=== PATIENT | female | born 1965 | race Caucasian/White ===

== ENCOUNTER → 2017-07-08 16:02 | Outpatient (CLI) | payer OTHER, SELFPAY ==
[2017-07-08 15:02] VITALS: BP 138/80
[2017-07-08 15:38] VITALS: BMI 57.7
[2017-07-08 17:42] LABS: Anion Gap 9 (5-15); BUN 24 mg/dL (7-18); Calcium,Total 8.6 mg/dL (8.5-10.1); Chloride 100 mmol/L (98-107); EST Glomerular Filtration Rate 36 mL/min (>60); Est Glom Filt Rate - Afr Amer 44 mL/min (>60); Glucose 358 mg/dL (70-110); Potassium 3.9 mmol/L (3.5-5.1); Sodium Level 135 mmol/L (136-145)
[2017-07-08 18:02] LABS: BNP,B-Type NATRIURETIC PEPTIDE 82.1 pg/mL (0-100)
== END ==
PROVIDERS: Family Provider Nurse Practitioner; PCP Nurse Practitioner; Visit Provider Internal Medicine Cardiovascular Disease
DX: I50.9 Heart failure, unspecified (principal)
CPT/HCPCS: 36415; 80048; 83880

== ENCOUNTER → 2017-07-22 09:54 | Outpatient (CLI) | payer OTHER, SELFPAY ==
[2017-07-08 15:02] VITALS: BP 138/80
[2017-07-08 15:38] VITALS: BMI 57.7
--- NOTE | 2017-07-22 09:55 | ECHOCS_ITS ---
Version 2 Reason For Study: dyspnea/SOB Procedure This was a 2D Doppler, Color Flow transthoracic echocardiogram. The study was technically difficult. Due to body habitus. Contrast injection was performed. Exam performed in department. Left Ventricle Normal LV size. The estimated ejection fraction is 55 %. No evidence for diastolic dysfunction. No regional wall motion abnormalities noted. Right Ventricle Normal RV size. Normal systolic function. Atria The left atrium is mildly enlarged. Normal right atrium. Mitral Valve Normal mitral valve. Tricuspid Valve Normal tricuspid valve. Mild tricuspid valve insufficiency. Pulmonary artery systolic pressure is 24 mmHg. Aortic Valve The aortic valve is not well visualized. Pulmonic Valve The pulmonic valve is not well visualized. Great Vessels Normal aortic root. The pulmonary artery is normal size. Normal inferior vena cava. Pericardium/Pleural No pericardial effusion. Medication 22 gauge I.V. with prn adaptor inserted into right arm. Diluted definity 1.5ml given slow IV push to enhance endocardial definition. MMode/2D Measurements & Calculations LVIDd: 5.9 cm IVSd: 1.4 cm Ao root diam: 2.9 cm LVIDs: 4.5 cm LVPWd: 1.2 cm LA dimension: 4.5 cm RVDd: 3.4 cm FS: 23.5 % LAV(MOD-bp): 80.0 ml LAV(MOD-bp) Indexed: 31.3 ml/m2 LA A4 area: 24.1 cm2 RA A4 area: 16.8 cm2 LAV(MOD-sp2): 77.9 ml LAV(MOD-sp4): 72.4 ml Doppler Measurements & Calculations MV E max yessi: 131.9 cm/sec Ao V2 max: 138.2 cm/sec LV V1 max: 103.5 cm/sec MV A max yessi: 39.3 cm/sec Ao max P.6 mmHg LV V1 max P.3 mmHg MV E/A: 3.4 PA V2 max: 118.3 cm/sec TR max yessi: 215.3 cm/sec TR max P.5 mmHg Interpretation Summary Normal LV size. The estimated ejection fraction is 55 %. No regional wall motion abnormalities noted. Mild tricuspid valve insufficiency. No evidence for diastolic dysfunction. Contrast injection was performed. Ordering Physician: Hema Faustin Referring Physician: Hema Faustin Performed By: Teena Betancur, RDCS, RVT
== END ==
PROVIDERS: Family Provider Nurse Practitioner; PCP Nurse Practitioner; Visit Provider Internal Medicine Cardiovascular Disease
DX: I50.9 Heart failure, unspecified (principal); R06.00 Dyspnea, unspecified; R06.02 Shortness of breath
CPT/HCPCS: 93306; Q9957; A4216; C8929

== ENCOUNTER → 2017-08-03 12:36 | Outpatient (CLI) | payer OTHER, SELFPAY ==
[2017-07-08 15:02] VITALS: BP 138/80
[2017-07-08 15:38] VITALS: BMI 57.7
--- NOTE | 2017-08-03 12:37 | STE_ITS ---
Reason For Study: DYSPNEA/SOB Stress Results Protocol: Dobutamine Protocol Maximum Predicted HR: 169 bpm Target HR: 144 bpm% Maximum Predicted HR: 81 % DurationHeart Rate Stage (mm:ss) (bpm) BPDose Comment BASELINE 100 166/9 5 0.1 ML DEFINITY STAGE 1 3:34 10 7 142/03774.000.1 ML STAGE 2 3:00 12 0 183/8320.00 STAGE 3 3:00 12 7 190/7330.000.25 MG ATROPINE STAGE 4 3:00 13 7 162/6740.000.25 MG ATROPINE/ 0.2 ML DEFINITY RECOVERY 106 149/7 5 0.3 ML DEFINITY Stress Duration: 12:34 mm:ss Maximum Stress HR: 137 bpm Baseline Echocardiogram Findings Stress Echo Wall motion Data Resting WMIntermediate WMStress WM Resting Wall Motion Wall Motion Stress Ejection Fraction 45 %. No regional wall motion Mid-anteroseptal : Hypokinetic. abnormalities noted. Ejection Fraction 65 %. Stress Results Drug infusion was stopped due to achievement of target heart rate. EKG Data Baseline ECG demonstrates normal sinus rhythm with a rate of 104 beats per minute. Normal intervals are noted. The resting blood pressure was 166/95. The patient was titrated from 10 mcg to a maximum of 40 mcg of dobutamine during the stress. The maximum heart rate attained was 139 beats per minute. This was 82% of maximum predicted heart rate. During dobutamine infusion, there were no ST or T wave changes noted to suggest ischemia. At peak infusion, upsloping ST changes only were noted, which did not meet the criteria for ischemia. The peak blood pressure was 192/96. Interpretation Summary Reduced resting LV systolic function estimated 45%. Nonstenotic valves. With stress, the LV size decreased and all segments augmented normally. The LVEF increased from 45% to 65%. Patient required atropine for augmentation of herat rate. Good BP response to dobutamine.Test terminated due to target heart rate attained. Negative for ischemia at 82% of MPHR and at 1 METS. Normal dobuatmine stress test Ordering Physician: Hema Faustin Referring Physician: Hema Faustin Performed By: Christina Palma MERY
== END ==
PROVIDERS: Family Provider Nurse Practitioner; PCP Nurse Practitioner; Visit Provider Internal Medicine Cardiovascular Disease
DX: R06.00 Dyspnea, unspecified (principal); R06.02 Shortness of breath
CPT/HCPCS: 93017; 93350; J7030; Q9957; A4216; C8928

== ENCOUNTER → 2018-02-16 14:15 | Outpatient (CLI) | payer OTHER, SELFPAY ==
[2018-02-16 15:01] LABS: Anion Gap 8 (5-15); BUN 25 mg/dL (7-18); Calcium,Total 8.9 mg/dL (8.5-10.1); Chloride 102 mmol/L (98-107); Creatinine, Serum 1.79 mg/dL (0.55-1.02); EST Glomerular Filtration Rate 32 mL/min (>60); Est Glom Filt Rate - Afr Amer 38 mL/min (>60); Glucose 164 mg/dL (74-106); Potassium 3.5 mmol/L (3.5-5.1); Sodium Level 139 mmol/L (136-145)
== END ==
PROVIDERS: Family Provider Nurse Practitioner; PCP Nurse Practitioner; Visit Provider Nurse Practitioner Family
DX: R06.00 Dyspnea, unspecified (principal); I50.9 Heart failure, unspecified
CPT/HCPCS: 36415; 80048

== ENCOUNTER → 2018-05-17 22:44 | Outpatient (CLI) | payer OTHER, SELFPAY ==
[2018-04-27 17:33] VITALS: BMI 60.5
[2018-05-17 22:59] LABS: Hematocrit 37.3 % (37-47); Hemoglobin 11.7 g/dl (12.0-15.0); Mean Corp Hgb Conc 31.4 g/gl (32-36); Mean Corpuscular Hgb 26.4 pg (27.0-32.0); Mean Corpuscular Volume 84.2 fL (81-99); Mean Platelet Vol. 10.3 fl (6.2-12.0); Platelet Count 276 K/mm3 (150-450); RBC Distribution Width CV 16.2 % (11.6-14.6); RBC Distribution Width SD 49.2 fl (35.1-43.9); Red Blood Count 4.43 M/mm3 (4.2-5.4); White Blood Count 8.7 K/mm3 (4.4-11.0)
[2018-05-17 23:15] LABS: ALB/GLOB Ratio 0.6 RATIO (0.9-2.4); AST(SGOT) 22 U/L (15-37); Alanine Aminotransfer ALT/SGPT 26 U/L (13-56); Alkaline Phosphatase 195 U/L (45-117); Anion Gap 7 (5-15); BUN 22 mg/dL (7-18); BUN/Creat Ratio 13.5 RATIO (10-20); Calcium,Total 8.4 mg/dL (8.5-10.1); Chloride 104 mmol/L (98-107); Cholesterol 184 mg/dL (200); Creatinine, Serum 1.63 mg/dL (0.55-1.02); EST Glomerular Filtration Rate 35 mL/min (>60); Est Glom Filt Rate - Afr Amer 43 mL/min (>60); Glucose 138 mg/dL (74-106); High Density Lipoprotein 30 mg/dL; Sodium Level 138 mmol/L (136-145); Thyroid Stim Hormone (TSH) 2.56 uIU/mL (0.358-3.74); Triglycerides 150 mg/dL; Very Low Density Lipoprotein 30 mg/dL (5-40)
[2018-05-17 23:38] LABS: Differential Indicated MANUAL DIFF; POSITIVE COUNT NO; POSITIVE DIFFERENTIAL NO; POSITIVE MORPHOLOGY YES
[2018-05-17 23:42] LABS: Basophil 2 % (0-1); Eosinophil 1 % (0-5); Lymphocyte 26 % (19-41); Monocyte 8 % (0-10); Neutrophil-Segmented 63 % (47-70); Total Cells Counted 100 (MANUAL DIFF)
[2018-05-17 23:49] LABS: Absolute Neutrophil Count 5.5 X10^3/uL (2.0-7.7)
[2018-05-17 23:50] LABS: Absolute Lymphocyte Count 2.27 X10^3/ul (0.83-4.51)
[2018-05-19 09:49] LABS: Pathologist Review Reviewed
--- OUTSIDE RECORDS SUMMARY | 2018-07-04 03:41 | XMS RPT_ITS ---
:1965 Author Organization [place] Support Name Relationship Address Phone [employer] Unavailable [address] + [place] [address] ARIK UGALDE Unavailable [address] + [place] [address] [employer] Unavailable [address] + [place] [address] ARIK UGALDE Unavailable [address] + [place] [address] [employer] Unavailable [address] + [place] [address] ARIK UGALDE Unavailable [address] + [place] [address] [employer] Unavailable [address] + [place] [address] ARIK UGALDE Unavailable [address] + [place] [address] [employer] Unavailable [address] + [place] [address] ARIK UGALDE Unavailable [address] + [place] [address] [employer] Unavailable [address] + [place] [address] ARIK UGALDE Unavailable [address] + [place] [address] [employer] Unavailable [address] + [place] [address] ARIK UGALDE Unavailable [address] + [place] [address] [employer] Unavailable [address] [facility] + [place] [address] ARIK UGALDE Unavailable [address] + [place] [address] [facility] [employer] Unavailable [address] [facility] + [place] [address] ARIK UGALDE Unavailable [address] + [place] [address] [facility] Un[facility] [address] + [place] [address] ARIK UGALDE Unavailable [address] + [place] [address] [employer] Unavailable [address] [facility] + [place] [address] ARIK UGALDE Unavailable [address] + [place] [address] [facility] | mentor | invest Unavailable [address] [facility] + [place] [address] ARIK UGALDE Unavailable [address] + [place] [address] Care Team Providers Name Role Phone Haywood, Nithya [employer]UEPRINT DUPLICATOR-C Attending Unavailable Haywood, Nithya BLUEPRINT DUPLICATOR-C Primary Care Unavailable Haywood, Nithya BLUEPRINT DUPLICATOR-C Referring Unavailable Ramin, Hema Attending Unavailable Ramin, Hema Referring Unavailable Haywood, Nithya BLUEPRINT DUPLICATOR-C Primary Care Unavailable Rogelio Arguelles Attending Unavailable Haywood, Nithya BLUEPRINT DUPLICATOR-C Referring Unavailable Ramin, [place] Attending Unavailable Haywood, Nithya BLUEPRINT DUPLICATOR-C Referring Unavailable Haywood, Nithya BLUEPRINT DUPLICATOR-C Primary Care Unavailable Ramin, [place] Attending Unavailable Haywood, Nithya BLUEPRINT DUPLICATOR-C Referring Unavailable Ramin, [place] Attending Unavailable Ramin, Hema Referring Unavailable Haywood, Nithya BLUEPRINT DUPLICATOR-C Primary Care Unavailable Rogelio Arguelles Attending Unavailable Rogelio Arguelles Referring Unavailable Haywood, Nithya BLUEPRINT DUPLICATOR-C Primary Care Unavailable Ramin, [place] Attending Unavailable Haywood, Nithya BLUEPRINT DUPLICATOR-C Referring Unavailable Haywood, Nithya BLUEPRINT DUPLICATOR-C Primary Care Unavailable Rogelio Arguelles Attending Unavailable Haywood, Nithya BLUEPRINT DUPLICATOR-C Referring Unavailable Haywood, Nithya BLUEPRINT DUPLICATOR-C Primary Care Unavailable Ramin, Hema Attending Unavailable Ramin, Hema Attending Unavailable Ramin, Hema Attending Unavailable Ramin, [place] Referring Unavailable Nithya Haywood BLUEPRINT DUPLICATOR-C Primary Care Unavailable PROBLEMS PROBLEMS DATE TYPE CONDITION / CODE ATTENDING STATUS SOURCE 05/18/2018 Unknown E03.9 - Haywood, Active [facility] Hypothyroidism, Nithya BLUEPRINT DUPLICATOR-C Community unspecified / Hospital E03.9(ICD-10) Repository 03/25/2018 Unknown I50.32 - Chronic Ramin, Hema Active [facility] diastolic Community (congestive) heart Hospital failure / Repository I50.32(ICD-10) 03/25/2018 Unknown I10 - Essential Ramin, Hema Active [facility] (primary) Community hypertension / Hospital I10(ICD-10) Repository 12/08/2017 Unknown I50.9 - Heart Ramin, Hema Active [facility] failure, Community unspecified / Hospital I50.9(ICD-10) Repository 12/02/2017 Unknown R06.00 - Dyspnea, Rogelio Arguelles Active [facility] unspecified / Community R06.00(ICD-10) Hospital Repository 12/02/2017 Unknown N18.9 - Chronic Rogelio Arguelles Active [facility] kidney disease, Community unspecified / Hospital N18.9(ICD-10) Repository PROCEDURES PROCEDURES No Procedure Records FoundRESULTS RESULTS COMPREHENSIVE METABOLIC Collected: 05/17/2018 Status: F Source: [facility] TYPE CODE TESTS RESULT OUT OF RANGE REFERENCE UNITS LAB L501.0100 74-106 mg/dL High GLU 138 Result Comment: Fasting Glucose result greater than or equal to 126 mg/dL suggests DIABETES MELLITUS per A.D.A. criteria. Please note revised GLUCOSE reference range effective 2017. LAB L501.1000 7-18 mg/dL High BUN 22 LAB L501.1100 0.55-1.02 mg/dL High CREAT,SERUM 1.63 Result Comment: The validity of the calculated GFR AND GFRAA in patients over 70 years has not been determined. Clinical correlation is essential. LAB L501.1110 >60 mL/min Low EST GFR 35 Result Comment: Non- GFR Calc LAB L501.1115 >60 mL/min Low EST GFR - AA 43 Result Comment: GFR Calc LAB L501.1300 10-20 RATIO Normal BUN/CRE 13.5 LAB L501.1500 6.4-8.2 g/dL T Normal PROT 8.0 LAB L501.1800 3.2-5.0 g/dL Low ALB 3.0 LAB L501.1950 2.2-4.2 g/dL High GLOB 5.0 LAB L501.2000 0.9-2.4 RATIO Low A/G 0.6 LAB L501.2200 8.5-10.1 mg/dL Low CA 8.4 LAB L501.4100 15-37 U/L Normal AST 22 LAB L501.4305 45-117 U/L High ALK P 195 LAB L501.4405 13-56 U/L Normal ALT 26 LAB L501.4600 0.20-1.00 mg/dL T Normal BILI 0.40 LAB L501.5300 136-145 mmol/L NA Normal 138 LAB L501.5600 3.5-5.1 mmol/L K Normal 4.0 LAB L501.5900 98-107 mmol/L CL Normal 104 LAB L501.6100 21.0-32.0 mmol/L Normal CO2 27.0 LAB L501.6200 5-15 Normal GAP 7 Performed By: #### L500.4050, L500.4100, L501.9520 #### [facility] [address] [place], [address] LIPID PROFILE Collected: 05/17/2018 Status: F Source: [facility] 6:30 PM [facility] REPOSITORY TYPE CODE TESTS RESULT OUT OF RANGE REFERENCE UNITS LAB L501.4900 200 mg/dL Normal CHOL 184 Result Comment: <200 mg/dL Desirable 200-240 mg/dL Borderline >240 mg/dL High Risk LAB L501.5000 mg/dL Normal TRIG 150 Result Comment: The drugs N-Acetylcysteine and Metamizole may falsely depress this assay. Serum Triglycerides Reference Interval Normal <150 mg/dL Borderline high 150 - 199 mg/dL High 200 - 499 mg/dL Very High > or = 500 mg/dL LAB L501.6400 mg/dL Low HDL 30 Result Comment: The drugs N-Acetylcysteine and Metamizole may falsely depress this assay. Reference Range HDL <40 mg/dL Low HDL Cholesterol HDL >or= 60 mg/dL High HDL Cholesterol LAB L501.6500 0-130 mg/dL Normal LDL 124 LAB L501.6600 5-40 mg/dL Normal VLDL 30 Performed By: #### L500.4050, L500.4100, L501.9520 #### [facility] [address] [place], [place], [address] THYROID STIM HORMONE Collected: 05/17/2018 Status: F Source: [facility] (TSH) 6:30 PM [facility] REPOSITORY TYPE CODE TESTS RESULT OUT OF RANGE REFERENCE UNITS LAB L501.9520 0.358-3.74 uIU/mL Normal TSH 2.56 Performed By: #### L500.4050, L500.4100, L501.9520 #### [facility] [address] [place], [address] CBC W/DIFF, AUTOMATED Collected: 05/17/2018 Status: C Source: [place] 6:30 PM [facility] REPOSITORY TYPE CODE TESTS RESULT OUT OF RANGE REFERENCE UNITS LAB L100.1000 4.4-11.0 K/mm3 Normal WBC 8.7 LAB L100.1200 4.2-5.4 M/mm3 Normal RBC 4.43 LAB L100.1300 12.0-15.0 g/dl Low HGB 11.7 LAB L100.1400 37-47 % Normal HCT 37.3 LAB L100.1500 81-99 fL Normal MCV 84.2 LAB L100.1600 27.0-32.0 pg Low MCH 26.4 LAB L100.1700 32-36 g/gl Low MCHC 31.4 LAB L100.1810 11.6-14.6 % High RDW CV 16.2 LAB L100.1820 35.1-43.9 fl High RDW SD 49.2 LAB L100.1900 150-450 K/mm3 Normal PLT 276 LAB L100.2000 6.2-12.0 fl Normal MPV 10.3 LAB L100.3100 MANUAL DIFF Normal CELLS COUNTED 100 LAB L100.3200 47-70 % 63 Normal SEGS LAB L100.3800 19-41 % 26 Normal LYMPH LAB L100.3900 0-10 % 8 Normal MONOCYTE LAB L100.4000 0-5 % 1 Normal EOS LAB L100.4100 0-1 % High 2 BASOPHIL LAB L100.2620 2.0-7.7 X10 3/uL Normal Absolute Neut 5.5 LAB L100.2720 0.83-4.51 X10 3/ul Normal Absolute Lymph 2.27 LAB L100.9900 Normal PATH REV Reviewed Result Comment: AMENDED REPORT 05/19/18 0949 PATH REV previously reported as: October casper Performed By: #### L100.0100 #### [facility] [address] [place], [address] OFFICE VISIT Observed: 04/28/2018 Status: F Source: [place] 1:26 PM [facility] REPOSITORY After Hours [facility] [address] [place] [address] OFFICE VISIT Date of Service: 04/27/18 MR#: [id number] Acct: [id number] Name: DAKOTAH UGALDE Rep #: [id number] : 1965 Provider: INDY Haywood Age/Sex: 52/F Location: [facility] Status: Signed Intake Vital Signs04/27/18 Height 5 ft 6 in 04/27/18 Weight: 375 lb 04/27/18 Body Mass Index (BMI) 60.5 Intake Visit Reasons: NOT BETTER SINCE LAST VISIT, RASH-ALLERGIC REACTIO Accompanied by: self Is patient in pain?: No Allergies levofloxacin Allergy (Severe, Verified 04/27/18 17:46) hives [employer]STANTS Adverse Reaction (Uncoded 07/08/17 15:00) Other Medications Insulin Aspart [Novolog Flexpen (BKC)] 26 units SC TIDCM 06/04/17 [History Confirmed 03/25/18] lactobacillus combination no.4 3 billion cell capsule 3,000 mmu cells PO QDAY 07/08/17 [History Confirmed 03/25/18] loratadine 10 mg tablet 10 mg PO QDAY 07/08/17 [History Confirmed 03/25/18] calcipotriene 0.005 %-betamethasone 0.064 % topical foam 1 applic TOPICAL QDAY 12/02/17 [History Confirmed 03/25/18] levothyroxine 100 mcg tablet 100 mcg PO QDAY 12/02/17 [History Confirmed 03/25/18] losartan 50 mg tablet 50 mg PO DAILY #90 tab 03/25/18 [Rx Confirmed 03/25/18] furosemide 40 mg tablet 40 mg PO DAILY tab 03/30/18 [History Confirmed 03/30/18] insulin detemir (U- 100) 100 unit/mL subcutaneous solution 75 unit SC QPM ml 03/30/18 [History Confirmed 03/30/18] venlafaxine ER 150 mg capsule,extended release 24 hr 150 mg PO DAILY #14 cap 03/30/18 [Rx Confirmed 03/30/18] venlafaxine ER 150 mg capsule,extended release 24 hr 150 mg PO DAILY #90 cap 03/30/18 [Rx Confirmed 03/30/18] albuterol sulfate 2.5 mg/3 mL (0.083 %) solution for nebulization 2.5 mg INHALATION Q4H PRN #75 ml 04/09/18 [Rx Confirmed 04/09/18] albuterol sulfate HFA 90 mcg/actuation aerosol inhaler 2 puff INHALATION Q4H PRN #8.5 g 04/15/18 [Rx Confirmed 04/15/18] levofloxacin 500 mg tablet 500 mg PO DAILY #10 tab 04/15/18 [Rx Confirmed 04/15/18] prednisone 20 mg tablet 20 mg PO BID #14 tab 04/15/18 [Rx Confirmed 04/15/18] cefuroxime axetil 500 mg tablet 500 mg PO Q12H 10 Days #20 tab 04/27/18 [Rx Confirmed 04/27/18] prednisone 10 mg tablet 20 mg PO DAILY 7 Days #14 tab 04/27/18 [Rx Confirmed 04/27/18] PFSH Medical History Morbid obesity (Chronic) Nicotine dependence (Chronic) Congestive heart failure (Chronic) Dyspnea (Acute) Ankle fracture (Acute) Hysteroscopy Uterus (Acute) Anxiety (Chronic) Obstructive sleep apnea (Chronic) Type 2 diabetes mellitus without complications (Chronic) Surgical History History of (Chronic) History of carpal tunnel surgery (Chronic) History of tonsillectomy (Chronic) History of total abdominal hysterectomy (Chronic) Hx of cholecystectomy (Chronic) left ankle surgery (Chronic) Family History Other Angina at rest Heart disease Hypertension Lung cancer Social History Smoking Status: Current every day smoker alcohol intake: current HPI HPI (General) HPI HPI: DAKOTAH UGALDE, is a 52 F who presents to the office today for still having issues withthe congestion ad terrible cough also broke out in the hives after finishing the antibiotics . ROS Const Constitutional: Positive for chills, fatigue and headache(s) ENT ENT: Positive for ear pain, dizziness/vertigo, nasal congestion, sinus pressure, post nasal drip and headache(s) Resp Respiratory: Positive for cough (yellow brownish ) Cough: Yes productive Cardio Cardiology: Positive for lightheadedness Gastro GI: Yes nausea/dyspepsia Neuro Neurology: Positive for headache(s) Endo Endo: Yes fatigue Exam Const Constitutional: Yes cooperative, Yes healthy appearing Orientation: Yes alert, awake and oriented x3 HENMT Head: Yes normocephalic Ear: Yes hearing grossly normal bilaterally Neck Neck: normal visual inspection Thyroid: thyroid normal Eyes General: Yes appearance normal, both eyes and all related structures Chest Chest palpation AND inspection: Yes normal inspection of the chest Resp Effort AND Inspection: Yes normal respiratory effort Auscultation: Yes clear to auscultation bilaterally Cardio Palpitation: Yes normal PMI Rate: Yes regular rate Rhythm: Yes regular rhythm GI Inspection: Yes normal to inspection Auscultation: Yes normal bowel sounds Musc Cervical Spine: Yes cervical ROM normal Thoracic/Lumbar Spine: Yes thoracic and lumbar spine normal to inspection Skin General: no rashes or lesions noted Lesions: Yes no lesions Extrem General: Yes normal to inspection Neuro General: Yes alert and oriented x3 Psych Appearance: Positive grossly normal Mood: Positive congruent mood Affect: Positive normal affect Assessment AND Plan Problems 1. Acute recurrent maxillary sinusitis J01.01 2. Adverse effect of 4-quinolone, initial encounter T37.8X5A Patient Instructions Take the new antibiotics till gone may take the zyrtec 10 mg orally 2 x a day for 5 days then once a day for the hives push the fluids Medications New: Coding Level of Care Code Off vis,est,level 3 Diagnoses Acute recurrent maxillary sinusitis J01.01 Chronicity: acute Recurrence: recurrent Adverse effect of 4-quinolone, initial encounter T37.8X5A Encounter type: initial encounter 04/28/18 [id number] <Electronically signed by Nithya MARQUEZ> Date Nithya MARQUEZ CC: OFFICE VISIT Observed: 04/16/2018 Status: F Source: [facility] 2:03 PM [facility] REPOSITORY After Hours [facility] [address] [place] [address] OFFICE VISIT Date of Service: 04/15/18 MR#: [id number] Acct: [id number] Name: DAKOTAH UGALDE Rep #: [id number] : 1965 Provider: INDY Haywood Age/Sex: 52/F Location: [facility] Status: Signed Intake Vital Signs04/15/18 Height 5 ft 6 in 04/15/18 Weight: 388 lb Intake Visit Reasons: NOT GETTING ANY BETTER Allergies DECONGESTANTS Adverse Reaction (Uncoded 07/08/17 15:00) Other Medications Insulin Aspart [Novolog Flexpen (BKC)] 26 units SC TIDCM 06/04/17 [History Confirmed 03/25/18] lactobacillus combination no.4 3 billion cell capsule 3,000 mmu cells PO QDAY 07/08/17 [History Confirmed 03/25/18] loratadine 10 mg tablet 10 mg PO QDAY 07/08/17 [History Confirmed 03/25/18] calcipotriene 0.005 %-betamethasone 0.064 % topical foam 1 applic TOPICAL QDAY 12/02/17 [History Confirmed 03/25/18] levothyroxine 100 mcg tablet 100 mcg PO QDAY 12/02/17 [History Confirmed 03/25/18] losartan 50 mg tablet 50 mg PO DAILY #90 tab 03/25/18 [Rx Confirmed 03/25/18] furosemide 40 mg tablet 40 mg PO DAILY tab 03/30/18 [History Confirmed 03/30/18] insulin detemir (U- 100) 100 unit/mL subcutaneous solution 75 unit SC QPM ml 03/30/18 [History Confirmed 03/30/18] venlafaxine ER 150 mg capsule,extended release 24 hr 150 mg PO DAILY #14 cap 03/30/18 [Rx Confirmed 03/30/18] venlafaxine ER 150 mg capsule,extended release 24 hr 150 mg PO DAILY #90 cap 03/30/18 [Rx Confirmed 03/30/18] albuterol sulfate 2.5 mg/3 mL (0.083 %) solution for nebulization 2.5 mg INHALATION Q4H PRN #75 ml 04/09/18 [Rx Confirmed 04/09/18] albuterol sulfate HFA 90 mcg/actuation aerosol inhaler 2 puff INHALATION Q4H PRN #8.5 g 04/15/18 [Rx Confirmed 04/15/18] levofloxacin 500 mg tablet 500 mg PO DAILY #10 tab 04/15/18 [Rx Confirmed 04/15/18] prednisone 20 mg tablet 20 mg PO BID #14 tab 04/15/18 [Rx Confirmed 04/15/18] PFSH Medical History Morbid obesity (Chronic) Nicotine dependence (Chronic) Congestive heart failure (Chronic) Dyspnea (Acute) Ankle fracture (Acute) Hysteroscopy Uterus (Acute) Anxiety (Chronic) Obstructive sleep apnea (Chronic) Type 2 diabetes mellitus without complications (Chronic) Surgical History History of (Chronic) History of carpal tunnel surgery (Chronic) History of tonsillectomy (Chronic) History of total abdominal hysterectomy (Chronic) Hx of cholecystectomy (Chronic) left ankle surgery (Chronic) Family History Other Angina at rest Heart disease Hypertension Lung cancer Social History Smoking Status: Current every day smoker alcohol intake: current HPI HPI (General) HPI HPI: DAKOTAH UGALDE, is a 52 F who presents to the office today for worsening symptoms .Was getting better on the antibiotics in the beginning still has 2 more days of it left .But started wheezing again and has been taking her nebulizer machine to work to take treatments ROS Const Constitutional: Positive for body ache, decreased energy, fatigue, fever(s) and anorexia ENT ENT: Positive for nasal congestion, post nasal drip, facial pain, sinus pressure, dental pain, hoarseness and sore throat Resp Respiratory: Positive for cough Cough: Yes productive (yellow) and stridor Cardio Cardiology: Positive for shortness of breath and dyspnea on exertion Endo Endo: Yes fatigue Exam Const Constitutional: Yes cooperative, Yes healthy appearing Orientation: Yes alert, awake and oriented x3 HENMT Head: Yes normocephalic Ear: Yes hearing grossly normal bilaterally Neck Neck: normal visual inspection Thyroid: thyroid normal Eyes General: Yes appearance normal, both eyes and all related structures Chest Chest palpation AND inspection: Yes normal inspection of the chest Resp Effort AND Inspection: Yes abnormal respiratory pattern, cough and stridor Auscultation: Yes wheezes (more on the R) and diminished lung sounds Cardio Palpitation: Yes normal PMI Rate: Yes regular rate Rhythm: Yes regular rhythm GI Inspection: Yes normal to inspection Auscultation: Yes normal bowel sounds Musc Cervical Spine: Yes cervical ROM normal Thoracic/Lumbar Spine: Yes thoracic and lumbar spine normal to inspection Skin General: no rashes or lesions noted Lesions: Yes no lesions Extrem General: Yes normal to inspection Neuro General: Yes alert and oriented x3 Psych Appearance: Positive grossly normal Mood: Positive congruent mood Affect: Positive normal affect Assessment AND Plan Problems 1. Laryngitis J04.0 2. Severe persistent asthmatic bronchitis without complication J45.50 Patient Instructions Us the symbicort 80 1 puff 2 x a day for till gone Take the new antibiotics till gone Continue using your nebulizer and rescue inhaler every 4 hrs as needed for SOB and cough at work follow up Sun if not improving with a chest x-ray Medications New: albuterol sulfate HFA 90 mcg/actuation (ProAi2 puffs Inhalation Q4H PRN 8.5 grams 8RF bro r HFA) nchospasm Refilled: Discontinued: Coding Level of Care Code Off vis,est,level 3 Diagnoses Laryngitis J04.0 Severe persistent asthmatic bronchitis without complication J45.50 Asthma complication type: uncomplicated Asthma persistence: persistent Asthma severity: severe 04/16/18 1403 <Electronically signed by Nithya MARQUEZ> Date Nithya MARQUEZ CC: OFFICE VISIT Observed: 04/09/2018 Status: F Source: [facility] 6:35 PM [facility] REPOSITORY After [facility] [address] [place] [address] OFFICE VISIT Date of Service: 04/09/18 MR#: [id number] Acct: [id number] Name: DAKOTAH UGALDE Rep #: [id number] : 1965 Provider: INDY Haywood Age/Sex: 52/F Location: [facility] Status: Signed Intake Vital Signs04/09/18 Height 5 ft 6 in 04/09/18 Weight: 388 lb Intake Visit Reasons: COLD, WHEEZING Allergies DECONGESTANTS Adverse Reaction (Uncoded 07/08/17 15:00) Other Medications Insulin Aspart [Novolog Flexpen (BKC)] 26 units SC TIDCM 06/04/17 [History Confirmed 03/25/18] lactobacillus combination no.4 3 billion cell capsule 3,000 mmu cells PO QDAY 07/08/17 [History Confirmed 03/25/18] loratadine 10 mg tablet 10 mg PO QDAY 07/08/17 [History Confirmed 03/25/18] calcipotriene 0.005 %-betamethasone 0.064 % topical foam 1 applic TOPICAL QDAY 12/02/17 [History Confirmed 03/25/18] levothyroxine 100 mcg tablet 100 mcg PO QDAY 12/02/17 [History Confirmed 03/25/18] losartan 50 mg tablet 50 mg PO DAILY #90 tab 03/25/18 [Rx Confirmed 03/25/18] furosemide 40 mg tablet 40 mg PO DAILY tab 03/30/18 [History Confirmed 03/30/18] insulin detemir (U- 100) 100 unit/mL subcutaneous solution 75 unit SC QPM ml 03/30/18 [History Confirmed 03/30/18] venlafaxine ER 150 mg capsule,extended release 24 hr 150 mg PO DAILY #14 cap 03/30/18 [Rx Confirmed 03/30/18] venlafaxine ER 150 mg capsule,extended release 24 hr 150 mg PO DAILY #90 cap 03/30/18 [Rx Confirmed 03/30/18] albuterol sulfate 2.5 mg/3 mL (0.083 %) solution for nebulization 2.5 mg INHALATION Q4H PRN #75 ml 04/09/18 [Rx Confirmed 04/09/18] clarithromycin 500 mg tablet 500 mg PO BID #20 tab 04/09/18 [Rx Confirmed 04/09/18] prednisone 20 mg tablet 20 mg PO BID #14 tab 04/09/18 [Rx Confirmed 04/09/18] PFSH Medical History Morbid obesity (Chronic) Nicotine dependence (Chronic) Congestive heart failure (Chronic) Dyspnea (Acute) Ankle fracture (Acute) Hysteroscopy Uterus (Acute) Anxiety (Chronic) Obstructive sleep apnea (Chronic) Type 2 diabetes mellitus without complications (Chronic) Surgical History History of (Chronic) History of carpal tunnel surgery (Chronic) History of tonsillectomy (Chronic) History of total abdominal hysterectomy (Chronic) Hx of cholecystectomy (Chronic) left ankle surgery (Chronic) Family History Other Angina at rest Heart disease Hypertension Lung cancer Social History Smoking Status: Current every day smoker alcohol intake: current HPI HPI (General) HPI HPI: DAKOTAH UGALDE, is a 52 F who presents to the office today for unablae to breath while walking. Started a little bit on Mon runny nose adn ST then on sneezing by Thu was all in her sinuses and no energy and severe pain .Blowing out yellow . The cough developed Thurs and unable to breath or very short of breath . Off since Thu . Exam Const Constitutional: Yes ill appearing, Yes acute distress, Yes cooperative Nutritional Appearance: Yes underweight and obese Orientation: Yes alert, awake and oriented x3 HENMT Head: Yes normocephalic Ear: Yes hearing grossly normal bilaterally TM-Right: normal TM-Left: normal Throat: Yes redness, Yes swollen Neck Neck: normal visual inspection Thyroid: thyroid normal Eyes General: Yes appearance normal, both eyes and all related structures Chest Chest palpation AND inspection: Yes normal inspection of the chest Resp Effort AND Inspection: Yes audible wheezes, cough and labored Auscultation: Yes wheezes (inspiratory and expiratory) Cardio Palpitation: Yes normal PMI Rate: Yes regular rate Rhythm: Yes regular rhythm GI Inspection: Yes normal to inspection Auscultation: Yes normal bowel sounds Musc Cervical Spine: Yes cervical ROM normal Thoracic/Lumbar Spine: Yes thoracic and lumbar spine normal to inspection Skin General: no rashes or lesions noted Lesions: Yes no lesions Extrem General: Yes normal to inspection Neuro General: Yes alert and oriented x3 Psych Appearance: Positive grossly normal Mood: Positive congruent mood Affect: Positive normal affect Assessment AND Plan Problems 1. Pharyngitis J02.9 2. Asthmatic bronchitis J45.909 Patient Instructions Take the antibiotics till gone with food or after eating push the fluids use the nebulizer as needed every 4 hrs for the wheezing and cough Try robitussin DM or Delsym or Mucinex Dm and loratadine 10 mg 2 x a day for 5 -7 days follow up as needed Medications New: Coding Level of Care Code Off vis,est,level 3 Diagnoses Pharyngitis J02.9 Asthmatic bronchitis J45.909 04/09/18 1835 <Electronically signed by Nithya MARQUEZ> Date Nithya MARQUEZ CC: OFFICE VISIT Observed: 03/31/2018 Status: F Source: [place] 2:38 PM [facility] REPOSITORY After Hours [facility] [address] [place] [address] OFFICE VISIT Date of Service: 03/30/18 MR#: [id number] Acct: [id number] Name: DAKOTAH UGALDE Rep #: [id number] : 1965 Provider: INDY Haywood Age/Sex: 52/F Location: [facility] Status: Signed Intake Vital Signs03/30/18 Height 5 ft 6 in 03/30/18 Weight: 388 lb Intake Visit Reasons: MED REFILLS Allergies DECONGESTANTS Adverse Reaction (Uncoded 07/08/17 15:00) Other Medications Insulin Aspart [Novolog Flexpen (BKC)] 26 units SC TIDCM 06/04/17 [History Confirmed 03/25/18] lactobacillus combination no.4 3 billion cell capsule 3,000 mmu cells PO QDAY 07/08/17 [History Confirmed 03/25/18] loratadine 10 mg tablet 10 mg PO QDAY 07/08/17 [History Confirmed 03/25/18] calcipotriene 0.005 %-betamethasone 0.064 % topical foam 1 applic TOPICAL QDAY 12/02/17 [History Confirmed 03/25/18] levothyroxine 100 mcg tablet 100 mcg PO QDAY 12/02/17 [History Confirmed 03/25/18] losartan 50 mg tablet 50 mg PO DAILY #90 tab 03/25/18 [Rx Confirmed 03/25/18] furosemide 40 mg tablet 40 mg PO DAILY tab 03/30/18 [History Confirmed 03/30/18] insulin detemir (U- 100) 100 unit/mL subcutaneous solution 75 unit SC QPM ml 03/30/18 [History Confirmed 03/30/18] venlafaxine ER 150 mg capsule,extended release 24 hr 150 mg PO DAILY #14 cap 03/30/18 [Rx Confirmed 03/30/18] venlafaxine ER 150 mg capsule,extended release 24 hr 150 mg PO DAILY #90 cap 03/30/18 [Rx Confirmed 03/30/18] PFSH Medical History Morbid obesity (Chronic) Nicotine dependence (Chronic) Congestive heart failure (Chronic) Dyspnea (Acute) Ankle fracture (Acute) Hysteroscopy Uterus (Acute) Anxiety (Chronic) Obstructive sleep apnea (Chronic) Type 2 diabetes mellitus without complications (Chronic) Surgical History History of (Chronic) History of carpal tunnel surgery (Chronic) History of tonsillectomy (Chronic) History of total abdominal hysterectomy (Chronic) Hx of cholecystectomy (Chronic) left ankle surgery (Chronic) Family History Other Angina at rest Heart disease Hypertension Lung cancer Social History Smoking Status: Current every day smoker alcohol intake: current HPI HPI (General) HPI HPI: DAKOTAH UGALDE, is a 52 F who presents to the office today for medication refill fir her effexor ROS Const Constitutional: No anorexia, body ache, chills, excessive sweating, fatigue, fever(s), frequent falls, headache(s), decreased energy, malaise, night sweats, snoring, weakness, weight change, sleep problems, abnormal sleep pattern, change in appetite or other ENT ENT: No headache(s), difficulty swallowing or neck pain Resp Respiratory: No snoring, cough, change in phlegm color, chest congestion, excessive phlegm production, hemoptysis, pain on inspiration, shortness of breath, pain with cough, stridor, wheezing or other Cardio Cardiology: No excessive sweating, chest pain at rest, chest pain with exertion, leg pain with exertion, shortness of breath, dyspnea on exertion, generalized swelling, irregular heart rhythm, lightheadedness, orthopnea, radiating jaw, neck or arm pain, fast heart rate, slow heart rate, palpitations or other Gastro GI: No other, No abdominal pain, No belching, No bloating, No change in bowel habits, No change in stool character, No coffee ground emesis, No constipation, No cramping, No diarrhea, No heartburn, No Difficulty Swallowing, No feeling full early, No excessive flatus, No incontinent of stools, No Vomiting blood/hematemesis, No Blood in stool, No loose stools, No Black,tarry stools, No nausea/dyspepsia, No pain with swallowing, No vomiting, No hemorrhoids, No rectal pain Genitourinary: No urinary frequency, difficulty urinating, burning urination, painful urination, urinary urgency or blood in urine Musc Musculoskeletal: No abnormal walking, joint pain, back pain, deformity, joint swelling, limited range of motion, loss of height, muscle cramps, muscle weakness, decreased muscle mass, body aches, neck pain, numbness, radiating pain into limb, stiffness, tingling or other Skin Skin: No acne, hair loss, change in hair, nail changes, boil, change in skin color, dry skin, redness, excessive hair growth, yellowing of the skin, lesions, itching, rash, skin pain, skin ulcer, sores, skin swelling, wounds or other Breast Breast: No other Neuro Neurology: No frequent falls, headache(s), weakness, abnormal walking, numbness or tingling Psych Psychiatric: No abnormal sleep pattern, No change in appetite, Positive for anxiety, Positive for depression Endo Endo: No excessive sweating, No fatigue Aller/Imm Allergy/Immunologic: No itchy eyes or wheezing Exam Const Constitutional: Yes cooperative, Yes healthy appearing Nutritional Appearance: Yes obese and overweight Orientation: Yes alert, awake and oriented x3 [facility] Head: Yes normocephalic Ear: Yes hearing grossly normal bilaterally Neck Neck: normal visual inspection Thyroid: thyroid normal Eyes General: Yes appearance normal, both eyes and all related structures Chest Chest palpation AND inspection: Yes normal inspection of the chest Resp Effort AND Inspection: No stridor Auscultation: Yes clear to auscultation bilaterally Cardio Palpitation: Yes normal PMI Rate: Yes regular rate Rhythm: Yes regular rhythm GI Inspection: Yes normal to inspection Auscultation: Yes normal bowel sounds Rectal Exam: No hemorrhoids Musc Cervical Spine: Yes cervical ROM normal Thoracic/Lumbar Spine: Yes thoracic and lumbar spine normal to inspection Skin General: no rashes or lesions noted Lesions: Yes no lesions Extrem General: Yes normal to inspection Neuro General: Yes alert and oriented x3 Motor: No weakness Psych Appearance: Positive grossly normal Mood: Positive congruent mood Affect: Positive normal affect Assessment AND Plan Problems 1. Major depressive disorder in full remission, unspecified whether recurrent F32.5 2. Morbid obesity E66.01 Patient Instructions Take the meds as prescirbed follow up in May for lab s Medications New: Refilled: Coding Level of Care Code Off vis,est,level 3 Diagnoses Major depressive disorder in full remission, unspecified whether recurrent F32.5 Depression Type: major depressive disorder Major depression recurrence: unspecified whether recurrent Active/Remission status: in full remission Morbid obesity E66.01 03/31/18 1438 <Electronically signed by Nithya MARQUEZ> Date Nithya MARQUEZ CC: CARDIOLOGY VISIT Observed: 03/25/2018 Status: F Source: [facility] REPORT 7:48 AM [facility] REPOSITORY [facility] [address] [place] [address] OFFICE VISIT Date of Service: 03/25/18 MR#: [id number] Acct: [id number] Name: DAKOTAH UGALDE Rep #: [id number] : 1965 Provider: Hema Faustin MD Age/Sex: 52/F Location: [facility] Status: Signed [facility] Chief Complaint: Evaluation of shortness of breath Details: DAKOTAH UGALDE, is a 52 F who presents to the office today for a cardiovascular outpatient follow-up. She has a history of chronic diastolic congestive heart failure, obesity, sleep apnea with CPAP therapy, and nicotine dependence. Patient contacted her our office stating increase in shortness of breath and lower extremity edema. Her Lasix was adjusted and symptoms did not improve. She presents today for further evaluation. Pt. denies chest, arm, jaw, or neck discomfort. Her exercise tolerance is stable. Pt. denies symptoms of palpitations, lightheadedness, dizziness, near syncope, or syncopal episodes. Pt. denies claudication issues. She denies any orthopnea or paroxysmal nocturnal dyspnea but her shortness of breath is worse with exertion. She did not tolerate the beta-kris and discontinue that. She has been taking the lower dose of the diuretic. Her physical exam demonstrates clear lung hatfield regular rate and rhythm and no pedal edema. Intake Vital Signs03/25/18 Height 5 ft 6 in 03/25/18 Weight: 383 lb 03/25/18 Body Mass Index (BMI) 61.8 03/25/18 Blood Pressure 148/92 H H 03/25/18 Blood Pressure Location Lt brachial Intake Visit Reasons: 3 M FU (pt missed -) [employer] Required: No Accompanied by: none Is patient in pain?: No Allergies DECONGESTANTS Adverse Reaction (Uncoded 07/08/17 15:00) Other Medications Insulin Aspart [Novolog Flexpen (BKC)] 26 units SC TIDCM 06/04/17 [History Confirmed 03/25/18] Venlafaxine XR [Effexor Xr] 150 mg PO DAILY 06/04/17 [History Confirmed 03/25/18] lactobacillus combination no.4 3 billion cell capsule 3,000 mmu cells PO QDAY 07/08/17 [History Confirmed 03/25/18] loratadine 10 mg tablet 10 mg PO QDAY 07/08/17 [History Confirmed 03/25/18] calcipotriene 0.005 %-betamethasone 0.064 % topical foam 1 applic TOPICAL QDAY 12/02/17 [History Confirmed 03/25/18] levothyroxine 100 mcg tablet 100 mcg PO QDAY 12/02/17 [History Confirmed 03/25/18] insulin detemir (U- 100) 100 unit/mL subcutaneous solution 80 unit SC QPM ml 02/02/18 [History Confirmed 03/25/18] furosemide 40 mg tablet 20 mg PO DAILY tab 03/25/18 [History] losartan 50 mg tablet 50 mg PO DAILY #90 tab 03/25/18 [Rx Confirmed 03/25/18] [facility] Medical History Morbid obesity (Chronic) Nicotine dependence (Chronic) Congestive heart failure (Chronic) Dyspnea (Acute) Ankle fracture (Acute) Hysteroscopy Uterus (Acute) Anxiety (Chronic) Obstructive sleep apnea (Chronic) Type 2 diabetes mellitus without complications (Chronic) Surgical History History of (Chronic) History of carpal tunnel surgery (Chronic) History of tonsillectomy (Chronic) History of total abdominal hysterectomy (Chronic) Hx of cholecystectomy (Chronic) left ankle surgery (Chronic) Family History Other Angina at rest Heart disease Hypertension Lung cancer Social History Smoking Status: Current every day smoker alcohol intake: current ROS Const Const: Negative for fatigue, weakness, night sweats, excessive sweating, frequent falls, headache(s) or daytime sleepiness Eyes Eyes: Negative for loss of peripheral vision, transient loss of vision, blind spots, double vision or blurry vision ENT ENT: Negative for headache(s), dizziness, balance problems, Nosebleed/epistaxis, tongue swelling or lip swelling Cardio Chest Pain: No Palpitations: No Edema: Bilateral Muscle aches with walking: None Resp Respiratory: Positive for SOB at rest and SOB with activity; negative for SOB orthopnea\\SOB lying down, Cough or paroxysmal nocturnal dyspnea GI GI: Negative nausea, vomiting, heartburn, black,tarry stools or bright, red blood in stools : Negative for hematuria Musc Musc: Negative for balance problems, muscle aches/ myalgia, muscle weakness or joint pain Skin Skin: Negative non-healing lesions, unusual bruising or rash Neuro Neuro: Negative for weakness, frequent falls, headache(s), double vision, dizziness, lightheadedness, orthostatic symptoms, blurry vision or lack of coordination Adonay Hematologic/Lymphatic: Negative for easy bruising or easy bleeding Endo Endo: Negative for fatigue, excessive sweating, cold intolerance, heat intolerance, increased thirst/drinking or hair loss Psych Psych: Negative for anxiety or depression Allergy Allergy/Immunology: Negative for throat swelling, Negative for tongue swelling, Negative for hives, Negative for rash, Negative for lip swelling Cardiology Exam Const Appearance: cooperative, healthy appearing, well developed, well groomed and no acute distress Nutritional Appearance: well nourished and average body habitus Orientation: alert, awake and oriented x3 Head Head: normal to inspection, normocephalic and atraumatic Ears: hearing grossly normal bilaterally and external ears normal Nose: external nose normal, nasal mucous membranes and turbinates normal, nares normal, septum normal, no nasal discharge Face and Sinus: face symmetric Mouth: oral mucosae normal, tongue normal, oropharynx normal and moist mucous membranes Teeth and gingiva: dentition normal Throat: posterior oropharynx normal, tonsils normal and uvula midline Eyes General: appearance normal, both eyes and all related structures Eyelids: eyelids normal Conjunctivae: conjunctivae normal Pupils: PERRL, normal by confrontation and accommodation normal EOM: EOM intact bilaterally Neck Neck: normal visual inspection, trachea midline and no JVD JVD: +5 Carotids: normal carotid upstroke and bounding pulses Chest Chest inspection: normal inspection of the chest, symmetric chest movement and normal respiratory effort Auscultation: Bilateral: Clear to Auscultation Cardio Palpation: normal PMI Rate: regular rate Rhythm: regular rhythm Heart sounds: S1 normal, S2 normal and normal, physiologic split S2; negative rub, gallop or murmur GI GI: normal to inspection, soft, no hepatosplenomegaly and bowel sounds present Neuro General: alert, awake, oriented x3, no focal sensory deficit, gait normal and moves all extremities Skin Skin: no rashes or lesions noted Extremities Pulses: Normal: Right Femoral Pulse, Left Femoral Pulse, Right Dorsalis Pedis Pulse, Left Dorsalis Pedis Pulse, Right Posterior Tibial Pulse, Left Posterior Tibial Pulse, Right Radial Pulse, Left Radial Pulse Lower Extremity Edema: None: Bilateral Musculoskel Musculoskeletal: No joint tenderness Psych Psychological: normal affect Assessment AND Plan 1. Chronic diastolic congestive heart failure I50.32 Plan Patient likely has diastolic heart failure with ejection fraction demonstrating EF of 55%. My recommendation is for her to continue Lasix 40 mg in a.m. I would also like us to add losartan 50 mg a day to her current regimen. Depending on her clinical findings further recommendations will be made. Her natruretic peptide was not very elevated. I am emphasizing diet, and carbohydrate limitation. 2. Hypertension I10 Plan She does have a history of hypertension. My recommendation will be to start the ARB to see whether this would improve some of her symptoms. Plan Detail Other Medications New: Follow Up 6 Months (jhr) Coding Level of Care Code Off vis,est,level 3 Diagnoses Chronic diastolic congestive heart failure I50.32 Congestive heart failure type: diastolic Congestive heart failure chronicity: chronic Hypertension I10 Coding Level of Care Code Off vis,est,level 3 Diagnoses Chronic diastolic congestive heart failure I50.32 Congestive heart failure type: diastolic Congestive heart failure chronicity: chronic Hypertension I10 03/25/18 0747 <Electronically signed by Hema Faustin MD> Date Hema Faustin MD Cosigner Signature: Date (if applicable) CC: INDY Haywood BASIC METABOLIC Collected: 02/16/2018 Status: F Source: [facility] PROFILE ([facility]) 2:19 PM [facility] REPOSITORY TYPE CODE TESTS RESULT OUT OF RANGE REFERENCE UNITS LAB L501.0100 74-106 mg/dL High GLU 164 Result Comment: Fasting Glucose result greater than or equal to 126 mg/dL suggests DIABETES MELLITUS per A.D.A. criteria. Please note revised GLUCOSE reference range effective 2017. LAB L501.1000 7-18 mg/dL High BUN 25 LAB L501.1100 0.55-1.02 mg/dL High CREAT,SERUM 1.79 Result Comment: The validity of the calculated GFR AND GFRAA in patients over 70 years has not been determined. Clinical correlation is essential. LAB L501.1110 >60 mL/min Low EST GFR 32 Result Comment: Non- GFR Calc LAB L501.1115 >60 mL/min Low EST GFR - AA 38 Result Comment: GFR Calc LAB L501.1300 10-20 RATIO Normal BUN/CRE 14.0 LAB L501.2200 8.5-10.1 mg/dL CA Normal 8.9 LAB L501.5300 136-145 mmol/L NA Normal 139 LAB L501.5600 3.5-5.1 mmol/L K Normal 3.5 LAB L501.5900 98-107 mmol/L CL Normal 102 LAB L501.6100 21.0-32.0 mmol/L Normal CO2 29.0 LAB L501.6200 5-15 Normal GAP 8 Performed By: #### L500.2500 #### [facility] [address] [place], [address] OFFICE VISIT Observed: 02/03/2018 Status: F Source: [facility] 12:52 PM [facility] REPOSITORY [facility] [address] [place] [address] OFFICE VISIT Date of Service: 02/02/18 MR#: [id number] Acct: [id number] Name: DAKOTAH UGALDE Rep #: [id number] : 1965 Provider: INDY Haywood Age/Sex: 52/F Location: [facility] Status: Signed Intake Vital Signs02/02/18 Height 5 ft 6.5 in 02/02/18 Weight: 368 lb Intake Visit Reasons: thumb pain Allergies DECONGESTANTS Adverse Reaction (Uncoded 07/08/17 15:00) Other Medications Insulin Aspart [Novolog Flexpen (BKC)] 26 units SC TIDCM 06/04/17 [History Confirmed 12/02/17] Venlafaxine XR [Effexor Xr] 150 mg PO DAILY 06/04/17 [History Confirmed 12/02/17] lactobacillus combination no.4 3 billion cell capsule 3,000 mmu cells PO QDAY 07/08/17 [History Confirmed 12/02/17] loratadine 10 mg tablet 10 mg PO QDAY 07/08/17 [History Confirmed 12/02/17] calcipotriene 0.005 %-betamethasone 0.064 % topical foam 1 applic TOPICAL QDAY 12/02/17 [History Confirmed 12/02/17] furosemide 20 mg tablet See Label Instructions PO .COMPLEX tab 12/02/17 [History] levothyroxine 100 mcg tablet 100 mcg PO QDAY 12/02/17 [History Confirmed 12/02/17] insulin detemir (U-100) 100 unit/mL subcutaneous solution 80 unit SC QPM ml 02/02/18 [History Confirmed 02/02/18] PFSH Medical History Morbid obesity (Chronic) Nicotine dependence (Chronic) Congestive heart failure (Chronic) Dyspnea (Acute) Ankle fracture (Acute) Hysteroscopy Uterus (Acute) Anxiety (Chronic) Obstructive sleep apnea (Chronic) Type 2 diabetes mellitus without complications (Chronic) Surgical History History of (Chronic) History of carpal tunnel surgery (Chronic) History of tonsillectomy (Chronic) History of total abdominal hysterectomy (Chronic) Hx of cholecystectomy (Chronic) left ankle surgery (Chronic) Family History Other Angina at rest Heart disease Hypertension Lung cancer Social History Smoking Status: Current every day smoker alcohol intake: current HPI HPI (General) HPI HPI: DAKOTAH UGALDE, is a 52 F who presents to the office today for L thumb clicking since December .Denies any trauma . She states now though starting to give her pain and sometimes has pains shooting up her L arm also . One day unable to move for a while a while then it clicked into place . ROS Const Constitutional: No anorexia, body ache, chills, excessive sweating, fatigue, fever(s), frequent falls, headache(s), decreased energy, malaise, night sweats, snoring, weakness, weight change, sleep problems, abnormal sleep pattern, change in appetite or other Eyes Eyes: No blurry vision, change in vision, double vision, discharge, dry eyes, bulging eyes, floaters, visual disturbances, eye pain, light sensitivity, spots in vision, tunnel vision or other ENT ENT: No headache(s), abnormal hearing, ear pain, ear discharge, ear pressure, hearing loss, tinnitus, dizziness/vertigo, balance problems, nosebleed/epistaxis, nasal congestion, nasal obstruction, nose pain, sinus pressure, sinus pain, nasal discharge, post nasal drip, facial pain, dental pain, dry mouth, difficulty swallowing, bad breath, hoarseness, lip swelling, mouth lesions, mouth pain, neck pain, sore throat, tongue swelling, throat swelling or other Resp Respiratory: No snoring, cough, change in phlegm color, chest congestion, excessive phlegm production, hemoptysis, pain on inspiration, shortness of breath, pain with cough, stridor, wheezing or other Cardio Cardiology: No excessive sweating, chest pain at rest, chest pain with exertion, leg pain with exertion, shortness of breath, dyspnea on exertion, generalized swelling, irregular heart rhythm, lightheadedness, orthopnea, radiating jaw, neck or arm pain, fast heart rate, slow heart rate, palpitations or other Gastro GI: No other, No Difficulty Swallowing, No abdominal pain, No belching, No bloating, No change in bowel habits, No change in stool character, No coffee ground emesis, No constipation, No cramping, No diarrhea, No heartburn, No feeling full early, No excessive flatus, No incontinent of stools, No Vomiting blood/hematemesis, No Blood in stool, No loose stools, No Black,tarry stools, No nausea/dyspepsia, No pain with swallowing, No vomiting, No hemorrhoids, No rectal pain Genitourinary: No urinary frequency, difficulty urinating, burning urination, painful urination, urinary urgency or blood in urine Musc Musculoskeletal: Positive for tingling, joint pain, joint swelling and radiating pain into limb; no neck pain, abnormal walking or numbness Skin Skin: No acne, hair loss, change in hair, nail changes, boil, change in skin color, dry skin, redness, excessive hair growth, yellowing of the skin, lesions, itching, rash, skin pain, skin ulcer, sores, skin swelling, wounds or other Breast Breast: No other Neuro Neurology: Positive for tingling; no frequent falls, headache(s), weakness, visual disturbances, abnormal hearing, abnormal walking, abnormal movements, abnormal speech, behavioral changes, confusion, unsteady gait/balance, dizziness, lack of coordination, loss of vision, memory loss, numbness, restless legs, fainting, tremor(s) or other Psych Psychiatric: No abnormal sleep pattern, No change in appetite, No behavioral changes, No confusion, No memory loss, No lack of enjoyment, No anxiety, No depression, No difficulty concentrating, No hopelessness, No irritability, No mood swings, No panic attacks, No paranoia, No Thoughts of harming yourself/Others, No hallucinations, No other Endo Endo: No excessive sweating, No fatigue, No other Aller/Imm Allergy/Immunologic: No lip swelling, tongue swelling, throat swelling, wheezing or itchy eyes Exam Const Constitutional: Yes cooperative, Yes healthy appearing Orientation: Yes alert, awake and oriented x3 HENMT Head: Yes normocephalic Ear: Yes hearing grossly normal bilaterally Neck Neck: normal visual inspection Thyroid: thyroid normal Eyes General: Yes appearance normal, both eyes and all related structures Chest Chest palpation AND inspection: Yes normal inspection of the chest Resp Effort AND Inspection: No stridor Auscultation: Yes clear to auscultation bilaterally Cardio Palpitation: Yes normal PMI Rate: Yes regular rate Rhythm: Yes regular rhythm GI Inspection: Yes normal to inspection Auscultation: Yes normal bowel sounds Rectal Exam: No hemorrhoids Musc Cervical Spine: Yes cervical ROM normal Thoracic/Lumbar Spine: Yes thoracic and lumbar spine normal to inspection Skin General: no rashes or lesions noted Lesions: Yes no lesions Extrem General: Yes normal to inspection, normal capillary refill and other (L thumb poor ROM and clicking catching ) Neuro General: Yes alert and oriented x3 Motor: No weakness Psych Appearance: Positive grossly normal Mood: Positive congruent mood Affect: Positive normal affect Assessment AND Plan Problems 1. Trigger finger of left thumb M65.312 2. Radiculopathy affecting upper extremity M54.10 02/03/18 1252 <Electronically signed by Nithya MARQUEZ> Date Nithya MARQUEZ CC: CARDIOLOGY VISIT Observed: 12/04/2017 Status: F Source: [facility] REPORT 4:13 PM [facility] REPOSITORY [facility] [address] [place] [address]. [address] [place] [address] OFFICE VISIT Date of Service: 12/02/17 MR#: [id number] Acct: [id number] Name: DAKOTAH UGALDE Rep #: [id number] : 1965 Provider: INDY Arguelles Age/Sex: 52/F Location: [facility] Status: Signed HPI HPI Details: DAKOTAH UGALDE, is a 52 F who presents to the office today for for a cardiovascular outpatient follow-up. She has a history of chronic diastolic congestive heart failure, obesity, sleep apnea with CPAP therapy, and nicotine dependence. Patient contacted her our office stating increase in shortness of breath and lower extremity edema. Her Lasix was adjusted and symptoms did not improve. She presents today for further evaluation. Pt. denies chest, arm, jaw, or neck discomfort. Her exercise tolerance is stable. Pt. denies symptoms of palpitations, lightheadedness, dizziness, near syncope, or syncopal episodes. Pt. denies claudication issues. Pt. denies orthopnea, PND, fever, chills, blood in urine, blood in stool, myalgia, or unexplainable fatigue. Patients states she noticed an gradual increase in SOB 5 days ago. This is associated with lower extremity bilateral edema and slight orthopnea. He states that her shortness of breath is well in the morning and tends to worsen during the evening. Intake Vital Signs12/02/17 Height 5 ft 6 in 12/02/17 Weight: 367 lb 12/02/17 Body Mass Index (BMI) 59.2 12/02/17 Blood Pressure 152/98 12/02/17 Blood Pressure Location Lt brachial Intake Visit Reasons: per LL, sob Television News Video Editor Required: No Accompanied by: none Is patient in pain?: No Allergies DECONGESTANTS Adverse Reaction (Uncoded 07/08/17 15:00) Other Medications Insulin Aspart [Novolog Flexpen (BKC)] 26 units SC TIDCM 06/04/17 [History Confirmed 12/02/17] Insulin Detemir [Levemir] 80 unit SQ QHS 06/04/17 [History Confirmed 12/02/17] Venlafaxine XR [Effexor Xr] 150 mg PO DAILY 06/04/17 [History Confirmed 12/02/17] lactobacillus combination no.4 3 billion cell capsule 3,000 mmu cells PO QDAY 07/08/17 [History Confirmed 12/02/17] loratadine 10 mg tablet 10 mg PO QDAY 07/08/17 [History Confirmed 12/02/17] calcipotriene 0.005 %-betamethasone 0.064 % topical foam 1 applic TOPICAL QDAY 12/02/17 [History Confirmed 12/02/17] furosemide 20 mg tablet See Label Instructions PO .COMPLEX tab 12/02/17 [History] levothyroxine 100 mcg tablet 100 mcg PO QDAY 12/02/17 [History Confirmed 12/02/17] Ejection fraction %: 55 to 59 PFSH Medical History Morbid obesity (Chronic) Nicotine dependence (Chronic) Congestive heart failure (Chronic) Dyspnea (Acute) Anxiety (Chronic) Obstructive sleep apnea (Chronic) Type 2 diabetes mellitus without complications (Chronic) Surgical History History of (Chronic) History of carpal tunnel surgery (Chronic) History of tonsillectomy (Chronic) History of total abdominal hysterectomy (Chronic) Hx of cholecystectomy (Chronic) left ankle surgery (Chronic) Social History Smoking Status: Current every day smoker alcohol intake: current ROS Const Const: Negative for fatigue, weakness, body ache, fever(s) or chills ENT ENT: Negative for dizziness Cardio Chest Pain: No Palpitations: No Edema: Bilateral Muscle aches with walking: None Resp Respiratory: Positive for SOB with activity; negative for SOB at rest, SOB orthopnea\\SOB lying down or paroxysmal nocturnal dyspnea GI GI: Negative nausea, black,tarry stools, bright, red blood in stools or vomiting blood/hematemesis : Negative for hematuria or frequent nighttime urination/ nocturia Musc Musc: Negative for muscle aches/ myalgia Skin Skin: Negative non-healing lesions or rash Neuro Neuro: Negative for weakness, dizziness, lightheadedness, near syncope, syncope or orthostatic symptoms Endo Endo: Negative for fatigue Allergy Allergy/Immunology: Negative for rash Cardiology Exam Const Appearance: cooperative, healthy appearing, comfortable and no acute distress Nutritional Appearance: obese Orientation: alert, awake and oriented x3 Head Head: normal to inspection Mouth: oral mucosae normal Neck Neck: no JVD and normal visual inspection Carotids: normal carotid upstroke Chest Chest inspection: normal inspection of the chest and normal respiratory effort Auscultation: Bilateral: Clear to Auscultation Cardio Rate: tachycardic Rhythm: regular rhythm Heart sounds: S1 normal and S2 normal; negative rub or gallop GI GI: normal to inspection and obese Neuro General: alert, awake, oriented x3 and CN's II-XI intact bilaterally Skin Skin: no rashes or lesions noted Extremities Pulses: Normal: Right Posterior Tibial Pulse, Left Posterior Tibial Pulse, Right Radial Pulse, Left Radial Pulse Lower Extremity Edema: +1: Bilateral Psych Psychological: normal affect Supplemental Info Echocardiogram from July 2017 showed an estimated ejection fraction 55%, no regional wall motion have not noted, mild tricuspid valve insufficiency, and no evidence of diastolic dysfunction. Stress echocardiogram from July 2017 was negative for stress-induced myocardial ischemia at 82% of maximum predicted heart rate. LV systolic function increased from 45-65%. Assessment AND Plan 1. Shortness of breath R06.02; R06.00; R06.01 Plan - ALMA De La Rosa Patient symptoms appear compatible with fluid volume overload. Her echocardiogram from July 2017 showed ejection fraction 55%. Her stress echocardiogram from July 2017 was negative for stress-induced myocardial ischemia. She does acknowledge improvement in symptoms since her diuretic was adjusted 3 days ago. She was advised to continue Lasix 40 mg in the morning and at 20 mg in late afternoon to help with evening episodes of shortness of breath. She was also reminded that when she returns to baseline to decrease her Lasix to 40 mg p.o. daily. Orders Orders: 2. Chronic diastolic congestive heart failure I50.32 Plan - ALMA De La Rosa Patient's echocardiogram from July 2017 showed an estimated ejection fraction of 55% and was noted to have no evidence of diastolic dysfunction. Patient's stress echocardiogram from July 2017 was negative for stress-induced myocardial ischemia and reported that LV function increased from 45% to 65%. Her diuretic is being adjusted as outlined above. 3. Morbid obesity E66.01 Ryan - ALMA De La Rosa She is reminded of the importance of weight loss and associated reduction of overall cardiovascular health and for shortness of breath. 4. Tachycardia R00.0 Plan - ALMA De La Rosa Patient's heart rate was elevated at 117 bpm. 12-lead EKG showed regular rhythm. There does not appear to be any evidence of bleeding or dehydration. Hopefully with fluid removal her heart rate improves. She will return to our office next weeks for further evaluation. It is possible that her heart rate is elevated due to cigarette intake prior to office visit. 5. Cigarette nicotine dependence without complication F17.210 Plan - ALMA De La Rosa Patient continues to smoke. She received extensive education regarding the health benefits of smoking cessation. We will continue to support and encourage smoking cessation. 6. Essential hypertension I10 Plan - ALMA De La Rosa Patient blood pressure slightly elevated today in office. Hopefully with diuretic adjustment this too will improve. We will reassess this next. Plan Detail Other Orders Orders: Additional Comments - ALMA De La Rosa Discussed the above patient with Dr. Faustin, he agrees with the plan of care. Thank you for allowing us to participate in the patients plan of care, if you have any questions please do not hesitate to call. This note was generated using a voice recognition system and there may be incorrect words, spelling or punctuation that were not noted when reviewing the office note prior to saving. Follow Up 1 Week (HR check) Coding Level of Care Code Off vis,est,level 3 Diagnoses Shortness of breath R06.02; R06.00; R06.01 Dyspnea type: shortness of breath Chronic diastolic congestive heart failure I50.32 Congestive heart failure type: diastolic Congestive heart failure chronicity: chronic Morbid obesity E66.01 Tachycardia R00.0 Cigarette nicotine dependence without complication F17.210 Nicotine product type: cigarettes Substance use status: uncomplicated Essential hypertension I10 Hypertension type: essential hypertension Coding Level of Care Code Off vis,est,level 3 Diagnoses Shortness of breath R06.02; R06.00; R06.01 Dyspnea type: shortness of breath Chronic diastolic congestive heart failure I50.32 Congestive heart failure type: diastolic Congestive heart failure chronicity: chronic Morbid obesity E66.01 Tachycardia R00.0 Cigarette nicotine dependence without complication F17.210 Nicotine product type: cigarettes Substance use status: uncomplicated Essential hypertension I10 Hypertension type: essential hypertension 12/02/17 1057 <Electronically signed by Rogelio MARQUEZ> Date Rogelio MARQUEZ 12/04/17 1613<Electronically signed by Hema Faustin MD> Cosigner Signature: Date (if applicable) Hema Faustin MD CC: INDY Haywood CARDIOLOGY VISIT Observed: 08/20/2017 Status: F Source: [facility] REPORT 10:53 AM [facility] REPOSITORY [facility] [address] [place] [address] OFFICE VISIT Date of Service: 08/19/17 MR#: [id number] Acct: [id number] Name: DAKOTAH UGALDE Rep #: [id number] : 1965 Provider: INDY Arguelles Age/Sex: 51/F Location: [facility] Status: Signed [facility] HPI Details: DAKOTAH UGALDE, is a 51 F who presents to the office today for a cardiovascular outpatient follow-up. Patient has a history of chronic diastolic congestive heart failure, obesity, and nicotine dependence. After last office visit she underwent laboratory work, stress echocardiogram, and echocardiogram. Pt. denies chest, arm, jaw, or neck discomfort. Her exercise tolerance is stable. Pt. denies symptoms of CHF, palpitations, lightheadedness, dizziness, near syncope, or syncopal episodes. Pt. denies edema or claudication issues. Pt. denies orthopnea, PND, fever, chills, blood in urine, blood in stool, myalgia, or unexplainable fatigue. Intake Vital Signs08/19/17 Body Mass Index (BMI) 57.7 08/19/17 Blood Pressure 138/80 08/19/17 Height 5 ft 6 in 08/19/17 Weight: 365 lb 08/19/17 Body Mass Index (BMI) 58.8 08/19/17 Blood Pressure 130/80 Intake Visit Reasons: 6 wk FU [employer] Video Editor Required: No Is patient in pain?: No Allergies DECONGESTANTS Adverse Reaction (Uncoded 07/08/17 15:00) Other Medications Insulin Aspart [Novolog Flexpen (BKC)] 26 units SC TIDCM 06/04/17 [History Confirmed 08/19/17] Insulin Detemir [Levemir] 80 unit SQ QHS 06/04/17 [History Confirmed 08/19/17] Venlafaxine XR [Effexor Xr] 150 mg PO DAILY 06/04/17 [History Confirmed 08/19/17] Furosemide [Lasix] 20 mg PO DAILY #30 tab 06/05/17 [Rx Confirmed 08/19/17] lactobacillus combination no.4 3 billion cell capsule 3,000 mmu cells PO QDAY 07/08/17 [History Confirmed 08/19/17] loratadine 10 mg tablet 10 mg PO QDAY 07/08/17 [History Confirmed 08/19/17] PFSH Medical History Morbid obesity (Chronic) Nicotine dependence (Chronic) Congestive heart failure (Chronic) Anxiety (Chronic) Obstructive sleep apnea (Chronic) Type 2 diabetes mellitus without complications (Chronic) Surgical History History of (Chronic) History of carpal tunnel surgery (Chronic) History of tonsillectomy (Chronic) History of total abdominal hysterectomy (Chronic) Hx of cholecystectomy (Chronic) left ankle surgery (Chronic) Social History Smoking Status: Current every day smoker alcohol intake: current ROS Const Const: Negative for fatigue, weakness, body ache, fever(s) or chills ENT ENT: Negative for dizziness Cardio Chest Pain: No Palpitations: No Edema: None Muscle aches with walking: None Resp Respiratory: Negative for SOB with activity, SOB at rest, SOB orthopnea\\SOB lying down or paroxysmal nocturnal dyspnea GI GI: Negative nausea, black,tarry stools, bright, red blood in stools or vomiting blood/hematemesis : Negative for hematuria or frequent nighttime urination/ nocturia Musc Musc: Negative for muscle aches/ myalgia Neuro Neuro: Negative for weakness, dizziness, lightheadedness, near syncope, syncope or orthostatic symptoms Endo Endo: Negative for fatigue Cardiology Exam Const Appearance: cooperative, healthy appearing, comfortable and no acute distress Orientation: alert, awake and oriented x3 Head Head: normal to inspection Mouth: oral mucosae normal Neck Neck: no JVD and normal visual inspection Carotids: normal carotid upstroke Chest Chest inspection: normal inspection of the chest and normal respiratory effort Auscultation: Bilateral: Clear to Auscultation Cardio Rate: regular rate Rhythm: regular rhythm Heart sounds: S1 normal and S2 normal; negative rub or gallop GI GI: normal to inspection Neuro General: alert, awake, oriented x3 and CN's II-XI intact bilaterally Skin Skin: no rashes or lesions noted Extremities Pulses: Normal: Right Posterior Tibial Pulse, Left Posterior Tibial Pulse, Right Radial Pulse, Left Radial Pulse Lower Extremity Edema: None: Bilateral Psych Psychological: normal affect Supplemental Info Echocardiogram from July 2017 showed an estimated ejection fraction 55%, no regional wall motion have not noted, mild tricuspid valve insufficiency, and no evidence of diastolic dysfunction. Stress echocardiogram from July 2017 was negative for stress-induced myocardial ischemia at 82% of maximum predicted heart rate. LV systolic function increased from 45-65%. Assessment AND Plan 1. Chronic diastolic congestive heart failure I50.32 Plan - ALMA De La Rosa Patient's echocardiogram from July 2017 showed an estimated ejection fraction of 55% and was noted to have no evidence of diastolic dysfunction. Patient's stress echocardiogram from July 2017 was negative for stress-induced myocardial ischemia and reported that LV function increased from 45% to 65%. Patient's BTNP after last office visit was negative. She denies any shortness of breath or worsening lower extremity pedal edema. She will continue with low-dose diuretic. We will continue to monitor this. She was instructed to contact our office if she notices any concerning symptoms. 2. Cigarette nicotine dependence without complication F17.210 Plan - ALMA De La Rosa Patient continues to smoke. She was reminded of the importance of smoking cessation in regards to cardiovascular and pulmonary health. We will continue to promote and support smoking cessation. 3. Morbid obesity E66.01 Plan - ALMA De La Rosa Patient was reminded the importance of healthy weight loss and healthy weight management. At the moment she does not engage in any physical activity routinely but is hoping to change this. We will continue to promote and support healthy weight loss. Plan Detail Additional Comments - ALMA De La Rosa Discussed the above patient with Dr. Faustin, he agrees with the plan of care. Thank you for allowing us to participate in the patients plan of care, if you have any questions please do not hesitate to call. This note was generated using a voice recognition system and there may be incorrect words, spelling or punctuation that were not noted when reviewing the office note prior to saving. Follow Up 6 Months (USER EXPERIENCE LEAD) Coding Level of Care Code Off vis,est,level 3 Diagnoses Chronic diastolic congestive heart failure I50.32 Congestive heart failure type: diastolic Congestive heart failure chronicity: chronic Cigarette nicotine dependence without complication F17.210 Nicotine product type: cigarettes Substance use status: uncomplicated Morbid obesity E66.01 Coding Level of Care Code Off vis,est,level 3 Diagnoses Chronic diastolic congestive heart failure I50.32 Congestive heart failure type: diastolic Congestive heart failure chronicity: chronic Cigarette nicotine dependence without complication F17.210 Nicotine product type: cigarettes Substance use status: uncomplicated Morbid obesity E66.01 08/19/17 1645 <Electronically signed by Rogelio VARMAC> Date Rogelio MARQUEZ 08/20/17 1053<Electronically signed by Hema Faustin MD> Cosigner Signature: Date (if applicable) Hema Faustin MD CC: INDY Haywood STRESS TEST ECHO W/O Observed: 08/03/2017 Status: F Source: [facility] CONTRAST 3:39 PM [facility] REPOSITORY [facility] Cardiovascular [place] [address] Stress Test Echo W/Contrast MR#: [id number] Acct: [id number] Name: DAKOTAH UGALDE Rep #: [id number] : 1965 51 From: Hema Faustin MD Primary Care: Nithya Haywood NP Status: REG CLI Ordering Dr: Hema Faustin MD Sex: F C Reason For Study: DYSPNEA/SOB Stress Results Protocol: Dobutamine Protocol Maximum Predicted HR: 169 bpm Target HR: 144 bpm% Maximum Predicted HR: 81 % DurationHeart Rate Stage (mm:ss) (bpm) BPDose Comment BASELINE 100 166/9 5 0.1 ML DEFINITY STAGE 1 3:34 10 7 142/08794.000.1 ML STAGE 2 3:00 12 0 183/8320.00 STAGE 3 3:00 12 7 190/7330.000.25 MG ATROPINE STAGE 4 3:00 13 7 162/6740.000.25 MG ATROPINE/ 0.2 ML DEFINITY RECOVERY 106 149/7 5 0.3 ML DEFINITY Stress Duration: 12:34 mm:ss Maximum Stress HR: 137 bpm Baseline Echocardiogram Findings Stress Echo Wall motion Data Resting WMIntermediate WMStress WM Resting Wall Motion Wall Motion Stress Ejection Fraction 45 %. No regional wall motion Mid-anteroseptal : Hypokinetic. abnormalities noted. Ejection Fraction 65 %. Stress Results Drug infusion was stopped due to achievement of target heart rate. EKG Data Baseline ECG demonstrates normal sinus rhythm with a rate of 104 beats per minute. Normal intervals are noted. The resting blood pressure was 166/95. The patient was titrated from 10 mcg to a maximum of 40 mcg of dobutamine during the stress. The maximum heart rate attained was 139 beats per minute. This was 82% of maximum predicted heart rate. During dobutamine infusion, there were no ST or T wave changes noted to suggest ischemia. At peak infusion, upsloping ST changes only were noted, which did not meet the criteria for ischemia. The peak blood pressure was 192/96. Interpretation Summary Reduced resting LV systolic function estimated 45%. Nonstenotic valves. With stress, the LV size decreased and all segments augmented normally. The LVEF increased from 45% to 65%. Patient required atropine for augmentation of herat rate. Good BP response to dobutamine.Test terminated due to target heart rate attained. Negative for ischemia at 82% of MPHR and at 1 METS. Normal dobuatmine stress test Ordering Physician: Hema Faustin Referring Physician: Hema Faustin Performed By: Christina Palma RDCS 08/03/17 1538 Date Hema Faustin MD CC: INDY Haywood; Hema Faustin MD Date Dictated: 08/03/17 1259 Date Transcribed: 08/03/171537 Four Slide Machine Setter: Signed ECHO, COMPLETE W/ Observed: 07/22/2017 Status: F Source: [facility] CONTRAST 4:08 PM [facility] REPOSITORY [facility] Cardiovascular Services [address] [place] [id number] Echo Complete W/ Contrast 07/22/17 0959 MR#: [id number] Acct: [id number] Name: DAKOTAH UGALDE Rep #: [id number] : 1965 51 From: Hema Faustin MD Attending Dr: Hema Faustin MD Status: REG CLI Ordering Dr: Hema Faustin MD Date: 07/22/17 Location: [facility] Sex: F C Admitted: Version 2 Reason For Study: dyspnea/SOB Procedure This was a 2D Doppler, Color Flow transthoracic echocardiogram. The study was technically difficult. Due to body habitus. Contrast injection was performed. Exam performed in department. Left Ventricle Normal LV size. The estimated ejection fraction is 55 %. No evidence for diastolic dysfunction. No regional wall motion abnormalities noted. Right Ventricle Normal RV size. Normal systolic function. Atria The left atrium is mildly enlarged. Normal right atrium. Mitral Valve Normal mitral valve. Tricuspid Valve Normal tricuspid valve. Mild tricuspid valve insufficiency. Pulmonary artery systolic pressure is 24 mmHg. Aortic Valve The aortic valve is not well visualized. Pulmonic Valve The pulmonic valve is not well visualized. Great Vessels Normal aortic root. The pulmonary artery is normal size. Normal inferior vena cava. Pericardium/Pleural No pericardial effusion. Medication 22 gauge I.V. with prn adaptor inserted into right arm. Diluted definity 1.5ml given slow IV push to enhance endocardial definition. MMode/2D Measurements AND Calculations LVIDd: 5.9 cm IVSd: 1.4 cm Ao root diam: 2.9 cm LVIDs: 4.5 cm LVPWd: 1.2 cm LA dimension: 4.5 cm RVDd: 3.4 cm FS: 23.5 % LAV(MOD-bp): 80.0 ml LAV(MOD-bp) Indexed: 31.3 ml/m2 LA A4 area: 24.1 cm2 RA A4 area: 16.8 cm2 LAV(MOD-sp2): 77.9 ml LAV(MOD-sp4): 72.4 ml Doppler Measurements AND Calculations MV E max yessi: 131.9 cm/sec Ao V2 max: 138.2 cm/sec LV V1 max: 103.5 cm/sec MV A max yessi: 39.3 cm/sec Ao max P.6 mmHg LV V1 max P.3 mmHg MV E/A: 3.4 PA V2 max: 118.3 cm/sec TR max yessi: 215.3 cm/sec TR max P.5 mmHg Interpretation Summary Normal LV size. The estimated ejection fraction is 55 %. No regional wall motion abnormalities noted. Mild tricuspid valve insufficiency. No evidence for diastolic dysfunction. Contrast injection was performed. Ordering Physician: Hema Faustin Referring Physician: Hema Faustin Performed By: Teena Betancur, DINA, RVT 07/22/17 1608 Date Hema Faustin MD CC: INDY Haywood; Hema Faustin MD Date Dictated: 07/22/17 0959 Date Transcribed: 07/22/17 1601 Four Slide Machine Setter: Signed CARDIOLOGY VISIT Observed: 07/10/2017 Status: F Source: [facility] REPORT 3:37 PM [facility] REPOSITORY [facility] [address] [place] [address] OFFICE VISIT Date of Service: 07/08/17 MR#: [id number] Acct: [id number] Name: DAKOTAH UGALDE Rep #: [id number] : 1965 Provider: Hema Faustin MD Age/Sex: 51/F Location: [facility] Status: Signed [facility] ER 06/04, ref'd by PCP: Chief Complaint: Evaluation of shortness of breath Details: DAKOTAH UGALDE, is a 51 F who presents to the office today for evaluation of shortness of breath. She says this has been going on for a few weeks she presented to the emergency room last week was evaluated with chest x-ray and a CT scan was told that she had congestive heart failure she was put on Lasix and subsequently discharged. Unfortunately, she did not have an natruretic peptide level performed. She had stopped smoking for a few days but unfortunately went back to smoking. Her electrocardiogram when she presented to the emergency room was noted to be in sinus tachycardia with a rate of approximately 114 bpm. Since then she says her shortness of breath has improved but she still has some baseline. She is on a minimal dose of Lasix. She denies any chest pain or paroxysmal nocturnal dyspnea or pedal edema. She has been compliant with her medications. She complains of working in a stressful environment. Intake Vital Signs07/08/17 Body Mass Index (BMI) 57.7 07/08/17 Height 5 ft 6 in Intake Visit Reasons: CHF, [facility] ER 06/04, ref'd by PCP Allergies DECONGESTANTS Adverse Reaction (Uncoded 07/08/17 15:00) Other Medications Insulin Aspart [Novolog Flexpen (BKC)] 26 units SC TIDCM 06/04/17 [History Confirmed 06/04/17] Insulin Detemir [Levemir] 80 unit SQ QHS 06/04/17 [History Confirmed 07/08/17] Venlafaxine XR [Effexor Xr] 150 mg PO DAILY 06/04/17 [History Confirmed 07/08/17] Furosemide [Lasix] 20 mg PO DAILY #30 tab 06/05/17 [Rx Confirmed 07/08/17] lactobacillus combination no.4 3 billion cell capsule 3,000 mmu cells PO QDAY 07/08/17 [History Confirmed 07/08/17] loratadine 10 mg tablet 10 mg PO QDAY 07/08/17 [History Confirmed 07/08/17] [facility] Medical History Morbid obesity (Chronic) Nicotine dependence (Chronic) Congestive heart failure (Acute) Anxiety (Chronic) Obstructive sleep apnea (Chronic) Type 2 diabetes mellitus without complications (Chronic) Surgical History History of (Chronic) History of carpal tunnel surgery (Chronic) History of tonsillectomy (Chronic) History of total abdominal hysterectomy (Chronic) Hx of cholecystectomy (Chronic) left ankle surgery (Chronic) Social History (Reviewed 07/08/17 @ 3:34 pm by Hema Faustin MD) Smoking Status: Current every day smoker alcohol intake: current ROS Const Const: Positive for fatigue; negative for headache(s) or excessive sweating Eyes Eyes: Negative for blind spots, loss of peripheral vision, transient loss of vision, blurry vision, change in vision, double vision, floaters, tunnel vision or other ENT ENT: Negative for headache(s), Negative for dizziness, Negative for hearing loss, Negative for tinnitus, Negative for Nosebleed/epistaxis, Negative for balance problems, Negative for post nasal drip, Negative for lip swelling, Negative for tongue swelling, Negative for bleeding gums, Negative for hoarseness, Negative for neck pain, Negative for dry mouth, Negative for other Cardio Chest Pain: No Palpitations: Positive for No Resp Respiratory: Positive for SOB with activity, SOB at rest and SOB orthopnea\\SOB lying down GI GI: Negative nausea, vomiting, heartburn, constipation, belching, bloating, cramping, vomiting blood/hematemesis, bright, red blood in stools, black,tarry stools, loose stools, Difficulty Swallowing or other Musc Musc: Negative for balance problems Neuro Neuro: Negative for blurry vision, Negative for double vision, Negative for headache(s), Negative for dizziness Endo Endo: Positive for fatigue; negative for cold intolerance, heat intolerance, excessive sweating, flushing, increased thirst/drinking, increased hunger, hair loss, hair growth or other Psych Psych: Negative for anxiety, depression, thoughts of harming anyone, thoughts of harming yourself, visual hallucinations, panic attacks or audible hallucinations Allergy Allergy/Immunology: Negative for lip swelling, Negative for tongue swelling Cardiology Exam Const Appearance: cooperative, healthy appearing, well developed, well groomed and no acute distress Nutritional Appearance: well nourished and average body habitus Orientation: alert, awake and oriented x3 Head Head: normal to inspection, normocephalic and atraumatic Ears: hearing grossly normal bilaterally and external ears normal Nose: external nose normal, nasal mucous membranes and turbinates normal, nares normal, septum normal, no nasal discharge Face and Sinus: face symmetric Mouth: oral mucosae normal, tongue normal, oropharynx normal and moist mucous membranes Teeth and gingiva: dentition normal Throat: posterior oropharynx normal, tonsils normal and uvula midline Eyes General: appearance normal, both eyes and all related structures Eyelids: eyelids normal Conjunctivae: conjunctivae normal Pupils: PERRL, normal by confrontation and accommodation normal EOM: EOM intact bilaterally Neck Neck: normal visual inspection, trachea midline and no JVD JVD: +5 Carotids: normal carotid upstroke and bounding pulses Chest Chest inspection: normal inspection of the chest, symmetric chest movement and normal respiratory effort Auscultation: Bilateral: Clear to Auscultation Cardio Palpation: normal PMI Rate: regular rate Rhythm: regular rhythm Heart sounds: S1 normal, S2 normal and normal, physiologic split S2; negative rub, gallop or murmur GI GI: normal to inspection, soft, no hepatosplenomegaly and bowel sounds present Neuro General: alert, awake, oriented x3, no focal sensory deficit, gait normal and moves all extremities Skin Skin: no rashes or lesions noted Extremities Pulses: Normal: Right Femoral Pulse, Left Femoral Pulse, Right Dorsalis Pedis Pulse, Left Dorsalis Pedis Pulse, Right Posterior Tibial Pulse, Left Posterior Tibial Pulse, Right Radial Pulse, Left Radial Pulse Lower Extremity Edema: None: Bilateral Musculoskel Musculoskeletal: No joint tenderness Psych Psychological: normal affect Assessment AND Plan 1. Chronic diastolic congestive heart failure I50.32 Plan She presented with shortness of breath. My recommendation will be to obtain an echocardiogram to characterize whether this is systolic or diastolic heart failure as well as a natruretic peptide level. She can continue on the low-dose Lasix at this particular time. Depending on the findings of the echocardiogram further recommendations will be made. I do not necessarily think that this is secondary to coronary ischemia but a pharmacologic myocardial perfusion stress test or dobutamine stress echo should also be performed and then further recommendations made. At this time I do not have indications that she is hypertensive but we will continue to monitor her blood pressures carefully. Thank you for allowing me to participate in the care of your patient. Please don't hesitate to call if any issues arise 2. Cigarette nicotine dependence without complication F17.210 Plan She unfortunately continues to use tobacco products and I have cautioned her about the possible dangers of the above regarding shortness of breath as well as cardiac or coronary events. Thank you for allowing me to participate in the care of your patient. Please don't hesitate to call if any issues arise Plan Detail Other Orders Orders: Follow Up 6 Weeks (jhr) Coding Level of Care Code Off vis,est,level 4 Diagnoses Chronic diastolic congestive heart failure I50.32 Congestive heart failure chronicity: chronic Congestive heart failure type: diastolic Cigarette nicotine dependence without complication F17.210 Nicotine product type: cigarettes Substance use status: uncomplicated Coding Level of Care Code Off vis,est,level 4 Diagnoses Chronic diastolic congestive heart failure I50.32 Congestive heart failure chronicity: chronic Congestive heart failure type: diastolic Cigarette nicotine dependence without complication F17.210 Nicotine product type: cigarettes Substance use status: uncomplicated 07/10/17 1537 <Electronically signed by Hema Faustin MD> Date Hema Faustin MD Cosigner Signature: Date (if applicable) CC: BASIC METABOLIC Collected: 07/08/2017 Status: F Source: DOMENIC PROFILE (BMP) 4:10 PM [facility] REPOSITORY TYPE CODE TESTS RESULT OUT OF RANGE REFERENCE UNITS LAB L501.0100 70-110 mg/dL High GLU 358 Result Comment: Glucose result greater than or equal to 200 mg/dL suggests DIABETES MELLITUS per A.D.A. criteria. LAB L501.1000 7-18 mg/dL High BUN 24 LAB L501.1100 0.55-1.02 mg/dL High CREAT,SERUM 1.60 Result Comment: The validity of the calculated GFR AND GFRAA in patients over 70 years has not been determined. Clinical correlation is essential. LAB L501.1110 >60 mL/min Low EST GFR 36 Result Comment: Non- GFR Calc LAB L501.1115 >60 mL/min Low EST GFR - AA 44 Result Comment: GFR Calc LAB L501.1300 10-20 RATIO Normal BUN/CRE 15.0 LAB L501.2200 8.5-10.1 mg/dL CA Normal 8.6 LAB L501.5300 136-145 mmol/L Low NA 135 LAB L501.5600 3.5-5.1 mmol/L K Normal 3.9 LAB L501.5900 98-107 mmol/L CL Normal 100 LAB L501.6100 21.0-32.0 mmol/L Normal CO2 26.0 LAB L501.6200 5-15 Normal GAP 9 Performed By: #### L500.2500, L503.6620 #### [facility] [address] [place], [address] BNP,B-TYPE NATRIURETIC Collected: 07/08/2017 Status: F Source: DOMENIC PEPTIDE 4:10 PM [facility] REPOSITORY TYPE CODE TESTS RESULT OUT OF RANGE REFERENCE UNITS LAB L503.6620 0-100 pg/mL Normal B-TYPE 82.1 HOLLY PEP Performed By: #### L500.2500, L503.6620 #### [facility] [address] [place], [address] ALLERGIES ALLERGIES DATE TYPE / CODE NAME / CODE REACTION SEVERITY SOURCE Drug levofloxacin/F0060 Hives [place] 8 Allergy/[id number]( 66251(RXNORM) [facility] Repository Miscellaneous DECONGESTANTS Other Unknown [place] 8 Allergy/[id number]( [facility] Repository ENCOUNTERS ENCOUNTERS ADMIT/DISCHARGE ACCOUNT ADMITTING ENCOUNTER LOCATION SOURCE NUMBER CLASS 05/17/2018 [id number] Ambulatory [place] 3 [facility] ing:[facility]SPEC Repository 03/25/2018/ [id number] Ambulatory BMSBuilding:B [place] 8 9 [facility] Repository 02/16/2018 [id number] Ambulatory [place] 1 [facility] ing:LAB Repository 12/08/2017/ [id number] Ambulatory BMSBuilding:B [place] 8 9 [facility] Repository 12/02/2017/ [id number] Ambulatory BMSBuilding:B [place] 8 5 [facility] Repository 08/19/2017/ [id number] Ambulatory BMSBuilding:B [place] 8 6 [facility] Repository 08/03/2017 [id number] Ambulatory BMSBuilding:W [place] 4 [facility] Repository 08/03/2017 [id number] Ambulatory [place] 6 [facility] ing:[facility] Repository 07/22/2017 [id number] Ambulatory [place] 4 [facility] ing:[facility] Repository 07/22/2017 [id number] Ambulatory BMSBuilding:W [place] 2 [facility] Repository 07/08/2017 [id number] Ambulatory [place] 9 [facility] ing:LAB Repository 07/08/2017/ [id number] Ambulatory BMSBuilding:B [place] 8 2 [facility] Repository PAYERS PAYERS ENCOUNTER GUARANTOR PAYER SUBSCRIBER SOURCE 05/17/2018 DAKOTAH Mendoza Primary ARIK [place] [id number] Insurance:MEDICAL SHIVERDECKERDOB: [facility] [place] Number: Repository [id number]: 330 [id number] [phone] () e Date:8857-96-99UC [place] [id number]: 05/17/2018 Secondary NOT GIVENUNK [place] Insurance:SELF PAY [facility] Number: Effective Repository Date:2018-05-17 03/25/2018 DAKOTAH Reji Primary ARIK [place] [id number] Insurance:MEDICAL SHIVERDECKERDOB: [facility] 2077[place] Number: Repository [address]Axy: 330 [id number] [phone] () e Date:4496-61-57XC[address] [address]MK: 03/25/2018 Secondary NOT GIVENUNK [place] Insurance:SELF PAY [facility] Number: Effective Repository Date:2018-03-25 02/16/2018 DAKOTAH A Primary ARIK [place] [id number] Insurance:MEDICAL SHIVERDECKERDOB: [facility] 3683[place] Number: Repository [address]Ipb: 330 [id number] [phone] () e Date:3728-87-82YY [address] [address]TL: 02/16/2018 Secondary NOT GIVENUNK [place] Insurance:SELF PAY [facility] Number: Effective Repository Date:2018-02-16 12/08/2017 DAKOTAH A Primary ARIK [place] [id number] Insurance:MEDICAL SHIVERDECKERDOB: [facility] 4674[place] Number: Repository [address]Xbp: 330 [id number] [phone] () e Date:3571-07-96AD [address] [address]FX: 12/08/2017 Secondary NOT GIVENUNK [place] Insurance:SELF PAY [facility] Number: Effective Repository Date:2017-12-08 12/02/2017 DAKOTAH A Primary ARIK [place] [id number] Insurance:MEDICAL SHIVERDECKERDOB: [facility] 4918-84-[place]XR[place] Number: Repository [address]Fiz: 330 [id number] [phone] () e Date:6568-35-88UA [address] [address]EM: 12/02/2017 Secondary NOT GIVENUNK [place] Insurance:SELF PAY [facility] Number: Effective Repository Date:2017-12-02 08/19/2017 DAKOTAH A Primary ARIK [place] [id number] Insurance:MEDICAL SHIVERDECKERDOB: [facility] 9904-[place] Number: Repository [address]Ymo: 330 [id number] [phone] () e Date:7368-72-64NX [address] [address]JQ: 08/19/2017 Secondary NOT GIVENUNK [place] Insurance:SELF PAY [facility] Number: Effective Repository Date:2017-07-08 08/03/2017 DAKOTAH A Primary ARIK [place] [id number] Insurance:MEDICAL SHIVERDECKERDOB: [facility] 7750-80-03[place] Number: Repository [id number]: 330 [id number] [phone] (HP) e Date:0036-24-62ET [address] [address]OK: 08/03/2017 Secondary NOT GIVENUNK [place] Insurance:SELF PAY [facility] Number: Effective Repository Date:2017-08-03 08/03/2017 DAKOTAH A Primary ARIK [place] [id number] Insurance:MEDICAL SHIVERDECKERDOB: [facility] 2048-64-10[place]JUR[place] Number: Repository [address]Vma: 330 [id number] [phone] () e Date:2968-04-47SW [address] [address]HP: 08/03/2017 Secondary NOT GIVENUNK [place] Insurance:SELF PAY [facility] Number: Effective Repository Date:2017-07-08 07/22/2017 DAKOTAH A Primary ARIK [place] [id number] Insurance:MEDICAL SHIVERDECKERDOB: [facility] 1269-59-16[place] Number: Repository [id number]: 330 [id number] [phone] (HP) e Date:8611-56-46YG [address] [address]UJ: 07/22/2017 Secondary NOT GIVENUNK [place] Insurance:SELF PAY [facility] Number: Effective Repository Date:2017-07-08 07/22/2017 DAKOTAH A Primary ARIK [place] [id number] Insurance:MEDICAL SHIVERDECKERDOB: [facility] 9633-05-42RSUR[place] Number: Repository [address]Hmg: 330 [id number] [phone] () e Date:4698-49-21YO[address] [address]DI: 07/22/2017 Secondary NOT GIVENUNK [place] Insurance:SELF PAY [facility] Number: Effective Repository Date:2017-07-22 07/08/2017 DAKOTAH Primary ARIK SHIVERDECKERUNK [place] [id number] Insurance:[place], [place] Number: Repository [id number]: 330 [id number] [phone] () e Date:9298-23-55HK [address] [address]VR: 07/08/2017 Secondary NOT GIVENUNK [place] Insurance:SELF PAY [facility] Number: Effective Repository Date:2017-07-08 07/08/2017 DAKOTAH A Primary ARIK [place] [id number] Insurance:MEDICAL SHIVERDECKERDOB: [facility] 4004-23-07MTDR[place] Number: Repository [id number]: 330 [id number] [phone] () e Date:8151-73-56OS [address] [address]CC: 07/08/2017 Secondary NOT GIVENUNK [place] Insurance:SELF PAY [facility] Number: Effective Repository Date:2017-06-15"
== END ==
PROVIDERS: Family Provider Nurse Practitioner; PCP Nurse Practitioner; Referring Provider Nurse Practitioner; Visit Provider Nurse Practitioner
DX: E03.9 Hypothyroidism, unspecified (principal)
CPT/HCPCS: 80053; 80061; 84443; 85025

== ENCOUNTER → 2019-03-25 22:42 | Outpatient (CLI) | payer OTHER, SELFPAY ==
[2019-03-25 19:35] VITALS: BMI 57.6
[2019-03-25 22:58] LABS: Absolute Lymphocyte Count 1.91 X10^3/uL (0.83-4.51); Absolute Neutrophil Count 7.2 X10^3/uL (2.0-7.7); Basophil# 0.05 X10^3/uL; Basophil% 0.5 % (0-1); Eosinophil# 0.18 X10^3/uL; Eosinophils% 1.8 % (0-5); Hematocrit 35.4 % (37-47); Hemoglobin 11.5 g/dL (12.0-15.0); Lymphocyte # 1.91 X10^3/ul (4.0); Lymphocyte % 19.4 % (19-41); Mean Corp Hgb Conc 32.5 g/dL (32-36); Mean Corpuscular Hgb 29.2 pg (27.0-32.0); Mean Corpuscular Volume 89.8 fL (81-99); Mean Platelet Vol. 10.1 fl (6.2-12.0); Monocyte# 0.51 X10^3/uL; Monocyte% 5.2 % (0-10); NRBC Flagged by Analyzer 0 % (0-5); Neutrophil # 7.19 X10^3/uL (2.7-7.7); Neutrophil % 72.8 % (47-70); Platelet Count 277 K/mm3 (150-450); RBC Distribution Width SD 42.7 fl (35.1-43.9); Red Blood Count 3.94 M/mm3 (4.2-5.4); White Blood Count 9.9 K/mm3 (4.4-11.0)
[2019-03-25 23:20] LABS: ALB/GLOB Ratio 0.6 RATIO (0.9-2.4); AST(SGOT) 15 U/L (15-37); Alanine Aminotransfer ALT/SGPT 21 U/L (13-56); Albumin, Serum 3.2 g/dL (3.2-5.0); Alkaline Phosphatase 189 U/L (45-117); Anion Gap 8 (5-15); BUN 37 mg/dL (7-18); BUN/Creat Ratio 15.9 RATIO (10-20); Calcium,Total 8.8 mg/dL (8.5-10.1); Chloride 107 mmol/L (98-107); Cholesterol 188 mg/dL (200); Creatinine, Serum 2.32 mg/dL (0.55-1.02); EST Glomerular Filtration Rate 23 mL/min (>60); Est Glom Filt Rate - Afr Amer 28 mL/min (>60); Globulin 5.2 g/dL (2.2-4.2); Glucose 182 mg/dL (74-106); High Density Lipoprotein 36 mg/dL; Potassium 3.5 mmol/L (3.5-5.1); Protein, Total 8.4 g/dL (6.4-8.2); Sodium Level 140 mmol/L (136-145); Thyroid Stim Hormone (TSH) 1.39 uIU/mL (0.358-3.74); Triglycerides 177 mg/dL; Very Low Density Lipoprotein 35 mg/dL (5-40)
== END ==
PROVIDERS: Family Provider Nurse Practitioner; PCP Nurse Practitioner; Referring Provider Nurse Practitioner; Visit Provider Nurse Practitioner
DX: I10 Essential (primary) hypertension (principal); E03.9 Hypothyroidism, unspecified
CPT/HCPCS: 80053; 80061; 84443; 85025

== ENCOUNTER → 2020-03-01 | Outpatient (CLI) | payer BC, SELFPAY ==
[2020-03-01 17:45] VITALS: BMI 59.7
[2020-03-01 21:05] LABS: Absolute Lymphocyte Count 1.82 X10^3/uL (0.83-4.51); Absolute Neutrophil Count 6.8 X10^3/uL (2.0-7.7); Basophil# 0.04 X10^3/uL; Basophil% 0.4 % (0-1); Eosinophil# 0.24 X10^3/uL; Eosinophils% 2.6 % (0-5); Hematocrit 34.5 % (37-47); Hemoglobin 10.8 g/dL (12.0-15.0); Lymphocyte # 1.82 X10^3/ul (4.0); Lymphocyte % 19.4 % (19-41); Mean Corp Hgb Conc 31.3 g/dL (32-36); Mean Corpuscular Hgb 27.6 pg (27.0-32.0); Mean Corpuscular Volume 88.2 fL (81-99); Mean Platelet Vol. 10.2 fl (6.2-12.0); Monocyte# 0.48 X10^3/uL; Monocyte% 5.1 % (0-10); NRBC Flagged by Analyzer 0 % (0-5); Neutrophil # 6.78 X10^3/uL (2.7-7.7); Neutrophil % 72.3 % (47-70); Platelet Count 271 K/mm3 (150-450); RBC Distribution Width CV 13.9 % (11.6-14.6); RBC Distribution Width SD 44.7 fl (35.1-43.9); Red Blood Count 3.91 M/mm3 (4.2-5.4); White Blood Count 9.4 K/mm3 (4.4-11.0)
[2020-03-01 21:21] LABS: ALB/GLOB Ratio 0.6 RATIO (0.9-2.4); AST(SGOT) 17 U/L (15-37); Alanine Aminotransfer ALT/SGPT 21 U/L (13-56); Albumin, Serum 3.3 g/dL (3.2-5.0); Alkaline Phosphatase 204 U/L (45-117); Anion Gap 9 (5-15); BUN 52 mg/dL (7-18); BUN/Creat Ratio 19.1 RATIO (10-20); Calcium,Total 8.6 mg/dL (8.5-10.1); Chloride 109 mmol/L (98-107); Cholesterol 206 mg/dL (200); Creatinine, Serum 2.72 mg/dL (0.55-1.02); EST Glomerular Filtration Rate 19 mL/min (>60); Est Glom Filt Rate - Afr Amer 23 mL/min (>60); Globulin 5.1 g/dL (2.2-4.2); Glucose 92 mg/dL (74-106); High Density Lipoprotein 36 mg/dL; Potassium 3.9 mmol/L (3.5-5.1); Protein, Total 8.4 g/dL (6.4-8.2); Sodium Level 141 mmol/L (136-145); Thyroid Stim Hormone (TSH) 2.49 uIU/mL (0.358-3.74); Triglycerides 134 mg/dL; Very Low Density Lipoprotein 27 mg/dL (5-40)
== END | disposition home or self-care (01) ==
LOC: OLS.AHF 20:52 → LABSPEC 03-02 07:23
PROVIDERS: Referring Provider Nurse Practitioner; Visit Provider Nurse Practitioner
DX: I10 Essential (primary) hypertension (principal); E03.9 Hypothyroidism, unspecified
CPT/HCPCS: 80053; 80061; 84443; 85025

== ENCOUNTER → 2020-04-13 | Outpatient (CLI) | payer BC, SELFPAY ==
[2020-04-13 22:15] LABS: ALB/GLOB Ratio 0.7 RATIO (0.9-2.4); AST(SGOT) 16 U/L (15-37); Alanine Aminotransfer ALT/SGPT 25 U/L (13-56); Albumin, Serum 3.4 g/dL (3.2-5.0); Alkaline Phosphatase 195 U/L (45-117); Anion Gap 9 (5-15); BUN 57 mg/dL (7-18); BUN/Creat Ratio 22.4 RATIO (10-20); Calcium,Total 8.7 mg/dL (8.5-10.1); Chloride 111 mmol/L (98-107); Creatinine, Serum 2.55 mg/dL (0.55-1.02); EST Glomerular Filtration Rate 21 mL/min (>60); Est Glom Filt Rate - Afr Amer 25 mL/min (>60); Globulin 5.2 g/dL (2.2-4.2); Glucose 60 mg/dL (74-106); Potassium 3.8 mmol/L (3.5-5.1); Protein, Total 8.6 g/dL (6.4-8.2); Sodium Level 141 mmol/L (136-145)
== END | disposition home or self-care (01) ==
PROVIDERS: Referring Provider Nurse Practitioner; Visit Provider Nurse Practitioner
DX: E11.22 Type 2 diabetes mellitus with diabetic chronic kidney disease (principal); N18.30 Chronic kidney disease, stage 3 unspecified; E11.65 Type 2 diabetes mellitus with hyperglycemia
CPT/HCPCS: 80053

== ENCOUNTER → 2020-07-09 | Outpatient (CLI) | payer BC, SELFPAY ==
[2020-07-09 18:20] VITALS: BMI 59.8
[2020-07-09 22:44] LABS: Absolute Lymphocyte Count 1.57 X10^3/uL (0.83-4.51); Absolute Neutrophil Count 6.4 X10^3/uL (2.0-7.7); Basophil# 0.03 X10^3/uL; Basophil% 0.3 % (0-1); Eosinophil# 0.19 X10^3/uL; Eosinophils% 2.2 % (0-5); Hematocrit 32.7 % (37-47); Hemoglobin 10.4 g/dL (12.0-15.0); Lymphocyte # 1.57 X10^3/ul (4.0); Lymphocyte % 18.2 % (19-41); Mean Corp Hgb Conc 31.8 g/dL (32-36); Mean Corpuscular Volume 88.1 fL (81-99); Mean Platelet Vol. 10.4 fl (6.2-12.0); Monocyte# 0.45 X10^3/uL; Monocyte% 5.2 % (0-10); NRBC Flagged by Analyzer 0 % (0-5); Neutrophil # 6.35 X10^3/uL (2.7-7.7); Neutrophil % 73.9 % (47-70); Platelet Count 229 K/mm3 (150-450); RBC Distribution Width CV 14.6 % (11.6-14.6); RBC Distribution Width SD 45.6 fl (35.1-43.9); Red Blood Count 3.71 M/mm3 (4.2-5.4); White Blood Count 8.6 K/mm3 (4.4-11.0)
[2020-07-09 23:02] LABS: ALB/GLOB Ratio 0.6 RATIO (0.9-2.4); AST(SGOT) 20 U/L (15-37); Alanine Aminotransfer ALT/SGPT 23 U/L (13-56); Albumin, Serum 3.2 g/dL (3.2-5.0); Alkaline Phosphatase 183 U/L (45-117); Anion Gap 9 (5-15); BUN 51 mg/dL (7-18); BUN/Creat Ratio 18.1 RATIO (10-20); Calcium,Total 8.5 mg/dL (8.5-10.1); Chloride 109 mmol/L (98-107); Cholesterol 192 mg/dL (200); Creatinine, Serum 2.81 mg/dL (0.55-1.02); EST Glomerular Filtration Rate 19 mL/min (>60); Est Glom Filt Rate - Afr Amer 23 mL/min (>60); Globulin 5.1 g/dL (2.2-4.2); Glucose 79 mg/dL (74-106); High Density Lipoprotein 39 mg/dL; Protein, Total 8.3 g/dL (6.4-8.2); Sodium Level 140 mmol/L (136-145); Thyroid Stim Hormone (TSH) 2.98 uIU/mL (0.358-3.74); Triglycerides 118 mg/dL; Very Low Density Lipoprotein 24 mg/dL (5-40)
[2020-07-09 23:19] LABS: Hemoglobin A1c 5.8 % (3.8-5.6)
[2020-07-09 23:36] LABS: BNP,B-Type NATRIURETIC PEPTIDE 128.9 pg/mL (0-100)
== END | disposition home or self-care (01) ==
PROVIDERS: Referring Provider Nurse Practitioner; Visit Provider Nurse Practitioner
DX: E11.22 Type 2 diabetes mellitus with diabetic chronic kidney disease (principal); N18.30 Chronic kidney disease, stage 3 unspecified; E11.65 Type 2 diabetes mellitus with hyperglycemia; I50.9 Heart failure, unspecified; E03.9 Hypothyroidism, unspecified; D64.9 Anemia, unspecified
CPT/HCPCS: 80053; 80061; 83036; 83880; 84443; 85025

== ENCOUNTER → 2020-07-13 13:14 | Outpatient (CLI) | payer BC, SELFPAY ==
[2020-07-11 08:34] VITALS: BMI 59.3
== END ==
PROVIDERS: PCP Nurse Practitioner; Referring Provider Physician Assistant Medical; Visit Provider Physician Assistant Medical
DX: I12.9 Hypertensive chronic kidney disease with stage 1 through stage 4 chronic kidney disease, or unspecified chronic kidney disease (principal); N18.30 Chronic kidney disease, stage 3 unspecified; R00.0 Tachycardia, unspecified
CPT/HCPCS: 93225; 93226

== ENCOUNTER → 2020-07-16 08:57 | Outpatient (CLI) | payer BC, SELFPAY ==
[2020-07-11 08:34] VITALS: BMI 59.3
--- NOTE | 2020-07-16 09:00 | ECHOCS_ITS ---
Reason For Study: AFIB/FLUTTER Procedure This was a 2D Doppler, Color Flow transthoracic echocardiogram. The study was technically difficult. Due to body habitus. Contrast injection was performed. Exam performed in department. Left Ventricle Normal LV size. The estimated ejection fraction is 40 %. Stage 3 diastolic dysfunction. Right Ventricle Normal RV size. Normal systolic function. Atria The left atrium is mildly enlarged. Normal right atrium. Mitral Valve There is moderate mitral annular calcification. Mild-Moderate (1-2+) eccentric mitral valve insufficiency. Tricuspid Valve Normal tricuspid valve. Aortic Valve Trisinus/trileaflet aortic valve. Pulmonic Valve The pulmonic valve is not well visualized. Great Vessels Normal aortic root. The pulmonary artery is normal size. Pericardium/Pleural No pericardial effusion. Medication Diluted definity 4.0ml given slow IV push to enhance endocardial definition. MMode/2D Measurements & Calculations LVIDd: 6.9 cm IVSd: 0.96 cm Ao root diam: 3.2 cm LVIDs: 5.4 cm LVPWd: 1.1 cm RVDd: 3.5 cm FS: 21.8 % LAV(MOD-bp): 80.4 ml LA A4 area: 23.7 cm2 LA dimension(2D): 4.9 cm LAV(MOD-bp) Indexed: 31.0 ml/m2 LAV(MOD-sp2): 79.2 ml LAV(MOD-sp4): 77.4 ml RA A4 area: 18.7 cm2 Time Measurements MV dec time: 0.19 sec Doppler Measurements & Calculations MV E max joshua: 150.9 cm/sec Lat Peak E' Joshua: 10.5 cm/sec Med Peak E' Joshua: 8.6 cm/sec MV A max joshua: 53.6 cm/sec E/E' lat: 14.4 E/E' med: 17.6 MV E/A: 2.8 Ao V2 max: 191.8 cm/sec LV V1 max: 97.9 cm/sec MR max joshua: 495.9 cm/sec Ao max P.7 mmHg LV V1 max P.8 mmHg MR max P.4 mmHg Ao V2 mean: 142.7 cm/sec Ao mean P.8 mmHg Ao V2 VTI: 36.8 cm PA V2 max: 138.9 cm/sec Interpretation Summary Normal LV size. The estimated ejection fraction is 40 %. Stage 3 diastolic dysfunction. Ordering Physician: Agatha Reese Referring Physician: Aurora Esquivel Performed By: Teena Betancur RDCS, RVT
== END ==
LOC: CVS 08:59
PROVIDERS: PCP Nurse Practitioner; Referring Provider Physician Assistant Medical; Visit Provider Physician Assistant Medical
DX: I48.91 Unspecified atrial fibrillation (principal); I48.92 Unspecified atrial flutter
CPT/HCPCS: 93306; Q9957; A4216; C8929

== ENCOUNTER → 2020-07-25 09:13 | Outpatient (CLI) | payer BC, SELFPAY ==
[2020-07-25 08:34] VITALS: BMI 60.5
[2020-07-25 10:43] LABS: Anion Gap 7 (5-15); BUN 49 mg/dL (7-18); BUN/Creat Ratio 18.3 RATIO (10-20); Calcium,Total 8.6 mg/dL (8.5-10.1); Chloride 114 mmol/L (98-107); Creatinine, Serum 2.68 mg/dL (0.55-1.02); EST Glomerular Filtration Rate 20 mL/min (>60); Est Glom Filt Rate - Afr Amer 24 mL/min (>60); Glucose 107 mg/dL (74-106); Potassium 4.2 mmol/L (3.5-5.1); Sodium Level 141 mmol/L (136-145)
[2020-07-25 10:44] LABS: BNP,B-Type NATRIURETIC PEPTIDE 148.8 pg/mL (0-100)
== END ==
PROVIDERS: PCP Nurse Practitioner; Referring Provider Physician Assistant Medical; Visit Provider Physician Assistant Medical
DX: I12.9 Hypertensive chronic kidney disease with stage 1 through stage 4 chronic kidney disease, or unspecified chronic kidney disease (principal); N18.30 Chronic kidney disease, stage 3 unspecified; R06.00 Dyspnea, unspecified
CPT/HCPCS: 36415; 80048; 83880

== ENCOUNTER → 2020-08-10 10:07 | Outpatient (CLI) | payer BC, SELFPAY ==
[2020-08-10 08:41] VITALS: BMI 58.6
[2020-08-10 11:56] LABS: Anion Gap 8 (5-15); BUN 53 mg/dL (7-18); BUN/Creat Ratio 18.5 RATIO (10-20); Calcium,Total 8.8 mg/dL (8.5-10.1); Chloride 109 mmol/L (98-107); Creatinine, Serum 2.86 mg/dL (0.55-1.02); EST Glomerular Filtration Rate 18 mL/min (>60); Est Glom Filt Rate - Afr Amer 22 mL/min (>60); Glucose 94 mg/dL (74-106); Potassium 4.2 mmol/L (3.5-5.1); Sodium Level 141 mmol/L (136-145)
== END ==
PROVIDERS: PCP Nurse Practitioner; Referring Provider Physician Assistant Medical; Visit Provider Physician Assistant Medical
DX: I42.9 Cardiomyopathy, unspecified (principal); I12.9 Hypertensive chronic kidney disease with stage 1 through stage 4 chronic kidney disease, or unspecified chronic kidney disease; N18.30 Chronic kidney disease, stage 3 unspecified; R00.0 Tachycardia, unspecified
CPT/HCPCS: 36415; 80048

== ENCOUNTER → 2020-08-29 | Outpatient (CLI) | payer BC, SELFPAY ==
[2020-08-10 08:41] VITALS: BMI 58.6
[2020-08-29 12:47] LABS: Protein, Urine (Random) 36.5 mg/dL (<11.9); Protein:Creat Ratio 880 mg/g CRE (0-200)
== END | disposition home or self-care (01) ==
LOC: POLAB3 11:19 → LABSPEC 11:20
PROVIDERS: PCP Nurse Practitioner; Visit Provider Internal Medicine Nephrology
DX: E11.3559 Type 2 diabetes mellitus with stable proliferative diabetic retinopathy, unspecified eye (principal)
CPT/HCPCS: 82570; 84156

== ENCOUNTER → 2020-09-17 08:17 | Outpatient (CLI) | payer BC, SELFPAY ==
[2020-08-10 08:41] VITALS: BMI 58.6
--- NOTE | 2020-09-17 08:44 | US_ITS ---
STUDY: RENAL ULTRASOUND - COMPLETE REASON FOR EXAM: Female, 54 years old. Elevated BUN/creatinine TECHNIQUE: Ultrasound evaluation of the kidneys was performed with real-time and static zuleta-scale imaging. COMPARISON: None. FINDINGS: RIGHT KIDNEY: Normal location of the right kidney, which is normal in size. The right kidney measures 12.1 x 5.5 x 5.8 cm. There is a normal cortex of the right kidney. The renal cortex measures 1.8 cm. There is no right renal mass or cyst. There are no right renal calculi. There is no right hydronephrosis. DISTAL RIGHT URETER: There is non-visualization of the distal right ureter. There is no demonstrated right ureterovesical junction calculus. There is a visualized right ureteral jet. LEFT KIDNEY: Normal location of the left kidney, which is normal in size. The left kidney measures 12.3 x 6.7 x 5.3 cm. There is a normal cortex of the left kidney. The renal cortex measures 1.7 cm. There is no left renal mass or cyst. There are no left renal calculi. There is no left hydronephrosis. DISTAL LEFT URETER: There is non-visualization of the distal left ureter. There is no demonstrated left ureterovesical junction calculus. There is a visualized left ureteral jet. AORTA: There is no elongation or tortuosity of the abdominal aorta. I.V.C.: The IVC is patent. BLADDER: The bladder is sonographically normal US/Kidney and Bladder IMPRESSION: No suspicious sonographic findings Electronically Signed: Marky Evangelista MD at 13:20 EDT , Service support ,
[2020-09-17 08:53] LABS: Hematocrit 30.2 % (37-47); Hemoglobin 9.4 g/dL (12.0-15.0); Mean Corp Hgb Conc 31.1 g/dL (32-36); Mean Corpuscular Hgb 26.7 pg (27.0-32.0); Mean Corpuscular Volume 85.8 fL (81-99); Mean Platelet Vol. 9.6 fl (6.2-12.0); Platelet Count 234 K/mm3 (150-450); RBC Distribution Width CV 14.9 % (11.6-14.6); RBC Distribution Width SD 47.4 fl (35.1-43.9); Red Blood Count 3.52 M/mm3 (4.2-5.4); White Blood Count 8.6 K/mm3 (4.4-11.0)
[2020-09-17 09:31] LABS: Albumin, Serum 3.2 g/dL (3.2-5.0); BUN 63 mg/dL (7-18); BUN/Creat Ratio 22.1 RATIO (10-20); Calcium,Total 8.5 mg/dL (8.5-10.1); Chloride 107 mmol/L (98-107); Creatinine, Serum 2.85 mg/dL (0.55-1.02); EST Glomerular Filtration Rate 18 mL/min (>60); Est Glom Filt Rate - Afr Amer 22 mL/min (>60); Ferritin 67 ng/mL (8-252); Glucose 71 mg/dL (74-106); Iron 36 ug/dL (50-170); Iron Binding Capacity,Total 331 ug/dL (250-450); PERCENT IRON SATURATION 10.9 % (15.0-55.0); Phosphorus 4.1 mg/dL (2.5-4.9); Potassium 3.4 mmol/L (3.5-5.1); Sodium Level 138 mmol/L (136-145)
[2020-09-17 09:34] LABS: PTHIN 689.5 pg/mL (18.4-80.1)
[2020-09-17 13:36] LABS: Creat.Clear Total Volume 2375 mL; Creatinine Serum Creat 2.9 mg/dL (0.6-1.0); EST Glomerular Filtration Rate 18 mL/min (>60); Est Glom Filt Rate - Afr Amer 18 mL/min (>60)
[2020-09-17 13:37] LABS: 24 Hour Urine Protein 793.3 mg/24HR (<150 MG/24HR); 24HR. UA Prot. Total Volume 2375 mL; Creatinine Clearance 43 ml/min (100-200); Creatinine Urine 76.9 mg/dL (NO RANGE EST.); Urine Protein (24 Hour) 33.4 mg/dL (<11.9)
== END ==
PROVIDERS: PCP Nurse Practitioner; Referring Provider Internal Medicine Nephrology; Visit Provider Internal Medicine Nephrology
DX: N18.4 Chronic kidney disease, stage 4 (severe) (principal); D63.8 Anemia in other chronic diseases classified elsewhere
CPT/HCPCS: 36415; 76770; 80069; 81050; 82306; 82575; 82728; 83540; 83550; 83970; 84156; 85027

== ENCOUNTER → 2020-11-30 07:19 | Outpatient (CLI) | payer BC, SELFPAY ==
[2020-08-10 08:41] VITALS: BMI 58.6
[2020-10-22 14:40] VITALS: BMI 56.9
[2020-11-30 08:09] LABS: Hematocrit 34.6 % (37-47); Hemoglobin 10.8 g/dL (12.0-15.0); Mean Corp Hgb Conc 31.2 g/dL (32-36); Mean Corpuscular Hgb 26.8 pg (27.0-32.0); Mean Corpuscular Volume 85.9 fL (81-99); Platelet Count 247 K/mm3 (150-450); RBC Distribution Width CV 15.4 % (11.6-14.6); RBC Distribution Width SD 48.1 fl (35.1-43.9); Red Blood Count 4.03 M/mm3 (4.2-5.4); White Blood Count 8.1 K/mm3 (4.4-11.0)
[2020-11-30 08:33] LABS: PTHIN 568.8 pg/mL (18.4-80.1)
[2020-11-30 08:40] LABS: Albumin, Serum 3.3 g/dL (3.2-5.0); BUN 49 mg/dL (7-18); BUN/Creat Ratio 18.3 RATIO (10-20); Calcium,Total 8.7 mg/dL (8.5-10.1); Chloride 108 mmol/L (98-107); Creatinine, Serum 2.68 mg/dL (0.55-1.02); EST Glomerular Filtration Rate 20 mL/min (>60); Est Glom Filt Rate - Afr Amer 24 mL/min (>60); Ferritin 64 ng/mL (8-252); Glucose 84 mg/dL (74-106); Iron 42 ug/dL (50-170); Iron Binding Capacity,Total 300 ug/dL (250-450); Phosphorus 4.1 mg/dL (2.5-4.9); Potassium 3.6 mmol/L (3.5-5.1); Sodium Level 139 mmol/L (136-145)
== END ==
PROVIDERS: PCP Nurse Practitioner; Referring Provider Internal Medicine Nephrology; Visit Provider Internal Medicine Nephrology
DX: N18.4 Chronic kidney disease, stage 4 (severe) (principal); N25.81 Secondary hyperparathyroidism of renal origin; D50.9 Iron deficiency anemia, unspecified
CPT/HCPCS: 36415; 80069; 82728; 83540; 83550; 83970; 85027

== ENCOUNTER → 2021-01-14 08:39 | Outpatient (CLI) | payer BC, SELFPAY ==
[2020-10-22 14:40] VITALS: BMI 56.9
--- NOTE | 2021-01-14 08:45 | VDUE_ITS ---
Reason For Study: CKD stage 4 Right Arm Left Arm Rt Brachial A: 0.43cm X 0.39cm, 90 cm/s Lt Brachial A: 0.41cm x 0.38cm, 95cm/s Rt Radial A: 0.27cm x 0.30cm, 59 cm/s. Lt Radial A: 0.24cm x 0.25cm, 74cm/s. Right Cephalic Vein at the wrist measures Left Cephalic Vein at the wrist measures 0.18cm x 0.19 cm. 0.22cm x 0.18 cm. Right Cephalic Vein in the forearm measures Left Cephalic Vein in the forearm measures 0.16cm x 0.15 cm. 0.19cm x 0.19 cm. Right Cephalic Vein below antecub measures Left Cephalic Vein below antecub measures 0.24cm x 0.23 cm. 0.16cm x 0.15 cm. Right Cephalic Vein above antecub measures Left Cephalic Vein above antecub measures 0.50cm x 0.62 cm. 0.44cm x 0.44 cm. Right Cephalic Vein mid bicep measures Left Cephalic Vein at mid bicep measures 0.35cm x 0.34 cm. 0.38cm x 0.34 cm. Right Cephalic Vein at the shoulder measures Left Cephalic Vein at the shoulder measures 0.44cm x 0.49 cm. 0.34cm x 0.31 cm. Right Basilic Vein at the origin measures Basilic vein at origin measures 0.28cm x 0.34cm x 0.33 cm. 0.29 cm. Right Basilic Vein mid bicep measures 0.22cm Basilic vein at bicep measures 0.27cm x 0.28 x 0.20 cm. cm. Right Basilic Vein above antecub measures Basilic vein above antecub measures 0.21cm x 0.24cm x 0.22 cm. 0.21 cm. VL/Saphenous Vein Mapping, Bilat Interpretation Summary Patent and compressible right cephalic and basilic veins although the cephalic vein of the forearm is small. Patent and compressible left cephalic and basilic veins again with relatively s mall left cephalic vein of the forearm. Bilateral radial and brachial arteries are patent with normal diameter and flow . Ordering Physician: Kanwal Gil Referring Physician: Nithya Haywood Performed By: Hawa Arguelles, DINA, RVT ?
== END ==
LOC: CVS 08:39
PROVIDERS: PCP Nurse Practitioner; Referring Provider Internal Medicine Nephrology; Visit Provider Internal Medicine Nephrology
DX: N18.4 Chronic kidney disease, stage 4 (severe) (principal)
CPT/HCPCS: 93970

== ENCOUNTER 2021-02-27 05:56 | Day surgery (SDC) | payer BC, SELFPAY ==
[2021-01-21 05:27] VITALS: BMI 57.2
--- NOTE | 2021-02-21 10:47 | EKG12_ITS ---
Test Reason : PRE OP Blood Pressure : / mmHG Vent. Rate : 078 BPM Atrial Rate : 078 BPM P-R Int : 218 ms QRS Dur : 096 ms QT Int : 394 ms P-R-T Axes : 032 -20 077 degrees QTc Int : 449 ms Sinus rhythm with 1st degree A-V block Septal infarct , age undetermined , cannot be excluded Abnormal ECG Confirmed by BRANDYN BELLE, TONY ([id number]), proposal editor GRETCHEN WINN ([id number]) on 02/22/2021 7:04:17 AM Referred By: Matthew Mckeon Confirmed By:TONY AHUMADA MD
[2021-02-21 12:38] LABS: Hematocrit 36.1 % (37-47); Hemoglobin 11.4 g/dL (12.0-15.0); Mean Corp Hgb Conc 31.6 g/dL (32-36); Mean Corpuscular Hgb 28.2 pg (27.0-32.0); Mean Corpuscular Volume 89.4 fL (81-99); Mean Platelet Vol. 9.7 fl (6.2-12.0); Platelet Count 239 K/mm3 (150-450); RBC Distribution Width SD 45.6 fl (35.1-43.9); Red Blood Count 4.04 M/mm3 (4.2-5.4); White Blood Count 8.4 K/mm3 (4.4-11.0)
[2021-02-21 13:07] LABS: Anion Gap 7 (5-15); BUN 51 mg/dL (7-18); BUN/Creat Ratio 17.6 RATIO (10-20); Calcium,Total 8.8 mg/dL (8.5-10.1); Chloride 111 mmol/L (98-107); EST Glomerular Filtration Rate 18 mL/min (>60); Est Glom Filt Rate - Afr Amer 22 mL/min (>60); Glucose 83 mg/dL (74-106); Potassium 3.8 mmol/L (3.5-5.1); Sodium Level 142 mmol/L (136-145)
[2021-02-27] VITALS (7 sets, daily range): BP systolic 110–136; BP diastolic 51–75; PULSE 70–86; RESP 16–18; TEMP 36.1–36.8; O2SAT 97–98; BMI 58.2
--- NOTE | 2021-02-27 06:33 | HP.PCM_ITS ---
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: No Is patient in pain?: No Allergies levofloxacin Allergy (Severe, Verified 02/21/21 09:04) hives DECONGESTANTS Adverse Reaction (Uncoded 02/20/21 08:23) Other Medications lactobacillus combination no.4 3 billion cell capsule 3,000 mmu cells PO QDAY 07/08/17 [History Confirmed 02/21/21] loratadine 10 mg tablet 10 mg PO QDAY 07/08/17 [History Confirmed 02/21/21] albuterol sulfate 2.5 mg INHALATION Q4H PRN #75 ml 03/25/19 [Rx Confirmed 02/21/21] albuterol sulfate 90 mcg/actuation aerosol inhaler 2 puff INHALATION Q4H PRN #8.5 g 03/01/20 [Rx Confirmed 02/21/21] venlafaxine 150 mg capsule,extended release 24 hr 150 mg PO DAILY #90 cap 03/01/20 [Rx Confirmed 02/21/21] levothyroxine 100 mcg tablet 100 mcg PO QDAY #90 tab 03/02/20 [Rx Confirmed 02/21/21] pen needle, diabetic 33 gauge x #360 ea 07/09/20 [Rx Confirmed 02/21/21] insulin detemir U-100 100 unit/mL (3 mL) subcutaneous pen 76 unit SC QHS ml 07/11/20 [History Confirmed 02/21/21] insulin aspart U-100 100 unit/mL (3 mL) subcutaneous pen 26 unit SC TID 90 Days #15 ml 07/13/20 [Rx Confirmed 02/21/21] amlodipine 5 mg tablet 5 mg PO DAILY #90 tab 10/22/20 [Rx Confirmed 02/21/21] carvedilol 6.25 mg tablet 6.25 mg PO BID #180 tab 10/22/20 [Rx Confirmed 02/21/21] furosemide 40 mg tablet 40 mg PO DAILY #90 tab 10/22/20 [Rx Confirmed 02/21/21] Is last menstrual period known: No Post menopausal: Yes Patient : No PFSH Medical History 4-quinolones adverse reaction Ankle fracture Anxiety Arthritis Asthmatic bronchitis Asthmatic bronchitis Cardiology follow-up encounter Cardiomyopathy Chronic renal insufficiency, stage III (moderate) Congestive heart failure CPAP (continuous positive airway pressure) dependence Depression Dietary restriction Essential (primary) hypertension History of echocardiogram History of edema History of pain when walking History of renal disease History of stress test Hx of psoriasis Hypothyroidism (acquired) Hysteroscopy Uterus Injury of head and neck Maxillary sinusitis Morbid obesity Nicotine dependence LUZ MARIA on CPAP Radiculopathy affecting upper extremity Shortness of breath on exertion Smoker Thyroid disease Trigger finger of thumb Type 2 diabetes mellitus without complications Varicosities of leg Wears glasses Surgical History History of History of carpal tunnel surgery History of tonsillectomy History of total abdominal hysterectomy Hx of cholecystectomy Hx of dilation and curettage Hx of laparoscopy left ankle surgery S/P trigger finger release (~07/2019) Family History Other Angina at rest Heart disease Hypertension Lung cancer Social History Smoking Status: Current every day smoker tobacco type: cigarettes alcohol intake: current alcohol intake frequency: holidays/special occasions only substance use type: does not use caffeine: No HPI HPI HPI: DAKOTAH UGALDE, is a 55 F who presents to the office today for an update history and physical. Patient denies recent hospitalizations or illnesses. She denies recent medications changes. She is not currently on dialysis. She notes a history of CHF. 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 She has a history of sleep apnea. She denies previous history of stroke, myocardial infarction, blood clots. She notes a history of nausea following general anesthesia which typically requires an overnight stay in the hospital. Patient's previous history per Dr. Mckeon: DAKOTAH UGALDE, is a 55 F who presents to the office today for surgical consultation regarding creation of arteriovenous hemodialysis fistula. As of November 30, 2020 BUN was 49 with a creatinine of 2.68 and an estimated GFR of 20 placing her in stage IV chronic renal insufficiency. She is referred by Dr. Kanwal Gil and a written copy my surgical consult and recommendations will return to her. The patient is right arm dominant. She denies any anticoagulation. Fortunately she has not had any recent hospitalizations. Body weight is 355 pounds with a BMI 57.2 January 14, 2021 Reason For Study: CKD stage 4 Right Arm Left Arm Rt Brachial A: 0.43cm X 0.39cm, 90 cm/s Lt Brachial A: 0.41cm x 0.38cm, 95cm/s Rt Radial A: 0.27cm x 0.30cm, 59 cm/s. Lt Radial A: 0.24cm x 0.25cm, 74cm/s. Right Cephalic Vein at the wrist measures Left Cephalic Vein at the wrist measures 0.18cm x 0.19 cm. 0.22cm x 0.18 cm. Right Cephalic Vein in the forearm measures Left Cephalic Vein in the forearm measures 0.16cm x 0.15 cm. 0.19cm x 0.19 cm. Right Cephalic Vein below antecub measures Left Cephalic Vein below antecub measures 0.24cm x 0.23 cm. 0.16cm x 0.15 cm. Right Cephalic Vein above antecub measures Left Cephalic Vein above antecub measures 0.50cm x 0.62 cm. 0.44cm x 0.44 cm. Right Cephalic Vein mid bicep measures Left Cephalic Vein at mid bicep measures 0.35cm x 0.34 cm. 0.38cm x 0.34 cm. Right Cephalic Vein at the shoulder measures Left Cephalic Vein at the shoulder measures 0.44cm x 0.49 cm. 0.34cm x 0.31 cm. Right Basilic Vein at the origin measures Basilic vein at origin measures 0.28cm x 0.34cm x 0.33 cm. 0.29 cm. Right Basilic Vein mid bicep measures 0.22cm Basilic vein at bicep measures 0.27cm x 0.28 x 0.20 cm. cm. Right Basilic Vein above antecub measures Basilic vein above antecub measures 0.21cm x 0.24cm x 0.22 cm. 0.21 cm. VL/Saphenous Vein Mapping, Bilat Interpretation Summary Patent and compressible right cephalic and basilic veins although the cephalic vein of the forearm is small. Patent and compressible left cephalic and basilic veins again with relatively small left cephalic vein of the forearm. Bilateral radial and brachial arteries are patent with normal diameter and flow. Ordering Physician: Kanwal Gil Referring Physician: Nithya Haywood Performed By: Hwaa Arguelles, DINA, RVT ? 01/14/21 1539Date Matthew DOAN General General: No weight change, appetite, fatigue, colon cancer, breast cancer or weakness HEENT HEENT: No difficulty swallowing, eye injury, eye surgery, swollen glands or hoarseness Endo Endocrine: Yes diabetes mellitus; No thyroid disease, thyroid cancer, Hair loss, heat intolerance or cold intolerance Skin Skin: Yes rash; No changing moles Breast Breast: No left breast lump, right breast lump, nipple discharge, breast pain, abnormal mammogram, abnormal US or breast enlargement Musc Musculoskeletal: No back problems, arthritis, rheumatoid arthritis, gout or joint pain Cardio Cardiovascular: Yes high blood pressure; No murmur, pacemaker, heart disease, atrial fibrillation, heart attack, heart stent, palpitations, shortness of breat with exertion or chest pain Psych Psychiatric: Yes anxiety; No depression or hearing voices Resp Respiratory: No shortness of breath, Yes sleep apnea, No cough, No COPD, No asthma, No emphysema and No wheezing Gastro Gastrointestinal: No abdominal pain, No nausea or vomiting, No diarrhea, No constipation, No blood in stool, No acid reflux, No hemorrhoids, No ulcers, No gallbladder problem and No black,tarry stools [place] Hematologic: No blood thinners, No blood disorders, No bleeding, No anemia and No blood clots Neuro Neurologic: No system reviewed and no additional complaints, except as documented, No as per HPI, No abnormal gait, No abnormal hearing, No abnormal movements, No abnormal speech, No behavioral changes, No burning sensations, No confusion, No convulsions, No disequilibrium, No dizziness, No localized weakness, No frequent falls, No headache(s), No lack of coordination, No loss of vision, No memory loss, No numbness, No other visual disturbances, No radicular pain, No restless legs, No sensory deficit, No syncope, No tingling, No tremor(s), No weakness and No other Exam Const General: cooperative, comfortable and no acute distress HENMT Head: normal to inspection Eyes General: appearance normal, both eyes and all related structures Neck Neck: normal visual inspection Neck mass: No Resp Effort & Inspection: normal respiratory effort Auscultation: clear to auscultation bilaterally Cardio Rate: regular rate Rhythm: regular rhythm GI Inspection: normal to inspection Auscultation: normal bowel sounds Skin General: no rashes or lesions noted Neuro General: no focal motor deficits and CN's II-XI intact bilaterally Extrem General: normal to inspection Psych Appearance: grossly normal Affect: normal affect Assessment and Plan Assessment and Plan (1) Chronic renal insufficiency, stage IV (severe): Status: Chronic Plan - SHANON LuoC: Dr. Mckeon will plan to perform a left forearm transposition cephalic vein to radial artery arteriovenous hemodialysis fistula. Procedure details, risks and benefits have been reviewed. Patient has had the opportunity to ask and have questions answered. Patient's procedure will be performed under MAC local. Patient is not currently on blood thinners. Post-op instructions have been reviewed with the patient. Coding Level of Care Code No Charge Diagnoses Chronic renal insufficiency, stage IV (severe) N18.4 Comment Update H&P 02/21/21 7964<Electronically signed by Emeli DE LA CRUZ PA-C> 55-year-old female with stage IV chronic renal insufficiency. She is right arm dominant. I propose for her a left forearm transposition cephalic vein to radial artery arteriovenous hemodialysis fistula creation. No guarantees of success have been offered. She would prefer this not being performed under general anesthesia states that she becomes very nauseated requiring multiple day hospital stay. I propose that we accomplish this under monitored anesthesia care with local anesthetic. She is aware of the technique, benefit, risk, alternatives. She has had an opportunity to ask and have questions answered. We will schedule and proceed at her discretion. I very much appreciate the kind opportunity of assisting with her surgical care. Copy: Dr. Kanwal Gil and Nithya Haywood, [employer] Matthew Mckeon M.D., F.A.C.S.
[2021-02-27 06:35] LABS: Bedside Glucose 139 mg/dL (70-110)
--- NOTE | 2021-02-27 06:41 | DCINST_ITS ---
Discharge Instructions Procedure Fistula Diet Discharge Diet: Renal Diet Activity Discharge Activity: May Not Drive (for 2-3 days or while taking narcotic pain medications.), May Shower and May Take a Tub Bath (in 5 days.) Lifting Restrictions: 5 pounds Keep extremity elevated above heart level: - (Keep arm elevated above the heart level for 3 days.) Dressing / Incision Call your doctor if your incision/area has: Continuous Slow Oozing, Sudden Increased Bleeding (apply pressure and call your doctor.), Increased Pain/ Swelling, Increased Redness and Foul Smelling Discharge Call your doctor if you observe: Fever of 101 or Higher Suture Line Care: Avoid Pulling/Pushing and Avoid Pinching/Bending Cleanse incision/area with: Keep Dressing Clean & Dry Additional Dressing/Incision Instructions:: Change or remove dressing in one day. May protect with a gauze bandaid. Follow Up Care Please Follow Up With: Matthew Mckeon MD When: Call [phone] to make an appointment for suture removal and follow up in 1 week. Test Results: Test results from this visit will be discussed in further detail at your follow-up appointment, if applicable. Discharge Plan Admission Attending Provider: Matthew Mckeon Primary Care Provider: Nithya Haywood NP Discharge Orders/Prescriptions Prescriptions: No Action loratadine 10 mg tablet 10 mg PO QDAY RF: 0 lactobacillus combination no.4 [Probiotic] 3 billion cell capsule 3,000 mmu cells PO QDAY RF: 0 insulin detemir U-100 100 unit/mL (3 mL) insulin pen 76 unit SC QHS RF: 0 furosemide [Lasix] 40 mg tablet 40 mg PO DAILY Qty: 90 RF: 3 carvedilol 6.25 mg tablet 6.25 mg PO BID Qty: 180 RF: 3 amlodipine [Norvasc] 5 mg tablet 5 mg PO DAILY Qty: 90 RF: 3 albuterol sulfate 2.5 mg /3 mL (0.083 %) solution for nebulization 2.5 mg INHALATION Q4H PRN (Reason: bronchospasm) Qty: 75 RF: 12 ProAir HFA 90 mcg/actuation HFA aerosol inhaler 2 puff INHALATION Q4H PRN (Reason: bronchospasm) Qty: 8.5 RF: 12 venlafaxine 150 mg capsule,extended release 24hr 150 mg PO DAILY Qty: 90 RF: 3 levothyroxine [Levoxyl] 100 mcg tablet 100 mcg PO QDAY Qty: 90 RF: 3 (DME) pen needle, diabetic [Comfort EZ Pen [place]] 33 gauge x 5/32 needle See Rx Instructions .ROUTE .MEDSUPPLY Qty: 360 RF: 3 insulin aspart U-100 [Novolog Flexpen U-100 Insulin] 100 unit/mL (3 mL) insulin pen 26 unit SC TID 90 Days Qty: 15 RF: 3
[2021-02-27] MEDS: Heparin Injection (Vial) 5,000 UNIT/ML VIAL 5000 UNIT (09:00)
[2021-02-27] MEDS: Bupivacaine Mpf 0.5% 30 ML VIAL (09:00)
[2021-02-27] MEDS: Lidocaine 1% (20 ml mdv) 20 ML Vial (09:00)
[2021-02-27] MEDS: Lidocaine 0.5% (50 ml) 50 ML Vial (09:00)
--- NOTE | 2021-02-27 09:08 | OP.PCM_ITS ---
Problems Associated Problem List Diagnoses (1) Chronic renal insufficiency, stage IV (severe): Report of Operation Date of Procedure: 02/27/21 Pre-Operative Diagnosis: Stage IV chronic renal insufficiency Post-Operative Diagnosis: Same Surgery/Procedure Performed:: Left forearm transposition cephalic vein to radial artery arteriovenous fistula creation Description of Surgical Findings:: Timeout informed consent was obtained. 55-year-old female was taken to the operating placed upon the table underwent monitored anesthesia care. Based upon body weight 3 g of Ancef were given int ravenously. Clean procedure. The left upper semisterilely prepped and draped. Throughout the procedure a total of 32 cc of 1% lidocaine mixed 50-50 with 0.5% Marcaine was utilized and 16 cc of 1/2% lidocaine. Ultrasound mapping of the course of the cephalic vein was performed local was instilled a longitudinal incision was created along the length of the cephalic vein of the forearm sharp and blunt dissection was used to release the vein. Side branches secured with hemoclips and were needed with 7-0 Prolene sutures. The vein was then harvested was irrigated was noted to be intact it had been ink marked. I then at the wrist level immediately extended the medial flap to identify the radial artery which was dissected free and mobilized. Then used a tunneler from the wrist to the proximal forearm. Rerouted the vein sure there was no kinks. The patient then received 10,000 and's of heparin. Peripheral vascular clamps were placed on the radial artery and 11 blade was used to make an arteriotomy which was extended with Harden scissors. The vein was spatulated to length and end-to-side anastomosis was created with running 7-0 Prolene. Prior to completion there was good antegrade retrograde flow. The artery was noted to be healthy. The anastomosis was completed immediately good flow was established. There was no evidence of any kinking. Doppler demonstrated excellent flow and there was a palpable thrill. The patient received 20 mg of protamine. Subcutaneous tissues approximated running subcutaneous 3-0 Vicryl. Skin edges proximal and running septic or 4 Monocryl. Steri-Strips Telfa soft roll and Archie wrap applied. Sponge and instrument and needle counts were reported to certainly be correct. Specimens none. Drains none. Blood loss 100 cc. She was taken to the recovery room in satisfactory addition without apparent complication. The hand was noted to be viable. Matthew Mckeon M.D., F.A.C.S. Surgeon: Matthew Mckeon
== END 2021-02-27 11:06 | disposition home or self-care (01) ==
LOC: SDC 05:57 → AC 05:57
PROVIDERS: PCP Nurse Practitioner; Referring Provider Surgery; Visit Provider Surgery
PROC: (CPT 36818; principal; 2021-02-27 07:15)
DX: I13.0 Hypertensive heart and chronic kidney disease with heart failure and stage 1 through stage 4 chronic kidney disease, or unspecified chronic kidney disease (principal); N18.4 Chronic kidney disease, stage 4 (severe); Z99.2 Dependence on renal dialysis; E11.22 Type 2 diabetes mellitus with diabetic chronic kidney disease; E11.65 Type 2 diabetes mellitus with hyperglycemia; I50.9 Heart failure, unspecified; I42.9 Cardiomyopathy, unspecified; E03.9 Hypothyroidism, unspecified; J45.909 Unspecified asthma, uncomplicated; G47.33 Obstructive sleep apnea (adult) (pediatric); F32.9 Major depressive disorder, single episode, unspecified; F17.210 Nicotine dependence, cigarettes, uncomplicated; Z79.4 Long term (current) use of insulin; Z79.890 Hormone replacement therapy; Z79.899 Other long term (current) drug therapy
CPT/HCPCS: 36818; 36415; 80048; 82962; 85027; 93005; J7030; J7120; J2405

== ENCOUNTER → 2021-03-07 21:44 | Outpatient (CLI) | payer BC, SELFPAY ==
[2021-03-07 22:14] LABS: Thyroid Stim Hormone (TSH) 1.74 uIU/mL (0.358-3.74)
[2021-03-07 22:15] LABS: Hemoglobin A1c 5.9 % (3.8-5.6)
== END ==
PROVIDERS: PCP Nurse Practitioner; Visit Provider Nurse Practitioner
DX: E11.22 Type 2 diabetes mellitus with diabetic chronic kidney disease (principal); N18.4 Chronic kidney disease, stage 4 (severe); E11.65 Type 2 diabetes mellitus with hyperglycemia; E03.9 Hypothyroidism, unspecified
CPT/HCPCS: 83036; 84443

== ENCOUNTER → 2021-03-13 10:42 | Outpatient (CLI) | payer BC, SELFPAY ==
[2020-10-22 14:40] VITALS: BMI 56.9
[2021-03-13 12:24] LABS: Hematocrit 35.4 % (37-47); Hemoglobin 11.2 g/dL (12.0-15.0); Mean Corp Hgb Conc 31.6 g/dL (32-36); Mean Corpuscular Hgb 28.3 pg (27.0-32.0); Mean Corpuscular Volume 89.4 fL (81-99); Mean Platelet Vol. 9.9 fl (6.2-12.0); Platelet Count 240 K/mm3 (150-450); RBC Distribution Width CV 13.7 % (11.6-14.6); RBC Distribution Width SD 44.8 fl (35.1-43.9); Red Blood Count 3.96 M/mm3 (4.2-5.4); White Blood Count 7.2 K/mm3 (4.4-11.0)
[2021-03-13 12:57] LABS: PTHIN 526.7 pg/mL (18.4-80.1)
[2021-03-13 13:05] LABS: Albumin, Serum 3.1 g/dL (3.2-5.0); BUN 49 mg/dL (7-18); BUN/Creat Ratio 16.6 RATIO (10-20); Calcium,Total 8.5 mg/dL (8.5-10.1); Chloride 107 mmol/L (98-107); Creatinine, Serum 2.96 mg/dL (0.55-1.02); EST Glomerular Filtration Rate 18 mL/min (>60); Est Glom Filt Rate - Afr Amer 21 mL/min (>60); Ferritin 77 ng/mL (8-252); Glucose 89 mg/dL (74-106); Iron 54 ug/dL (50-170); Iron Binding Capacity,Total 288 ug/dL (250-450); PERCENT IRON SATURATION 18.8 % (15.0-55.0); Phosphorus 4.3 mg/dL (2.5-4.9); Sodium Level 140 mmol/L (136-145)
== END ==
PROVIDERS: PCP Nurse Practitioner; Visit Provider Internal Medicine Nephrology
DX: N18.4 Chronic kidney disease, stage 4 (severe) (principal); D50.9 Iron deficiency anemia, unspecified; N25.81 Secondary hyperparathyroidism of renal origin
CPT/HCPCS: 36415; 80069; 82728; 83540; 83550; 83970; 85027

== ENCOUNTER 2021-07-10 17:15 | Outpatient (CLI) | payer BC, SELFPAY ==
[2021-07-10 17:36] LABS: Hematocrit 33.7 % (37-47); Hemoglobin 11.5 g/dL (12.0-15.0); Mean Corp Hgb Conc 34.1 g/dL (32-36); Mean Corpuscular Hgb 29.3 pg (27.0-32.0); Mean Corpuscular Volume 85.8 fL (81-99); Mean Platelet Vol. 9.7 fl (6.2-12.0); Platelet Count 256 K/mm3 (150-450); RBC Distribution Width CV 14.3 % (11.6-14.6); RBC Distribution Width SD 44.3 fl (35.1-43.9); Red Blood Count 3.93 M/mm3 (4.2-5.4); White Blood Count 10.8 K/mm3 (4.4-11.0)
[2021-07-10 18:08] LABS: Albumin, Serum 3.4 g/dL (3.2-5.0); BUN 62 mg/dL (7-18); BUN/Creat Ratio 17.9 RATIO (10-20); Chloride 105 mmol/L (98-107); Creatinine, Serum 3.47 mg/dL (0.55-1.02); EST Glomerular Filtration Rate 15 mL/min (>60); Est Glom Filt Rate - Afr Amer 18 mL/min (>60); Ferritin 106 ng/mL (8-252); Glucose 100 mg/dL (74-106); Iron 44 ug/dL (50-170); Iron Binding Capacity,Total 299 ug/dL (250-450); Phosphorus 5.4 mg/dL (2.5-4.9); Potassium 3.1 mmol/L (3.5-5.1); Sodium Level 137 mmol/L (136-145)
[2021-07-11 07:31] LABS: PTHIN 333.3 pg/mL (18.4-80.1)
== END 2021-07-10 23:59 | disposition short-term general hospital (02) ==
LOC: LAB.FUTURE 17:20 → LAB 17:22
PROVIDERS: PCP Nurse Practitioner; Visit Provider Internal Medicine Nephrology
DX: N18.4 Chronic kidney disease, stage 4 (severe) (principal); N25.81 Secondary hyperparathyroidism of renal origin; D50.9 Iron deficiency anemia, unspecified
CPT/HCPCS: 36415; 80069; 82306; 82728; 83540; 83550; 83970; 85027

== ENCOUNTER 2021-09-18 14:25 | Outpatient (CLI) | payer BC, SELFPAY ==
[2021-09-18 15:28] LABS: Hemoglobin 11.5 g/dL (12.0-15.0); Mean Corp Hgb Conc 32.9 g/dL (32-36); Mean Corpuscular Hgb 28.5 pg (27.0-32.0); Mean Corpuscular Volume 86.6 fL (81-99); Mean Platelet Vol. 10.3 fl (6.2-12.0); Platelet Count 237 K/mm3 (150-450); RBC Distribution Width CV 14.2 % (11.6-14.6); RBC Distribution Width SD 45.3 fl (35.1-43.9); Red Blood Count 4.04 M/mm3 (4.2-5.4); White Blood Count 12.1 K/mm3 (4.4-11.0)
[2021-09-18 16:00] LABS: Albumin, Serum 3.2 g/dL (3.2-5.0); BUN 83 mg/dL (7-18); Calcium,Total 10.6 mg/dL (8.5-10.1); Chloride 106 mmol/L (98-107); Creatinine, Serum 4.16 mg/dL (0.55-1.02); EST Glomerular Filtration Rate 12 mL/min (>60); Est Glom Filt Rate - Afr Amer 14 mL/min (>60); Glucose 140 mg/dL (74-106); Phosphorus 6.3 mg/dL (2.5-4.9); Potassium 3.2 mmol/L (3.5-5.1); Sodium Level 138 mmol/L (136-145)
[2021-09-19 08:02] LABS: PTHIN 36.1 pg/mL (18.4-80.1)
== END 2021-09-18 23:59 | disposition home or self-care (01) ==
LOC: LAB 14:26
PROVIDERS: PCP Nurse Practitioner; Visit Provider Internal Medicine Nephrology
DX: N18.4 Chronic kidney disease, stage 4 (severe) (principal); N25.81 Secondary hyperparathyroidism of renal origin; D50.9 Iron deficiency anemia, unspecified
CPT/HCPCS: 36415; 80069; 83970; 85027

== ENCOUNTER → 2021-10-22 | Outpatient (CLI) | payer BC, SELFPAY ==
[2021-10-22 16:26] LABS: Hematocrit 33.1 % (37-47); Hemoglobin 10.6 g/dL (12.0-15.0); Mean Corpuscular Hgb 28.1 pg (27.0-32.0); Mean Corpuscular Volume 87.8 fL (81-99); Platelet Count 278 K/mm3 (150-450); RBC Distribution Width CV 14.6 % (11.6-14.6); RBC Distribution Width SD 47.3 fl (35.1-43.9); Red Blood Count 3.77 M/mm3 (4.2-5.4); White Blood Count 9.2 K/mm3 (4.4-11.0)
[2021-10-22 16:52] LABS: Albumin, Serum 3.2 g/dL (3.2-5.0); BUN 56 mg/dL (7-18); BUN/Creat Ratio 16.6 RATIO (10-20); Calcium,Total 8.7 mg/dL (8.5-10.1); Chloride 108 mmol/L (98-107); Creatinine, Serum 3.37 mg/dL (0.55-1.02); EST Glomerular Filtration Rate 15 mL/min (>60); Est Glom Filt Rate - Afr Amer 18 mL/min (>60); Ferritin 81 ng/mL (8-252); Glucose 62 mg/dL (74-106); Iron 37 ug/dL (50-170); Iron Binding Capacity,Total 290 ug/dL (250-450); Phosphorus 4.7 mg/dL (2.5-4.9); Potassium 3.2 mmol/L (3.5-5.1); Sodium Level 139 mmol/L (136-145)
[2021-10-23 07:59] LABS: PTHIN 639.5 pg/mL (18.4-80.1)
== END | disposition home or self-care (01) ==
LOC: LAB 14:57
PROVIDERS: PCP Nurse Practitioner; Referring Provider Internal Medicine Nephrology; Visit Provider Internal Medicine Nephrology
DX: N18.4 Chronic kidney disease, stage 4 (severe) (principal); N25.81 Secondary hyperparathyroidism of renal origin; D50.9 Iron deficiency anemia, unspecified
CPT/HCPCS: 36415; 80069; 82728; 83540; 83550; 83970; 85027

== ENCOUNTER → 2021-11-14 | Outpatient (CLI) | payer BC, SELFPAY ==
[2021-11-14 17:31] LABS: Protein, Urine (Random) 64.1 mg/dL (<11.9); Protein:Creat Ratio 1635 mg/g CRE (0-200)
== END | disposition home or self-care (01) ==
LOC: LAB 16:06
PROVIDERS: PCP Nurse Practitioner; Visit Provider Internal Medicine Nephrology
DX: E11.3559 Type 2 diabetes mellitus with stable proliferative diabetic retinopathy, unspecified eye (principal)
CPT/HCPCS: 82570; 84156

== ENCOUNTER → 2021-12-30 | Outpatient (CLI) | payer BC, SELFPAY ==
[2021-12-30 14:52] LABS: Hematocrit 33.6 % (37-47); Hemoglobin 10.5 g/dL (12.0-15.0); Mean Corp Hgb Conc 31.3 g/dL (32-36); Mean Corpuscular Hgb 27.6 pg (27.0-32.0); Mean Corpuscular Volume 88.4 fL (81-99); Mean Platelet Vol. 9.4 fl (6.2-12.0); Platelet Count 236 K/mm3 (150-450); RBC Distribution Width CV 15.2 % (11.6-14.6); RBC Distribution Width SD 48.6 fl (35.1-43.9); White Blood Count 9.3 K/mm3 (4.4-11.0)
[2021-12-30 15:23] LABS: Albumin, Serum 3.5 g/dL (3.2-5.0); BUN 57 mg/dL (7-18); BUN/Creat Ratio 12.9 RATIO (10-20); Calcium,Total 9.2 mg/dL (8.5-10.1); Chloride 110 mmol/L (98-107); Creatinine, Serum 4.43 mg/dL (0.55-1.02); EST Glomerular Filtration Rate 11 mL/min (>60); Est Glom Filt Rate - Afr Amer 13 mL/min (>60); Glucose 99 mg/dL (74-106); Phosphorus 4.3 mg/dL (2.5-4.9); Potassium 3.4 mmol/L (3.5-5.1); Sodium Level 139 mmol/L (136-145)
[2021-12-30 15:32] LABS: PTHIN 243.2 pg/mL (18.4-80.1)
== END | disposition home or self-care (01) ==
LOC: LAB 14:31
PROVIDERS: PCP Nurse Practitioner; Visit Provider Internal Medicine Nephrology
DX: N18.4 Chronic kidney disease, stage 4 (severe) (principal); N25.81 Secondary hyperparathyroidism of renal origin; E87.6 Hypokalemia
CPT/HCPCS: 36415; 80069; 83970; 85027

== ENCOUNTER → 2022-02-11 | Outpatient (CLI) | payer BC, SELFPAY | END | disposition home or self-care (01) | LOC: LABSPEC 07:52 | PROVIDERS: PCP Nurse Practitioner; Referring Provider Internal Medicine Nephrology; Visit Provider Internal Medicine Nephrology | DX: E11.22 Type 2 diabetes mellitus with diabetic chronic kidney disease (principal); N18.5 Chronic kidney disease, stage 5; N25.81 Secondary hyperparathyroidism of renal origin; D50.9 Iron deficiency anemia, unspecified ==

== ENCOUNTER 2022-02-13 10:11 | Outpatient (CLI) | payer BC, SELFPAY ==
[2022-02-13 10:40] LABS: 24 Hour Urine Protein 1482.5 mg/24HR (<150 MG/24HR); 24HR. UA Prot. Total Volume 2475 mL; Urine Protein (24 Hour) 59.9 mg/dL (<11.9)
[2022-02-13 11:20] LABS: Hematocrit 34.7 % (37-47); Hemoglobin 11.1 g/dL (12.0-15.0); Mean Corpuscular Hgb 27.8 pg (27.0-32.0); Mean Platelet Vol. 9.7 fl (6.2-12.0); Platelet Count 229 K/mm3 (150-450); RBC Distribution Width CV 15.5 % (11.6-14.6); RBC Distribution Width SD 49.1 fl (35.1-43.9); Red Blood Count 3.99 M/mm3 (4.2-5.4); White Blood Count 8.3 K/mm3 (4.4-11.0)
[2022-02-13 11:48] LABS: PTHIN 29.7 pg/mL (18.4-80.1)
[2022-02-13 11:53] LABS: Albumin, Serum 3.3 g/dL (3.2-5.0); BUN 59 mg/dL (7-18); BUN/Creat Ratio 13.6 RATIO (10-20); Calcium,Total 11.1 mg/dL (8.5-10.1); Chloride 108 mmol/L (98-107); Creatinine, Serum 4.35 mg/dL (0.55-1.02); EST Glomerular Filtration Rate 11 mL/min (>60); Est Glom Filt Rate - Afr Amer 14 mL/min (>60); Ferritin 66 ng/mL (8-252); Glucose 101 mg/dL (74-106); Iron 36 ug/dL (50-170); Iron Binding Capacity,Total 297 ug/dL (250-450); Phosphorus 4.8 mg/dL (2.5-4.9); Potassium 3.5 mmol/L (3.5-5.1); Sodium Level 140 mmol/L (136-145)
[2022-02-13 12:41] LABS: Creat.Clear Total Volume 2475 mL; Creatinine Clearance 15 ml/min (100-200); Creatinine Serum Creat 4.4 mg/dL (0.6-1.0); Creatinine Urine 38.2 mg/dL (NO RANGE EST.); EST Glomerular Filtration Rate 11 mL/min (>60); Est Glom Filt Rate - Afr Amer 14 mL/min (>60)
== END 2022-02-13 23:59 | disposition home or self-care (01) ==
LOC: LAB 10:15
PROVIDERS: PCP Nurse Practitioner; Visit Provider Internal Medicine Nephrology
DX: E11.22 Type 2 diabetes mellitus with diabetic chronic kidney disease (principal); N18.5 Chronic kidney disease, stage 5; N25.81 Secondary hyperparathyroidism of renal origin; D50.9 Iron deficiency anemia, unspecified
CPT/HCPCS: 36415; 80069; 81050; 82575; 82728; 83540; 83550; 83970; 84156; 85027

== ENCOUNTER → 2022-02-18 | Outpatient (CLI) | payer BC, SELFPAY ==
[2022-02-18 12:30] LABS: Hepatitis B Surface Antigen Non-Reactive (Nonreactive)
== END | disposition home or self-care (01) ==
LOC: POLAB3 10:01
PROVIDERS: PCP Nurse Practitioner; Visit Provider Internal Medicine Nephrology
DX: N18.6 End stage renal disease (principal)
CPT/HCPCS: 36415; 87340

== ENCOUNTER → 2022-03-04 | Outpatient (CLI) | payer BC, SELFPAY ==
[2022-03-04 22:31] LABS: Absolute Lymphocyte Count 1.59 X10^3/uL (0.83-4.51); Absolute Neutrophil Count 7.4 X10^3/uL (2.0-7.7); Basophil# 0.05 X10^3/uL; Basophil% 0.5 % (0-1); Eosinophil# 0.35 X10^3/uL; Eosinophils% 3.5 % (0-5); Hemoglobin 10.7 g/dL (12.0-15.0); Lymphocyte # 1.59 X10^3/ul (0.83-4.51); Lymphocyte % 15.8 % (19-41); Mean Corp Hgb Conc 31.5 g/dL (32-36); Mean Corpuscular Volume 85.9 fL (81-99); Mean Platelet Vol. 9.6 fl (6.2-12.0); Monocyte# 0.62 X10^3/uL; Monocyte% 6.2 % (0-10); NRBC Flagged by Analyzer 0 % (0-5); Neutrophil # 7.41 X10^3/uL (2.7-7.7); Neutrophil % 73.6 % (47-70); Platelet Count 199 K/mm3 (150-450); RBC Distribution Width CV 15.3 % (11.6-14.6); RBC Distribution Width SD 47.7 fl (35.1-43.9); Red Blood Count 3.96 M/mm3 (4.2-5.4); White Blood Count 10.1 K/mm3 (4.4-11.0)
[2022-03-04 22:58] LABS: ALB/GLOB Ratio 0.6 RATIO (0.9-2.4); AST(SGOT) 26 U/L (15-37); Alanine Aminotransfer ALT/SGPT 29 U/L (13-56); Albumin, Serum 3.2 g/dL (3.2-5.0); Alkaline Phosphatase 129 U/L (45-117); Anion Gap 9 (5-15); BUN 32 mg/dL (7-18); BUN/Creat Ratio 10.7 RATIO (10-20); Calcium,Total 8.9 mg/dL (8.5-10.1); Chloride 103 mmol/L (98-107); Cholesterol 153 mg/dL (200); Creatinine, Serum 2.98 mg/dL (0.55-1.02); EST Glomerular Filtration Rate 17 mL/min (>60); Est Glom Filt Rate - Afr Amer 21 mL/min (>60); Globulin 5.1 g/dL (2.2-4.2); Glucose 56 mg/dL (74-106); High Density Lipoprotein 41 mg/dL; Potassium 3.2 mmol/L (3.5-5.1); Protein, Total 8.3 g/dL (6.4-8.2); Sodium Level 139 mmol/L (136-145); Thyroid Stim Hormone (TSH) 1.62 uIU/mL (0.358-3.74); Triglycerides 105 mg/dL; Very Low Density Lipoprotein 21 mg/dL (5-40)
[2022-03-04 23:21] LABS: Hemoglobin A1c 5.7 % (3.8-5.6)
== END | disposition home or self-care (01) ==
PROVIDERS: PCP Nurse Practitioner; Visit Provider Nurse Practitioner
DX: E11.22 Type 2 diabetes mellitus with diabetic chronic kidney disease (principal); N18.4 Chronic kidney disease, stage 4 (severe); I12.9 Hypertensive chronic kidney disease with stage 1 through stage 4 chronic kidney disease, or unspecified chronic kidney disease; E03.9 Hypothyroidism, unspecified
CPT/HCPCS: 80053; 80061; 83036; 84443; 85025

== ENCOUNTER → 2022-08-21 | Outpatient (CLI) | payer BC, SELFPAY | END | disposition home or self-care (01) | PROVIDERS: PCP Nurse Practitioner; Visit Provider Nurse Practitioner | DX: E03.9 Hypothyroidism, unspecified (principal) | CPT/HCPCS: 84443 ==

== ENCOUNTER → 2023-03-03 | Outpatient (CLI) | payer BC, SELFPAY ==
[2023-03-03 22:39] LABS: Absolute Lymphocyte Count 1.95 X10^3/uL (0.83-4.51); Absolute Neutrophil Count 5.6 X10^3/uL (2.0-7.7); Basophil# 0.04 X10^3/uL; Basophil% 0.5 % (0-1); Eosinophil# 0.21 X10^3/uL; Eosinophils% 2.6 % (0-5); Hematocrit 36.9 % (37-47); Hemoglobin 12.2 g/dL (12.0-15.0); Lymphocyte # 1.95 X10^3/ul (0.83-4.51); Lymphocyte % 23.8 % (19-41); Mean Corp Hgb Conc 33.1 g/dL (32-36); Mean Corpuscular Hgb 31.4 pg (27.0-32.0); Mean Corpuscular Volume 94.9 fL (81-99); Mean Platelet Vol. 10.1 fl (6.2-12.0); Monocyte% 4.9 % (0-10); NRBC Flagged by Analyzer 0 % (0-5); Neutrophil # 5.57 X10^3/uL (2.7-7.7); Platelet Count 199 K/mm3 (150-450); RBC Distribution Width CV 13.8 % (11.6-14.6); RBC Distribution Width SD 47.6 fl (35.1-43.9); Red Blood Count 3.89 M/mm3 (4.2-5.4); White Blood Count 8.2 K/mm3 (4.4-11.0)
[2023-03-03 23:01] LABS: Hemoglobin A1c 6.4 % (3.8-5.6)
[2023-03-03 23:05] LABS: ALB/GLOB Ratio 0.7 RATIO (0.9-2.4); AST(SGOT) 22 U/L (15-37); Alanine Aminotransfer ALT/SGPT 32 U/L (13-56); Albumin, Serum 3.4 g/dL (3.2-5.0); Alkaline Phosphatase 145 U/L (45-117); Anion Gap 8 (5-15); BUN 37 mg/dL (7-18); BUN/Creat Ratio 8.7 RATIO (10-20); Calcium,Total 9.3 mg/dL (8.5-10.1); Chloride 99 mmol/L (98-107); Cholesterol 218 mg/dL (200); Creatinine, Serum 4.23 mg/dL (0.55-1.02); EST Glomerular Filtration Rate 12 mL/min (>60); Est Glom Filt Rate - Afr Amer 14 mL/min (>60); Glucose 93 mg/dL (74-106); High Density Lipoprotein 58 mg/dL; Potassium 3.8 mmol/L (3.5-5.1); Protein, Total 8.4 g/dL (6.4-8.2); Sodium Level 136 mmol/L (136-145); Thyroid Stim Hormone (TSH) 1.09 uIU/mL (0.358-3.74); Triglycerides 145 mg/dL; Very Low Density Lipoprotein 29 mg/dL (5-40)
== END | disposition home or self-care (01) ==
PROVIDERS: PCP Nurse Practitioner; Visit Provider Nurse Practitioner
DX: E03.9 Hypothyroidism, unspecified (principal); I42.9 Cardiomyopathy, unspecified; E11.22 Type 2 diabetes mellitus with diabetic chronic kidney disease; N18.4 Chronic kidney disease, stage 4 (severe); I12.9 Hypertensive chronic kidney disease with stage 1 through stage 4 chronic kidney disease, or unspecified chronic kidney disease; G47.33 Obstructive sleep apnea (adult) (pediatric); Z99.89 Dependence on other enabling machines and devices
CPT/HCPCS: 80053; 80061; 83036; 84443; 85025

== ENCOUNTER → 2024-04-19 | Outpatient (CLI) | payer BC, SELFPAY | END | disposition home or self-care (01) | PROVIDERS: PCP Nurse Practitioner; Referring Provider Nurse Practitioner; Visit Provider Nurse Practitioner | DX: E03.9 Hypothyroidism, unspecified (principal) | CPT/HCPCS: 84443 ==

== ENCOUNTER 2024-05-04 08:24 | Day surgery (SDC) | payer BC, SELFPAY ==
[2024-05-04 06:49] VITALS: BMI 50.0
--- NOTE | 2024-05-04 12:38 | PCM.OPRPT ---
Operative Report (Standard) Operative Information Surgery/Procedure Performed: fistulagram, IVUS Surgeon: Gus York Date of Procedure: 05/04/24 Procedure Start Time: 12:00 Procedure Stop Time: 12:30 Pre-Operative Diagnosis: fistula malfunction Post-Operative Diagnosis: same, no stenosis Select all DRAINS/GRAFTS/IMPLANTS that apply: None Type of Anesthesia: Local and Sedation,Conscious Estimated Blood Loss: 3 Specimen collected: No Description of surgery: HPI: Patient is a 58-year-old female with end-stage renal disease currently on dialysis via left radiocephalic AV fistula. This was initially created approximately 3 years prior and she has had no issues until recently where she has had significant pain at the venous return access site that radiates towards her wrist. She has not had any difficulty with prolonged bleeding, poor flow volumes, high pressures in the circuit or any clot. She presents now for fistulogram with possible intervention. Description of procedure: Upon obtaining form consent and verification correct patient procedure site patient taken to the [facility] where she was positioned prepped and draped in usual sterile fashion. Timeouts performed conscious sedation administered Versed and fentanyl. Skin overlying the fistula was anesthetized with 1% lidocaine the vessel accessed with a micropuncture needle and wire under ultrasound guidance. This then exchanged for a 6 [place] fistula sheath through which digital traction angiogram was performed of the fistula as well as the venous outflow in its entirety to the superior vena cava and reflux imaging into the arterial system. Just cephalad to her venous puncture site there was an angulation and what appeared to be potentially a retained valve that from at least positioning seemed to be the possible source of her symptoms. An 014 wire was then advanced through the 6 [place] sheath and navigated into the brachial vein and an intravascular ultrasound probe advanced and recorded pullback performed of the brachial vein outflow and the venous outflow segment of the cephalic vein fistula. This revealed an area of size discrepancy without stenosis and a small outpouching on the segment toward the access site which was likely where her needle tip was positioned during her dialysis sessions in question. There was no valve, no stenosis and it was felt that no intervention was necessary. Wire and catheter were then withdrawn and a nylon pursestring suture placed at the skin after which the sheath was removed and manual pressure held for 5 minutes with satisfactory stasis. The patient was then taken recovery area with plan discharged to home. 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
== END 2024-05-04 13:38 | disposition home or self-care (01) ==
PROVIDERS: PCP Nurse Practitioner; Referring Provider Surgery Trauma Surgery; Visit Provider Surgery Trauma Surgery
DX: T82.590A Other mechanical complication of surgically created arteriovenous fistula, initial encounter (principal); I13.2 Hypertensive heart and chronic kidney disease with heart failure and with stage 5 chronic kidney disease, or end stage renal disease; N18.6 End stage renal disease; I50.42 Chronic combined systolic (congestive) and diastolic (congestive) heart failure; Z79.4 Long term (current) use of insulin; E11.22 Type 2 diabetes mellitus with diabetic chronic kidney disease; Z79.899 Other long term (current) drug therapy; Z79.890 Hormone replacement therapy; E03.9 Hypothyroidism, unspecified; F17.210 Nicotine dependence, cigarettes, uncomplicated; I77.0 Arteriovenous fistula, acquired; Y71.8 Miscellaneous cardiovascular devices associated with adverse incidents, not elsewhere classified
CPT/HCPCS: 36901; 37252; 37253; 76937; 99152; 99153; C1753; J7050; Q9967; C1769

== ENCOUNTER 2024-11-10 12:09 | Outpatient (CLI) | payer MEDICAID, SELFPAY ==
[2024-11-10 15:42] LABS: Absolute Lymphocyte Count 1.08 X10^3/uL (0.83-4.51); Absolute Neutrophil Count 4.7 X10^3/uL (2.0-7.7); Basophil# 0.03 X10^3/uL; Basophil% 0.5 % (0-1); Eosinophils% 1.6 % (0-5); Hematocrit 32.6 % (37-47); Hemoglobin 10.9 g/dL (12.0-15.0); Lymphocyte # 1.08 X10^3/ul (0.83-4.51); Lymphocyte % 17.2 % (19-41); Mean Corp Hgb Conc 33.4 g/dL (32-36); Mean Corpuscular Hgb 30.5 pg (27.0-32.0); Mean Corpuscular Volume 91.3 fL (81-99); Mean Platelet Vol. 10.4 fl (6.2-12.0); Monocyte# 0.35 X10^3/uL; Monocyte% 5.6 % (0-10); NRBC Flagged by Analyzer 0 % (0-5); Neutrophil % 74.8 % (47-70); Platelet Count 194 K/mm3 (150-450); RBC Distribution Width CV 13.6 % (11.6-14.6); RBC Distribution Width SD 45.8 fl (35.1-43.9); Red Blood Count 3.57 M/mm3 (4.2-5.4); White Blood Count 6.3 K/mm3 (4.4-11.0)
[2024-11-10 16:12] LABS: ALB/GLOB Ratio 1.6 RATIO (0.9-2.4); AST(SGOT) 19 U/L (<=31); Alanine Aminotransfer ALT/SGPT 15 U/L (<=34); Albumin, Serum 3.8 g/dL (3.5-5.0); Alkaline Phosphatase 113 U/L (35-104); Anion Gap 18 (5-15); BUN 35 mg/dL (4-19); BUN/Creat Ratio 7.3 RATIO (10-20); Carbon Dioxide 21.2 mmol/L (21.0-32.0); Chloride 95 mmol/L (98-108); Cholesterol 181 mg/dL (<=200); Creatinine, Serum 4.77 mg/dL (0.70-1.20); EST Glomerular Filtration Rate 10 (>60); Free T3 2.5 pg/mL (2.18-3.98); Globulin 2.4 g/dL (2.2-4.2); Glucose 143 mg/dL (70-99); High Density Lipoprotein 55 mg/dL; Low Density Lipoprotein Calc. 106 mg/dL; Potassium 4.1 mmol/L (3.3-5.1); Protein, Total 6.2 g/dL (5.9-8.4); Sodium Level 134 mmol/L (133-145); Total Bilirubin 0.38 mg/dL (0.00-1.30); Triglycerides 98 mg/dL; Very Low Density Lipoprotein 20 mg/dL (5-40); cholesterol:hdl ratio screen 3.29
== END 2024-11-10 23:59 | disposition home or self-care (01) ==
LOC: MFPLAB 12:10
PROVIDERS: PCP Family Medicine; Referring Provider Family Medicine; Visit Provider Family Medicine
DX: I12.9 Hypertensive chronic kidney disease with stage 1 through stage 4 chronic kidney disease, or unspecified chronic kidney disease (principal); N18.6 End stage renal disease; E03.9 Hypothyroidism, unspecified
CPT/HCPCS: 36415; 80053; 80061; 82306; 84439; 84443; 84481; 85025

== ENCOUNTER → 2024-12-06 | Outpatient (CLI) | payer MEDICAID, MEDICARE, SELFPAY ==
--- NOTE | 2024-12-06 14:09 | VDLE_ITS ---
Reason For Study Reason For Study: RLE Pain RIGHT LEFT CFV is compressible, spontaneous, phasic, competent FV is compressible, spontaneous, phasic, competent and demonstrates normal augmentation. and demonstrates normal augmentation. FV is compressible, spontaneous, phasic, competent and demonstrates normal augmentation. POP V is compressible, spontaneous, phasic, competent and demonstrates normal augmentation. T/P Trunk is compressible. PTV is compressible. RT PerV is compressible. Unable to obtain compressions at mid and distal FV due to patients intolerance. Flow noted in color and pulsed wave doppler. Nonvascularized area of mixed echoes noted in the Rt Pop Fossa measuring approximately 3.92cm x 1.70cm SFJ is INCOMPETENT and measures 0.55 cm. GSV proximal thigh measures 0.49 x 0.53 cm. GSV at knee measures 0.45 x 0.47 cm. GSV is competent throughout. SSV at junction is competent and measures 0.41 cm. SSV mid calf is competent and measures 0.28 cm. Rt Varicosity branch of SSV at posterior mid calf is INCOMPETENT and measures 0.33cm x 0.32cm Rt Varicosity branch of GSV at medial mid calf is INCOMPETENT and measures 0.33cm x 0.32cm. Procedure Exam performed in department. This is a venous duplex using B-mode, color flow and spectral Doppler. The exam was diagnostic. Patient was scanned in reverse Trendelenburg position during reflux assessment. VL/Venous Duplex US, Unilateral Interpretation Summary Deep veins of the right lower extremity are patent and compressible segmentally . There is no evidence of right lower extremity deep vein thrombosis. The right great saphenous vein appears patent a nd compressible segmentally. Positive for reflux in the right saphenofemoral junction, varicosities in poste rior calf. Nonvascularized area of mixed echoes noted in the right popliteal fossa measuri ng approximately 3.92cm x 1.70cm Ordering Physician: Mclean, Geno Referring Physician: Seema Marrero Performed By: Ry Sandoval RVT
--- OUTSIDE RECORDS SUMMARY | 2024-12-06 22:48 | XMS RPT_ITS | CCD ---
Author Organization [facility] Care Team Providers Care Laboratory [place] Name Role Phone Caceres, Nithya Unavailable Unavailable PROVIDER, UNKNOWN Unavailable Unavailable Caceres, Nithya Unavailable Unavailable Caceres SUPERVISOR CALIBRATION, SUPERVISOR CALIBRATION-C Nithya Primary Care Provider Dr. Matthew Mckeon Attending Provider [phone] JONO Booth-Shorty Sainz Referring Provider Caceres SUPERVISOR CALIBRATION, SUPERVISOR CALIBRATION-C Nithya Referring Provider Roof SUPERVISOR CALIBRATION, SUPERVISOR CALIBRATION-C Rogelio Astudillo Attending Provider Caceres SUPERVISOR CALIBRATION, SUPERVISOR CALIBRATION-C Nithya Primary Care Provider Dr. Matthew Mckeon Attending Provider Caceres SUPERVISOR CALIBRATION, SUPERVISOR CALIBRATION-C Nithya Primary Care Provider Caceres SUPERVISOR CALIBRATION, SUPERVISOR CALIBRATION-C Nithya Referring Provider Roof SUPERVISOR CALIBRATION, SUPERVISOR CALIBRATION-C Rogelio Astudillo Attending Provider Caceres SUPERVISOR CALIBRATION, SUPERVISOR CALIBRATION-C Nithya Primary Care Provider Caceres SUPERVISOR CALIBRATION, SUPERVISOR CALIBRATION-C Nithya Referring Provider Seema Marrero MD Primary Care Provider Seema Marrero MD Attending Provider Seema Marrero MD Referring Provider Geno Brown Attending Provider Geno Mclean Attending Unavailable Seema Marrero Primary Care Unavailable Seema Marrero Referring Unavailable [place], Gus Referring Unavailable Geno Mclean Consulting Unavailable Caceres SUPERVISOR CALIBRATION, Nithya Primary Care Unavailable [place], Gus Attending Unavailable Jaylen, Gus Consulting Unavailable [place], Gus Attending Unavailable Jaylen, Gus Referring Unavailable Geno Mclean Consulting Unavailable Yobany SUPERVISOR CALIBRATION, Nithya Primary Care Unavailable Yobany SUPERVISOR CALIBRATION, Nithya Primary Care Unavailable Yobany SUPERVISOR CALIBRATION, Nithya Attending Unavailable Yobany SUPERVISOR CALIBRATION, Nithya Referring Unavailable Seema Marrero Primary Care Unavailable Seema Marrero Attending Unavailable Seema Marrero Referring Unavailable Geno Mclean Attending Unavailable Yobany SUPERVISOR CALIBRATION, Nithya Referring Unavailable Yobany SUPERVISOR CALIBRATION, Nithya Primary Care Unavailable Geno Mclean Attending Unavailable Yobany SUPERVISOR CALIBRATION, Nithya Primary Care Unavailable Yobany SUPERVISOR CALIBRATION, Nithya Referring Unavailable Allergies Allergy Classification Reported Allergen(s) Allergy Type Date of Onset Reaction(s) Facility (12 sources) levoFLOXacin Drug Allergy 2 [facility] [place] (13 sources) DECONGESTANTS; Translations: [DECONGESTANTS] Propensity to adverse reactions 1 Other [facility] Comment on above: RACING HEARTBEAT (1 source) levoFLOXacin Drug Allergy 5 [facility] Medications Current Medications Medication Drug Class(es) Dates Sig (Normalized) Sig (Original) amLODIPine 5 mg oral tablet (20 sources) Dihydropyridine Calcium Channel Gian Start: 01-28-2024 End: 01-28-2024 take 1 tablet by mouth once daily Amlodipine 5 mg tablet Active 5 mg PO DAILY January 28, 2024 5:50pm Start: 03-13-2021 End: 01-28-2024 take 1 tablet by mouth once daily Amlodipine 10 mg tablet Discontinued 10 mg PO DAILY March 05, 2022 10:37am March 03, 2023 6:46pm Start: 07-25-2020 End: 03-13-2021 take 1 tablet by mouth once daily Amlodipine (Norvasc) 5 mg tablet Discontinued 5 mg PO DAILY October 22, 2020 3:24pm March 13, 2021 3:18pm B Complex-Vitamin C-Folic Ac id (Nephro-James) 0.8 mg tablet (3 sources) Start: 10-30-2022 B Complex-Dorina min C-Folic Acid (Nephro-James) 0.8 mg tablet Active 1 {tbl} PO DAILY October 30, 2022 12:00am Start: 10-30-2022 take 1 tablet by boyd th once daily B Complex-Vitamin C-Folic Acid (Nephro-James) 0.8 mg tablet Active 1 TABLET PO DAILY October 30, 2022 12:00am Blood-Glucose Sensor (Freestyle Bessy 3 Sensor) device (2 sources) Start: 09-10-2023 Blood-Glucose Sensor (Freestyle Bessy 3 Sensor) device Active 0 .Route 2 September 10, 2023 12:00am As directed calcitriol 0.0005 mg oral capsule (20 sources) Vitamin D3 Analog Start: 10-30-2022 End: 01-28-2024 take 1 capsule by mouth once daily Calcitriol 0.5 mcg capsule Active 0.5 ug PO DAILY January 28, 2024 5:42pm Start: 01-29-2022 End: 03-04-2022 take 1 capsule by mouth once daily Calcitriol 0.5 mcg capsule Discontinued 0.5 ug PO DAILY January 29, 2022 12:00am March 04, 2022 6:34pm Start: 08-29-2021 End: 09-30-2021 take 1 capsule by mouth once daily Calcitriol 0.5 mcg capsule Discontinued 0.5 ug PO DAILY August 29, 2021 12:00am September 30, 2021 11:44am Start: 03-13-2021 End: 09-30-2021 take 1 capsule by mouth once daily Calcitriol 0.25 mcg capsule Discontinued 0.25 ug PO DAILY March 13, 2021 12:00am September 30, 2021 11:44am ferrous sulfate 325 mg delayed release oral tablet (20 sources) Start: 03-13-2021 take 1 tablet by mouth three times daily Ferrous Sulfate 325 mg (65 mg iron) tablet,delayed release (DR/EC) Active 325 mg PO THREE TIMES A DAY March 13, 2021 12:00am Start: 05-19-2018 End: 09-23-2018 take 1 tablet by mouth twice daily Ferrous Sulfate 325 mg (65 mg iron) tablet,delayed release (DR/EC) Discontinued 325 mg PO TWICE A DAY 60 May 19, 2018 1:00am September 23, 2018 2:44pm 3 ml insulin detemir 100 unt/ml pen injector (20 sources) Insulin Analog Start: 01-28-2024 Insulin Detemi r U-100 100 unit/mL (3 mL) insulin pen Active 30 U SC AT BEDTIME January 28, 2024 5:44pm Start: 07-11-2020 End: 04-27-2023 Insulin Detemir U-100 100 un it/mL (3 mL) insulin pen Discontinued 76 U SC AT BEDTIME 68.4 90 July 05, 2021 1:58pm March 04, 2022 6:41pm Start: 07-09-2020 End: 07-11-2020 Insulin Detemir U-100 100 un it/mL (3 mL) insulin pen Discontinued 76 U SC DAILY 68.4 90 July 09, 2020 1:00am July 11, 2020 9:45am Start: 11-15-2019 End: 07-09-2020 Insulin Detemir U-100 100 un it/mL solution Discontinued 76 U SC EVERY EVENING November 15, 2019 5:55pm July 09, 2020 7:37pm Start: 03-30-2018 End: 11-15-2019 Insulin Detemir U-100 100 un it/mL solution Discontinued 75 U SC EVERY EVENING March 30, 2018 7:17pm November 15, 2019 6:00pm Start: 02-02-2018 End: 03-30-2018 Insulin Detemir U-100 100 un it/mL solution Discontinued 80 U SC EVERY EVENING February 02, 2018 8:19pm March 30, 2018 7:18pm Start: 06-04-2017 End: 02-02-2018 inject 80 [IU] by subcutaneous injection at bedtime Insulin Detemir U-100 100 UNIT/ML solution Discontinued 80 U SQ AT BEDTIME June 04, 2017 1:00am February 02, 2018 8:23pm Lactobacillus Combination No.4 (Probiotic) 3 billion cell capsule (12 sources) Start: 07-08-2017 take 3 capsules by mouth once daily Lactobacillus Combination No.4 (Probiotic) 3 billion cell capsule Active 3000 MMU CELLS PO daily July 08, 2017 4:04pm Start: 07-08-2017 take 3 capsules by m outh once daily Lactobacillus Combination No.4 (Probiotic) 3 billion cell capsule Active 3000 NMA PO daily July 08, 2017 1:00am Start: 07-08-2017 take 3 capsules by m outh once daily Lactobacillus Combination No.4 (Probiotic) 3 billion cell capsule Active 3000 MMU CELLS PO daily July 08, 2017 1:00am loratadine 10 mg oral tablet (12 sources) Start: 07-08-2017 take 1 tablet by mouth once daily Loratadine 10 mg tablet Active 10 mg PO daily July 08, 2017 1:00am Multivitamin preparation (6 sources) Start: 01-29-2022 take 1 tablet by mouth once daily Multivitamin Active 1 TABLET PO DAILY January 29, 2022 12:00am sevelamer carbonate 800 mg oral tablet (11 sources) Phosphate Binder Start: 09-30-2021 take 1 tablet by mouth before mealtime Sevelamer Carbonate 800 mg tablet Active 800 mg PO before meals September 30, 2021 12:00am Completed/Discontinued Medications Medication Drug Class(es) Dates Sig (Normalized) Sig (Original) acetaminophen 325 mg / HYDROcodone bitartrate 5 mg oral tablet (12 sources) Opioid Agonist Start: 02-27-2021 End: 03-07-2021 Hydrocodone-Acetami nophen 5-325 mg tablet Discontinued 1 {tbl} PO Q8H as needed for pain 5 2 February 27, 2021 March 07, 2021 6:11pm Start: 02-27-2021 End: 03-07-2021 take 1 tablet by mouth every eight hours Hydrocodone-Acetaminophen Discontinued 1 TABLET PO Q8H 5 2 February 27, 2021 March 07, 2021 6:11pm [id number] 200 actuat albuterol 0.09 mg/actuat metered dose inhaler (20 sources) beta2-Adrenergic Agonist Start: 03-07-2021 take 1 puff(s) by inhalation every four hours Albuterol Sulfate (Proair Hfa) 90 mcg/actuation HFA aerosol inhaler Active 2 PUFF INHALATION Q4H 8.5 March 07, 2021 6:13pm Start: 04-15-2018 End: 03-25-2019 take 1 puff(s) by inhalation every four hours Albuterol Sulfate (Proair Hfa) 90 mcg/actuation HFA aerosol inhaler Discontinued 2 PUFF INHALATION Q4H 8.5 April 15, 2018 8:03pm March 25, 2019 7:46pm Start: 04-15-2018 End: 04-19-2024 Albuterol Sulfate (Proair Hf a) 90 mcg/actuation HFA aerosol inhaler Discontinued 2 NMA INHALATION Q4H as needed for bronchospasm 8.5 March 03, 2023 6:41pm April 19, 2024 8:28pm Start: 04-15-2018 End: 03-03-2023 take 1 puff(s) by inhalation every four hours Albuterol Sulfate (Proair Hfa) 90 mcg/actuation HFA aerosol inhaler Active 2 PUFF INHALATION Q4H 8.5 March 03, 2023 6:41pm Start: 04-09-2018 End: 01-28-2024 Albuterol Sulfate 2.5 mg /3 mL (0.083 %) solution for nebulization Discontinued 2.5 mg INHALATION Q4H as needed for bronchospasm 75 March 04, 2022 6:39pm January 28, 2024 5:41pm for 3 doses amoxicillin 875 mg / clavulanate 125 mg oral tablet (20 sources) Penicillin-class Antibacterial Start: 08-29-2021 End: 09-30-2021 Amoxicillin-Pot Clavulanate 875-125 mg tablet Discontinued 1 {tbl} PO TWICE A DAY August 29, 2021 12:00am September 30, 2021 11:46am Start: 08-29-2021 End: 09-30-2021 take 1 tablet by mouth twice daily Amoxicillin-Pot Clavulanate Discontinued 1 TABLET PO TWICE A DAY August 29, 2021 12:00am September 30, 2021 11:46am Start: 07-02-2019 End: 08-13-2019 Amoxicillin-Pot Clavulanate 875-125 mg tablet Discontinued 1 {tbl} PO TWICE A DAY July 02, 2019 1:00am August 13, 2019 1:34pm Start: 07-02-2019 End: 08-13-2019 take 1 tablet by mouth twice daily Amoxicillin-Pot Clavulanate Discontinued 1 TABLET PO TWICE A DAY July 02, 2019 1:00am August 13, 2019 1:34pm Start: 06-04-2017 End: 07-08-2017 Amoxicillin-Pot Clavulanate 1 EACH tablet Discontinued 1 NMA PO TWICE A DAY June 04, 2017 1:00am July 08, 2017 2:45pm Start: 06-04-2017 End: 07-08-2017 Amoxicillin-Pot Clavulanate Discontinued 1 EACH PO TWICE A DAY June 04, 2017 1:00am July 08, 2017 2:45pm apremilast 30 mg oral tablet (12 sources) Start: 03-25-2019 End: 07-02-2019 take 1 tablet by mouth once daily Apremilast (Otezla) 30 mg tablet Discontinued 30 mg PO daily March 25, 2019 12:00am July 02, 2019 2:10pm betamethasone dipropionate 0.643 mg/ml / calcipotriene 0.05 mg/ml topical foam (12 sources) Corticosteroid, Vitamin D Analog Start: 12-02-2017 End: 03-25-2019 Calcipotriene-Betam ethasone (Enstilar) 0.005-0.064 % foam Discontinued 1 NMA TOPICAL daily December 02, 2017 12:00am March 25, 2019 7:39pm Start: 12-02-2017 End: 03-25-2019 Calcipotriene-Betamethasone (Enstilar) 0.005-0.064 % foam Discontinued 1 APPLIC TOPICAL daily December 02, 2017 12:00am March 25, 2019 7:39pm carvedilol 6.25 mg oral tablet (20 sources) alpha-Adrenergic Gian, beta-Adrenergic Gian Start: 03-13-2021 End: 03-13-2021 take 1 tablet by mouth twice daily at mealtime Carvedilol 6.25 mg tablet Discontinued 6.25 mg PO TWICE A DAY March 13, 2021 12:00am March 13, 2021 3:17pm must administer with a meal/food Start: 03-07-2021 End: 03-13-2021 take 1 tablet by mouth twice daily at mealtime Carvedilol 3.125 mg tablet Discontinued 3.125 mg PO TWICE A DAY March 07, 2021 12:00am March 13, 2021 2:56pm must administer with a meal/food Start: 08-10-2020 End: 03-07-2021 take 1 tablet by mouth twice daily at mealtime Carvedilol 6.25 mg tablet Discontinued 6.25 mg PO TWICE A DAY 180 October 22, 2020 3:23pm March 07, 2021 6:10pm must administer with a meal/food Start: 07-25-2020 End: 08-10-2020 take 1 tablet by mouth twice daily at mealtime Carvedilol (Coreg) 3.125 mg tablet Discontinued 3.125 mg PO TWICE A DAY July 25, 2020 1:00am August 10, 2020 10:54am must administer with a meal/food cefuroxime 500 mg oral tablet (12 sources) Cephalosporin Antibacterial Start: 04-27-2018 End: 05-07-2018 take 1 tablet by mouth every twelve hours Cefuroxime Axetil 500 mg tablet Discontinued 500 mg PO Q12H 27 03April 27, 2018 1:00am May 06, 2018 1:00am May 07, 2018 1:16am cholecalciferol 0.05 mg oral tablet (11 sources) Vitamin D Start: 09-30-2021 End: 07-30-2023 take 1 tablet by mouth once daily Cholecalciferol (Vitamin D3) 50 mcg (2,000 unit) tablet Discontinued 50 ug PO DAILY September 30, 2021 12:00am July 30, 2023 8:02pm clarithromycin 500 mg oral tablet (20 sources) Macrolide Antimicrobial Start: 03-03-2023 End: 07-30-2023 take 1 tablet by mouth twice daily Clarithromycin 500 mg tablet Discontinued 500 mg PO TWICE A DAY March 03, 2023 6:47pm July 30, 2023 8:02pm Start: 08-13-2019 End: 11-15-2019 take 1 tablet by mouth twice daily Clarithromycin 500 mg tablet Discontinued 500 mg PO TWICE A DAY August 13, 2019 1:00am November 15, 2019 5:51pm Start: 03-25-2019 End: 04-14-2019 take 1 tablet by mouth every twelve hours Clarithromycin 500 mg tablet Discontinued 500 mg PO Q12H March 25, 2019 12:00am April 14, 2019 3:35pm Start: 04-09-2018 End: 04-15-2018 take 1 tablet by mouth twice daily Clarithromycin 500 mg tablet Discontinued 500 mg PO TWICE A DAY April 09, 2018 12:00am April 15, 2018 7:54pm 24 hr dilTIAZem hydrochloride 240 mg extended release oral capsule (20 sources) Calcium Channel Gian Start: 07-09-2020 End: 07-25-2020 take 1 capsule by mouth once daily, then take 1 capsule by mouth every twenty-four hours Diltiazem Hcl (Cardizem Cd) 240 mg capsule,extended release 24hr Discontinued 240 mg PO DAILY July 11, 2020 10:30am July 25, 2020 1:06pm doxycycline hyclate 100 mg oral tablet (12 sources) Tetracycline-c lass Drug Start: 08-30-2018 End: 09-23-2018 take 1 tablet by mouth twice daily Doxycycline Hyclate 100 mg tablet Discontinued 100 mg PO TWICE A DAY August 30, 2018 12:00am September 23, 2018 2:44pm 0.5 ml dulaglutide 3 mg/ml auto-injector (2 sources) GLP-1 Receptor Agonist Start: 10-08-2023 End: 04-29-2024 Dulaglutide (Trulicity) 1.5 mg/0.5 mL pen injector Discontinued 1.5 mg SC EVERY WEEK 2.5 October 08, 2023 12:00am April 29, 2024 10:44am ferrous fumarate 324 mg oral tablet (12 sources) Start: 07-09-2020 End: 08-10-2020 take 1 tablet by mouth twice daily Ferrous Fumarate 324 mg (106 mg iron) tablet Discontinued 324 mg PO TWICE A DAY July 09, 2020 1:00am August 10, 2020 9:42am Finerenone (8 sources) Start: 01-29-2022 End: 03-04-2022 take 1 tablet by mouth once daily Finerenone (Kerendia) 10 mg tablet Discontinued 10 mg PO DAILY January 29, 2022 12:00am March 04, 2022 6:37pm Start: 01-29-2022 End: 03-04-2022 take 1 tablet by mouth once daily Finerenone (Kerendia) 10 mg tablet Discontinued 10 MG PO DAILY January 29, 2022 12:00am March 04, 2022 6:37pm Start: 01-29-2022 take 1 tablet by boyd th once daily Finerenone (Kerendia) 10 mg tablet Active 10 MG PO DAILY January 29, 2022 12:00am fluconazole 150 mg oral tablet (12 sources) Azole Antifungal Start: 08-29-2021 End: 09-30-2021 Fluconazole 150 mg tablet Discontinued 150 mg PO Every 3 Days August 29, 2021 12:00am September 30, 2021 11:46am furosemide 40 mg oral tablet (20 sources) Loop Diuretic Start: 07-25-2020 End: 01-28-2024 take 1 tablet by mouth once daily Furosemide (Lasix) 40 mg tablet Discontinued 40 mg PO DAILY March 03, 2023 6:42pm January 28, 2024 5:52pm Start: 04-16-2020 End: 07-11-2020 take 1 tablet by mouth once daily Furosemide 20 mg tablet Discontinued 20 mg PO DAILY July 09, 2020 7:37pm July 11, 2020 10:27am Start: 04-14-2019 End: 04-16-2020 take 1 tablet by mouth once daily Furosemide 40 mg tablet Discontinued 40 mg PO DAILY July 27, 2019 9:23am March 01, 2020 7:11pm Start: 09-23-2018 End: 04-14-2019 take 1 tablet by mouth once daily Furosemide (Lasix) 20 mg tablet Discontinued 20 mg PO DAILY September 23, 2018 12:00am April 14, 2019 3:35pm Start: 03-30-2018 End: 09-23-2018 take 1 tablet by mouth once daily Furosemide 40 mg tablet Discontinued 40 mg PO DAILY August 11, 2018 6:00pm September 23, 2018 2:45pm Start: 03-25-2018 End: 03-30-2018 Furosemide 40 mg tablet Disc ontinued 20 mg PO DAILY March 25, 2018 7:39am March 30, 2018 7:18pm Start: 03-25-2018 End: 03-30-2018 take 20 mg by mouth once daily Furosemide Discontinued 20 MG PO DAILY March 25, 2018 7:39am March 30, 2018 7:18pm Start: 02-16-2018 End: 03-25-2018 take 1 tablet by mouth once daily Furosemide 40 mg tablet Discontinued 40 mg PO DAILY February 16, 2018 3:33pm March 25, 2018 7:40am Start: 12-02-2017 End: 02-16-2018 Furosemide Discontinued 20 M G PO .COMPLEX February 04, 2018 4:27pm February 16, 2018 3:34pm 40mg in AM and 20mg in afternoon Start: 11-30-2017 End: 02-16-2018 Furosemide 20 mg tablet Disc ontinued 20 mg PO .COMPLEX February 04, 2018 4:27pm February 16, 2018 3:34pm 40mg in AM and 20mg in afternoon Start: 06-05-2017 End: 11-30-2017 take 1 tablet by mouth once daily Furosemide 20 MG tablet Discontinued 20 mg PO DAILY June 05, 2017 1:00am November 30, 2017 8:52am 3 ml insulin aspart protamine, human 70 unt/ml / insulin aspart, human 30 unt/ml pen injector (12 sources) Insulin Analog Start: 06-25-2021 End: 07-25-2021 Insulin Asp Prt-Insulin Aspart (Novolog Mix 70-30flexpen U-100) 100 unit/mL (70-30) insulin pen Discontinued 26 U SC EVERY MORNING 7.8 30 June 25, 2021 1:00am July 24, 2021 1:00am July 25, 2021 1:03am 3 ml insulin aspart, human 100 unt/ml pen injector (20 sources) Insulin Analog Start: 07-11-2020 End: 08-21-2021 Insulin Aspart U-100 (Novolog Flexpen U-100 Insulin) 100 unit/mL (3 mL) insulin pen Discontinued 26 U SC THREE TIMES A DAY 15 90 May 06, 2021 9:42pm August 21, 2021 2:09pm 26 U at breakfast,22 U at lunch,26 U at dinner Start: 11-15-2019 End: 07-11-2020 inject 26 [IU] by subcutaneous injection three times daily before mealtime Insulin Aspart U-100 100 unit/mL (3 mL) insulin pen Discontinued 26 U SC THREE TIMES A DAY 70.2 90 July 09, 2020 7:34pm July 11, 2020 9:45am sub q before meals Start: 06-04-2017 End: 11-15-2019 Insulin Aspart U-100 100 uni t/mL (3 mL) insulin pen Discontinued 26 U SC THREE TIMES A DAY November 15, 2019 5:57pm November 15, 2019 6:05pm Start: 06-04-2017 End: 11-15-2019 Insulin Aspart U-100 100 UNI TS/ML insulin pen Discontinued 26 U SC 3 TIMES DAILY WITH MEALS June 04, 2017 1:00am November 15, 2019 6:00pm Insulin Detemir U-100 100 unit/mL (3 mL) insulin pen (4 sources) Start: 07-30-2023 End: 01-28-2024 Insulin Detemir U-100 100 un it/mL (3 mL) insulin pen Discontinued 60 U SC AT BEDTIME 54 90 July 30, 2023 8:08pm January 28, 2024 5:46pm Start: 04-27-2023 End: 07-30-2023 Insulin Detemir U-100 100 un it/mL (3 mL) insulin pen Discontinued 76 U SC AT BEDTIME 68.4 90 April 27, 2023 9:46pm July 30, 2023 8:13pm 3 ml insulin lispro 200 unt/ml pen injector (19 sources) Insulin Analog Start: 08-21-2021 End: 07-22-2023 Insulin Lispro (Humalog Kwikpen Insulin) 200 unit/mL (3 mL) insulin pen Discontinued 26 U SC THREE TIMES A DAY 35.1 90 April 23, 2023 8:25pm July 21, 2023 1:00am July 22, 2023 1:04am 3 ml insulin, regular, human 500 unt/ml pen injector (3 sources) Insulin Start: 11-24-2024 Insulin Regula r Hum U-500 Conc (Humulin R U-500 (Conc) Kwikpen) 500 unit/mL (3 mL) insulin pen Discontinued 20 U SC .ac November 24, 2024 9:43am Start: 01-28-2024 End: 11-24-2024 Insulin Regular Hum U-500 Co nc (Humulin R U-500 (Conc) Kwikpen) 500 unit/mL (3 mL) insulin pen Discontinued 10 U SC . January 28, 2024 12:00am November 24, 2024 9:44am levoFLOXacin 500 mg oral tablet (12 sources) Quinolone Antimicrobial Start: 04-15-2018 End: 09-23-2018 take 1 tablet by mouth once daily Levofloxacin 500 mg tablet Discontinued 500 mg PO DAILY April 15, 2018 1:00am September 23, 2018 2:45pm levothyroxine sodium 0.1 mg oral tablet (20 sources) l-Thyroxine Start: 12-02-2017 End: 04-19-2024 take 1 tablet by mouth once daily Levothyroxine (Levoxyl) 100 mcg tablet Discontinued 100 ug PO daily February 23, 2024 11:16am April 19, 2024 8:30pm Start: 07-08-2017 End: 07-08-2017 take 1 tablet by mouth once daily Levothyroxine 100 mcg tablet Discontinued 100 ug PO daily July 08, 2017 1:00am July 08, 2017 4:03pm losartan potassium 50 mg oral tablet (20 sources) Angiotensin 2 Receptor Gian Start: 07-11-2020 End: 07-11-2020 Losartan 50 mg tablet Discontinued 25 mg PO DAILY July 11, 2020 9:42am July 11, 2020 10:27am Start: 07-11-2020 End: 07-11-2020 take 25 mg by mouth once daily Losartan Discontinued 2 5 MG PO DAILY July 11, 2020 9:42am July 11, 2020 10:27am Start: 07-09-2020 End: 07-11-2020 take 2 tablets by mouth once daily Losartan 50 mg tablet Discontinued 100 mg PO DAILY July 09, 2020 7:38pm July 11, 2020 9:45am Start: 07-09-2020 End: 07-11-2020 take 100 mg by mouth once daily Losartan Discontinued 100 MG PO DAILY July 09, 2020 7:38pm July 11, 2020 9:45am Start: 04-17-2020 End: 07-09-2020 Losartan 50 MG tablet Discon tinued 25 mg PO DAILY April 17, 2020 4:33pm July 09, 2020 7:39pm Start: 04-17-2020 End: 07-09-2020 take 25 mg by mouth once daily Losartan Discontinued 2 5 MG PO DAILY April 17, 2020 4:33pm July 09, 2020 7:39pm Start: 03-25-2018 End: 04-17-2020 take 1 tablet by mouth once daily Losartan 50 mg tablet Discontinued 50 mg PO DAILY July 27, 2019 9:22am March 01, 2020 7:11pm 24 hr metoprolol succinate 25 mg extended release oral tablet (12 sources) beta-Adrenergic Gian Start: 12-08-2017 End: 02-02-2018 take 1 tablet by mouth once daily Metoprolol Succinate 25 mg tablet extended release 24 hr Discontinued 25 mg PO daily December 08, 2017 12:00am February 02, 2018 8:22pm metroNIDAZOLE 250 mg oral tablet (12 sources) Nitroimidazole Antimicrobial Start: 08-30-2018 End: 09-09-2018 take 1 tablet by mouth three times daily Metronidazole 250 mg tablet Discontinued 250 mg PO THREE TIMES A DAY 06 04August 30, 2018 12:00am September 08, 2018 12:00am September 09, 2018 12:07am Multivitamin tablet (2 sources) Start: 01-29-2022 End: 07-30-2023 Multivitamin tablet Discontinued 1 {tbl} PO DAILY January 29, 2022 12:00am July 30, 2023 8:03pm Multivitamin With Minerals (Hair,Skin And Nails) tablet (8 sources) Start: 01-29-2022 End: 07-30-2023 Multivitamin With Minerals (Hair,Skin And Nails) tablet Discontinued 1 {tbl} PO DAILY January 29, 2022 12:00am July 30, 2023 8:03pm Start: 01-29-2022 take 1 tablet by boyd once daily Multivitamin With Minerals (Hair,Skin And Nails) tablet Active 1 TABLET PO DAILY January 29, 2022 12:00am mupirocin 0.02 mg/mg topical ointment (12 sources) RNA Synthetase Inhibitor Antibacterial Start: 03-07-2021 End: 08-29-2021 Mupirocin 2 % ointment Discontinued 1 NMA TOPICAL TWICE A DAY March 07, 2021 12:00am August 29, 2021 5:44pm potassium chloride 20 meq extended release oral tablet (8 sources) Start: 01-29-2022 End: 10-30-2022 take 1 tablet by mouth once daily Potassium Chloride 20 mEq tablet extended release Discontinued 20 meq PO DAILY January 29, 2022 12:00am October 30, 2022 2:14pm predniSONE 20 mg oral tablet (20 sources) Start: 08-29-2021 End: 09-30-2021 take 2 tablets by mouth once daily Prednisone 20 mg tablet Discontinued 40 mg PO DAILY August 29, 2021 12:00am September 30, 2021 11:45am Start: 08-29-2021 End: 09-30-2021 take 40 mg by mouth once daily Prednisone Discontinued 40 MG PO DAILY August 29, 2021 12:00am September 30, 2021 11:45am Start: 03-25-2019 End: 04-04-2019 take 2 tablets by mouth once daily Prednisone 20 mg tablet Discontinued 40 mg PO DAILY 27 03March 25, 2019 12:00am April 03, 2019 12:00am April 04, 2019 12:08am Start: 03-25-2019 End: 04-04-2019 take 40 mg by mouth once daily Prednisone Discontinued 40 MG PO DAILY 20 March 25, 2019 12:00am April 04, 2019 12:08am Start: 04-27-2018 End: 05-04-2018 take 2 tablets by mouth once daily Prednisone 10 mg tablet Discontinued 20 mg PO DAILY 14 April 27, 2018 1:00am May 03, 2018 1:00am May 04, 2018 1:10am Start: 04-27-2018 End: 05-04-2018 take 20 mg by mouth once daily Prednisone Discontinued 20 MG PO DAILY 14 April 27, 2018 1:00am May 04, 2018 1:10am Start: 04-09-2018 End: 09-23-2018 take 1 tablet by mouth twice daily Prednisone 20 mg tablet Discontinued 20 mg PO TWICE A DAY April 15, 2018 7:53pm September 23, 2018 2:46pm Semaglutide (5 sources) Start: 11-24-2024 Semaglutide (O zempic) 0.25 mg or 0.5 mg (2 mg/3 mL) pen injector Discontinued 0.25 mg SC EVERY WEEK November 24, 2024 12:00am for 4 weeks Start: 09-10-2023 End: 01-28-2024 Semaglutide (Ozempic) 0.25 m g or 0.5 mg (2 mg/3 mL) pen injector Discontinued 0.5 mg SC EVERY WEEK 3.68 September 10, 2023 12:00am January 28, 2024 5:44pm Start: 07-31-2023 End: 09-10-2023 Semaglutide (Ozempic) 0.25 m g or 0.5 mg (2 mg/3 mL) pen injector Discontinued 0.25 mg SC EVERY WEEK July 31, 2023 1:00am September 10, 2023 6:26pm for 4 weeks 24 hr venlafaxine 150 mg extended release oral capsule (20 sources) Serotonin and Norepinephrine Reuptake Inhibitor Start: 06-04-2017 End: 01-28-2024 take 1 capsule by mouth once daily Venlafaxine 150 mg capsule,extended release 24hr Discontinued 150 mg PO DAILY June 25, 2021 1:00am August 29, 2021 5:44pm Problems Active Problems Problem Classification Problem Date Documented Da te Episodic/Chronic Allergic reactions (12 sources) Eruption due to drug; Translations: [Generalized skin eruption due to drugs and medicaments taken internally] 08-29-2021 Episodic Cardiac dysrhythmias (14 sources) Tachycardia; Translations: [Tachycardia, unspecified] Episodic Chronic kidney disease (20 sources) Chronic kidney disease stage 4; Translations: [Chronic kidney disease, stage 4 (severe)] Chronic Chronic obstructive pulmonary disease and bronchiectasis (2 sources) Emphysema, unspecified; Translations: [Emphysema, unspecified] Onset: 06-04-2017 Chronic Chronic obstructive pulmonary disease and bronchiectasis (20 sources) Bronchitis; Translations: [Bronchitis, not specified as acute or chronic] 08-29-2021 Episodic Congestive heart failure; nonhypertensive (20 sources) Symptomatic congestive heart failure; Translations: [Heart failure, unspecified] Chronic Deficiency and other anemia (12 sources) Anemia; Translations: [Anemia, unspecified] 03-13-2021 Episodic Diabetes mellitus with complications (12 sources) Type II diabetes mellitus uncontrolled; Translations: [Uncontrolled type 2 diabetes mellitus] 03-13-2021 Chronic Diabetes mellitus without complication (14 sources) Type 2 diabetes mellitus without complication; Translations: [Type 2 diabetes mellitus without complications] 03-07-2021 Chronic Essential hypertension (20 sources) Essential hypertension; Translations: [Essential (primary) hypertension] Onset: 11-16-2024 Chronic Intestinal infection (12 sources) Enterocolitis; Translations: [Enterocolitis due to Clostridium difficile, not specified as recurrent] 04-13-2019 Episodic Other circulatory disease (2 sources) Arteriovenous fistula of left upper extremity; Translations: [Arteriovenous fistula, acquired] 04-29-2024 Chronic Other circulatory disease (1 source) Arteriovenous fistula, acquired; Translations: [Arteriovenous fistula, acquired] Onset: 05-31-2024 Chronic Other lower respiratory disease (12 sources) Hemoptysis; Translations: [Hemoptysis] 03-13-2021 Episodic Other lower respiratory disease (12 sources) Cough; Translations: [Cough] 04-13-2019 Episodic Other lower respiratory disease (12 sources) Dyspnea; Translations: [Dyspnea, unspecified] 04-13-2019 Episodic Other lower respiratory disease (12 sources) Wheezing; Translations: [Wheezing] 04-13-2019 Episodic Other upper respiratory infections (12 sources) Chronic ethmoidal sinusitis; Translations: [Chronic ethmoidal sinusitis] 08-29-2021 Chronic Other upper respiratory infections (20 sources) Acute maxillary sinusitis; Translations: [Acute maxillary sinusitis, unspecified] 03-13-2021 Episodic Vanessa-; endo-; and myocarditis; cardiomyopathy (except that caused by tuberculosis or sexually transmitted disease) (12 sources) Cardiomyopathy; Translations: [Cardiomyopathy, unspecified] 03-13-2021 Chronic Residual codes; unclassified (12 sources) Obstructive sleep apnea syndrome; Translations: [Obstructive sleep apnea (adult) (pediatric)] 07-11-2020 Chronic Comment on above: very compliant Substance-related disorders (12 sources) Nicotine dependence; Translations: [Nicotine dependence, unspecified, uncomplicated] 07-08-2017 Chronic Thyroid disorders (18 sources) Hypothyroidism; Translations: [Hypothyroidism, unspecified] Onset: 05-16-2024 03-01-2020 Chronic Past or Other Problems Problem Classification Problem Date Documented Date Episodic/Chronic Complication of device; implant or graft (4 sources) Disorder of surgical arteriovenous fistula; Translations: [Other mechanical complication of surgically created arteriovenous fistula, initial encounter] Onset: 06-03-2024 04-29-2024 Episodic Pleurisy; pneumothorax; pulmonary collapse (2 sources) Atelectasis; Translations: [Atelectasis] Onset: 06-04-2017 Episodic Results Test Name Value Interpretation Reference Range Facil ity MR/BMSMacy 11-24-2024 MR/JUSTEN [facility] [address] [place] [address]. [address] [place] [address] OFFICE VISIT Date of Service: 11/24/24 MR#: [id number] Acct: [id number] Name: STACIEDAKOTAH DIXON ANN Rep #: [id number] : 1965 Provider: JONO Ozuna Age/Sex: 59/F Location: [facility] Status: Signed Intake Vital Signs 05/04/24 08:59 11/07/24 11:24 11/24/24 09:41 Height 5 ft 6 in 5 ft 6 in Weight: 310 lb BP 120/77 Blood Pressure Location Rt brachial Position Sitting Respiration 16 Pulse 109 H Pulse Source Monitor Temp 98.2 F Temp Source Temporal Pulse Oximetry (%) 98 Oxygen Delivery Method room air Intake Visit Reasons: Varicose Veins, referred by Dr. Marrero Is patient in pain?: No Allergies levofloxacin Allergy (Severe, Verified 11/24/24 09:43) hives [employer] Adverse Reaction (Uncoded 11/24/24 09:43) Other Medications ???Medication ???Instructions ???Recorded ???Confirmed ???Type lactobacillus combination no.4 3 3,000 mmu cells PO QDAY 07/08/17 0 11/24/24 History billion cell capsule (Probiotic) loratadine 10 mg tablet 10 mg PO QDAY 07/08/17 11/24/24 Hi story ferrous sulfate 325 mg (65 mg 325 mg PO TID 03/13/21 11/24/24 Hi story iron) tablet,delayed release blood sugar diagnostic (OneTouch #100 ea 08/29/21 11/24/24 Rx Verio test strips) sevelamer carbonate 800 mg tablet 800 mg PO QAC 09/30/21 11/24/24 H istory vitamin B complex-vitamin C-folic 1 tab PO DAILY 10/30/22 11/24/24 History acid 0.8 mg tablet (Nephro-James) blood sugar diagnostic (OneTouch #100 ea 03/03/23 11/24/24 Rx Verio test strips) blood-glucose sensor (FreeStyle #2 ea 09/10/23 11/24/24 Rx Bessy 3 Sensor device) pen needle, diabetic 32 gauge x #400 ea 09/10/23 11/24/24 Rx 5/32 (BD Teresita 2nd Gen Pen Needle) amlodipine 5 mg tablet 5 mg PO DAILY #90 tabs 01/28/24 Rx calcitriol 0.5 mcg capsule 0.5 mcg PO DAILY 01/28/24 11/24/24 History furosemide 40 mg tablet (Lasix) 40 mg PO DAILY #90 tabs 01/28/24 0 11/24/24 Rx insulin detemir U-100 100 unit/mL 30 unit subcut QHS 01/28/2411/24 History (3 mL) subcutaneous pen venlafaxine 150 mg 150 mg PO DAILY #90 caps 01/28/24 11/24/24 Rx capsule,extended release 24 hr levothyroxine 100 mcg tablet 100 mcg PO QDAY #30 tabs 04/19/24 11/24/24 Rx (Levoxyl) insulin regular hum U-500 conc 500 20 unit subcut .ac 11/24/2411/06 History unit/mL(3 mL) subcut pen (Humulin R U-500 (Conc) Insulin Kwikpen) semaglutide 0.25 mg or 0.5 mg (2 0.25 mg subcut QWEEK 11/24/2411/06 History mg/3 mL) subcutaneous pen injector (Ozempic) Is last menstrual period known: No Post menopausal: Yes Patient : No Have you fallen in the past year?: No PFSH Medical History Dialysis patient Tachycardia Chronic combined systolic and diastolic CHF (congestive heart failure) Wears glasses Hx of psoriasis Arthritis Thyroid disease History of renal disease Injury of head and neck Dietary restriction Smoker CPAP (continuous positive airway pressure) dependence Shortness of breath on exertion History of pain when walking History of edema History of echocardiogram History of stress test Cardiology follow-up encounter Chronic renal insufficiency, stage IV (severe) Cardiomyopathy LUZ MARIA on CPAP Anemia Diabetes type 2, uncontrolled Essential (primary) hypertension Hypothyroidism (acquired) Varicosities of leg 4-quinolones adverse reaction Maxillary sinusitis Asthmatic bronchitis Depression Ankle fracture Hysteroscopy Uterus Radiculopathy affecting upper extremity Trigger finger of thumb Morbid obesity Nicotine dependence Congestive heart failure Type 2 diabetes mellitus without complications Anxiety Surgical History S/P arteriovenous (AV) fistula creation (03/06/21) Hx of dilation and curettage Hx of laparoscopy S/P trigger finger release ( 07/2019) left ankle surgery History of History of carpal tunnel surgery History of tonsillectomy Hx of cholecystectomy History of total abdominal hysterectomy Family History Mother Arthritis Hypertension Hypercholesterolemi a Father Cancer Skin cancer Grandmother Thyroid disorder Other Angina at rest Heart disease Lung cancer Social History (Updated 11/24/24 @ 09:40 by Janie Jones) Smoking Status: Light Smoker (<10/day) alcohol intake: current alcohol intake frequency: holidays/special occasions only substance use type: does not use caffeine: No additional social history: Does not use aspirin or ibuprofen daily HPI HPI HPI: pablito WRIGHT (more content not included)... Normal [facility] Absolute lymphocyte countOrd ered By: Seema Gutierrezke on 11-10-2024 Lymphocytes Auto (Unsp spec) [#/Vol] 1.08 10*3/uL 0.83-4.51 [facility] Absolute neutrophil countOrd ered By: Deandralara Elida on 11-10-2024 Neutrophils (Bld) [#/Vol] 4.7 10*3/uL 2.0-7.7 [facility] Anion gap in Serum or Plasma Ordered By: Seema Marrero on 11-10-2024 Anion gap [Moles/Vol] 18 mmol/L High 5-15 [facility] Automated lymphocyte count a s percentage of total leukocytesOrdered By: Deandralara Elida on 11-10-2024 Lymphocytes/100 WBC Auto (Unsp spec) 17.2 % Low 19-41 [facility] BUN/creatinine ratioOrdered By: Seema Elida on 11-10-2024 Urea nitrogen/Creatinine [Mass ratio] 7.3 mg/mg Low 10-20 [facility] Basophil percentageOrdered B y: Deandralara Elida on 11-10-2024 Basophils/100 WBC (Bld) 0.5 % 0-1 [facility] Bilirubin, totalOrdered By: Seema Elida on 11-10-2024 Bilirubin [Mass/Vol] 0.38 mg/dL 0.00-1.30 [facility] CBC W/Diff, Automatedon Absolute Lymph 1.08 X10 3/uL Normal 0.83-4.51 [facility] Comment on above: Order Comment: Order Date: 11/01/24 Order Info: 0184-1 - CBCD Performed By: #### L 500.4050, L100.0100, L501.56115, L506.0400, L501.9520, L500.4100 #### [facility] [address] [place], [address] Absolute Neut 4.7 X10 3/uL Normal 2.0-7.7 [facility] Comment on above: Order Comment: Order Date: 11/01/24 Order Info: 0184-1 - CBCD Performed By: #### L 500.4050, L100.0100, L501.09298, L506.0400, L501.9520, L500.4100 #### [facility] [address] [place], [address] Basophils/100 WBC (Bld) 0.5 % Normal 0-1 [facility] Comment on above: Order Comment: Order Date: 11/01/24 Order Info: 0184-1 - CBCD Performed By: #### L 500.4050, L100.0100, L501.15804, L506.0400, L501.9520, L500.4100 #### [facility] [address] [place], [address] Eosinophils/100 WBC (Bld) 1.6 % Normal 0-5 [facility] Comment on above: Order Comment: Order Date: 11/01/24 Order Info: 0184-1 - CBCD Performed By: #### L 500.4050, L100.0100, L501.89811, L506.0400, L501.9520, L500.4100 #### [facility] [address] [place], [address] Erythrocyte distribution width (RBC) [Ratio] 13.6 % Normal 11.6-14.6 [facility] Comment on above: Order Comment: Order Date: 11/01/24 Order Info: 0184-1 - CBCD Performed By: #### L 500.4050, L100.0100, L501.67575, L506.0400, L501.9520, L500.4100 #### [facility] [address] [place], [address] Hematocrit (Bld) [Volume fraction] 32.6 % Low 37-47 [facility] Comment on above: Order Comment: Order Date: 11/01/24 Order Info: 0184- - CBCD Performed By: #### L 500.4050, L100.0100, L501.35738, L506.0400, L501.9520, L500.4100 #### [facility] [address] [place], [address] Hemoglobin (Bld) [Mass/Vol] 10.9 g/dL Low 12.0-15.0 [facility] Comment on above: Order Comment: Order Date: 11/01/24 Order Info: 01809-06 - CBCD Performed By: #### L 500.4050, L100.0100, L501.01709, L506.0400, L501.9520, L500.4100 #### [facility] [address] [place], [address] IG% 0.300 Normal 0.0-0.9 [facility] Comment on above: Order Comment: Order Date: 11/01/24 Order Info: 01809-06 - CBCD Result Comment: IG% - Immature Granulocytes (promyelocytes, myelocytes and metamyelocytes) > 1% indicates that a LEFT SHIFT is Present. Performed By: #### L 500.4050, L100.0100, L501.22998, L506.0400, L501.9520, L500.4100 #### [facility] [address] [place], [address] Lymphocytes/100 WBC (Bld) 17.2 % Low 19-41 [facility] Comment on above: Order Comment: Order Date: 11/01/24 Order Info: 0184 - CBCD Performed By: #### L 500.4050, L100.0100, L501.43096, L506.0400, L501.9520, L500.4100 #### [facility] [address] [place], [address] MCH (RBC) [Entitic mass] 30.5 pg Normal 27.0-32.0 [facility] Comment on above: Order Comment: Order Date: 11/01/24 Order Info: 0184-1 - CBCD Performed By: #### L 500.4050, L100.0100, L501.89897, L506.0400, L501.9520, L500.4100 #### [facility] [address] [place], [address] MCHC (RBC) [Mass/Vol] 33.4 g/dL Normal 32-36 [facility] Comment on above: Order Comment: Order Date: 11/01/24 Order Info: 0184-1 - CBCD Performed By: #### L 500.4050, L100.0100, L501.19891, L506.0400, L501.9520, L500.4100 #### [facility] [address] [place], [address] MCV (RBC) [Entitic vol] 91.3 fL Normal 81-99 [facility] Comment on above: Order Comment: Order Date: 11/01/24 Order Info: 0184-1 - CBCD Performed By: #### L 500.4050, L100.0100, L501.43932, L506.0400, L501.9520, L500.4100 #### [facility] [address] [place], [address] Monocytes/100 WBC (Bld) 5.6 % Normal 0-10 [facility] Comment on above: Order Comment: Order Date: 11/01/24 Order Info: 0184-1 - CBCD Performed By: #### L 500.4050, L100.0100, L501.97609, L506.0400, L501.9520, L500.4100 #### [facility] [address] [place], [address] Neutrophils/100 WBC (Bld) 74.8 % High 47-70 [facility] Comment on above: Order Comment: Order Date: 11/01/24 Order Info: 0184-1 - CBCD Performed By: #### L 500.4050, L100.0100, L501.98162, L506.0400, L501.9520, L500.4100 #### [facility] [address] [place], [address] Nucleated RBC (Bld) [#/Vol] 0 10*3/uL Normal 0-5 [facility] Comment on above: Order Comment: Order Date: 11/01/24 Order Info: 0184- - CBCD Performed By: #### L 500.4050, L100.0100, L501.20081, L506.0400, L501.9520, L500.4100 #### [facility] [address] [place], [address] Platelet mean volume (Bld) [Entitic vol] 10.4 fL Normal 6.2-12.0 [facility] Comment on above: Order Comment: Order Date: 11/01/24 Order Info: 0184-1 - CBCD Performed By: #### L 500.4050, L100.0100, L501.70534, L506.0400, L501.9520, L500.4100 #### [facility] [address] [facility] [place], [address] Platelets (Bld) [#/Vol] 194 10*3/uL Normal 150-450 [facility] Comment on above: Order Comment: Order Date: 11/01/24 Order Info: 0184-1 - CBCD Performed By: #### L 500.4050, L100.0100, L501.99003, L506.0400, L501.9520, L500.4100 #### [facility] [address] [facility] [place], [address] RBC (Bld) [#/Vol] 3.57 10*6/uL Low 4.2-5.4 [facility] Comment on above: Order Comment: Order Date: 11/01/24 Order Info: 0184-1 - CBCD Performed By: #### L 500.4050, L100.0100, L501.51791, L506.0400, L501.9520, L500.4100 #### [facility] [address] [facility] [place], [address] RDW SD 45.8 fl High 35.1-43.9 [facility] Comment on above: Order Comment: Order Date: 11/01/24 Order Info: 0184-1 - CBCD Performed By: #### L 500.4050, L100.0100, L501.93753, L506.0400, L501.9520, L500.4100 #### [facility] [address] [facility] [place], [address] WBC (Bld) [#/Vol] 6.3 10*3/uL Normal 4.4-11.0 [facility] Comment on above: Order Comment: Order Date: 11/01/24 Order Info: 0184-1 - CBCD Performed By: #### L 500.4050, L100.0100, L501.39559, L506.0400, L501.9520, L500.4100 #### [facility] [address] [facility] [place], [address] Calculated very low density lipoprotein (VLDL) cholesterol measurementOrdered By: Seema Marrero on 11-10-2024 Calculated very low density lipoprotein (VLDL) cholesterol measurement 20 mg/dL 5-40 [facility] Carbon dioxide, total [Moles /volume] in Central venous bloodOrdered By: Seema Marrero on 11-10-2024 CO2 [Moles/Vol] 21.2 mmol/L 21.0-32.0 [facility] Chloride assayOrdered By: Laureano Marrero on 11-10-2024 Chloride [Moles/Vol] 95 mmol/L Low 98-108 [facility] Comprehensive Metabolic Prof ilon 11-10-2024 Albumin [Mass/Vol] 3.8 g/dL Normal 3.5-5.0 [facility] Comment on above: Order Comment: Order Date: 11/01/24 Order Info: 07-1 - CMP Order Info: - LIPID Order Info: 3051-0 - T3F Order Info: 3016-3 - TSH Order Info: 3024-7 - T4F Performed By: #### L 500.4050, L100.0100, L501.11048, L506.0400, L501.9520, L500.4100 #### [facility] [address] [place], [address] Albumin/Globulin [Mass ratio] 1.6 {ratio} Normal 0.9-2.4 [facility] Comment on above: Order Comment: Order Date: 11/01/24 Order Info: 785-1 - CMP Order Info: [id number] - LIPID Order Info: 3051-0 - T3F Order Info: 3016-3 - TSH Order Info: 3024-7 - T4F Performed By: #### L 500.4050, L100.0100, L501.14316, L506.0400, L501.9520, L500.4100 #### [facility] [address] [place], [place], [id number] ALK PHOS 113 U/L High 35-104 [facility] Comment on above: Order Comment: Order Date: 11/01/24 Order Info: 07-1 - CMP Order Info: - LIPID Order Info: 3051-0 - T3F Order Info: 3016-3 - TSH Order Info: 3024-7 - T4F Performed By: #### L 500.4050, L100.0100, L501.91772, L506.0400, L501.9520, L500.4100 #### [facility] [address] [place], [address] ALT [Catalytic activity/Vol] 15 U/L Normal <=34 [facility] Comment on above: Order Comment: Order Date: 11/01/24 Order Info: 0786-1 - CMP Order Info: [id number] - LIPID Order Info: 3051-0 - T3F Order Info: 3016-3 - TSH Order Info: 3024-7 - T4F Performed By: #### L 500.4050, L100.0100, L501.66636, L506.0400, L501.9520, L500.4100 #### [facility] [address] [place], [address] AST [Catalytic activity/Vol] 19 U/L Normal <=31 [facility] Comment on above: Order Comment: Order Date: 11/01/24 Order Info: 86-1 - CMP Order Info: [id number] - LIPID Order Info: 3051-0 - T3F Order Info: [id number] - TSH Order Info: 3024-7 - T4F Performed By: #### L 500.4050, L100.0100, L501.62539, L506.0400, L501.9520, L500.4100 #### [facility] [address] [place], [place], [id number] Bilirubin [Mass/Vol] 0.38 mg/dL Normal 0.00-1.30 [facility] Comment on above: Order Comment: Order Date: 11/01/24 Order Info: 0786-1 - CMP Order Info: [id number] - LIPID Order Info: 3051-0 - T3F Order Info: 3016-3 - TSH Order Info: 3024-7 - T4F Performed By: #### L 500.4050, L100.0100, L501.34631, L506.0400, L501.9520, L500.4100 #### [facility] [address] [place], [place], [id number] BUN/CRE 7.3 RATIO Low 10-20 [facility] Comment on above: Order Comment: Order Date: 11/01/24 Order Info: 0786-1 - CMP Order Info: [id number] - LIPID Order Info: 3051-0 - T3F Order Info: 3016-3 - TSH Order Info: 3024-7 - T4F Performed By: #### L 500.4050, L100.0100, L501.33120, L506.0400, L501.9520, L500.4100 #### [facility] [address] [place], [address] Calcium [Mass/Vol] 9.0 mg/dL Normal 7.6-11.0 [facility] Comment on above: Order Comment: Order Date: 11/01/24 Order Info: 785-1 - CMP Order Info: [id number] - LIPID Order Info: 3051-0 - T3F Order Info: 3016-3 - TSH Order Info: 3024-7 - T4F Performed By: #### L 500.4050, L100.0100, L501.00103, L506.0400, L501.9520, L500.4100 #### [facility] [address] [place], [address] Chloride [Moles/Vol] 95 mmol/L Low 98-108 [facility] Comment on above: Order Comment: Order Date: 11/01/24 Order Info: 785-06 - CMP Order Info: - LIPID Order Info: 3051-0 - T3F Order Info: 3016-3 - TSH Order Info: 3024-7 - T4F Performed By: #### L 500.4050, L100.0100, L501.55798, L506.0400, L501.9520, L500.4100 #### [facility] [address] [place], [address] CO2 [Moles/Vol] 21.2 mmol/L Normal 21.0-32.0 [facility] Comment on above: Order Comment: Order Date: 11/01/24 Order Info: 785-1 - CMP Order Info: [id number] - LIPID Order Info: 3051-0 - T3F Order Info: 3016-3 - TSH Order Info: 3024-7 - T4F Performed By: #### L 500.4050, L100.0100, L501.02794, L506.0400, L501.9520, L500.4100 #### [facility] [address] [place], [address] Creatinine [Mass/Vol] 4.77 mg/dL High 0.70-1.20 [facility] Comment on above: Order Comment: Order Date: 11/01/24 Order Info: 785-1 - CMP Order Info: [id number] - LIPID Order Info: 3051-0 - T3F Order Info: 3016-3 - TSH Order Info: 302-7 - T4F Performed By: #### L 500.4050, L100.0100, L501.91019, L506.0400, L501.9520, L500.4100 #### [facility] [address] [place], [place], [id number] GAP 18 High 5-15 [facility] Comment on above: Order Comment: Order Date: 11/01/24 Order Info: 785-06 - CMP Order Info: [id number] - LIPID Order Info: 3051-0 - T3F Order Info: 3 - TSH Order Info: 7 - T4F Performed By: #### L 500.4050, L100.0100, L501.84748, L506.0400, L501.9520, L500.4100 #### [facility] [address] [place], [place], [id number] GFR/1.73 sq M.predicted among non-blacks MDRD (S/P/Bld) [Vol rate/Area] 10 mL/min/{1.73_m2} Low >60 [facility] Comment on above: Order Comment: Order Date: 11/01/24 Order Info: 785-1 - CMP Order Info: [id number] - LIPID Order Info: 3051-0 - T3F Order Info: 3016-3 - TSH Order Info: 3024-7 - T4F Result Comment: mL/m in/1.73m2 CKD-EPI Creatinine Equation (2020) Performed By: #### L 500.4050, L100.0100, L501.00397, L506.0400, L501.9520, L500.4100 #### [facility] [address] [place], [address] Globulin (S) [Mass/Vol] 2.4 g/dL Normal 2.2-4.2 [facility] Comment on above: Order Comment: Order Date: 11/01/24 Order Info: 785-1 - CMP Order Info: [id number] - LIPID Order Info: 3051-0 - T3F Order Info: 3016-3 - TSH Order Info: 3024-7 - T4F Performed By: #### L 500.4050, L100.0100, L501.74822, L506.0400, L501.9520, L500.4100 #### [facility] [address] [place], [place], [id number] [phone] Glucose [Mass/Vol] 143 mg/dL High 70-99 [facility] Comment on above: Order Comment: Order Date: 11/01/24 Order Info: 785-06 - CMP Order Info: [id number] - LIPID Order Info: 3051-0 - T3F Order Info: 3016-3 - TSH Order Info: 3024-7 - T4F Performed By: #### L 500.4050, L100.0100, L501.36170, L506.0400, L501.9520, L500.4100 #### [facility] [address] [place], [address] Potassium [Moles/Vol] 4.1 mmol/L Normal 3.3-5.1 [facility] Comment on above: Order Comment: Order Date: 11/01/24 Order Info: 86-1 - CMP Order Info: [id number] - LIPID Order Info: 3051-0 - T3F Order Info: 3016-3 - TSH Order Info: 3024-7 - T4F Performed By: #### L 500.4050, L100.0100, L501.60142, L506.0400, L501.9520, L500.4100 #### [facility] [address] [place], [address] Sodium [Moles/Vol] 134 mmol/L Normal 133-145 [facility] Comment on above: Order Comment: Order Date: 11/01/24 Order Info: 0786-1 - CMP Order Info: [id number] - LIPID Order Info: 3051-0 - T3F Order Info: 3016-3 - TSH Order Info: 3024-7 - T4F Performed By: #### L 500.4050, L100.0100, L501.99728, L506.0400, L501.9520, L500.4100 #### [facility] [address] [place], [address] T PROT 6.2 g/dL Normal 5.9-8.4 [facility] Comment on above: Order Comment: Order Date: 11/01/24 Order Info: 785- - CMP Order Info: [id number] - LIPID Order Info: 3051-0 - T3F Order Info: 3016-3 - TSH Order Info: 3024-7 - T4F Performed By: #### L 500.4050, L100.0100, L501.74415, L506.0400, L501.9520, L500.4100 #### [facility] [address] [place], [address] Urea nitrogen [Mass/Vol] 35 mg/dL High 4-19 [facility] Comment on above: Order Comment: Order Date: 11/01/24 Order Info: 86-1 - CMP Order Info: [id number] - LIPID Order Info: 3051-0 - T3F Order Info: 3016-3 - TSH Order Info: 3024-7 - T4F Performed By: #### L 500.4050, L100.0100, L501.23989, L506.0400, L501.9520, L500.4100 #### [facility] [address] [place], [place], [id number] Eosinophil percentageOrdered By: Seema Marrero on 11-10-2024 Eosinophils/100 WBC (Bld) 1.6 % 0-5 [facility] Erythrocyte distribution wid th ratioOrdered By: Seema Marrero on 11-10-2024 Erythrocyte distribution width (RBC) [Ratio] 13.6 % 11.6-14.6 [facility] Erythrocyte distribution wid th standard deviationOrdered By: Seema Marrero on 11-10-2024 Erythrocyte distribution width (RBC) [Ratio] 45.8 fl High 35.1-43.9 [facility] Free T3on 11-10-2024 Free T3 [Mass/Vol] 2.5 pg/mL Normal 2.18-3.98 [facility] Comment on above: Order Comment: Order Date: 11/01/24 Order Info: 0786-1 - CMP Order Info: [id number] - LIPID Order Info: 3051-0 - T3F Order Info: 3016-3 - TSH Order Info: 3024-7 - T4F Performed By: #### L 500.4050, L100.0100, L501.67249, L506.0400, L501.9520, L500.4100 #### [facility] [address] [place], [place], [id number] Free B7Mphxtet By: Seema fernandes on 11-10-2024 Free T3 [Mass/Vol] 2.5 pg/mL 2.18-3.98 [facility] Glomerular filtration rate ( GFR) estimation/1.73 sq m using serum, plasma, or whole bOrdered By: Seema Marrero on 11-10-2024 GFR/1.73 sq M.predicted among non-blacks MDRD (S/P/Bld) [Vol rate/Area] 10 mL/min/{1.73_m2} Low >60 [facility] Comment on above: mL/min/1.73m2 CKD-EP I Creatinine Equation (2020) Hematocrit Auto (Bld) [Volum e fraction]Ordered By: Seema Marrero on 11-10-2024 Hematocrit (Bld) [Volume fraction] 32.6 % Low 37-47 [facility] Hemoglobin measurementOrdere d By: Seema Marrero on 11-10-2024 Hemoglobin (Bld) [Mass/Vol] 10.9 g/dL Low 12.0-15.0 [facility] Immature granulocytes/100 WB C Auto (Bld)Ordered By: Seema Marrero on 11-10-2024 Immature granulocytes/100 WBC (Bld) 0.300 % 0.0-0.9 [facility] Comment on above: IG% - Immature Granu locytes (promyelocytes, myelocytes and metamyelocytes) > 1% indicates that a LEFT SHIFT is Present. LDL calc ser/plasOrdered By: Seema Marrero on 11-10-2024 Cholesterol in LDL [Mass/Vol] 106 mg/dL [facility] Comment on above: Huscfvgfgf=296-425 m g/dL & Higher Zkct=351 mg/dL or greater Laboratory - Chemistry and C hemistry - challengeOrdered By: Seema Marrero on 11-10-2024 AST [Catalytic activity/Vol] 19 U/L <32 [facility] Lipid Profileon 11-10-2024 CHOL:HDL 3.29 Normal [facility] Comment on above: Order Comment: Order Date: 11/01/24 Order Info: 0786-1 - CMP Order Info: [id number] - LIPID Order Info: 0 - T3F Order Info: 3 - TSH Order Info: 3023-12 T4F Performed By: #### L 500.4050, L100.0100, L501.70191, L506.0400, L501.9520, L500.4100 #### [facility] [address], [address] Cholesterol [Mass/Vol] 181 mg/dL Normal <=200 [facility] Comment on above: Order Comment: Order Date: 11/01/24 Order Info: 0786-1 - CMP Order Info: [id number] - LIPID Order Info: 1-0 - T3F Order Info: 3015-3 - TSH Order Info: 7 - T4F Result Comment: Chol esterol level, Desirable <200 mg/dL Borderline high cholesterol 200-239 mg/dL High cholesterol >=240 mg/dL Recommendations of the NCEP Adult Treatment Panel for the following risk-cutoff thresholds for the [place] population. Performed By: #### L 500.4050, L100.0100, L501.21294, L506.0400, L501.9520, L500.4100 #### [facility] [address] [place], [address] Cholesterol in HDL [Mass/Vol] 55 mg/dL Normal [facility] Comment on above: Order Comment: Order Date: 11/01/24 Order Info: 0786- - CMP Order Info: [id number] - LIPID Order Info: 0 - T3F Order Info: 3015-08 - TSH Order Info: 3023-12 Result Comment: Adela onal Cholesterol Education Program (NCEP) guidelines: <40 mg/dL: Low HDL-cholesterol (major risk factor for CHD) >= 60 mg/dL: High HDL-cholesterol (negative risk factor for CHD) HDL-cholesterol is affected by a number of factors, e.g. smoking, exercise, hormones, sex and age. Performed By: #### L 500.4050, L100.0100, L501.85034, L506.0400, L501.9520, L500.4100 #### [facility] [address] [place], [address] Cholesterol in LDL [Mass/Vol] 106 mg/dL Normal [facility] Comment on above: Order Comment: Order Date: 11/01/24 Order Info: 0786 - CMP Order Info: [id number] - LIPID Order Info: 0 - T3F Order Info: 3 - TSH Order Info: 3023-12 T4F Result Comment: Bord nmowtj=421-081 mg/dL Higher Nzrg=998 mg/dL or greater Performed By: #### L 500.4050, L100.0100, L501.31549, L506.0400, L501.9520, L500.4100 #### [facility] [address] [place], [address] Cholesterol in VLDL [Mass/Vol] 20 mg/dL Normal 5-40 [facility] Comment on above: Order Comment: Order Date: 11/01/24 Order Info: 0786- - CMP Order Info: [id number] - LIPID Order Info: 3050-0 - T3F Order Info: 3 - TSH Order Info: 3023-12 - T4F Performed By: #### L 500.4050, L100.0100, L501.30563, L506.0400, L501.9520, L500.4100 #### [facility] [address] [place], [address] Triglyceride [Mass/Vol] 98 mg/dL Normal [facility] Comment on above: Order Comment: Order Date: 11/01/24 Order Info: 0786 - CMP Order Info: [id number] - LIPID Order Info: 0 - T3F Order Info: 3015-08 - TSH Order Info: 3023-12 - T4F Result Comment: The drugs N-Acetylcysteine and Metamizole may falsely depress this assay. Normal range: <150 mg/dL Borderline High: 150-199 mg/dL High: 200-499 mg/dL Very High: >500 mg/dL Performed By: #### L 500.4050, L100.0100, L501.62346, L506.0400, L501.9520, L500.4100 #### [facility] [address] [place], [place], [address] MCV (mean corpuscular volume ) determinationOrdered By: Seema Marrero on 11-10-2024 MCV (RBC) [Entitic vol] 91.3 fL 81-99 [facility] Mean corpuscular hemoglobin (MCH) determinationOrdered By: Seema Marrero on 11-10-2024 MCH (RBC) [Entitic mass] 30.5 pg 27.0-32.0 [facility] Mean corpuscular hemoglobin concentration (MCHC) determinationOrdered By: Seema Marrero on 11-10-2024 MCHC (RBC) [Mass/Vol] 33.4 g/dL 32-36 [facility] Mean platelet volume determi nationOrdered By: Seema Marrero on 11-10-2024 Platelet mean volume (Bld) [Entitic vol] 10.4 fL 6.2-12.0 [facility] Monocyte percentageOrdered B y: Seema Marrero on 11-10-2024 Monocytes/100 WBC (Bld) 5.6 % 0-10 [facility] Neutrophil percentageOrdered By: Seema Marrero on 11-10-2024 Neutrophils/100 WBC (Bld) 74.8 % High 47-70 [facility] Nucleated red blood cell per centageOrdered By: Seema Marrero on 11-10-2024 Nucleated RBC/100 WBC (Bld) [Ratio] 0 % 0-5 [facility] Platelet countOrdered By: Laureano Marrero on 11-10-2024 Platelets (Bld) [#/Vol] 194 10*3/uL 150-450 [facility] Potassium measurement (mass/ volume)Ordered By: Seema Marrero on 11-10-2024 Potassium (Unsp spec) [Mass/Vol] 4.1 mmol/L 3.3-5.1 [facility] RBC Auto (Bld) [#/Vol]Ordere d By: Seema Marrero on 11-10-2024 RBC (Bld) [#/Vol] 3.57 10*6/uL Low 4.2-5.4 [facility] Screening total cholesterol/ high density lipoprotein (HDL) cholesterol ratioOrdered By: Seema Marrero on 11-10-2024 Cholesterol.total/Choles terol in HDL [Mass ratio] 3.29 {ratio} [facility] Serum creatinine measurement (mass/volume)Ordered By: Seema Marrero on 11-10-2024 Creatinine [Mass/Vol] 4.77 mg/dL High 0.70-1.20 [facility] Serum globulin measurementOr dered By: Seema Marrero on 11-10-2024 Globulin (S) [Mass/Vol] 2.4 g/dL 2.2-4.2 [facility] Serum glucose measurement (m ass/volume)Ordered By: Seema Marrero on 11-10-2024 Glucose [Mass/Vol] 143 mg/dL High 70-99 [facility] Serum or plasma alanine oleary otransferase (ALT) measurementOrdered By: Seema Marrero on 11-10-2024 ALT [Catalytic activity/Vol] 15 U/L <35 [facility] Serum or plasma albumin krishan urement (mass/volume)Or[facility]: [facility] on 11-10-2024 Albumin [Mass/Vol] 3.8 g/dL 3.5-5.0 [facility] Serum or plasma albumin/glob ulin mass ratioOrdered By: [facility] on 11-10-2024 Albumin/Globulin [Mass ratio] 1.6 {ratio} 0.9-2.4 [facility] Serum or plasma alkaline zbigniew sphatase measurementOrdered By: [facility] 11-10-2024 ALP [Catalytic activity/Vol] 113 U/L High 35-104 [facility] Serum or plasma calcium krishan urement (mass/volume)Ordered By: Seema Elida 11-10-2024 Calcium [Mass/Vol] 9.0 mg/dL 7.6-11.0 [facility] Serum or plasma cholesterol in HDL measurement (mass/volume)Ordered By: Seema Elida on 11-10-2024 Cholesterol in HDL [Mass/Vol] 55 mg/dL >40 [facility] Comment on above: National Cholesterol Education Program (NCEP) guidelines:<40 mg/dL: Low HDL-cholesterol (major risk factor for CHD)>= 60 mg/dL: High HDL-cholesterol (negative risk factor for CHD)HDL-cholesterol is affected by a number of factors, e.g. smoking, exercise, hormones, sex and age. Serum or plasma cholesterol measurement (mass/volume)Ordered By: Seema Marrero on 11-10-2024 Cholesterol [Mass/Vol] 181 mg/dL <201 [facility] Comment on above: Cholesterol level, D esirable <200 mg/dLBorderline high cholesterol 200-239 mg/dLHigh cholesterol >=240 mg/dLRecommendations of the NCEP Adult Treatment Panel for the following risk-cutoff thresholds for the [place] population. Serum or plasma urea nitroge n measurement (mass/volume)Ordered By: Seema Marrero on 11-10-2024 Urea nitrogen [Mass/Vol] 35 mg/dL High 4-19 [facility] Sodium levelOrdered By: Deandra Marrero on 11-10-2024 Sodium [Moles/Vol] 134 mmol/L 133-145 [facility] T4 Free Directon 11-10-2024 T4 FREE DIRECT 1.50 ng/dL High 0.76-1.46 [facility] Comment on above: Order Comment: Order Date: 11/01/24 Order Info: 0786-1 - CMP Order Info: [id number] - LIPID Order Info: 3050-0 - T3F Order Info: 3 - TSH Order Info: 3023-12 - T4F Performed By: #### L 500.4050, L100.0100, L501.26131, L506.0400, L501.9520, L500.4100 #### [facility] [address] [place], [place], [id number] T4 freeOrdered By: Seema fernandes on 11-10-2024 Free T4 [Mass/Vol] 1.50 ng/dL High 0.76-1.46 [facility] TSH DL <= 0.005 mIU/L QnOrde red By: Seema Marrero on 11-10-2024 TSH Qn 1.260 uIU/mL 0.300-4.200 [facility] Thyroid Stim Hormone (TSH)on 11-10-2024 TSH 1.260 uIU/mL Normal 0.300-4.200 [facility] Comment on above: Order Comment: Order Date: 11/01/24 Order Info: 0786- - CMP Order Info: [id number] - LIPID Order Info: 3051-0 - T3F Order Info: 3 - TSH Order Info: 7 - T4F Performed By: #### L 500.4050, L100.0100, L501.68800, L506.0400, L501.9520, L500.4100 #### [facility] [address] [place], [place], [id number] Total proteinOrdered By: Gail Marrero on 11-10-2024 Protein [Mass/Vol] 6.2 g/dL 5.9-8.4 [facility] Triglycerides measurementOrd ered By: Seema Marrero on 11-10-2024 Triglyceride [Mass/Vol] 98 mg/dL <199 [facility] Comment on above: The drugs N-Acetylcy steine and Metamizole may falsely depress this assay. Normal range: <150 mg/dLBorderline High: 150-199 mg/dLHigh: 200-499 mg/dLVery High: >500 mg/dL Vitamin D,25 Hydroxyon 11-10 Vitamin D 25-OH 31.0 ng/mL Normal 30-100 [facility] Comment on above: Order Comment: Order Date: 11/01/24 Order Info: 0786-1 - CMP Order Info: [id number] - LIPID Order Info: 3051-0 - T3F Order Info: 3016-3 - TSH Order Info: 3024-7 - T4F Result Comment: Dorina min D Status Deficiency: <20 ng/mL (50nmol/L) Insufficiency: 20-30 ng/mL (50-75 nmol/L) Sufficiency: 30-100 ng/mL (75-250 nmol/L) Toxicity: >100 ng/mL (>250 nmol/L) Performed By: #### L 506.1001 #### [facility] [address] [facility] [place], [address] White blood cell (WBC) count Ordered By: Seema Marrero on 11-10-2024 WBC (Bld) [#/Vol] 6.3 10*3/uL 4.4-11.0 [facility] MR/BMS.BVSon 05-18-2024 MR/BMS.BVS [facility] [address] [place], [place] [address] OFFICE VISIT Date of Service: 05/18/24 MR#: [id number] Acct: [id number] Name: DAKOTAH UGALDE ANN Rep #: [id number] : 1965 Provider: JONO Ozuna Age/Sex: 58/F Location: [facility] Status: Signed Intake Vital Signs 01/28/24 17:40 05/04/24 08:59 05/18/24 10:02 Height 5 ft 6 in 5 ft 6 in Weight: 309 lb BP 133/81 H Blood Pressure Location Rt radial Position Sitting Respiration 16 Pulse 102 H Pulse Source Monitor Temp 98.2 F Temp Source Temporal Pulse Oximetry (%) 97 Oxygen Delivery Method room air Intake Visit Reasons: Post fistulagram Chief Complaint: recheck fistula Is patient in pain?: No Allergies levofloxacin Allergy (Severe, Verified 05/18/24 10:04) hives DECONGESTANTS Adverse Reaction (Uncoded 05/18/24 10:04) Other Medications ???Medication ???Instructions ???Recorded ???Confirmed ???Type lactobacillus combination no.4 3 3,000 mmu cells PO QDAY 07/08/17 05/18/24 History billion cell capsule (Probiotic) loratadine 10 mg tablet 10 mg PO QDAY 07/08/17 05/18/24 History ferrous sulfate 325 mg (65 mg 325 mg PO TID 03/13/21 05/18/24 History iron) tablet,delayed release blood sugar diagnostic (OneTouch #100 ea 08/29/21 05/18/24 Rx Verio test strips) sevelamer carbonate 800 mg tablet 800 mg PO QAC 09/30/21 05/18/24 History vitamin B complex-vitamin C-folic 1 tab PO DAILY 10/30/22 05/18/24 History acid 0.8 mg tablet (Nephro-James) blood sugar diagnostic (OneTouch #100 ea 03/03/23 05/18/24 Rx Verio test strips) blood-glucose sensor (FreeStyle #2 ea 09/10/23 05/18/24 Rx Bessy 3 Sensor device) pen needle, diabetic 32 gauge x #400 ea 09/10/23 05/18/24 Rx 5/32 (BD Teresita 2nd Gen Pen Needle) amlodipine 5 mg tablet 5 mg PO DAILY #90 tabs 01/28/24 05/18/24 Rx calcitriol 0.5 mcg capsule 0.5 mcg PO DAILY 01/28/24 05/18/24 History furosemide 40 mg tablet (Lasix) 40 mg PO DAILY #90 tabs 01/28/24 05/18/24 Rx insulin detemir U-100 100 unit/mL 30 unit subcut QHS 01/28/24 05/18/24 History (3 mL) subcutaneous pen insulin regular hum U-500 conc 500 10 unit subcut .ac 01/28/24 05/18/24 History unit/mL(3 mL) subcut pen (Humulin R U-500 (Conc) Insulin Kwikpen) venlafaxine 150 mg 150 mg PO DAILY #90 caps 01/28/24 05/18/24 Rx capsule,extended release 24 hr levothyroxine 100 mcg tablet 100 mcg PO QDAY #30 tabs 04/19/24 05/18/24 Rx (Levoxyl) Is last menstrual period known: No Post menopausal: Yes Patient : No Have you fallen in the past year?: No PFSH Medical History Dialysis patient Tachycardia Chronic combined systolic and diastolic CHF (congestive heart failure) Wears glasses Hx of psoriasis Arthritis Thyroid disease History of renal disease Injury of head and neck Dietary restriction Smoker CPAP (continuous positive airway pressure) dependence Shortness of breath on exertion History of pain when walking History of edema History of echocardiogram History of stress test Cardiology follow-up encounter Chronic renal insufficiency, stage IV (severe) Cardiomyopathy LUZ MARIA on CPAP Anemia Diabetes type 2, uncontrolled Essential (primary) hypertension Hypothyroidism (acquired) Varicosities of leg 4-quinolones adverse reaction Maxillary sinusitis Asthmatic bronchitis Depression Ankle fracture Hysteroscopy Uterus Radiculopathy affecting upper extremity Trigger finger of thumb Morbid obesity Nicotine dependence Congestive heart failure Type 2 diabetes mellitus without complications Anxiety Surgical History S/P arteriovenous (AV) fistula creation (03/06/21) Hx of dilation and curettage Hx of laparoscopy S/P trigger finger release ( 07/2019) left ankle surgery History of History of carpal tunnel surgery History of tonsillectomy Hx of cholecystectomy History of total abdominal hysterectomy Family History Mother Arthritis Hypertension Hypercholesterolemi a Father Cancer Skin cancer Grandmother Thyroid disorder Other Angina at rest Heart disease Lung cancer Social History (Updated 05/18/24 @ 10:03 by Janie Jones) Smoking Status: Light Smoker (<10/day) alcohol intake: current alcohol intake frequency: holidays/special occasions only substance use type: does not use caffeine: No additional social history: Does not use aspirin or ibuprofen daily HPI HPI HPI: DAKOTAH UGALDE, is a 58 F who presents to the office today for follow-up s/p recent fistulogram which was performed secondary to increased pain in the area of the venous acc (more content not included)... Normal [facility] Operative Reporton 4 Operative Report [facility] Medical Records Department [address] [place] [address] Operative Report 05/04/24 1238 MR#: [id number] Acct: [id number] Name: DAKOTAH UGALDE ANN Rep #: [id number] : 1965 58 From: Gus York MD PCP: ALMA Parry Status:[facility] Location: [facility] Operative Report (Standard) Operative Information Surgery/Procedure Performed: fistulagram, IVUS Surgeon: Gus York Date of Procedure: 05/04/24 Procedure Start Time: 12:00 Procedure Stop Time: 12:30 Pre-Operative Diagnosis: fistula malfunction Post-Operative Diagnosis: same, no stenosis Select all DRAINS/GRAFTS/IMPLA NTS that apply: None Type of Anesthesia: Local and Sedation,Conscious Estimated Blood Loss: 3 Specimen collected: No Description of surgery: HPI: Patient is a 58-year-old female with end-stage renal disease currently on dialysis via left radiocephalic AV fistula. This was initially created approximately 3 years prior and she has had no issues until recently where she has had significant pain at the venous return access site that radiates towards her wrist. She has not had any difficulty with prolonged bleeding, poor flow volumes, high pressures in the circuit or any clot. She presents now for fistulogram with possible intervention. Description of procedure: Upon obtaining form consent and verification correct patient procedure site patient taken to the [employer] where she was positioned prepped and draped in usual sterile fashion. Timeouts performed conscious sedation administered Versed and fentanyl. Skin overlying the fistula was anesthetized with 1% lidocaine the vessel accessed with a micropuncture needle and wire under ultrasound guidance. This then exchanged for a 6 Moldovan fistula sheath through which digital traction angiogram was performed of the fistula as well as the venous outflow in its entirety to the superior vena cava and reflux imaging into the arterial system. Just cephalad to her venous puncture site there was an angulation and what appeared to be potentially a retained valve that from at least positioning seemed to be the possible source of her symptoms. An 014 wire was then advanced through the 6 Moldovan sheath and navigated into the brachial vein and an intravascular ultrasound probe advanced and recorded pullback performed of the brachial vein outflow and the venous outflow segment of the cephalic vein fistula. This revealed an area of size discrepancy without stenosis and a small outpouching on the segment toward the access site which was likely where her needle tip was positioned during her dialysis sessions in question. There was no valve, no stenosis and it was felt that no intervention was necessary. Wire and catheter were then withdrawn and a nylon pursestring suture placed at the skin after which the sheath was removed and manual pressure held for 5 minutes with satisfactory stasis. The patient was then taken recovery area with plan discharged to home. Surgical Findings: See above [employer] thoracic medicine specialist: No Complications Complications: No 05/04/24 3382 Cosigner Signature (if applicable): CC: ALMA Caceres; JONO Ozuna; Dr. Gus York MD Signed Normal [facility] MR/BMS.BVSon 04-29-2024 MR/BMS.BVS [facility] [address] [place] [address]. [address] [place] [address] OFFICE VISIT Date of Service: 04/29/24 MR#: [id number] Acct: [id number] Name: DAKOTAH UGALDE Rep #: [id number] : 1965 Provider: JONO Ozuna Age/Sex: 58/F Location: [facility] Status: Signed Intake Vital Signs 01/28/24 17:40 04/19/24 19:28 04/29/24 09:43 Height 5 ft 6 in 5 ft 6 in 5 ft 6 in Weight: 310 lb BMI 50.0 BP 125/76 H Blood Pressure Location Lt brachial Position Sitting Respiration 16 Pulse 105 H Pulse Source Monitor Temp 98.1 F Temp Source Temporal Pulse Oximetry (%) 99 Oxygen Delivery Method room air Intake Visit Reasons: Pre op Fistulagram Chief Complaint: recheck fistula Is patient in pain?: No Allergies levofloxacin Allergy (Severe, Verified 04/29/24 09:43) hives DECONGESTANTS Adverse Reaction (Uncoded 04/29/24 09:43) Other Medications ???Medication ???Instructions ???Recorded ???Confirmed ???Type lactobacillus combination no.4 3 3,000 mmu cells PO QDAY 07/08/17 04/29/24 History billion cell capsule (Probiotic) loratadine 10 mg tablet 10 mg PO QDAY 07/08/17 04/29/24 History ferrous sulfate 325 mg (65 mg 325 mg PO TID 03/13/21 04/29/24 History iron) tablet,delayed release blood sugar diagnostic (OneTouch #100 ea 08/29/21 04/29/24 Rx Verio test strips) sevelamer carbonate 800 mg tablet 800 mg PO QAC 09/30/21 04/29/24 History vitamin B complex-vitamin C-folic 1 tab PO DAILY 10/30/22 04/29/24 History acid 0.8 mg tablet (Nephro-James) blood sugar diagnostic (OneTouch #100 ea 03/03/23 04/29/24 Rx Verio test strips) blood-glucose sensor (FreeStyle #2 ea 09/10/23 04/29/24 Rx Bessy 3 Sensor device) pen needle, diabetic 32 gauge x #400 ea 09/10/23 04/29/24 Rx 5/32 (BD Teresita 2nd Gen Pen Needle) amlodipine 5 mg tablet 5 mg PO DAILY #90 tabs 01/28/24 04/29/24 Rx calcitriol 0.5 mcg capsule 0.5 mcg PO DAILY 01/28/24 04/29/24 History furosemide 40 mg tablet (Lasix) 40 mg PO DAILY #90 tabs 01/28/24 04/29/24 Rx insulin detemir U-100 100 unit/mL 30 unit subcut QHS 01/28/24 04/29/24 History (3 mL) subcutaneous pen insulin regular hum U-500 conc 500 10 unit subcut .ac 01/28/24 04/29/24 History unit/mL(3 mL) subcut pen (Humulin R U-500 (Conc) Insulin Kwikpen) venlafaxine 150 mg 150 mg PO DAILY #90 caps 01/28/24 04/29/24 Rx capsule,extended release 24 hr levothyroxine 100 mcg tablet 100 mcg PO QDAY #30 tabs 04/19/24 04/29/24 Rx (Levoxyl) PFSH Medical History (Reviewed 04/21/24 @ 12:15 by Nithya Caceres SUPERVISOR CALIBRATION, SUPERVISOR CALIBRATION-C) Dialysis patient Tachycardia Chronic combined systolic and diastolic CHF (congestive heart failure) Wears glasses Hx of psoriasis Arthritis Thyroid disease History of renal disease Injury of head and neck Dietary restriction Smoker CPAP (continuous positive airway pressure) dependence Shortness of breath on exertion History of pain when walking History of edema History of echocardiogram History of stress test Cardiology follow-up encounter Chronic renal insufficiency, stage IV (severe) Cardiomyopathy LUZ MARIA on CPAP Anemia Diabetes type 2, uncontrolled Essential (primary) hypertension Hypothyroidism (acquired) Varicosities of leg 4-quinolones adverse reaction Maxillary sinusitis Asthmatic bronchitis Depression Ankle fracture Hysteroscopy Uterus Radiculopathy affecting upper extremity Trigger finger of thumb Morbid obesity Nicotine dependence Congestive heart failure Type 2 diabetes mellitus without complications Anxiety Surgical History S/P arteriovenous (AV) fistula creation (03/06/21) Hx of dilation and curettage Hx of laparoscopy S/P trigger finger release ( 07/2019) left ankle surgery History of History of carpal tunnel surgery History of tonsillectomy Hx of cholecystectomy History of total abdominal hysterectomy Family History (Updated 04/29/24 @ 09:50 by Gisele Pugh) Mother Arthritis Hypertension Hypercholesterolemi a Father Cancer Skin cancer Grandmother Thyroid disorder Other Angina at rest Heart disease Lung cancer Social History (Updated 04/29/24 @ 09:48 by Gisele Pugh) Smoking Status: Current every day smoker tobacco type: cigarettes alcohol intake: current alcohol intake frequency: holidays/special occasions only substance use type: does not use caffeine: No additional social history: Does not use aspirin or ibuprofen daily HPI HPI HPI: DAKOTAH UGALDE, is a 58 F who presents to the office today as referred from [facility] dialysis center secondary to excess pain and a whistle auscultated approximately per referral paperwork. She has a left forearm radio (more content not included)... Normal [facility] Thyroid Stim Hormone (TSH)on 04-19-2024 TSH 1.150 uIU/mL Normal 0.358-3.740 [facility] Comment on above: Performed By: #### L 893.6558 ####[facility] [id number] [place], [address] Absolute lymphocyte countOrd ered By: Nithya Caceres on 03-03-2023 Lymphocytes Auto (Unsp spec) [#/Vol] 1.95 10*3/uL 0.83-4.51 [facility] Basophil percentageOrdered B y: Nithya Caceres on 03-03-2023 Basophils/100 WBC (Bld) 0.5 % 0-1 [facility] Bilirubin [Mass/Vol] 0.30 mg/dL 0.20-1.00 [facility] Comment on above: For patients on eltr ombopag therapy, use of Dimension [place] TBIL is not recommended. Chloride [Moles/Vol] 99 mmol/L 98-107 [facility] Cholesterol [Mass/Vol] 218 mg/dL <200 [facility] Comment on above: <200 mg/dL Desirable 200-240 mg/dL Borderline >240 mg/dL High Risk Eosinophils/100 WBC (Bld) 2.6 % 0-5 [facility] Glucose [Mass/Vol] 93 mg/dL 74-106 [facility] Neutrophils (Bld) [#/Vol] 5.6 10*3/uL 2.0-7.7 [facility] Neutrophils/100 WBC (Bld) 68.0 % 47-70 [facility] Potassium [Moles/Vol] 3.8 mmol/L 3.5-5.1 [facility] Protein [Mass/Vol] 8.4 g/dL 6.4-8.2 [facility] Sodium [Moles/Vol] 136 mmol/L 136-145 [facility] Triglyceride [Mass/Vol] 145 mg/dL <199 [facility] Comment on above: The drugs N-Acetylcy steine and Metamizole may falsely depress this assay.Serum Triglycerides Reference Interval Normal <150 mg/dL Borderline high 150 - 199 mg/dL High 200 - 499 mg/dL Very High > or = 500 mg/dL WBC (Bld) [#/Vol] 8.2 10*3/uL 4.4-11.0 [facility] Blood erythrocytes count (nu mber/volume)Ordered By: Nithya Caceres on 03-03-2023 RBC (Bld) [#/Vol] 3.89 10*6/uL 4.2-5.4 [facility] Blood hemoglobin measurement (mass/volume)Ordered By: Nithya Caceres on 03-03-2023 Hemoglobin (Bld) [Mass/Vol] 12.2 g/dL 12.0-15.0 [facility] Blood lymphocytes/100 leukoc ytesOrdered By: Nithya Caceres on 03-03-2023 Lymphocytes/100 WBC (Bld) 23.8 % 19-41 [facility] Blood monocytes/100 leukocyt esOrdered By: Nithya Caceres on 03-03-2023 Monocytes/100 WBC (Bld) 4.9 % 0-10 [facility] Blood platelet mean volumeOr dered By: Nithya Caceres on 03-03-2023 Platelet mean volume (Bld) [Entitic vol] 10.1 fL 6.2-12.0 [facility] Determination of erythrocyte mean corpuscular volume (MCV)Ordered By: Nithya Caceres on 03-03-2023 MCV (RBC) [Entitic vol] 94.9 fL 81-99 [facility] Hematocrit Auto (Bld) [Volum e fraction]Ordered By: Nithya Caceres on 03-03-2023 Hematocrit (Bld) [Volume fraction] 36.9 % 37-47 [facility] Laboratory - Chemistry and C hemistry - challengeOrdered By: Nithya Caceres on 03-03-2023 ALP [Catalytic activity/Vol] 145 U/L 45-117 [facility] ALT [Catalytic activity/Vol] 32 U/L 13-56 [facility] CO2 [Moles/Vol] 29.0 mmol/L 21.0-32.0 [facility] Globulin (S) [Mass/Vol] 5.0 g/dL 2.2-4.2 [facility] Urea nitrogen/Creatinine [Mass ratio] 8.7 mg/mg 10-20 [facility] Laboratory - Hematology and Cell countsOrdered By: Nithya Caceres on 03-03-2023 Erythrocyte distribution width (RBC) [Entitic vol] 47.6 fL 35.1-43.9 [facility] Erythrocyte distribution width (RBC) [Ratio] 13.8 % 11.6-14.6 [facility] Immature granulocytes/100 WBC (Bld) 0.200 % 0.0-0.9 [facility] Comment on above: IG% - Immature Granu locytes (promyelocytes, myelocytes and metamyelocytes) > 1% indicates that a LEFT SHIFT is Present. MCH (RBC) [Entitic mass] 31.4 pg 27.0-32.0 [facility] Nucleated RBC/100 WBC (Bld) [Ratio] 0 % 0-5 [facility] MCHC Auto (RBC) [Mass/Vol]Or dered By: Nithya Caceres on 03-03-2023 MCHC (RBC) [Mass/Vol] 33.1 g/dL 32-36 [facility] No Panel InformationOrdered By: Nithya Caceres on 03-03-2023 Estimated GFR (MDRD) Amer 14 mL/min >60 [facility] Comment on above: GFR Calc Estimated GFR (MDRD) Non-Af Amer 12 mL/min >60 [facility] Comment on above: Non- GFR Calc Thyroid Stimulating Hormone (TSH) 1.09 uIU/mL 0.358-3.74 [facility] Platelets bldOrdered By: Rolan Caceres on 03-03-2023 Platelets (Bld) [#/Vol] 199 10*3/uL 150-450 [facility] Serum or plasma albumin krishan urement (mass/volume)Ordered By: Nithya Caceres on 03-03-2023 Albumin [Mass/Vol] 3.4 g/dL 3.2-5.0 [facility] Serum or plasma albumin/glob ulin mass ratioOrdered By: Nithya Caceres on 03-03-2023 Albumin/Globulin [Mass ratio] 0.7 {ratio} 0.9-2.4 [facility] Serum or plasma calcium krishan urement (mass/volume)Ordered By: Nithya Caceres on 03-03-2023 Calcium [Mass/Vol] 9.3 mg/dL 8.5-10.1 [facility] Serum or plasma cholesterol in HDL measurement (mass/volume)Ordered By: Nithya Caceres on 03-03-2023 Cholesterol in HDL [Mass/Vol] 58 mg/dL >40 [facility] Comment on above: The drugs N-Acetylcy steine and Metamizole may falsely depress this assay. Reference Range HDL <40 mg/dL Low HDL Cholesterol HDL >or= 60 mg/dL High HDL Cholesterol Serum or plasma cholesterol in VLDL measurement (mass/volume)Ordered By: Nithya Caceres on 03-03-2023 Cholesterol in VLDL [Mass/Vol] 29 mg/dL 5-40 [facility] Serum or plasma creatinine m easurement (mass/volume)Ordered By: Nithya Caceres on 03-03-2023 Creatinine [Mass/Vol] 4.23 mg/dL 0.55-1.02 [facility] Comment on above: The validity of the calculated GFR & GFRAA in patients over 70 years has not been determined. Clinical correlation is essential. Serum or plasma low density lipoprotein (LDL) cholesterol measurement (mass/volume)Ordered By: Nithya Caceres on 03-03-2023 Cholesterol in LDL [Mass/Vol] 131 mg/dL 0-130 [facility] Serum or plasma urea nitroge n measurement (mass/volume)Ordered By: Nithya Caceres on 03-03-2023 Urea nitrogen [Mass/Vol] 37 mg/dL 7-18 [facility] Thin prep Papanicolaou smear with manual screeningOrdered By: Nithya Caceres on 03-03-2023 Thin prep Papanicolaou smear with manual screening 22 U/L 15-37 [facility] Thin prep Papanicolaou smear with manual screening 8 5-15 [facility] Whole blood hemoglobin A1c/t otal hemoglobin ratio (mass fraction)Ordered By: Nithya Caceres on 03-03-2023 HbA1c (Bld) [Mass fraction] 6.4 % 3.8-5.6 [facility] Comment on above: Normal < 5.7 % Predi abetic 5.7 - 6.4 % Diabetic >or= 6.5 % Please note range changes. Blood hemoglobin measurement (mass/volume)Ordered By: Kanwal Gil on 01-13-2023 Hemoglobin (Bld) [Mass/Vol] 12.6 g/dL 12.0-15.0 [facility] No Panel InformationOrdered By: Nithya Caceres on 08-21-2022 Thyroid Stimulating Hormone (TSH) 1.20 uIU/mL 0.358-3.74 [facility] Absolute lymphocyte counton 03-04-2022 Lymphocytes Auto (Unsp spec) [#/Vol] 1.59 10*3/uL 0.83-4.51 [facility] Work Phone: Basophil percentageon 2021 Basophils/100 WBC (Bld) 0.5 % 0-1 [facility] Work Phone: Bilirubin [Mass/Vol] 0.40 mg/dL 0.20-1.00 [facility] Work Phone: Comment on above: For patients on eltr ombopag therapy, use of Dimension [place] TBIL is not recommended. Chloride [Moles/Vol] 103 mmol/L 98-107 [facility] Work Phone: Cholesterol [Mass/Vol] 153 mg/dL <200 [facility] Work Phone: Comment on above: <200 mg/dL Desirable 200-240 mg/dL Borderline >240 mg/dL High Risk Eosinophils/100 WBC (Bld) 3.5 % 0-5 [facility] Work Phone: Glucose [Mass/Vol] 56 mg/dL 74-106 [facility] Work Phone: Neutrophils (Bld) [#/Vol] 7.4 10*3/uL 2.0-7.7 [facility] Work Phone: Neutrophils/100 WBC (Bld) 73.6 % 47-70 [facility] Work Phone: Potassium [Moles/Vol] 3.2 mmol/L 3.5-5.1 [facility] Work Phone: Protein [Mass/Vol] 8.3 g/dL 6.4-8.2 [facility] Work Phone: Sodium [Moles/Vol] 139 mmol/L 136-145 [facility] Work Phone: Triglyceride [Mass/Vol] 105 mg/dL <199 [facility] Work Phone: Comment on above: The drugs N-Acetylcy steine and Metamizole may falsely depress this assay.Serum Triglycerides Reference Interval Normal <150 mg/dL Borderline high 150 - 199 mg/dL High 200 - 499 mg/dL Very High > or = 500 mg/dL WBC (Bld) [#/Vol] 10.1 10*3/uL 4.4-11.0 [facility] Work Phone: Blood erythrocytes count (nu mber/volume)on 03-04-2022 RBC (Bld) [#/Vol] 3.96 10*6/uL 4.2-5.4 [facility] Work Phone: [phone] Blood hemoglobin measurement (mass/volume)on 03-04-2022 Hemoglobin (Bld) [Mass/Vol] 10.7 g/dL 12.0-15.0 [facility] Work Phone: Blood lymphocytes/100 leukoc yteson 03-04-2022 Lymphocytes/100 WBC (Bld) 15.8 % 19-41 [facility] Work Phone: Blood monocytes/100 leukocyt eson 03-04-2022 Monocytes/100 WBC (Bld) 6.2 % 0-10 [facility] Work Phone: Blood platelet mean volumeon 03-04-2022 Platelet mean volume (Bld) [Entitic vol] 9.6 fL 6.2-12.0 [facility] Work Phone: [phone] Determination of erythrocyte mean corpuscular volume (MCV)on 03-04-2022 MCV (RBC) [Entitic vol] 85.9 fL 81-99 [facility] Work Phone: [phone] Hematocrit Auto (Bld) [Volum e fraction]on 03-04-2022 Hematocrit (Bld) [Volume fraction] 34.0 % 37-47 [facility] Work Phone: [phone] Laboratory - Chemistry and C hemistry - challengeon 03-04-2022 ALP [Catalytic activity/Vol] 129 U/L 45-117 [facility] Work Phone: [phone] ALT [Catalytic activity/Vol] 29 U/L 13-56 [facility] Work Phone: [phone] CO2 [Moles/Vol] 27.0 mmol/L 21.0-32.0 [facility] Work Phone: [phone] Globulin (S) [Mass/Vol] 5.1 g/dL 2.2-4.2 [facility] Work Phone: [phone] Urea nitrogen/Creatinine [Mass ratio] 10.7 mg/mg 10-20 [facility] Work Phone: [phone] Laboratory - Hematology and Cell countson 03-04-2022 Erythrocyte distribution width (RBC) [Entitic vol] 47.7 fL 35.1-43.9 [facility] Work Phone: [phone] Erythrocyte distribution width (RBC) [Ratio] 15.3 % 11.6-14.6 [facility] Work Phone: [phone] Immature granulocytes/100 WBC (Bld) 0.400 % 0.0-0.9 [facility] Work Phone: [phone] Comment on above: IG% - Immature Granu locytes (promyelocytes, myelocytes and metamyelocytes) > 1% indicates that a LEFT SHIFT is Present. MCH (RBC) [Entitic mass] 27.0 pg 27.0-32.0 [facility] Work Phone: [phone] Nucleated RBC/100 WBC (Bld) [Ratio] 0 % 0-5 [facility] Work Phone: [phone] MCHC Auto (RBC) [Mass/Vol]on 03-04-2022 MCHC (RBC) [Mass/Vol] 31.5 g/dL 32-36 [facility] Work Phone: [phone] No Panel Informationon 03-04 Estimated GFR (MDRD) Amer 21 mL/min >60 [facility] Work Phone: [phone] Comment on above: GFR Calc Estimated GFR (MDRD) Non-Af Amer 17 mL/min >60 [facility] Work Phone: [phone] Comment on above: Non- GFR Calc Thyroid Stimulating Hormone (TSH) 1.62 uIU/mL 0.358-3.74 [facility] Work Phone: Platelets bldon 03-04-2022 Platelets (Bld) [#/Vol] 199 10*3/uL 150-450 [facility] Work Phone: Serum or plasma albumin krishan urement (mass/volume)on 03-04-2022 Albumin [Mass/Vol] 3.2 g/dL 3.2-5.0 [facility] Work Phone: Serum or plasma albumin/glob ulin mass ratioon 03-04-2022 Albumin/Globulin [Mass ratio] 0.6 {ratio} 0.9-2.4 [facility] Work Phone: Serum or plasma calcium krishan urement (mass/volume)on 03-04-2022 Calcium [Mass/Vol] 8.9 mg/dL 8.5-10.1 [facility] Work Phone: Serum or plasma cholesterol in HDL measurement (mass/volume)on 03-04-2022 Cholesterol in HDL [Mass/Vol] 41 mg/dL >40 [facility] Work Phone: Comment on above: The drugs N-Acetylcy steine and Metamizole may falsely depress this assay. Reference Range HDL <40 mg/dL Low HDL Cholesterol HDL >or= 60 mg/dL High HDL Cholesterol Serum or plasma cholesterol in VLDL measurement (mass/volume)on 03-04-2022 Cholesterol in VLDL [Mass/Vol] 21 mg/dL 5-40 [facility] Work Phone: Serum or plasma creatinine m easurement (mass/volume)on 03-04-2022 Creatinine [Mass/Vol] 2.98 mg/dL 0.55-1.02 [facility] Work Phone: Comment on above: The validity of the calculated GFR & GFRAA in patients over 70 years has not been determined. Clinical correlation is essential. Serum or plasma low density lipoprotein (LDL) cholesterol measurement (mass/volume)on 03-04-2022 Cholesterol in LDL [Mass/Vol] 91 mg/dL 0-130 [facility] Work [phone] Serum or plasma urea nitroge n measurement (mass/volume)on 03-04-2022 Urea nitrogen [Mass/Vol] 32 mg/dL 7-18 [facility] Work Phone: Thin prep Papanicolaou smear with manual screeningon 03-04-2022 Thin prep Papanicolaou smear with manual screening 26 U/L 15-37 [facility] Work Phone: [phone] Thin prep Papanicolaou smear with manual screening 9 5-15 [facility] Work Phone: [phone] Whole blood hemoglobin A1c/t otal hemoglobin ratio (mass fraction)on 03-04-2022 HbA1c (Bld) [Mass fraction] 5.7 % 3.8-5.6 [facility] Work Phone: Comment on above: Normal < 5.7 % Predi abetic 5.7 - 6.4 % Diabetic >or= 6.5 % Please note range changes. No Panel Informationon 02-18 Hepatitis B Surface Antigen Non-Reactive Nonreactive [facility] Work Phone: 24 hour urine protein measur ement (mass/time)on 02-13-2022 Protein (24H U) [Mass/Time] 1482.5 mg/24HR 0-151 [facility] Work Phone: 24 hour urine protein measur ement (mass/volume)on 02-13-2022 Protein (24H U) [Mass/Vol] 59.9 mg/dL 0.0-11.8 [facility] Work Phone: 24 hour urine specimen volum e measurementon 02-13-2022 Specimen volume (24H U) 2.475 L [facility] Work Phone: Basophil percentageon 2021 Basophil percentage 4.8 mg/dL 2.5-4.9 [facility] Work Phone: Chloride [Moles/Vol] 108 mmol/L 98-107 [facility] Work Phone: [phone] Glucose [Mass/Vol] 101 mg/dL 74-106 [facility] Work Phone: Comment on above: Fasting Glucose resu lt from 100 to 125 mg/dL suggests IMPAIRED HOMEOSTASIS per A.D.A. criteria. Potassium [Moles/Vol] 3.5 mmol/L 3.5-5.1 [facility] Work Phone: Sodium [Moles/Vol] 140 mmol/L 136-145 [facility] Work Phone: WBC (Bld) [#/Vol] 8.3 10*3/uL 4.4-11.0 [facility] Work Phone: Blood erythrocytes count (nu mber/volume)on 02-13-2022 RBC (Bld) [#/Vol] 3.99 10*6/uL 4.2-5.4 [facility] Work Phone: Blood hemoglobin measurement (mass/volume)on 02-13-2022 Hemoglobin (Bld) [Mass/Vol] 11.1 g/dL 12.0-15.0 [facility] Work Phone: Blood platelet mean volumeon 02-13-2022 Platelet mean volume (Bld) [Entitic vol] 9.7 fL 6.2-12.0 [facility] Work Phone: Creatinine clearanceon 02-13 Creatinine renal clearance Unsp time (U+S/P) [Vol/Time] 15 ml/min 100-200 [facility] Work Phone: Determination of erythrocyte mean corpuscular volume (MCV)on 02-13-2022 MCV (RBC) [Entitic vol] 87.0 fL 81-99 [facility] Work Phone: Hematocrit Auto (Bld) [Volum e fraction]on 02-13-2022 Hematocrit (Bld) [Volume fraction] 34.7 % 37-47 [facility] Work Phone: Iron measurement (mass/mass) on 02-13-2022 Iron (Unsp spec) [Mass/Mass] 36 ug/dL 50-170 [facility] Work Phone: Laboratory - Chemistry and C hemistry - challengeon 02-13-2022 CO2 [Moles/Vol] 24.0 mmol/L 21.0-32.0 [facility] Work Phone: [phone] Urea nitrogen/Creatinine [Mass ratio] 13.6 mg/mg 10-20 [facility] Work Phone: [phone] Laboratory - Hematology and Cell countson 02-13-2022 Erythrocyte distribution width (RBC) [Entitic vol] 49.1 fL 35.1-43.9 [facility] Work Phone: [phone] Erythrocyte distribution width (RBC) [Ratio] 15.5 % 11.6-14.6 [facility] Work Phone: [phone] MCH (RBC) [Entitic mass] 27.8 pg 27.0-32.0 [facility] Work Phone: [phone] Laboratory - Specimen inform ationon 02-13-2022 Collection duration (U) 24.0 HOURS 24.0-24.0 [facility] Work Phone: MCHC Auto (RBC) [Mass/Vol]on 02-13-2022 MCHC (RBC) [Mass/Vol] 32.0 g/dL 32-36 [facility] Work Phone: No Panel Informationon 02-13 Estimated GFR (MDRD) Amer 14 mL/min >60 [facility] Work Phone: Comment on above: GFR Calc Estimated GFR (MDRD) Non-Af Amer 11 mL/min >60 [facility] Work Phone: Comment on above: Non- GFR Calc Parathyroid Hormone (Intact) 29.7 pg/mL 18.4-80.1 [facility] Work Phone: Total Iron Binding Capacity 297 ug/dL 250-450 [facility] Work Phone: Platelets bldon 02-13-2022 Platelets (Bld) [#/Vol] 229 10*3/uL 150-450 [facility] Work Phone: Serum or plasma albumin krishan urement (mass/volume)on 02-13-2022 Albumin [Mass/Vol] 3.3 g/dL 3.2-5.0 [facility] Work Phone: [phone] Serum or plasma calcium krishan urement (mass/volume)on 02-13-2022 Calcium [Mass/Vol] 11.1 mg/dL 8.5-10.1 [facility] Work Phone: [phone] Serum or plasma creatinine m easurement (mass/volume)on 02-13-2022 Creatinine [Mass/Vol] 4.35 mg/dL 0.55-1.02 [facility] Work Phone: [phone] Comment on above: The validity of the calculated GFR & GFRAA in patients over 70 years has not been determined. Clinical correlation is essential. Serum or plasma ferritin roe surement (mass/volume)on 02-13-2022 Ferritin [Mass/Vol] 66 ng/mL 8-252 [facility] Work Phone: [phone] Serum or plasma urea nitroge n measurement (mass/volume)on 02-13-2022 Urea nitrogen [Mass/Vol] 59 mg/dL 7-18 [facility] Work Phone: [phone] Urine creatinine measurement (mass/volume)on 02-13-2022 Creatinine (U) [Mass/Vol] 38.2 mg/dL NO RANGE EST. [facility] Work Phone: [phone] Basophil percentageon 2021 Basophil percentage 4.3 mg/dL 2.5-4.9 [facility] Work Phone: [phone] Chloride [Moles/Vol] 110 mmol/L 98-107 [facility] Work Phone: [phone] Glucose [Mass/Vol] 99 mg/dL 74-106 [facility] Work Phone: [phone] Potassium [Moles/Vol] 3.4 mmol/L 3.5-5.1 [facility] Work Phone: [phone] Sodium [Moles/Vol] 139 mmol/L 136-145 [facility] Work Phone: [phone] WBC (Bld) [#/Vol] 9.3 10*3/uL 4.4-11.0 [facility] Work Phone: Blood erythrocytes count (nu mber/volume)on 12-30-2021 RBC (Bld) [#/Vol] 3.80 10*6/uL 4.2-5.4 [facility] Work [facility]: [phone] Blood hemoglobin measurement (mass/volume)on 12-30-2021 Hemoglobin (Bld) [Mass/Vol] 10.5 g/dL 12.0-15.0 [facility] Work Phone: [phone] Blood platelet mean volumeon 12-30-2021 Platelet mean volume (Bld) [Entitic vol] 9.4 fL 6.2-12.0 [facility] Work Phone: [phone] Determination of erythrocyte mean corpuscular volume (MCV)on 12-30-2021 MCV (RBC) [Entitic vol] 88.4 fL 81-99 [facility] Work Phone: [phone] Hematocrit Auto (Bld) [Volum e fraction]on 12-30-2021 Hematocrit (Bld) [Volume fraction] 33.6 % 37-47 [facility] Work Phone: [phone] Laboratory - Chemistry and C hemistry - challengeon 12-30-2021 CO2 [Moles/Vol] 21.0 mmol/L 21.0-32.0 [facility] Work Phone: [phone] Urea nitrogen/Creatinine [Mass ratio] 12.9 mg/mg 10-20 [facility] Work Phone: [phone] Laboratory - Hematology and Cell countson 12-30-2021 Erythrocyte distribution width (RBC) [Entitic vol] 48.6 fL 35.1-43.9 [facility] Work Phone: [phone] Erythrocyte distribution width (RBC) [Ratio] 15.2 % 11.6-14.6 [facility] Work Phone: [phone] MCH (RBC) [Entitic mass] 27.6 pg 27.0-32.0 [facility] Work Phone: MCHC Auto (RBC) [Mass/Vol]on 12-30-2021 MCHC (RBC) [Mass/Vol] 31.3 g/dL 32-36 [facility] Work Phone: No Panel Informationon 12-30 Estimated GFR (MDRD) Amer 13 mL/min >60 [facility] Work Phone: Comment on above: GFR Calc Estimated GFR (MDRD) Non-Af Amer 11 mL/min >60 [facility] Work Phone: Comment on above: Non- GFR Calc Parathyroid Hormone (Intact) 243.2 pg/mL 18.4-80.1 [facility] Work Phone: Platelets bldon 12-30-2021 Platelets (Bld) [#/Vol] 236 10*3/uL 150-450 [facility] Work Phone: Serum or plasma albumin krishan urement (mass/volume)on 12-30-2021 Albumin [Mass/Vol] 3.5 g/dL 3.2-5.0 [facility] Work Phone: Serum or plasma calcium krishan urement (mass/volume)on 12-30-2021 Calcium [Mass/Vol] 9.2 mg/dL 8.5-10.1 [facility] Work Phone: Serum or plasma creatinine m easurement (mass/volume)on 12-30-2021 Creatinine [Mass/Vol] 4.43 mg/dL 0.55-1.02 [facility] Work Phone: Comment on above: The validity of the calculated GFR & GFRAA in patients over 70 years has not been determined. Clinical correlation is essential. Serum or plasma urea nitroge n measurement (mass/volume)on 12-30-2021 Urea nitrogen [Mass/Vol] 57 mg/dL 7-18 [facility] Work Phone: Urine creatinine measurement (mass/volume)on 2021 Creatinine (U) [Mass/Vol] 39.20 mg/dL NO RANGE EST. [facility] Work Phone: Urine protein measurement (m ass/volume)on 2021 Protein (U) [Mass/Vol] 64.1 mg/dL 0.0-11.8 [facility] Work Phone: Urine protein/creatinine mas s ratioon 2021 Protein/Creatinine (U) [Mass ratio] 1635 mg/g CRE 0-200 [facility] Work Phone: Basophil percentageon 2021 Basophil percentage 4.7 mg/dL 2.5-4.9 [facility] Work [facility]: Chloride [Moles/Vol] 108 mmol/L 98-107 [facility] Work Phone: Glucose [Mass/Vol] 62 mg/dL 74-106 [facility] Work Phone: [phone] Potassium [Moles/Vol] 3.2 mmol/L 3.5-5.1 [facility] Work Phone: [phone] Sodium [Moles/Vol] 139 mmol/L 136-145 [facility] Work Phone: [phone] WBC (Bld) [#/Vol] 9.2 10*3/uL 4.4-11.0 [facility] Work Phone: Blood erythrocytes count (nu mber/volume)on 10-22-2021 RBC (Bld) [#/Vol] 3.77 10*6/uL 4.2-5.4 [facility] Work Phone: Blood hemoglobin measurement (mass/volume)on 10-22-2021 Hemoglobin (Bld) [Mass/Vol] 10.6 g/dL 12.0-15.0 [facility] Work Phone: Blood platelet mean volumeon 10-22-2021 Platelet mean volume (Bld) [Entitic vol] 10.0 fL 6.2-12.0 [facility] Work Phone: [phone] Determination of erythrocyte mean corpuscular volume (MCV)on 10-22-2021 MCV (RBC) [Entitic vol] 87.8 fL 81-99 [facility] Work Phone: [phone] Hematocrit Auto (Bld) [Volum e fraction]on 10-22-2021 Hematocrit (Bld) [Volume fraction] 33.1 % 37-47 [facility] Work Phone: Iron measurement (mass/mass) on 10-22-2021 Iron (Unsp spec) [Mass/Mass] 37 ug/dL 50-170 [facility] Work Phone: Laboratory - Chemistry and C hemistry - challengeon 10-22-2021 CO2 [Moles/Vol] 22.0 mmol/L 21.0-32.0 [facility] Work Phone: Urea nitrogen/Creatinine [Mass ratio] 16.6 mg/mg 10-20 [facility] Work Phone: [phone] Laboratory - Hematology and Cell countson 10-22-2021 Erythrocyte distribution width (RBC) [Entitic vol] 47.3 fL 35.1-43.9 [facility] Work Phone: Erythrocyte distribution width (RBC) [Ratio] 14.6 % 11.6-14.6 [facility] Work Phone: MCH (RBC) [Entitic mass] 28.1 pg 27.0-32.0 [facility] Work Phone: MCHC Auto (RBC) [Mass/Vol]on 10-22-2021 MCHC (RBC) [Mass/Vol] 32.0 g/dL 32-36 [facility] [facility] Work Phone: No Panel Informationon 10-22 Estimated GFR (MDRD) Amer 18 mL/min >60 [facility] Work Phone: Comment on above: GFR Calc Estimated GFR (MDRD) Non-Af Amer 15 mL/min >60 [facility] Work Phone: Comment on above: Non- GFR Calc Parathyroid Hormone (Intact) 639.5 pg/mL 18.4-80.1 [facility] Work Phone: Total Iron Binding Capacity 290 ug/dL 250-450 [facility] Work Phone: [phone] Platelets bldon 10-22-2021 Platelets (Bld) [#/Vol] 278 10*3/uL 150-450 [facility] Work Phone: [phone] Serum or plasma albumin krishan urement (mass/volume)on 10-22-2021 Albumin [Mass/Vol] 3.2 g/dL 3.2-5.0 [facility] Work Phone: [phone] Serum or plasma calcium krishan urement (mass/volume)on 10-22-2021 Calcium [Mass/Vol] 8.7 mg/dL 8.5-10.1 [facility] Work Phone: [phone] Serum or plasma creatinine m easurement (mass/volume)on 10-22-2021 Creatinine [Mass/Vol] 3.37 mg/dL 0.55-1.02 [facility] Work Phone: [phone] Comment on above: The validity of the calculated GFR & GFRAA in patients over 70 years has not been determined. Clinical correlation is essential. Serum or plasma ferritin roe surement (mass/volume)on 10-22-2021 Ferritin [Mass/Vol] 81 ng/mL 8-252 [facility] Work Phone: [phone] Serum or plasma urea nitroge n measurement (mass/volume)on 10-22-2021 Urea nitrogen [Mass/Vol] 56 mg/dL 7-18 [facility] Work Phone: Basophil percentageon 2021 Basophil percentage 6.3 mg/dL 2.5-4.9 [facility] Work Phone: [phone] Chloride [Moles/Vol] 106 mmol/L 98-107 [facility] Work Phone: [phone] Glucose [Mass/Vol] 140 mg/dL 74-106 [facility] Work Phone: [phone] Comment on above: Fasting Glucose resu lt greater than or equal to 126 mg/dL suggests DIABETES MELLITUS per A.D.A. criteria. Potassium [Moles/Vol] 3.2 mmol/L 3.5-5.1 [facility] Work Phone: [phone] Sodium [Moles/Vol] 138 mmol/L 136-145 [facility] Work Phone: [phone] WBC (Bld) [#/Vol] 12.1 10*3/uL 4.4-11.0 [facility] Work Phone: Blood erythrocytes count (nu mber/volume)on 09-18-2021 RBC (Bld) [#/Vol] 4.04 10*6/uL 4.2-5.4 [facility] Work Phone: Blood hemoglobin measurement (mass/volume)on 09-18-2021 Hemoglobin (Bld) [Mass/Vol] 11.5 g/dL 12.0-15.0 [facility] Work Phone: [phone] Blood platelet mean volumeon 09-18-2021 Platelet mean volume (Bld) [Entitic vol] 10.3 fL 6.2-12.0 [facility] Work Phone: Determination of erythrocyte mean corpuscular volume (MCV)on 09-18-2021 MCV (RBC) [Entitic vol] 86.6 fL 81-99 [facility] Work Phone: [phone] Hematocrit Auto (Bld) [Volum e fraction]on 09-18-2021 Hematocrit (Bld) [Volume fraction] 35.0 % 37-47 [facility] Work Phone: Laboratory - Chemistry and C hemistry - challengeon 09-18-2021 CO2 [Moles/Vol] 25.0 mmol/L 21.0-32.0 [facility] Work Phone: [phone] Urea nitrogen/Creatinine [Mass ratio] 20.0 mg/mg 10-20 [facility] Work Phone: [phone] Laboratory - Hematology and Cell countson 09-18-2021 Erythrocyte distribution width (RBC) [Entitic vol] 45.3 fL 35.1-43.9 [facility] Work Phone: Erythrocyte distribution width (RBC) [Ratio] 14.2 % 11.6-14.6 [facility] Work Phone: [phone] MCH (RBC) [Entitic mass] 28.5 pg 27.0-32.0 [facility] Work Phone: MCHC Auto (RBC) [Mass/Vol]on 09-18-2021 MCHC (RBC) [Mass/Vol] 32.9 g/dL 32-36 [facility] Work Phone: No Panel Informationon 09-18 Estimated GFR (MDRD) Amer 14 mL/min >60 [facility] Work Phone: Comment on above: GFR Calc Estimated GFR (MDRD) Non-Af Amer 12 mL/min >60 [facility] Work Phone: Comment on above: Non- GFR Calc Parathyroid Hormone (Intact) 36.1 pg/mL 18.4-80.1 [facility] Work Phone: Platelets bldon 09-18-2021 Platelets (Bld) [#/Vol] 237 10*3/uL 150-450 [facility] Work Phone: [phone] Serum or plasma albumin krishan urement (mass/volume)on 09-18-2021 Albumin [Mass/Vol] 3.2 g/dL 3.2-5.0 [facility] Work Phone: [phone] Serum or plasma calcium krishan urement (mass/volume)on 09-18-2021 Calcium [Mass/Vol] 10.6 mg/dL 8.5-10.1 [facility] Work Phone: Serum or plasma creatinine m easurement (mass/volume)on 09-18-2021 Creatinine [Mass/Vol] 4.16 mg/dL 0.55-1.02 [facility] Work Phone: Comment on above: The validity of the calculated GFR & GFRAA in patients over 70 years has not been determined. Clinical correlation is essential. Serum or plasma urea nitroge n measurement (mass/volume)on 09-18-2021 Urea nitrogen [Mass/Vol] 83 mg/dL 7-18 [facility] Work Phone: Basophil percentageon 2021 Basophil percentage 5.4 mg/dL 2.5-4.9 [facility] Work Phone: Chloride [Moles/Vol] 105 mmol/L 98-107 [facility] Work Phone: [phone] Glucose [Mass/Vol] 100 mg/dL 74-106 [facility] Work Phone: Comment on above: Fasting Glucose resu lt from 100 to 125 mg/dL suggests IMPAIRED HOMEOSTASIS per A.D.A. criteria. Potassium [Moles/Vol] 3.1 mmol/L 3.5-5.1 [facility] Work Phone: Sodium [Moles/Vol] 137 mmol/L 136-145 [facility] Work Phone: [phone] WBC (Bld) [#/Vol] 10.8 10*3/uL 4.4-11.0 [facility] Work Phone: Blood erythrocytes count (nu mber/volume)on 07-10-2021 RBC (Bld) [#/Vol] 3.93 10*6/uL 4.2-5.4 [facility] Work Phone: Blood hemoglobin measurement (mass/volume)on 07-10-2021 Hemoglobin (Bld) [Mass/Vol] 11.5 g/dL 12.0-15.0 [facility] Work Phone: [phone] Blood platelet mean volumeon 07-10-2021 Platelet mean volume (Bld) [Entitic vol] 9.7 fL 6.2-12.0 [facility] Work Phone: [phone] Determination of erythrocyte mean corpuscular volume (MCV)on 07-10-2021 MCV (RBC) [Entitic vol] 85.8 fL 81-99 [facility] Work Phone: [phone] Hematocrit Auto (Bld) [Volum e fraction]on 07-10-2021 Hematocrit (Bld) [Volume fraction] 33.7 % 37-47 [facility] Work Phone: Iron measurement (mass/mass) on 07-10-2021 Iron (Unsp spec) [Mass/Mass] 44 ug/dL 50-170 [facility] Work Phone: Laboratory - Chemistry and C hemistry - challengeon 07-10-2021 CO2 [Moles/Vol] 21.0 mmol/L 21.0-32.0 [facility] Work Phone: Urea nitrogen/Creatinine [Mass ratio] 17.9 mg/mg 10-20 [facility] Work Phone: Laboratory - Hematology and Cell countson 07-10-2021 Erythrocyte distribution width (RBC) [Entitic vol] 44.3 fL 35.1-43.9 [facility] Work Phone: Erythrocyte distribution width (RBC) [Ratio] 14.3 % 11.6-14.6 [facility] Work Phone: MCH (RBC) [Entitic mass] 29.3 pg 27.0-32.0 [facility] Work Phone: MCHC Auto (RBC) [Mass/Vol]on 07-10-2021 MCHC (RBC) [Mass/Vol] 34.1 g/dL 32-36 [facility] Work Phone: No Panel Informationon 07-10 Estimated GFR (MDRD) Amer 18 mL/min >60 [facility] Work Phone: Comment on above: GFR Calc Estimated GFR (MDRD) Non-Af Amer 15 mL/min >60 [facility] Work Phone: Comment on above: Non- GFR Calc Parathyroid Hormone (Intact) 333.3 pg/mL 18.4-80.1 [facility] Work Phone: Total Iron Binding Capacity 299 ug/dL 250-450 [facility] Work Phone: [phone] Vitamin D 25-Hydroxy 29.0 ng/mL [facility] Work Phone: [phone] Comment on above: Vitamin D 25(OH) Sta tus Range Deficiency <20 ng/mL (50nmol/L) Insufficiency 20 - 30 ng/mL (50 - 75 nmol/L) Sufficiency 30 - 100 ng/mL (75 - 250 nmol/L) Toxicity >100 ng/mL (>250 nmol/L) Platelets bldon 07-10-2021 Platelets (Bld) [#/Vol] 256 10*3/uL 150-450 [facility] Work Phone: [phone] Serum or plasma albumin krishan urement (mass/volume)on 07-10-2021 Albumin [Mass/Vol] 3.4 g/dL 3.2-5.0 [facility] Work Phone: Serum or plasma calcium krishan urement (mass/volume)on 07-10-2021 Calcium [Mass/Vol] 9.0 mg/dL 8.5-10.1 [facility] Work Phone: [phone] Serum or plasma creatinine m easurement (mass/volume)on 07-10-2021 Creatinine [Mass/Vol] 3.47 mg/dL 0.55-1.02 [facility] Work Phone: Comment on above: The validity of the calculated GFR & GFRAA in patients over 70 years has not been determined. Clinical correlation is essential. Serum or plasma ferritin roe surement (mass/volume)on 07-10-2021 Ferritin [Mass/Vol] 106 ng/mL 8-252 [facility] Work Phone: Serum or plasma urea nitroge n measurement (mass/volume)on 07-10-2021 Urea nitrogen [Mass/Vol] 62 mg/dL 7-18 [facility] Work Phone: CR Chest PA/LATon 06-04-2017 CR Chest PA/LAT Patient Name: DAKOTAH UGALDE Diagnostic Radiology Exam Date/Time 06/04/2017 08:56:18 EST Exam CR Chest PA/LAT Ordering Physician RAYMOND CACERES DORA L Accession Number [id number] CPT4 Codes 02957 () Reason For Exam SOB Report CHEST: CLINICAL INDICATION: Shortness of breath TECHNIQUE: PA and Lateral COMPARISON: None FINDINGS: There is linear atelectasis in the left upper lobe laterally. No focal consolidation or pulmonary edema. There is prominence of the interstitial markings with hyperinflation of the lungs, consistent with changes of emphysema. No pleural effusions or pneumothorax. The cardiac and mediastinal silhouettes are normal. Degenerative change of the thoracic spine is noted. IMPRESSION: 1. Left upper lobe linear atelectasis. No focal consolidation or pulmonary edema. 2. Background changes of emphysema. Report Dictated on Final Dictating Physician: MD DELACRUZ KEVIN Signed Date and Time: 06/04/2017 10:46 am Signed by: MD DELACRUZ KEVIN Transcribed Date and Time: 06/04/2017 10:47 Normal [facility] Vital Signs Date Time Vital Sign Value Performing Clinician Faci lity 11-24-2024 09:41-0400 Body temperature 98.2 [degF] Seema Marrero MD Work Phone: [facility] 11-24-2024 09:41-0400 Body weight 140.61 kg Seema Marrero MD Work Phone: [facility] 11-24-2024 09:41-0400 Diastolic blood pressure 77 mm[Hg] Seema Marrero MD Work Phone: [facility] 11-24-2024 09:41-0400 Heart rate 109 /min Seema Marrero MD Work Phone: [facility] 11-24-2024 09:41-0400 Respiratory rate 16 /min Seema Marrero MD Work Phone: [facility] 11-24-2024 09:41-0400 SaO2% (BldA) [Mass fraction] 98 % Seema Marrero MD Work Phone: [facility] 11-24-2024 09:41-0400 Systolic blood pressure 120 mm[Hg] Seema Marrero MD Work Phone: [facility] 11-07-2024 11:24-0400 Body height 167.64 cm Seema Marrero MD Work Phone: [facility] 03-03-2023 18:38-0400 Body height 167.64 cm [facility] 03-03-2023 18:38-0400 Body mass index (BMI) [Ratio] 54.5 kg/m2 [facility] 03-03-2023 18:38-0400 Body temperature 97.7 [degF] [facility] 03-03-2023 18:38-0400 Body weight 153.31 kg [facility] 03-03-2023 18:38-0400 Diastolic blood pressure 80 mm[Hg] [facility] 03-03-2023 18:38-0400 Heart rate 110 /min [facility] 03-03-2023 18:38-0400 Respiratory rate 20 /min [facility] 03-03-2023 18:38-0400 SaO2% (BldA) [Mass fraction] 99 % [facility] 03-03-2023 18:38-0400 Systolic blood pressure 150 mm[Hg] [facility] 08-21-2022 16:41-0400 Body height 167.64 cm [facility] 03-04-2022 20:42-0400 Body height 167.64 cm [employer]PERVISOR CALIBRATIONPadma Caceres [employer] Work Phone: [facility] Work Phone: 03-04-2022 20:42-0400 Body mass index (BMI) [Ratio] 54.8 kg/m2 [employer]VIS[employer] CALIBRATIONPadma Caceres [employer] Work Phone: [facility] Work Phone: 03-04-2022 20:42-0400 Body temperature 97.5 [degF] ALMA Caceres [employer] Work Phone: [facility] Work Phone: 03-04-2022 20:42-0400 Body weight 154.22 kg SUPERVISOR CALIBRATIONPadma Caceres [employer] Work Phone: [facility] Work Phone: 03-04-2022 20:42-0400 Diastolic blood pressure 70 mm[Hg] [employer] Nithya Caceres [employer] Work Phone: [facility] Work Phone: 03-04-2022 20:42-0400 Heart rate 116 /min [employer] Nithya Caceres [employer] Work Phone: [facility] Work Phone: 03-04-2022 20:42-0400 Respiratory rate 18 /min [employer] Nithya Caceres [employer] Work Phone: [facility] Work Phone: 03-04-2022 20:42-0400 SaO2% (BldA) [Mass fraction] 97 % [employer] Nithya Caceres [employer] Work Phone: [facility] Work Phone: 03-04-2022 20:42-0400 Systolic blood pressure 155 mm[Hg] [employer] Nithya Caceres [employer] Work Phone: [facility] Work Phone: 01-29-2022 14:59-0400 Body height 167.64 cm [employer] Nithya Caceres [employer] Work Phone: [facility] Work Phone: 01-29-2022 14:59-0400 Body mass index (BMI) [Ratio] 53.8 kg/m2 [employer] Nithya Caceres [employer] Work Phone: [facility] Work Phone: 01-29-2022 14:59-0400 Body weight 151.49 kg [employer] Nithya Caceres [employer] Work Phone: [facility] Work Phone: 01-29-2022 14:59-0400 Diastolic blood pressure 75 mm[Hg] [employer] Nithya Caceres [employer] Work Phone: [facility] Work Phone: 01-29-2022 14:59-0400 Heart rate 96 /min [employer] Nithya Caceres [employer] Work Phone: [facility] Work Phone: 01-29-2022 14:59-0400 Respiratory rate 16 /min [employer] Nithya Caceres [employer] Work Phone: [facility] Work Phone: 01-29-2022 14:59-0400 Systolic blood pressure 125 mm[Hg] [employer] Nithya Caceres [employer] Work Phone: [facility] Work Phone: 09-30-2021 11:12-0400 Body height 167.64 cm [employer] Nithya Caceres [employer] Work Phone: [facility] Work Phone: 09-30-2021 11:12-0400 Body mass index (BMI) [Ratio] 55.3 kg/m2 [employer] Nithya Caceres [employer] Work Phone: [facility] Work Phone: 09-30-2021 11:12-0400 Body weight 155.58 kg [employer] Nithya Caceres [employer] Work Phone: [facility] Work Phone: 09-30-2021 11:12-0400 Diastolic blood pressure 81 mm[Hg] [employer] Nithya Caceres [employer] Work Phone: [facility] Work Phone: 09-30-2021 11:12-0400 Heart rate 122 /min [employer] Nithya Calvertson [employer] Work Phone: [facility] Work Phone: 09-30-2021 11:12-0400 Respiratory rate 24 /min [employer] Nithya Caceres [employer] Work Phone: [facility] Work Phone: 09-30-2021 11:12-0400 Systolic blood pressure 131 mm[Hg] [employer] Nithya Caceres [employer] Work Phone: [facility] Work Phone: 09-30-2021 11:12-0400 Body height 167.64 cm [employer] Nithya Caceres [employer] Work Phone: [facility] Work Phone: 09-30-2021 11:12-0400 Body mass index (BMI) [Ratio] 55.3 kg/m2 [employer] Nithya Caceres [employer] Work Phone: [facility] Work Phone: 09-30-2021 11:12-0400 Body weight 155.58 kg [employer] Nithya Caceres [employer] Work Phone: [facility] Work Phone: 09-30-2021 11:12-0400 Diastolic blood pressure 81 mm[Hg] [employer] Nithya Caceres [employer] Work Phone: [facility] Work Phone: 09-30-2021 11:12-0400 Heart rate 122 /min [employer] Nithya Caceres [employer] Work Phone: [facility] Work Phone: 09-30-2021 11:12-0400 Respiratory rate 24 /min [employer] Nithya Caceres [employer] Work Phone: [facility] Work Phone: 09-30-2021 11:12-0400 Systolic blood pressure 131 mm[Hg] [employer] Nithya Caceres [employer] Work Phone: [facility] Work Phone: 08-29-2021 17:41-0400 Body height 167.64 cm [employer] Nithya Caceres [employer] Work Phone: [facility] Work Phone: 08-29-2021 17:41-0400 Body mass index (BMI) [Ratio] 57.1 kg/m2 [employer] Nithya Caceres [employer] Work Phone: [facility] Work Phone: 08-29-2021 17:41-0400 Body temperature 97.9 [degF] [employer] Nithya Caceres [employer] Work Phone: [facility] Work Phone: 08-29-2021 17:41-0400 Body weight 160.57 kg [employer] Nithya Caceres [employer] Work Phone: [facility] Work Phone: 08-29-2021 17:41-0400 Diastolic blood pressure 70 mm[Hg] [employer] Nithya Caceres [employer] Work Phone: [facility] Work Phone: 08-29-2021 17:41-0400 Heart rate 121 /min [employer] Nithya Caceres [employer] Work Phone: [facility] Work Phone: 08-29-2021 17:41-0400 Respiratory rate 18 /min [employer] Nithya Caceres [employer] Work Phone: [facility] Work Phone: 08-29-2021 17:41-0400 SaO2% (BldA) [Mass fraction] 98 % [employer] Nithya Caceres [employer] Work Phone: [facility] Work Phone: 08-29-2021 17:41-0400 Systolic blood pressure 142 mm[Hg] [employer] Nithya Caceres [employer] Work Phone: [facility] Work Phone: 07-16-2021 12:24-0500 Body mass index (BMI) [Ratio] 57 kg/m2 [employer] Nithya Caceres [employer] Work Phone: [facility] Work Phone: 07-16-2021 12:24-0500 Body temperature 97.1 [degF] [employer] Nithya Caceres [employer] Work Phone: [facility] Work Phone: 07-16-2021 12:24-0500 Body weight 160.28 kg [employer] Nithya Caceres [employer] Work Phone: [facility] Work Phone: 07-16-2021 12:24-0500 Diastolic blood pressure 80 mm[Hg] [employer] Nithya Caceres [employer] Work Phone: [facility] Work Phone: 07-16-2021 12:24-0500 Heart rate 104 /min [employer] Nithya Caceres [employer] Work Phone: [facility] Work Phone: 07-16-2021 12:24-0500 Respiratory rate 20 /min [employer] Nithya Caceres [employer] Work Phone: [facility] Work Phone: 07-16-2021 12:24-0500 SaO2% (BldA) [Mass fraction] 98 % [employer] Nithya Caceres [employer] Work Phone: [facility] Work Phone: 07-16-2021 12:24-0500 Systolic blood pressure 129 mm[Hg] [employer] Nithya Yobany [employer] Work Phone: [facility] Work Phone: Encounters Encounter Date Encounter Type Care Provider Facility Start: 11-24-2024 End: 11-24-2024 Patient encounter procedure Geno DE LA CRUZ -[facility] Work Phone: Start: 11-24-2024 End: 11-24-2024 ambulatory Seema Marrero MD Work Phone: [facility] Work Phone: Start: 11-10-2024 End: 11-10-2024 ambulatory Seema Marrero MD Work Phone: [facility] Work Phone: Start: 11-10-2024 End: 11-10-[address] Seema Marrero MD -Laboratory Sam[facility] Vuong Start: 11-10-2024 End: 11-10-2024 ambulatory Seema Marrero Facility:[facility] Start: 05-18-2024 End: 05-18-2024 ambulatory Geno Mclean Facility[facility] Start: 05-04-2024 [facility] Start: 05-04-2024 End: 05-04-2024 ambulatory [facility] Facility:[facility] Start: 04-29-2024 End: 04-29-2024 ambulatory Geno Mclean Facility:[facility] Start: 04-19-2024 End: 04-19-2024 ambulatory Nithya Caceres [employer] Facility:[facility] Start: 03-03-2023 End: 03-03-2023 ambulatory [facility] Work Phone: Start: 03-03-2023 End: 03-03-2023 Patient encounter procedure [facility]-Laboratory, Specimen Work Phone: Start: 01-13-2023 Registered Referred [facility], Specimen Work Phone: Start: 08-21-2022 End: 08-21-2022 ambulatory [facility] Work Phone: Start: 08-21-2022 End: 08-21-2022 Patient encounter procedure [facility]-Laboratory, Specimen Start: 03-04-2022 End: 03-04-2022 ambulatory [employer] Nithya Caceres [employer] Work Phone: [facility] Work Phone: Start: 03-04-2022 End: 03-04-2022 Patient encounter procedure [employer] Nithya Caceres [employer] Work Phone: [facility]-Laboratory, Specimen Start: 02-18-2022 End: 02-18-2022 ambulatory [employer] Nithya Caceres [employer] Work Phone: [facility] Work Phone: Start: 02-18-2022 End: 02-18-2022 Patient encounter procedure [employer] Nithya Caceres [employer] [facility] Start: 02-13-2022 End: 02-13-2022 ambulatory [employer] Nithya Caceres [employer] Work Phone: [facility] Work Phone: Start: 02-13-2022 End: 02-13-2022 Patient encounter procedure [employer] Nithya Caceres [employer] [facility] Start: 02-11-2022 End: 02-11-2022 ambulatory [employer] Nithya Caceres [employer] Work Phone: [facility] Work Phone: Start: 02-11-2022 End: 02-11-2022 Patient encounter procedure [employer] Nithya Caceres [employer] [facility] Start: 01-29-2022 End: 01-29-2022 Patient encounter procedure [employer] Nithya Caceres [employer] Work Phone: [facility] Start: 12-30-2021 End: 12-30-2021 Patient encounter procedure [employer] Nithya Caceres [employer] [facility] Start: 2021 End: 2021 Patient encounter procedure [employer] Nithya Caceres [employer] [facility] Start: 10-22-2021 End: 10-22-2021 Patient encounter procedure [employer] Nithya Caceres [employer] Work Phone: [facility] Start: 09-30-2021 End: 09-30-2021 Patient encounter procedure [employer] Nithya Caceres [employer] Work Phone: [facility] Start: 09-18-2021 End: 09-18-2021 Patient encounter procedure [employer] Nithya Caceres [employer] Work Phone: [facility]-Laboratory Start: 07-16-2021 End: 07-16-2021 Patient encounter procedure [employer]-Shorty Caceres [employer]ATION Work Phone: [facility] Start: 07-10-2021 End: 07-10-2021 Patient encounter procedure [employer]-Shorty Caceres [employer] Work Phone: [facility]-Laboratory Start: 06-04-2017 Ambulatory Nithya Caceres [facility] Procedures Date Procedure Procedure Detail Performing Clinician Start: 11-10-2024 Vitamin D, 25-hydrox y measurement Seema Marrero MD Work Phone: Comment on above: Vitamin D StatusDefi ciency: <20 ng/mL (50nmol/L)Insufficiency: 20-30 ng/mL (50-75 nmol/L)Sufficiency: 30-100 ng/mL (75-250 nmol/L)Toxicity: >100 ng/mL (>250 nmol/L) Immunizations Immunization Date Immunization Notes Care Provider Fa [facility] 03-01-2020 Fluzone Quad 2020-20 21 (PF) (flu vacc [id number] 6mos up(PF)) 60 mcg (15 mcg x [employer]-Shorty Caceres [employer] Work Phone: [facility] Work Phone: 03-01-2020 flu vac qs 2018(4 yr up)CD(PF) [employer]-Shorty Caceres [employer] Work Phone: [facility] Work Phone: 03-25-2019 flu vac qs 2018(4 yr up)CD(PF) [employer]-Shorty Caceres [employer] Work Phone: [facility] Work Phone: Payers Date Payer Category Payer Medicare [id number] 2024 Medicaid [id number] 2024 Self-pay [id number] 2024 Unknown [id number] Unknown Unknown [id number] Unknown [facility] [id number] Unknown [id number] 2.16.8 [id number] Unknown [id number] 2.16.8 [id number] Unknown [id number] 2.16.8 [id number] Unknown [id number] 2.16.8 [id number] Unknown [id number] 2.16.8 [id number] Unknown [id number] 2.16.8 [id number] Unknown [id number] [id number] [id number] Social History Date Type Detail Facility Start: 07-16-2021 End: 10-30-2022 Tobacco smoking status NEIS Unknown if ever smoked [facility] Start: 1965 Sex Assigned At Female [facility] Start: 11-07-2024 End: 11-24-2024 Tobacco smoking status NEIS Current Light tobacco smoker [facility] Medical Equipment Procedure Code Equipment Code Equipment Origin al Text Equipment Identifier Dates Creation, AV fistula SUTURE,LIGA CLIP MED [id number] FDA Start: 02-27-2021 Creation, AV fistula SUTURE,LIGA CLIP MED LT200 FDA Start: 02-27-2021 Creation, AV fistula SUTURE,LIGA CLIP SM LT-100 FDA Start: 02-27-2021 Creation, AV fistula SUTURE,LIGA CLIP SM LT-100 FDA Start: 02-27-2021 Creation, AV fistula SUTURE,LIGA CLIP SM LT-100 FDA Start: 02-27-2021 Creation, AV fistula SUTURE,LIGA CLIP SM LT-100 FDA Start: 02-27-2021 Creation, AV fistula SUTURE,LIGA CLIP SM LT-100 FDA Start: 02-27-2021 Creation, AV fistula SUTURE,LIGA CLIP MED [id number] FDA Start: 02-27-2021 Creation, AV fistula SUTURE,LIGA CLIP MED LT200 FDA Start: 02-27-2021 Creation, AV fistula SUTURE,LIGA CLIP SM LT-100 FDA Start: 02-27-2021 Creation, AV fistula SUTURE,LIGA CLIP SM LT-100 FDA Start: 02-27-2021 Creation, AV fistula SUTURE,LIGA CLIP SM LT-100 FDA Start: 02-27-2021 Creation, AV fistula SUTURE,LIGA CLIP SM LT-100 FDA Start: 02-27-2021 Creation, AV fistula SUTURE,LIGA CLIP SM LT-100 FDA Start: 02-27-2021 Creation, AV fistula SUTURE,LIGA CLIP MED [id number] FDA Start: 02-27-2021 Creation, AV fistula SUTURE,LIGA CLIP MED LT200 FDA Start: 02-27-2021 Creation, AV fistula SUTURE,LIGA CLIP SM LT-100 FDA Start: 02-27-2021 Creation, AV fistula SUTURE,LIGA CLIP SM LT-100 FDA Start: 02-27-2021 Creation, AV fistula SUTURE,LIGA CLIP SM LT-100 FDA Start: 02-27-2021 Creation, AV fistula SUTURE,LIGA CLIP SM LT-100 FDA Start: 02-27-2021 Creation, AV fistula SUTURE,LIGA CLIP SM LT-100 FDA Start: 02-27-2021 Creation, AV fistula SUTURE,LIGA CLIP MED [id number] FDA Start: 02-27-2021 Creation, AV fistula SUTURE,LIGA CLIP MED LT200 FDA Start: 02-27-2021 Creation, AV fistula SUTURE,LIGA CLIP SM LT-100 FDA Start: 02-27-2021 Creation, AV fistula SUTURE,LIGA CLIP SM LT-100 FDA Start: 02-27-2021 Creation, AV fistula SUTURE,LIGA CLIP SM LT-100 FDA Start: 02-27-2021 Creation, AV fistula SUTURE,LIGA CLIP SM LT-100 FDA Start: 02-27-2021 Creation, AV fistula SUTURE,LIGA CLIP SM LT-100 FDA Start: 02-27-2021 Creation, AV fistula SUTURE,LIGA CLIP MED LT200 FDA Start: 02-27-2021 Creation, AV fistula SUTURE,LIGA CLIP MED LT200 FDA Start: 02-27-2021 Creation, AV fistula SUTURE,LIGA CLIP SM LT-100 FDA Start: 02-27-2021 Creation, AV fistula SUTURE,LIGA CLIP SM LT-100 FDA Start: 02-27-2021 Creation, AV fistula SUTURE,LIGA CLIP SM LT-100 FDA Start: 02-27-2021 Creation, AV fistula SUTURE,LIGA CLIP SM LT-100 FDA Start: 02-27-2021 Creation, AV fistula SUTURE,LIGA CLIP SM LT-100 FDA Start: 02-27-2021 Creation, AV fistula SUTURE,LIGA CLIP MED LT200 FDA Start: 02-27-2021 Creation, AV fistula SUTURE,LIGA CLIP MED LT200 FDA Start: 02-27-2021 Creation, AV fistula SUTURE,LIGA CLIP SM LT-100 FDA Start: 02-27-2021 Creation, AV fistula SUTURE,LIGA CLIP SM LT-100 FDA Start: 02-27-2021 Creation, AV fistula SUTURE,LIGA CLIP SM LT-100 FDA Start: 02-27-2021 Creation, AV fistula SUTURE,LIGA CLIP SM LT-100 FDA Start: 02-27-2021 Creation, AV fistula SUTURE,LIGA CLIP SM LT-100 FDA Start: 02-27-2021 Creation, AV fistula SUTURE,LIGA CLIP MED LT200 FDA Start: 02-27-2021 Creation, AV fistula SUTURE,LIGA CLIP MED LT200 FDA Start: 02-27-2021 Creation, AV fistula SUTURE,LIGA CLIP SM LT-100 FDA Start: 02-27-2021 Creation, AV fistula SUTURE,LIGA CLIP SM LT-100 FDA Start: 02-27-2021 Creation, AV fistula SUTURE,LIGA CLIP SM LT-100 FDA Start: 02-27-2021 Creation, AV fistula SUTURE,LIGA CLIP SM LT-100 FDA Start: 02-27-2021 Creation, AV fistula SUTURE,LIGA CLIP SM LT-100 FDA Start: 02-27-2021 Creation, AV fistula SUTURE,LIGA CLIP MED LT200 FDA Start: 02-27-2021 Creation, AV fistula SUTURE,LIGA CLIP MED LT200 FDA Start: 02-27-2021 Creation, AV fistula SUTURE,LIGA CLIP SM LT-100 FDA Start: 02-27-2021 Creation, AV fistula SUTURE,LIGA CLIP SM LT-100 FDA Start: 02-27-2021 Creation, AV fistula SUTURE,LIGA CLIP SM LT-100 FDA Start: 02-27-2021 Creation, AV fistula SUTURE,LIGA CLIP SM LT-100 FDA Start: 02-27-2021 Creation, AV fistula SUTURE,LIGA CLIP SM LT-100 FDA Start: 02-27-2021 Creation, AV fistula SUTURE,LIGA CLIP MED LT200 FDA Start: 02-27-2021 Creation, AV fistula SUTURE,LIGA CLIP MED LT200 FDA Start: 02-27-2021 Creation, AV fistula SUTURE,LIGA CLIP SM LT-100 FDA Start: 02-27-2021 Creation, AV fistula SUTURE,LIGA CLIP SM LT-100 FDA Start: 02-27-2021 Creation, AV fistula SUTURE,LIGA CLIP SM LT-100 FDA Start: 02-27-2021 Creation, AV fistula SUTURE,LIGA CLIP SM LT-100 FDA Start: 02-27-2021 Creation, AV fistula SUTURE,LIGA CLIP SM LT-100 FDA Start: 02-27-2021 Creation, AV fistula SUTURE,LIGA CLIP MED LT200 FDA Start: 02-27-2021 Creation, AV fistula SUTURE,LIGA CLIP MED LT200 FDA Start: 02-27-2021 Creation, AV fistula SUTURE,LIGA CLIP SM LT-100 FDA Start: 02-27-2021 Creation, AV fistula SUTURE,LIGA CLIP SM LT-100 FDA Start: 02-27-2021 Creation, AV fistula SUTURE,LIGA CLIP SM LT-100 FDA Start: 02-27-2021 Creation, AV fistula SUTURE,LIGA CLIP SM LT-100 FDA Start: 02-27-2021 Creation, AV fistula SUTURE,LIGA CLIP SM LT-100 FDA Start: 02-27-2021 Creation, AV fistula SUTURE,LIGA CLIP MED LT200 FDA Start: 02-27-2021 Creation, AV fistula SUTURE,LIGA CLIP MED LT200 FDA Start: 02-27-2021 Creation, AV fistula SUTURE,LIGA CLIP SM LT-100 FDA Start: 02-27-2021 Creation, AV fistula SUTURE,LIGA CLIP SM LT-100 FDA Start: 02-27-2021 Creation, AV fistula SUTURE,LIGA CLIP SM LT-100 FDA Start: 02-27-2021 Creation, AV fistula SUTURE,LIGA CLIP SM LT-100 FDA Start: 02-27-2021 Creation, AV fistula SUTURE,LIGA CLIP SM LT-100 FDA Start: 02-27-2021 Creation, AV fistula SUTURE,LIGA CLIP MED LT200 FDA Start: 02-27-2021 Creation, AV fistula SUTURE,LIGA CLIP MED LT200 FDA Start: 02-27-2021 Creation, AV fistula SUTURE,LIGA CLIP SM LT-100 FDA Start: 02-27-2021 Creation, AV fistula SUTURE,LIGA CLIP SM LT-100 FDA Start: 02-27-2021 Creation, AV fistula SUTURE,LIGA CLIP SM LT-100 FDA Start: 02-27-2021 Creation, AV fistula SUTURE,LIGA CLIP SM LT-100 FDA Start: 02-27-2021 Creation, AV fistula SUTURE,LIGA CLIP SM LT-100 FDA Start: 02-27-2021 Blood Sugar Diagnostic (Onetouch Verio Test Strips) strip Start: 08-29-2021 Pen Needle, Diabetic (Comfort Ez Pen Dobbins) 33 gauge x 5/32 needle Start: 05-16-2021 Pen Needle, Diabetic (Comfort Ez Pen Dobbins) 33 gauge x 5/32 needle Start: 11-15-2019 End: 11-15-2019 Pen Needle, Diabetic (Comfort Ez Pen Dobbins) 33 gauge x 5/32 needle Start: 11-15-2019 End: 11-18-2019 Pen Needle, Diabetic (Comfort Ez Pen Dobbins) 33 gauge x 5/32 needle Start: 07-09-2020 End: 05-16-2021 Pen Needle, Diabetic (Comfort Ez Pen Dobbins) 33 gauge x 5/32 needle Start: 11-18-2019 End: 07-09-2020 Blood Sugar Diagnostic (Onetouch Verio Test Strips) strip Start: 08-29-2021 Pen Needle, Diabetic (Comfort Ez Pen Dobbins) 33 gauge x 5/32 needle Start: 05-16-2021 Pen Needle, Diabetic (Comfort Ez Pen Dobbins) 33 gauge x 5/32 needle Start: 11-15-2019 End: 11-15-2019 Pen Needle, Diabetic (Comfort Ez Pen Dobbins) 33 gauge x 5/32 needle Start: 11-15-2019 End: 11-18-2019 Pen Needle, Diabetic (Comfort Ez Pen Dobbins) 33 gauge x 5/32 needle Start: 07-09-2020 End: 05-16-2021 Pen Needle, Diabetic (Comfort Ez Pen Dobbins) 33 gauge x 5/32 needle Start: 11-18-2019 End: 07-09-2020 Blood Sugar Diagnostic (Onetouch Verio Test Strips) strip Start: 08-29-2021 Pen Needle, Diabetic (Comfort Ez Pen Dobbins) 33 gauge x 5/32 needle Start: 05-16-2021 Pen Needle, Diabetic (Comfort Ez Pen Dobbins) 33 gauge x 5/32 needle Start: 11-15-2019 End: 11-15-2019 Pen Needle, Diabetic (Comfort Ez Pen Dobbins) 33 gauge x 5/32 needle Start: 11-15-2019 End: 11-18-2019 Pen Needle, Diabetic (Comfort Ez Pen Dobbins) 33 gauge x 5/32 needle Start: 07-09-2020 End: 05-16-2021 Pen Needle, Diabetic (Comfort Ez Pen Dobbins) 33 gauge x 5/32 needle Start: 11-18-2019 End: 07-09-2020 Blood Sugar Diagnostic (Onetouch Verio Test Strips) strip Start: 08-29-2021 Pen Needle, Diabetic (Comfort Ez Pen Dobbins) 33 gauge x 5/32 needle Start: 05-16-2021 Pen Needle, Diabetic (Comfort Ez Pen Dobbins) 33 gauge x 5/32 needle Start: 11-15-2019 End: 11-15-2019 Pen Needle, Diabetic (Comfort Ez Pen Dobbins) 33 gauge x 5/32 needle Start: 11-15-2019 End: 11-18-2019 Pen Needle, Diabetic (Comfort Ez Pen Dobbins) 33 gauge x 5/32 needle Start: 07-09-2020 End: 05-16-2021 Pen Needle, Diabetic (Comfort Ez Pen Dobbins) 33 gauge x 5/32 needle Start: 11-18-2019 End: 07-09-2020 Blood Sugar Diagnostic (Onetouch Verio Test Strips) strip Start: 08-29-2021 Pen Needle, Diabetic (Comfort Ez Pen Dobbins) 33 gauge x 5/32 needle Start: 05-16-2021 Pen Needle, Diabetic (Comfort Ez Pen Dobbins) 33 gauge x 5/32 needle Start: 11-15-2019 End: 11-15-2019 Pen Needle, Diabetic (Comfort Ez Pen Dobbins) 33 gauge x 5/32 needle Start: 11-15-2019 End: 11-18-2019 Pen Needle, Diabetic (Comfort Ez Pen Dobbins) 33 gauge x 5/32 needle Start: 07-09-2020 End: 05-16-2021 Pen Needle, Diabetic (Comfort Ez Pen Dobbins) 33 gauge x 5/32 needle Start: 11-18-2019 End: 07-09-2020 Blood Sugar Diagnostic (Onetouch Verio Test Strips) strip Start: 08-29-2021 Pen Needle, Diabetic (Comfort Ez Pen Dobbins) 33 gauge x 5/32 needle Start: 05-16-2021 Pen Needle, Diabetic (Comfort Ez Pen Dobbins) 33 gauge x 5/32 needle Start: 11-15-2019 End: 11-15-2019 Pen Needle, Diabetic (Comfort Ez Pen Dobbins) 33 gauge x 5/32 needle Start: 11-15-2019 End: 11-18-2019 Pen Needle, Diabetic (Comfort Ez Pen Dobbins) 33 gauge x 5/32 needle Start: 07-09-2020 End: 05-16-2021 Pen Needle, Diabetic (Comfort Ez Pen Dobbins) 33 gauge x 5/32 needle Start: 11-18-2019 End: 07-09-2020 Blood Sugar Diagnostic (Onetouch Verio Test Strips) strip Start: 08-29-2021 Pen Needle, Diabetic (Comfort Ez Pen Dobbins) 33 gauge x 5/32 needle Start: 05-16-2021 Pen Needle, Diabetic (Comfort Ez Pen Dobbins) 33 gauge x 5/32 needle Start: 11-15-2019 End: 11-15-2019 Pen Needle, Diabetic (Comfort Ez Pen Dobbins) 33 gauge x 5/32 needle Start: 11-15-2019 End: 11-18-2019 Pen Needle, Diabetic (Comfort Ez Pen Dobbins) 33 gauge x 5/32 needle Start: 07-09-2020 End: 05-16-2021 Pen Needle, Diabetic (Comfort Ez Pen Dobbins) 33 gauge x 5/32 needle Start: 11-18-2019 End: 07-09-2020 Blood Sugar Diagnostic (Onetouch Verio Test Strips) strip Start: 08-29-2021 Pen Needle, Diabetic (Comfort Ez Pen Dobbins) 33 gauge x 5/32 needle Start: 05-16-2021 Pen Needle, Diabetic (Comfort Ez Pen Dobbins) 33 gauge x 5/32 needle Start: 11-15-2019 End: 11-15-2019 Pen Needle, Diabetic (Comfort Ez Pen Dobbins) 33 gauge x 5/32 needle Start: 11-15-2019 End: 11-18-2019 Pen Needle, Diabetic (Comfort Ez Pen Dobbins) 33 gauge x 5/32 needle Start: 07-09-2020 End: 05-16-2021 Pen Needle, Diabetic (Comfort Ez Pen Dobbins) 33 gauge x 5/32 needle Start: 11-18-2019 End: 07-09-2020 Blood Sugar Diagnostic (Onetouch Verio Test Strips) strip Start: 08-29-2021 Pen Needle, Diabetic (Bd Teresita 2nd Gen Pen Needle) 32 gauge x 5/32 needle Start: 04-18-2022 Pen Needle, Diabetic (Comfort Ez Pen Dobbins) 33 gauge x 5/32 needle Start: 11-15-2019 End: 11-15-2019 Pen Needle, Diabetic (Comfort Ez Pen Dobbins) 33 gauge x 5/32 needle Start: 11-15-2019 End: 11-18-2019 Pen Needle, Diabetic (Comfort Ez Pen Dobbins) 33 gauge x 5/32 needle Start: 07-09-2020 End: 05-16-2021 Pen Needle, Diabetic (Comfort Ez Pen Dobbins) 33 gauge x 5/32 needle Start: 11-18-2019 End: 07-09-2020 Pen Needle, Diabetic (Comfort Ez Pen Dobbins) 33 gauge x 5/32 needle Start: 05-16-2021 End: 04-18-2022 Blood Sugar Diagnostic (Onetouch Verio Test Strips) strip Start: 08-29-2021 Blood Sugar Diagnostic (Onetouch Verio Test Strips) strip Start: 03-03-2023 Pen Needle, Diabetic (Bd Teresita 2nd Gen Pen Needle) 32 gauge x 5/32 needle Start: 04-18-2022 Pen Needle, Diabetic (Comfort Ez Pen Dobbins) 33 gauge x 5/32 needle Start: 11-15-2019 End: 11-15-2019 Pen Needle, Diabetic (Comfort Ez Pen Dobbins) 33 gauge x 5/32 needle Start: 11-15-2019 End: 11-18-2019 Pen Needle, Diabetic (Comfort Ez Pen Dobbins) 33 gauge x 5/32 needle Start: 07-09-2020 End: 05-16-2021 Pen Needle, Diabetic (Comfort Ez Pen Dobbins) 33 gauge x 5/32 needle Start: 11-18-2019 End: 07-09-2020 Pen Needle, Diabetic (Comfort Ez Pen Dobbins) 33 gauge x 5/32 needle Start: 05-16-2021 End: 04-18-2022 Blood Sugar Diagnostic (Onetouch Verio Test Strips) strip Start: 08-29-2021 Blood Sugar Diagnostic (Onetouch Verio Test Strips) strip Start: 03-03-2023 Pen Needle, Diabetic (Bd Teresita 2nd Gen Pen Needle) 32 gauge x 5/32 needle Start: 09-10-2023 Pen Needle, Diabetic (Bd Teresita 2nd Gen Pen Needle) 32 gauge x 5/32 needle Start: 04-18-2022 End: 09-10-2023 Pen Needle, Diabetic (Comfort Ez Pen Dobbins) 33 gauge x 5/32 needle Start: 11-15-2019 End: 11-15-2019 Pen Needle, Diabetic (Comfort Ez Pen Dobbins) 33 gauge x 5/32 needle Start: 11-15-2019 End: 11-18-2019 Pen Needle, Diabetic (Comfort Ez Pen Dobbins) 33 gauge x 5/32 needle Start: 07-09-2020 End: 05-16-2021 Pen Needle, Diabetic (Comfort Ez Pen Dobbins) 33 gauge x 5/32 needle Start: 11-18-2019 End: 07-09-2020 Pen Needle, Diabetic (Comfort Ez Pen Dobbins) 33 gauge x 5/32 needle Start: 05-16-2021 End: 04-18-2022 Blood Sugar Diagnostic (Onetouch Verio Test Strips) strip Start: 08-29-2021 Blood Sugar Diagnostic (Onetouch Verio Test Strips) strip Start: 03-03-2023 Pen Needle, Diabetic (Bd Teresita 2nd Gen Pen Needle) 32 gauge x 5/32 needle Start: 09-10-2023 Pen Needle, Diabetic (Bd Teresita 2nd Gen Pen Needle) 32 gauge x 5/32 needle Start: 04-18-2022 End: 09-10-2023 Pen Needle, Diabetic (Comfort Ez Pen Dobbins) 33 gauge x 5/32 needle Start: 11-15-2019 End: 11-15-2019 Pen Needle, Diabetic (Comfort Ez Pen Dobbins) 33 gauge x 5/32 needle Start: 11-15-2019 End: 11-18-2019 Pen Needle, Diabetic (Comfort Ez Pen Dobbins) 33 gauge x 5/32 needle Start: 07-09-2020 End: 05-16-2021 Pen Needle, Diabetic (Comfort Ez Pen Dobbins) 33 gauge x 5/32 needle Start: 11-18-2019 End: 07-09-2020 Pen Needle, Diabetic (Comfort Ez Pen Dobbins) 33 gauge x 5/32 needle Start: 05-16-2021 End: 04-18-2022 Clinical Notes Note Date & Type Note Facility Evaluation note Diagnosis Onset Date Presence of arteriovenous fi stula for hemodialysis acute Allergic drug rash acute Bronchitis acute Sinusitis chronic, ethmoidal chronic [facility] Work Phone: Evaluation note* Diagnosis Onset Date Resolution Status Presence of arteriovenous fistula for hemodialysis acute Allergic drug rash acute Bronchitis acute Sinusitis chronic, ethmoidal chronic Tachycardia acute 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 (congestive heart failure) chronic Essential (primary) hypertension chronic Chronic renal insufficiency, stage IV (severe) [facility] Work Phone: Evaluation note* Diagnosis Onset Date Resolution Status Allergic drug rash acute Bronchitis acute Sinusitis chronic, ethmoidal chronic Tachycardia acute 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 (congestive heart failure) chronic Essential (primary) hypertension chronic Chronic renal insufficiency, stage IV (severe) [facility] Work Phone: Evaluation note* Diagnosis Onset Date Resolution Status Tachycardia acute 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 (congestive heart failure) chronic Essential (primary) hypertension chronic Chronic renal insufficiency, stage IV (severe) [facility] Work Phone: Evaluation note* Diagnosis Onset Date Resolution Status Chronic renal insufficiency, stage IV (severe) chronic 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 (congestive heart failure) chronic Essential (primary) hypertension [facility] Work Phone: Evaluation note* Diagnosis Onset Date Resolution Status 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 (congestive heart failure) chronic Essential (primary) hypertension [facility] Work Phone: Evaluation note* Diagnosis Onset Date Resolution Status 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 (congestive heart failure) chronic Essential (primary) hypertension chronic Hypothyroidism acute 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 (congestive heart failure) chronic Chronic renal insufficiency, stage IV (severe) chronic Essential (primary) hypertension chronic Type 2 diabetes mellitus without complications chronic [facility] Work Phone: Evaluation note* Diagnosis Onset Date Resolution Status Hypothyroidism acute [facility] Work Phone: Evaluation note* Diagnosis Onset Date Resolution Status Hypothyroidism acute Cardiomyopathy chronic Chronic renal insufficiency, stage IV (severe) chronic Essential (primary) hypertension chronic Type 2 diabetes mellitus without complications chronic [facility] Work Phone: Evaluation noteNo assessment information available [facility] Work Phone: Reason for referral (narrative)No reason for referral information availableWP[facility] Work Phone: Summary Purpose Family History No Family History Records Found Relationship Condition Age at Onset Recorded Date/T rusty Not Specified Angina at rest Unknown Cardiac disease Unknown Malignant neoplasm of lung Unknown Hypertension Unknown Relationship Condition Age at Onset Recorded Date/T rusty Not Specified Angina at rest Unknown Cardiac disease Unknown Malignant neoplasm of lung Unknown mother Arthritis Unknown Hypertension Unknown Hypercholesterolemia Unknown father Malignant neoplasm Unknown Malignant neoplasm of skin Unknown grandmother Disorder of thyroid Unknown Advance Directives No Advanced Directives Records Found Advance Directive Response Recorded Date/ Time Living Will No May 13 4:04pm Power of Pest Control Technician No May 13, 2018 4:04pm Advance Directive Response Recorded Date/ Time Living Will No February 20, 2021 8:27am Power of Pest Control Technician No February 8:27am Chief Complaint and Reason for Visit Chief Complaint FISTULA CHECK Sinus infection X4 weeks & cough Reason for Visit Presence of arteriov enous fistula for hemodialysis Allergic drug rash Bronchitis Sinusitis chronic, ethmoidal Chief Complaint FISTULA CHECK Sinus infection X4 weeks & cough 6 M FU CLEAR FISTULA FOR DIALYSIS Reason for Visit Presence of arteriov enous fistula for hemodialysis Allergic drug rash Bronchitis Sinusitis chronic, ethmoidal Tachycardia Chronic combined systolic and diastolic CHF (congestive heart failure) Essential (primary) hypertension Chronic renal insufficiency, stage IV (severe) Chief Complaint Sinus infection X4 w eeks & cough 6 M FU CLEAR FISTULA FOR DIALYSIS Reason for Visit Allergic drug rash Bronchitis Sinusitis chronic, ethmoidal Tachycardia Chronic combined systolic and diastolic CHF (congestive heart failure) Essential (primary) hypertension Chronic renal insufficiency, stage IV (severe) Chief Complaint 6 M FU CLEAR FISTULA FOR DIALYSIS Reason for Visit Tachycardia Chronic combined systolic and diastolic CHF (congestive heart failure) Essential (primary) hypertension Chronic renal insufficiency, stage IV (severe) Chief Complaint CLEAR FISTULA FOR DI ALYSIS 3-6 MO F/U Reason for Visit Chronic renal insuff iciency, stage IV (severe) Chronic combined systolic and diastolic CHF (congestive heart failure) Essential (primary) hypertension Chief Complaint 3-6 MO F/U Reason for Visit Chronic combined sys tolic and diastolic CHF (congestive heart failure) Essential (primary) hypertension Chief Complaint 3-6 MO F/U medication refills & Labs Reason for Visit Chronic combined sys tolic and diastolic CHF (congestive heart failure) Essential (primary) hypertension Hypothyroidism Chronic combined systolic and diastolic CHF (congestive heart failure) Chronic renal insufficiency, stage IV (severe) Essential (primary) hypertension Type 2 diabetes mellitus without complications Chief Complaint labs to be drawn(TSH ) Reason for Visit Hypothyroidism Chief Complaint ANEMIA, UNSPECIFIED medication refills Reason for Visit Hypothyroidism Cardiomyopathy Chronic renal insufficiency, stage IV (severe) Essential (primary) hypertension Type 2 diabetes mellitus without complications Chief Complaint Admit Date Varicose Veins, referred by Dr. Elida alcantara 2024 9:24am Additional Source Comments INFORMATION SOURCE (unrecogn ized section and content) DATE CREATED AUTHOR 12/01/2017 [employer] DATE CREATED AUTHOR AUTHOR'S ORGANIZ ATION 11/29/2024 [facility] Goals (unrecognized section and content) Goals may be documented in a n alternate sectionGoals may be documented in an alternate sectionGoals may be documented in an alternate sectionGoals may be documented in an alternate sectionGoals may be documented in an alternate sectionGoals may be documented in an alternate sectionGoals may be documented in an alternate sectionGoals may be documented in an alternate sectionGoals may be documented in an alternate sectionGoals may be documented in an alternate sectionGoals may be documented in an alternate sectionGoals may be documented in an alternate section Care Teams (unrecognized sec tion and content) Team Status: Active Member Role Status Dates Nithya Caceres SUPERVISOR CALIBRATION, SUPERVISOR CALIBRATION-C Family Provider Active Nithya Caceres NP, SUPERVISOR CALIBRATION-C Primary Care Provider Active Team Status: Inactive Member Role Status Dates Nithya Caceres SUPERVISOR CALIBRATION, SUPERVISOR CALIBRATION-C Primary Care Pr ovider, Attending Provider, Referring Provider Active Team Status: Inactive Member Role Status Dates Nithya Caceres NP, SUPERVISOR CALIBRATION-C Primary Care Provider, Attend ing Provider Active Team Status: Active Member Role Status Dates Nithya Caceres SUPERVISOR CALIBRATION, SUPERVISOR CALIBRATION-C Primary Care Provider Active Dr. Kanwal Gil DO Attending Provider, Referring Jhoana hernandez Active Team Status: Active Member Role Status Dates Nithya Caceres SUPERVISOR CALIBRATION, SUPERVISOR CALIBRATION-C Family Provider Active Seema Marrero MD Primary Care Provider Active Team Status: Inactive Member Role Status Dates Seema Marrero MD Primary Care Provider Active St art: November 10, 2024 End: November 10, 2024 Seema Marrero MD Attending Provider Active Start : November 10, 2024 End: November 10, 2024 Seema Marrero MD Referring Provider Active Start : November 10, 2024 End: November 10, 2024 Team Status: Inactive Member Role Status Dates JONO Ozuna Attending Provider Active Star t: November 24, 2024 End: November 24, 2024 Seema Marrero MD Primary Care Provider Active St art: November 24, 2024 End: November 24, 2024 Seema Marrero MD Referring Provider Active Start : November 24, 2024 End: November 24, 2024 FOR RECORDS PERTAINING TO PATIENTS WHO ARE OR HAVE BEEN ENROLLED IN A CHEMICAL DEPENDENCY/SUBSTANCEABUSE PROGRAM, SOME INFORMATION MAY BE OMITTED. This clinical summary was aggregated from multiple sources. Caution should be exercised in using it in the provision of clinical care. This summary normalizes information from multiple sources, and as a consequence, information in this document may materially change the coding, format and clinical context of patient data. In addition, data may be omitted in some cases. CLINICAL DECISIONS SHOULD BE BASED ON THE PRIMARY CLINICAL RECORDS. [email or web address] provides no warranty or guarantee of the accuracy or completeness of information in this document.
== END | disposition home or self-care (01) ==
LOC: CVS 14:08
PROVIDERS: PCP Family Medicine; Referring Provider Physician Assistant; Visit Provider Physician Assistant
DX: I83.811 Varicose veins of right lower extremity with pain (principal); I87.2 Venous insufficiency (chronic) (peripheral)
CPT/HCPCS: 93971

== ENCOUNTER → 2025-04-11 | Outpatient (CLI) | payer MEDICARE, MEDICAID, SELFPAY ==
--- NOTE | 2025-04-11 18:08 | CT_ITS ---
PROCEDURE: CT/Low Dose CT Lung Screening
== END | disposition home or self-care (01) ==
PROVIDERS: PCP Family Medicine; Referring Provider Internal Medicine Pulmonary Disease; Visit Provider Internal Medicine Pulmonary Disease
DX: Z87.891 Personal history of nicotine dependence (principal)
CPT/HCPCS: 71271

== ENCOUNTER → 2025-05-02 | Outpatient (CLI) | payer MEDICARE, MEDICAID, SELFPAY ==
--- NOTE | 2025-05-02 14:11 | BI_ITS ---
EXAM: SCRN MAMM (CAD)W/NAFISA BILAT DATE: 05/02/2025 CLINICAL HISTORY: F, Age 59 y/o , SCREENING TECHNIQUE: Procedure Code: [id number] Modality: MG Procedure: SCRN MAMM (CAD)W/NAFISA BILAT COMPARISON: None. This is a baseline study. FINDINGS: TISSUE DENSITY: The breasts are almost entirely fatty. Bilateral Breast Mammographic Findings: No significant masses, calcifications or other abnormalities are identified. Benign-appearing round microcalcifications are seen in both breasts. BI/SCRN MAMM (CAD)W/NAFISA BILAT IMPRESSION: Benign screening mammogram OVERALL FINAL ASSESSMENT BI-RADS 2: BENIGN RECOMMENDATION: Routine annual follow-up in 1 Year Additional Recommendation none A letter with findings and recommendations will be mailed to the patient. Reading Location: [id number]
--- OUTSIDE RECORDS SUMMARY | 2025-05-02 18:28 | XMS RPT_ITS | CCD ---
Author Organization [facility] Care Team Providers Care Cooker Syrup Name Role Phone Caceres, Nithya Unavailable Unavailable PROVIDER, UNKNOWN Unavailable Unavailable Caceres, Nithya Unavailable Unavailable Caceres GUZZLER BUILDER, GUZZLER BUILDER-C Nithya Primary Care Provider Dr. Matthew Mckeon Attending Provider JONO Booth-Shorty Sainz Referring Provider Caceres GUZZLER BUILDER, GUZZLER BUILDER-C Nithya Referring Provider Roof GUZZLER BUILDER, GUZZLER BUILDER-C Rogelio Astudillo Attending Provider Caceres GUZZLER BUILDER, GUZZLER BUILDER-C Nithya Primary Care Provider Dr. Matthew Mckeon Attending Provider Caceres GUZZLER BUILDER, GUZZLER BUILDER-C Nithya Primary Care Provider Caceres GUZZLER BUILDER, GUZZLER BUILDER-C Nithya Referring Provider Roof GUZZLER BUILDER, GUZZLER BUILDER-C Rogelio Astudillo Attending Provider Caceres GUZZLER BUILDER, GUZZLER BUILDER-C Nithya Primary Care Provider Caceres GUZZLER BUILDER, GUZZLER BUILDER-C Nithya Referring Provider Seema Marrero MD Primary Care Provider Seema Marrero MD Attending Provider Seema Marrero MD Referring Provider Geno Brown Attending Provider Geno Brown Referring Provider Jaylen BELLE, Dr. Weber Attending Provider [phone] Mclean, Geno Referring Unavailable Elida, Chalon Primary Care Unavailable Tunas, Gus Attending Unavailable Mclean, Geno Consulting Unavailable Caceres GUZZLER BUILDER, Nithya Primary Care Unavailable Jaylen, Gus Attending Unavailable Jaylen, Gus Referring Unavailable Tunas, Gus Consulting Unavailable Mclean, Geno Attending Unavailable Elida, Chalon Primary Care Unavailable Elida, Chalon Referring Unavailable Mclean, Geno Attending Unavailable Caceres GUZZLER BUILDER, Nithya Primary Care Unavailable Caceres GUZZLER BUILDER, Nithya Referring Unavailable Caceres GUZZLER BUILDER, Nithya Primary Care Unavailable Caceres GUZZLER BUILDER, Nithya Referring Unavailable Mclean, Geno Attending Unavailable Mclean, Geno Consulting Unavailable Caceres GUZZLER BUILDER, Nithya Primary Care Unavailable Tunas, Gus Attending Unavailable Tunas, Gus Referring Unavailable Elida, Chalon Referring Unavailable Elida, Chalon Primary Care Unavailable Elida, Chalon Attending Unavailable Elida, Chalon Primary Care Unavailable Sibilia, Matthew V Attending Unavailable Sibilia, Matthew V Referring Unavailable Mclean, Geno Referring Unavailable Mclean, Geno Attending Unavailable Elida, Chalon Primary Care Unavailable Elida, Chalon Primary Care Unavailable Mclean, Geno Attending Unavailable Elida, Chalon Referring Unavailable Allergies Allergy Classification Reported Allergen(s) Allergy Type Date of Onset Reaction(s) Facility (14 sources) levoFLOXacin Drug Allergy 2 [facility] (15 sources) DECONGESTANTS; Translations: [DECONGESTANTS] Propensity to adverse reactions 1 Other [facility] Comment on above: RACING HEARTBEAT (1 source) levoFLOXacin Drug Allergy 5 [facility] Repository Medications Current Medications Medication Drug Class(es) Dates Sig (Normalized) Sig (Original) amLODIPine 5 mg oral tablet (20 sources) Dihydropyridine Calcium Channel Igan Start: 01-28-2024 End: 01-28-2024 take 1 tablet by mouth once daily Amlodipine 5 mg tablet Active 5 mg PO DAILY 90 3 January 28, 2024 5:50pm Start: 03-13-2021 End: 01-28-2024 take 1 tablet by mouth once daily Amlodipine 10 mg tablet Discontinued 10 mg PO DAILY 90 3 March 05, 2022 10:37am March 03, 2023 6:46pm Start: 07-25-2020 End: 03-13-2021 take 1 tablet by mouth once daily Amlodipine (Norvasc) 5 mg tablet Discontinued 5 mg PO DAILY 90 3 October 22, 2020 3:24pm March 13, 2021 3:18pm B Complex-Vitamin C-Folic Ac id (Nephro-James) 0.8 mg tablet (5 sources) Start: 10-30-2022 B Complex-Dorina min C-Folic Acid (Nephro-James) 0.8 mg tablet Active 1 {tbl} PO DAILY October 30, 2022 12:00am Start: 10-30-2022 take 1 tablet by boyd once daily B Complex-Vitamin C-Folic Acid (Nephro-James) 0.8 mg tablet Active 1 TABLET PO DAILY October 30, 2022 12:00am Blood-Glucose Sensor (Freest yle Bessy 3 Sensor) device (4 sources) Start: 09-10-2023 Blood-Glucose Sensor (Freestyle Bessy 3 Sensor) device Active 0 .Route 2 September 10, 2023 12:00am Type 1 diabetes mellitus Type 1 diabetes mellitus without complications As directed Start: 09-10-2023 Blood-Glucose Sensor (Freestyle Bessy 3 [...] 325 mg PO TWICE A DAY 60 3 May 19, 2018 1:00am September 23, 2018 [...] 76 U SC AT BEDTIME 68.4 90 2 July 05, 2021 1:58pm March 04, 2022 6:41pm Start: 07-09-2020 End: 07-11-2020 Insulin Detemir U-100 100 un it/mL (3 mL) insulin pen Discontinued 76 U SC DAILY 68.4 90 3 July 09, 2020 1:00am July 11, 2020 [...] 04, 2017 1:00am February 02, 2018 8:23pm 3 ml insulin, regular, human 500 unt/ml pen injector (7 sources) Insulin Start: 11-24-2024 Insulin Regula r Hum U-500 Conc (Humulin R U-500 (Conc) Kwikpen) 500 unit/mL (3 mL) insulin pen Active 20 U SC .ac November 24, 2024 9:43am Start: 01-28-2024 End: 11-24-2024 Insulin Regular Hum U-500 Co nc (Humulin R U-500 (Conc) Kwikpen) 500 unit/mL (3 mL) insulin pen Discontinued 10 U SC .ac January 28, 2024 12:00am November 24, 2024 9:44am Lactobacillus Combination No.4 (Probiotic) 3 billion cell capsule (14 sources) Start: 07-08-2017 take 3 capsules by [...] 2017 1:00am loratadine 10 mg oral tablet (14 sources) Start: 07-08-2017 take 1 tablet by mouth once daily Loratadine 10 mg tablet Active 10 mg PO daily July 08, 2017 1:00am Multivitamin preparation (6 sources) Start: 01-29-2022 take 1 tablet by mouth once daily Multivitamin Active 1 TABLET PO DAILY January 29, 2022 12:00am Semaglutide (11 sources) Start: 11-24-2024 Semaglutide (O zempic) 0.25 mg or 0.5 mg (2 mg/3 mL) pen injector Active 0.25 mg SC EVERY WEEK November 24, 2024 12:00am for 4 weeks Start: 11-24-2024 Semaglutide (O zempic) 0.25 mg or 0.5 mg (2 mg/3 mL) pen injector Discontinued 0.25 mg SC EVERY WEEK November 24, 2024 12:00am for 4 weeks Start: 09-10-2023 End: 01-28-2024 Semaglutide (Ozempic) 0.25 m g or 0.5 mg (2 mg/3 mL) pen injector Discontinued 0.5 mg SC EVERY WEEK 3 30 September 10, 2023 12:00am January 28, 2024 5:44pm Start: 09-10-2023 End: 01-28-2024 Semaglutide (Ozempic) 0.25 m g or 0.5 mg (2 mg/3 mL) pen injector Discontinued 0.5 mg SC EVERY WEEK 3September 10, 2023 12:00am January 28, 2024 5:44pm Start: 07-31-2023 End: 09-10-2023 Semaglutide (Ozempic) 0.25 m g or 0.5 mg (2 mg/3 mL) pen injector Discontinued 0.25 mg SC EVERY WEEK July 31, 2023 1:00am September 10, 2023 6:26pm for 4 weeks sevelamer carbonate 800 mg oral tablet (13 sources) Phosphate Binder Start: 09-30-2021 take 1 tablet by mouth before mealtime Sevelamer Carbonate 800 mg tablet Active 800 mg PO before meals September 30, 2021 12:00am Completed/Discontinued Medications Medication Drug Class(es) Dates Sig (Normalized) Sig (Original) acetaminophen 325 mg / HYDROcodone bitartrate 5 mg oral tablet (14 sources) Opioid Agonist Start: 02-27-2021 End: 03-07-2021 Hydrocodone-Acetami nophen 5-325 mg tablet Discontinued 1 {tbl} PO Q8H as needed for pain 5 2 0 February 27, 2021 March 07, 2021 6:11pm Chronic renal insufficiency, stage IV (severe) Chronic kidney disease, stage 4 (severe) Start: 02-27-2021 End: 03-07-2021 take 1 tablet by mouth every eight hours Hydrocodone-Acetaminophen Discontinued 1 TABLET PO Q8H 5 2 February 27, 2021 March 07, 2021 6:11pm [id number] 200 actuat albuterol 0.09 mg/actuat metered dose [...] INHALATION Q4H as needed for bronchospasm 75 12 March 04, 2022 6:39pm January 28, 2024 [...] 2017 2:45pm apremilast 30 mg oral tablet (14 sources) Start: 03-25-2019 End: 07-02-2019 take 1 tablet by mouth once daily Apremilast (Otezla) 30 mg tablet Discontinued 30 mg PO daily March 25, 2019 12:00am July 02, 2019 2:10pm betamethasone dipropionate 0.643 mg/ml / calcipotriene 0.05 mg/ml topical foam (14 sources) Corticosteroid, Vitamin D Analog Start: 12-02-2017 [...] Discontinued 3.125 mg PO TWICE A DAY 60 July 25, 2020 1:00am August 10, 2020 10:54am must administer with a meal/food cefuroxime 500 mg oral tablet (14 sources) Cephalosporin Antibacterial Start: 04-27-2018 End: 05-07-2018 take 1 tablet by mouth every twelve hours Cefuroxime Axetil 500 mg tablet Discontinued 500 mg PO Q12H 20 10 April 27, 2018 1:00am May 06, 2018 1:00am May 07, 2018 1:16am cholecalciferol 0.05 mg oral tablet (13 sources) Vitamin D Start: 09-30-2021 End: 07-30-2023 [...] mg tablet Discontinued 500 mg PO Q12H 20 0 March 25, 2019 12:00am April 14, 2019 3:35pm Start: 04-09-2018 End: 04-15-2018 take 1 tablet by mouth twice daily Clarithromycin 500 mg tablet Discontinued 500 mg PO TWICE A DAY 20 0 April 09, 2018 12:00am April 15, 2018 7:54pm 24 hr dilTIAZem hydrochloride 240 mg extended release oral capsule (20 sources) Calcium Channel Gian Start: 07-09-2020 End: 07-25-2020 take 1 capsule by mouth once daily, then take 1 capsule by mouth every twenty-four hours Diltiazem Hcl (Cardizem Cd) 240 mg capsule,extended release 24hr Discontinued 240 mg PO DAILY 30 3 July 11, 2020 10:30am July 25, 2020 1:06pm doxycycline hyclate 100 mg oral tablet (14 sources) Tetracycline-c lass Drug Start: 08-30-2018 End: 09-23-2018 take 1 tablet by mouth twice daily Doxycycline Hyclate 100 mg tablet Discontinued 100 mg PO TWICE A DAY 20 August 30, 2018 12:00am September 23, 2018 2:44pm 0.5 ml dulaglutide 3 mg/ml auto-injector (4 sources) GLP-1 Receptor Agonist Start: 10-08-2023 End: 04-29-2024 Dulaglutide (Trulicity) 1.5 mg/0.5 mL pen injector Discontinued 1.5 mg SC EVERY WEEK 2.5 30 October 08, 2023 12:00am April 29, 2024 10:44am ferrous fumarate 324 mg oral tablet (14 sources) Start: 07-09-2020 End: 08-10-2020 take 1 tablet by mouth twice daily Ferrous Fumarate 324 mg (106 mg iron) tablet Discontinued 324 mg PO TWICE A DAY 180 July 09, 2020 1:00am August 10, 2020 9:42am Finerenone (10 sources) Start: 01-29-2022 End: 03-04-2022 take 1 [...] 2022 12:00am fluconazole 150 mg oral tablet (14 sources) Azole Antifungal Start: 08-29-2021 End: 09-30-2021 Fluconazole 150 mg tablet Discontinued 150 mg PO Every 3 Days 2 2 August 29, 2021 12:00am September 30, 2021 11:46am furosemide 40 mg oral tablet (20 sources) Loop Diuretic Start: 07-25-2020 End: 01-28-2024 take 1 tablet by mouth once daily Furosemide (Lasix) 40 mg tablet Discontinued 40 mg PO DAILY 90 3 March 03, 2023 6:42pm January 28, 2024 5:52pm Start: 04-16-2020 End: 07-11-2020 take 1 tablet by mouth once daily Furosemide 20 mg tablet Discontinued 20 mg PO DAILY 90 3 July 09, 2020 7:37pm July 11, 2020 10:27am Start: 04-14-2019 End: 04-16-2020 take 1 tablet by mouth once daily Furosemide 40 mg tablet Discontinued 40 mg PO DAILY 90 3 July 27, 2019 9:23am March 01, 2020 7:11pm Start: 09-23-2018 End: 04-14-2019 take 1 tablet by mouth once daily Furosemide (Lasix) 20 mg tablet Discontinued 20 mg PO DAILY September 23, 2018 12:00am April 14, 2019 3:35pm Start: 03-30-2018 End: 09-23-2018 take 1 tablet by mouth once daily Furosemide 40 mg tablet Discontinued 40 mg PO DAILY 90 3 August 11, 2018 6:00pm September 23, 2018 [...] mg tablet Discontinued 40 mg PO DAILY 30 February 16, 2018 3:33pm March 25, 2018 7:40am Start: 12-02-2017 End: 02-16-2018 Furosemide Discontinued 20 M G PO .COMPLEX 90 February 04, 2018 4:27pm February 16, 2018 3:34pm 40mg in AM and 20mg in afternoon Start: 11-30-2017 End: 02-16-2018 Furosemide 20 mg tablet Disc ontinued 20 mg PO .COMPLEX 90 February 04, 2018 4:27pm February 16, 2018 3:34pm 40mg in AM and 20mg in afternoon Start: 06-05-2017 End: 11-30-2017 take 1 tablet by mouth once daily Furosemide 20 MG tablet Discontinued 20 mg PO DAILY 30 June 05, 2017 1:00am November 30, 2017 8:52am 3 ml insulin aspart protamine, human 70 unt/ml / insulin aspart, human 30 unt/ml pen injector (14 sources) Insulin Analog Start: 06-25-2021 End: 07-25-2021 Insulin Asp Prt-Insulin Aspart (Novolog Mix 70-30flexpen U-100) 100 unit/mL (70-30) insulin pen Discontinued 26 U SC EVERY MORNING 7.8 30 0 June 25, 2021 1:00am July 24, 2021 1:00am July 25, 2021 1:03am 3 ml insulin aspart, human 100 unt/ml pen injector (20 sources) Insulin Analog Start: 07-11-2020 End: 08-21-2021 Insulin Aspart U-100 (Novolog Flexpen U-100 Insulin) 100 unit/mL (3 mL) insulin pen Discontinued 26 U SC THREE TIMES A DAY 15 90 3 May 06, 2021 9:42pm August 21, 2021 2:09pm 26 U at breakfast,22 U at lunch,26 U at dinner Start: 11-15-2019 End: 07-11-2020 inject 26 [IU] by subcutaneous injection three times daily before mealtime Insulin Aspart U-100 100 unit/mL (3 mL) insulin pen Discontinued 26 U SC THREE TIMES A DAY 70.2 90 3 July 09, 2020 7:34pm July 11, 2020 9:45am diabetes sub q before meals Start: 06-04-2017 End: [...] U-100 100 unit/mL (3 mL) insulin pen (8 sources) Start: 07-30-2023 End: 01-28-2024 Insulin Detemir U-100 100 un it/mL (3 mL) insulin pen Discontinued 60 U SC AT BEDTIME 54 90 3 July 30, 2023 8:08pm January 28, 2024 5:46pm Start: 07-30-2023 End: 01-28-2024 Insulin Detemir U-100 100 un it/mL (3 mL) insulin pen Discontinued 60 U SC AT BEDTIME 54 90 July 30, 2023 8:08pm January 28, 2024 5:46pm Start: 04-27-2023 End: 07-30-2023 Insulin Detemir U-100 100 un it/mL (3 mL) insulin pen Discontinued 76 U SC AT BEDTIME 68.4 90 3 April 27, 2023 9:46pm July 30, 2023 8:13pm Start: 04-27-2023 End: 07-30-2023 Insulin Detemir U-100 100 un it/mL (3 mL) insulin pen Discontinued 76 U SC AT BEDTIME 68.4 90 April 27, 2023 9:46pm July 30, 2023 8:13pm 3 ml insulin lispro 200 unt/ml pen injector (20 sources) Insulin Analog Start: 08-21-2021 End: 07-22-2023 Insulin Lispro (Humalog Kwikpen Insulin) 200 unit/mL (3 mL) insulin pen Discontinued 26 U SC THREE TIMES A DAY 35.1 90 0 April 23, 2023 8:25pm July 21, 2023 1:00am July 22, 2023 1:04am levoFLOXacin 500 mg oral tablet (14 sources) Quinolone Antimicrobial Start: 04-15-2018 End: 09-23-2018 take 1 tablet by mouth once daily Levofloxacin 500 mg tablet Discontinued 500 mg PO DAILY 10 0 April 15, 2018 1:00am September 23, 2018 2:45pm levothyroxine sodium 0.1 mg oral tablet (20 sources) l-Thyroxine Start: 12-02-2017 End: 04-19-2024 take 1 tablet by mouth once daily Levothyroxine (Levoxyl) 100 mcg tablet Discontinued 100 ug PO daily 30 February 23, 2024 11:16am April 19, 2024 8:30pm Start: 07-08-2017 End: 07-08-2017 take 1 tablet by mouth once daily Levothyroxine 100 mcg tablet Discontinued 100 ug PO daily 30 July 08, 2017 1:00am July 08, 2017 [...] mg tablet Discontinued 50 mg PO DAILY 90 3 July 27, 2019 9:22am March 01, 2020 7:11pm 24 hr metoprolol succinate 25 mg extended release oral tablet (14 sources) beta-Adrenergic Gian Start: 12-08-2017 End: 02-02-2018 take 1 tablet by mouth once daily Metoprolol Succinate 25 mg tablet extended release 24 hr Discontinued 25 mg PO daily 30 December 08, 2017 12:00am February 02, 2018 8:22pm metroNIDAZOLE 250 mg oral tablet (14 sources) Nitroimidazole Antimicrobial Start: 08-30-2018 End: 09-09-2018 take 1 tablet by mouth three times daily Metronidazole 250 mg tablet Discontinued 250 mg PO THREE TIMES A DAY 30 10 August 30, 2018 12:00am September 08, 2018 12:00am September 09, 2018 12:07am Multivitamin tablet (4 sources) Start: 01-29-2022 End: 07-30-2023 Multivitamin tablet Discontinued 1 {tbl} PO DAILY January 29, 2022 12:00am July 30, 2023 8:03pm Multivitamin With Minerals (Hair,Skin And Nails) tablet (10 sources) Start: 01-29-2022 End: 07-30-2023 Multivitamin With Minerals (Hair,Skin And Nails) tablet Discontinued 1 {tbl} PO DAILY January 29, 2022 12:00am July 30, 2023 8:03pm Start: 01-29-2022 take 1 tablet by [facility] once daily Multivitamin With Minerals (Hair,Skin And Nails) tablet Active 1 TABLET PO DAILY January 29, 2022 12:00am mupirocin 0.02 mg/mg topical ointment (14 sources) RNA Synthetase Inhibitor Antibacterial Start: 03-07-2021 End: 08-29-2021 Mupirocin 2 % ointment Discontinued 1 NMA TOPICAL TWICE A DAY 15 March 07, 2021 12:00am August 29, 2021 5:44pm potassium chloride 20 meq extended release oral tablet (10 sources) Start: 01-29-2022 End: 10-30-2022 take 1 tablet by mouth once daily Potassium Chloride 20 mEq tablet extended release Discontinued 20 meq PO DAILY January 29, 2022 12:00am October 30, 2022 2:14pm predniSONE 20 mg oral tablet (20 sources) Start: 08-29-2021 End: 09-30-2021 take 2 tablets by mouth once daily Prednisone 20 mg tablet Discontinued 40 mg PO DAILY 20 August 29, 2021 12:00am September 30, 2021 11:45am Start: 08-29-2021 End: 09-30-2021 take 40 mg by mouth once daily Prednisone Discontinued 40 MG PO DAILY August 29, 2021 12:00am September 30, 2021 11:45am Start: 03-25-2019 End: 04-04-2019 take 2 tablets by mouth once daily Prednisone 20 mg tablet Discontinued 40 mg PO DAILY 20 March 25, 2019 12:00am April 03, 2019 12:00am April 04, 2019 12:08am Start: 03-25-2019 End: 04-04-2019 take 40 mg by mouth once daily Prednisone Discontinued 40 MG PO DAILY 20 March 25, 2019 12:00am April 04, 2019 12:08am Start: 04-27-2018 End: 05-04-2018 take 2 tablets by mouth once daily Prednisone 10 mg tablet Discontinued 20 mg PO DAILY 14 7 April 27, 2018 1:00am May 03, 2018 1:00am May 04, 2018 1:10am Start: 04-27-2018 End: 05-04-2018 take 20 mg by mouth once daily Prednisone Discontinued 20 MG PO DAILY 14 April 27, 2018 1:00am May 04, 2018 1:10am Start: 04-09-2018 End: 09-23-2018 take 1 tablet by mouth twice daily Prednisone 20 mg tablet Discontinued 20 mg PO TWICE A DAY 14 0 April 15, 2018 7:53pm September 23, 2018 2:46pm 24 hr venlafaxine 150 mg extended release oral capsule (20 sources) Serotonin and Norepinephrine Reuptake Inhibitor Start: 06-04-2017 End: 01-28-2024 take 1 capsule by mouth once daily Venlafaxine 150 mg capsule,extended release 24hr Discontinued 150 mg PO DAILY 30 0 June 25, 2021 1:00am August 29, 2021 5:44pm Problems Active Problems Problem Classification Problem Date Documented Da te Episodic/Chronic Allergic reactions (14 sources) Eruption due to drug; Translations: [Generalized skin eruption due to drugs and medicaments taken internally] 08-29-2021 Episodic Cardiac dysrhythmias (16 sources) Tachycardia; Translations: [Tachycardia, unspecified] Episodic Chronic [...] failure, unspecified] Chronic Deficiency and other anemia (14 sources) Anemia; Translations: [Anemia, unspecified] 03-13-2021 Episodic Diabetes mellitus with complications (14 sources) Type II diabetes mellitus uncontrolled; Translations: [Uncontrolled type 2 diabetes mellitus] 03-13-2021 Chronic Diabetes mellitus without complication (18 sources) Type 2 diabetes mellitus without complication; Translations: [Type 2 diabetes mellitus without complications] 03-07-2021 Chronic Essential hypertension (20 sources) Essential hypertension; Translations: [Essential (primary) hypertension] Onset: 11-16-2024 Chronic Intestinal infection (14 sources) Enterocolitis; Translations: [Enterocolitis due to Clostridium difficile, not specified as recurrent] 04-13-2019 Episodic Other circulatory disease (4 sources) Arteriovenous fistula of left upper extremity; Translations: [Arteriovenous fistula, acquired] 04-29-2024 Chronic Other circulatory disease (1 source) Arteriovenous fistula, acquired; Translations: [Arteriovenous fistula, acquired] Onset: 05-31-2024 Chronic Other lower respiratory disease (14 sources) Hemoptysis; Translations: [Hemoptysis] 03-13-2021 Episodic Other lower respiratory disease (14 sources) Cough; Translations: [Cough] 04-13-2019 Episodic Other lower respiratory disease (14 sources) Dyspnea; Translations: [Dyspnea, unspecified] 04-13-2019 Episodic Other lower respiratory disease (14 sources) Wheezing; Translations: [Wheezing] 04-13-2019 Episodic Other upper respiratory infections (14 sources) Chronic ethmoidal sinusitis; Translations: [Chronic ethmoidal sinusitis] 08-29-2021 Chronic Other upper respiratory infections (20 sources) Acute maxillary sinusitis; Translations: [Acute maxillary sinusitis, unspecified] 03-13-2021 Episodic Vanessa-; endo-; and myocarditis; cardiomyopathy (except that caused by tuberculosis or sexually transmitted disease) (14 sources) Cardiomyopathy; Translations: [Cardiomyopathy, unspecified] 03-13-2021 Chronic Residual codes; unclassified (14 sources) Obstructive sleep apnea syndrome; Translations: [Obstructive sleep apnea (adult) (pediatric)] 07-11-2020 Chronic Comment on above: very compliant Screening and history of mental health and substance abuse codes (1 source) Personal history of nicotine dependence; Translations: [Personal history of nicotine dependence] Onset: 04-18-2025 Episodic Substance-related disorders (14 sources) Nicotine dependence; Translations: [Nicotine dependence, unspecified, uncomplicated] 07-08-2017 Chronic Thyroid disorders (20 sources) Hypothyroidism; Translations: [Hypothyroidism, unspecified] 03-01-2020 Chronic Past or Other Problems Problem Classification Problem Date Documented Date Episodic/Chronic Complication of device; implant or graft (6 sources) Disorder of surgical arteriovenous fistula; Translations: [Other mechanical complication of surgically created arteriovenous fistula, initial encounter] Onset: 06-03-2024 04-29-2024 Episodic Other diseases of veins and lymphatics (1 source) Venous insufficiency (chronic) (peripheral); Translations: [Venous insufficiency (chronic) (peripheral)] Onset: 12-07-2024 Episodic Pleurisy; pneumothorax; pulmonary collapse (2 sources) Atelectasis; Translations: [Atelectasis] Onset: 06-04-2017 Episodic Varicose veins of lower extremity (5 sources) Venous varices; Translations: [Varicose veins of right lower extremity with other complications] Onset: 12-14-2024 11-24-2024 Episodic Results Test Name Value Interpretation Reference Range Facil ity Low Dose CT Lung Screeningon 04-11-[address] Lung Screening [facility] Imaging Services [address] [place], [place] [address] Low Dose CT Lung Screening MR#: [id number] Acct: [id number] Name: DAKOTAH UGALDE Rep #: [id number] : 1965 F 59 From: Rosendo allen MD PCP: Dr. Seema Marrero MD Status: REG CLI Study: Low Dose CT Lung Screening Date of Exam: 04/11 Exam# [id number] Ordering Dr: Matthew Ramirez MD PROCEDURE: LOW DOSE CT LUNG SCREENING 04/12/2025 REASON FOR EXAM: NICOTINE DEP TECHNIQUE: Procedure Code: CTLUNGSCREEN Modality: CT Procedure: LOW DOSE CT LUNG SCREENING Coronal and Sagittal reconstruction series were provided. One or more dose reduction techniques were used (e.g., Automated exposure control, adjustment of the mA and/or kV according to patient size, use of iterative reconstruction technique). REFERENCE LINK: Motor2 Lung-RADS RADIATION DOSE SUMMARY: CTDI Vol 8.61 mGy DLP :291.94 mGycm COMPARISON: none FINDINGS: Bilateral pulmonary predominantly atelectatic plates. No obvious pulmonary nodules, masses, consolidations or cavitary changes. No pathologically enlarged hilar or mediastinal lymph nodes. Patent tracheo-bronchial tree. Mild cardiomegaly. No pleural or pericardial effusion. Intact bony thoracic cage with no fractures. No obvious chest wall masses. Scanned upper abdominal cuts are unremarkable. CT/Low Dose CT Lung Screening IMPRESSION: No obvious pulmonary nodules, masses, consolidations or cavitary changes. Findings are suggestive of (lung rads 1). Advise annual screening. Reading Location: [place] [address] CC: Dr. Seema Marrero MD; Dr. Matthew Ramirez MD Pipelines Supervisor: Signed Normal [facility] MR/BMS.BVSon 01-19-2025 MR/BMS.BVS [facility] Vascular Surgery [address] [place] [address] OFFICE VISIT Date of Service: 01/19/25 MR#: [id number] Acct: [id number] Name: DAKOTAH UGALDE ANN Rep #: [id number] : 1965 Provider: JONO Ozuna Age/Sex: 59/F Location: [facility] Status: Signed Intake Vital Signs 11/07/24 11:24 01/19/25 10:37 Height 5 ft 6 in Weight: 305 lb BP 104/69 Blood Pressure Location Rt brachial Position Sitting Respiration 18 Pulse 108 H Pulse Source Monitor Temp 98 F Temp Source Temporal Pulse Oximetry (%) 96 Oxygen Delivery Method room air Intake Visit Reasons: 8 WK FU Chief Complaint: recheck fistula Is patient in pain?: No Allergies levofloxacin Allergy (Severe, Verified 01/19/25 10:37) hives [facility] Adverse Reaction (Uncoded 01/19/25 10:37) Other Medications ???Medication ???Instructions ???Recorded ???Confirmed ???Type lactobacillus combination no.4 3 3,000 mmu cells PO QDAY 07/08/17 0 01/19/25 History billion cell capsule (Probiotic) loratadine 10 mg tablet 10 mg PO QDAY 07/08/17 01/19/25 Hi story ferrous sulfate 325 mg (65 mg 325 mg PO TID 03/13/21 01/19/25 Hi story iron) tablet,delayed release blood sugar diagnostic (OneTouch #100 ea 08/29/21 01/19/25 Rx Verio test strips) sevelamer carbonate 800 mg tablet 800 mg PO QAC 09/30/21 01/19/25 H istory vitamin B complex-vitamin C-folic 1 tab PO DAILY 10/30/22 01/19/25 History acid 0.8 mg tablet (Nephro-James) blood sugar diagnostic (OneTouch #100 ea 03/03/23 01/19/25 Rx Verio test strips) blood-glucose sensor (FreeStyle #2 ea 09/10/23 01/19/25 Rx Bessy 3 Sensor device) pen needle, diabetic 32 gauge x #400 ea 09/10/23 01/19/25 Rx 5/32 (BD Teresita 2nd Gen Pen Needle) amlodipine 5 mg tablet 5 mg PO DAILY #90 tabs 01/28/24 Rx calcitriol 0.5 mcg capsule 0.5 mcg PO DAILY 01/28/24 01/19/25 History furosemide 40 mg tablet (Lasix) 40 mg PO DAILY #90 tabs 01/28/24 0 01/19/25 Rx insulin detemir U-100 100 unit/mL 30 unit subcut QHS 01/28/2401/19 History (3 mL) subcutaneous pen venlafaxine 150 mg 150 mg PO DAILY #90 caps 01/28/24 01/19/25 Rx capsule,extended release 24 hr levothyroxine 100 mcg tablet 100 mcg PO QDAY #30 tabs 04/19/24 01/19/25 Rx (Levoxyl) insulin regular hum U-500 conc 500 20 unit subcut .ac 11/24/2401/06 History unit/mL(3 mL) subcut pen (Humulin R U-500 (Conc) Insulin Kwikpen) semaglutide 0.25 mg or 0.5 mg (2 0.25 mg subcut QWEEK 11/24/2401/06 History mg/3 mL) subcutaneous pen injector (Ozempic) [...] rest Heart disease Lung cancer Social History Smoking Status: Light Smoker (<10/day) alcohol intake: current alcohol intake frequency: holidays/special occasions only substance use type: does not use caffeine: No additional social history: Does not use aspirin or ibuprofen daily HPI HPI HPI: DAKOTAH UGALDE, is a 59 F who presents to (more content not included)... Normal [facility] Venous Duplex US, Unilateral on 12-06-2024 Venous Duplex US, Unilateral [facility] [address] [place] [address] Venous Duplex US, Unilateral 12/06/24 1415 MR#: [id number] Acct: [id number] Name: DAKOTAH UGALDE Rep #: [id number] : 1965 59 From: Gus York MD Attending Dr: JONO Ozuna Status: REG CLI Ordering Dr: Geno Mclean Date: 12/06/24 Location: CVS Sex: F C Admitted: Reason For Study Reason For Study: RLE Pain RIGHT LEFT CFV is compressible, spontaneous, phasic, competent FV is compressible, spontaneous, phasic, competent and demonstrates normal augmentation. and demonstrates normal augmentation. FV is compressible, spontaneous, phasic, competent and demonstrates normal augmentation. POP V is compressible, spontaneous, phasic, competent and demonstrates normal augmentation. T/P Trunk is compressible. PTV is compressible. RT PerV is compressible. Unable to obtain compressions at mid and distal FV due to patients intolerance. Flow noted in color and pulsed wave doppler. Nonvascularized area of mixed echoes noted in the Rt Pop Fossa measuring approximately 3.92cm x 1.70cm SFJ is INCOMPETENT and measures 0.55 cm. GSV proximal thigh measures 0.49 x 0.53 cm. GSV at knee measures 0.45 x 0.47 cm. GSV is competent throughout. SSV at junction is competent and measures 0.41 cm. SSV mid calf is competent and measures 0.28 cm. Rt Varicosity branch of SSV at posterior mid calf is INCOMPETENT and measures 0.33cm x 0.32cm Rt Varicosity branch of GSV at medial mid calf is INCOMPETENT and measures 0.33cm x 0.32cm. Procedure Exam performed in department. This is a venous duplex using B-mode, color flow and spectral Doppler. The exam was diagnostic. Patient was scanned in reverse Trendelenburg position during reflux assessment. VL/Venous Duplex US, Unilateral Interpretation Summary Deep veins of the right lower extremity are patent and compressible segmentally. There is no evidence of right lower extremity deep vein thrombosis. The right great saphenous vein appears patent and compressible segmentally. Positive for reflux in the right saphenofemoral junction, varicosities in posterior calf. Nonvascularized area of mixed echoes noted in the right popliteal fossa measuring approximately 3.92cm x 1.70cm __ Ordering Physician: Gneo Mclean Referring Physician: Seema Marrero Performed By: Ry Sandoval, T 12/06/24 1618 Date Gus York MD CC: JONO Ozuna; Dr. Seema Marrero MD Date Dictated: 12/06/245 Date Transcribed: 12/06/241617 Pipelines Supervisor: Signed Normal [facility] Venous duplex ultrasound rep ortOrdered By: Gus York on 12-06-2024 US Vein [facility] [address] [place] [address] Venous Duplex US, Unilateral 12/06/241414 MR#: [id number] Acct: [id number] Name: DAKOTAH UGALDE Rep #:[id number] : 1965 59 From: Gus Chapman Attending Dr: JONO Ozuna Stat us: REG CLI Ordering Dr: Geno Mclean Date: Location: CVS Sex: F C Admitted: Reason For Study Reason For Study: RLE Pain RIGHT LEFT CFV is compressible, spontaneous, phasic, competent FV is compressible, spontaneous, phasic, competent and demonstrates normal augmentation. and demonstrates normal augmentation. FV is compressible, spontaneous, phasic, competent and demonstrates normal augmentation. POP V is compressible, spontaneous, phasic, competent and demonstrates normal augmentation. T/P Trunk is compressible. PTV is compressible. RT PerV is compressible. Unable to obtain compressions at mid and distal FV due to patients intolerance. Flow noted in color and pulsed wave doppler. Nonvascularized area of mixed echoes noted in the Rt Pop Fossa measuring approximately 3.92cm x 1.70cm SFJ is INCOMPETENT and measures 0.55 cm. GSV proximal thigh measures 0.49 x 0.53 cm. GSV at knee measures 0.45 x 0.47 cm. GSV is competent throughout. SSV at junction is competent and measures 0.41 cm. SSV mid calf is competent and measures 0.28 cm. Rt Varicosity branch of SSV at posterior mid calf is INCOMPETENT and measures 0.33cm x 0.32cm Rt Varicosity branch of GSV at medial mid calf is INCOMPETENT and measures 0.33cm x 0.32cm. Procedure Exam performed in department. This is a venous duplex using B-mode, color flow and spectral Doppler. The exam was diagnostic. Patient was scanned in reverse Trendelenburg position during reflux assessment. VL/Venous Duplex US, Unilateral Interpretation Summary Deep veins of the right lower extremity are patent and compressible segmentally.There is no evidence of right lower extremity deep vein thrombosis. The right great saphenous vein appears patent and compressible segmentally. Positive for reflux in the right saphenofemoral junction, varicosities in posterior calf. Nonvascularized area of mixed echoes noted in the right popliteal fossa measuring approximately 3.92cm x 1.70cm __ Ordering Physician: Geno Mclean Referring Physician: Seema Marrero Performed By: Ry Sandoval, T 12/06/24 1618 Date _ Gus York MD CC: JONO Ozuna; Dr. Seema Marrero MD ~ Date Dictated: 12/06/24 1415 Date Transcribed: 12/06/24 1618 Pipelines Supervisor: Signed [facility] Work Phone: MR/BMS.Mason 11-24-2024 MR/BMS.S [facility] Surgery [address] [place] [address] OFFICE VISIT Date of Service: 11/24/24 MR#: [id number] Acct: [id number] Name: DAKOTAH UGALDE ANN Rep #: [id number] : 1965 Provider: JONO Ozuna Age/Sex: 59/F Location: [facility] [place] Status: Signed Intake Vital Signs 05/04/24 08:59 [...] pablito WRIGHT (more content not included)... Normal [facility] Absolute lymphocyte countOrd ered By: Seema Marrero on 11-10-2024 Lymphocytes Auto (Unsp spec) [#/Vol] 1.08 10*3/uL 0.83-4.51 [facility] Absolute neutrophil countOrd ered By: Seema Marrero on 11-10-2024 Neutrophils (Bld) [#/Vol] 4.7 10*3/uL 2.0-7.7 [facility] Anion gap in Serum or Plasma Ordered By: Seema Gutierrezke on 11-10-2024 Anion gap [Moles/Vol] 18 mmol/L High 5-15 [facility] Automated lymphocyte count a s percentage of total leukocytesOrdered By: Seema Gutierrezke on 11-10-2024 Lymphocytes/100 WBC Auto (Unsp spec) 17.2 % Low 19-41 [facility] BUN/creatinine ratioOrdered By: Seema Gutierrezke on 11-10-2024 Urea nitrogen/Creatinine [Mass ratio] 7.3 mg/mg Low 10-20 [facility] Basophil percentageOrdered B y: Seema Gutierrezke on 11-10-2024 Basophils/100 WBC (Bld) 0.5 % 0-1 [facility] Bilirubin, totalOrdered By: Deandralara Elida on 11-10-2024 Bilirubin [Mass/Vol] 0.38 mg/dL 0.00-1.30 [facility] CBC W/Diff, Automatedon Absolute Lymph 1.08 X10 3/uL Normal 0.83-4.51 [facility] Comment on above: Order Comment: Order Date: 11/01/24 Order Info: 0184-1 - CBCD Performed By: #### L 500.4050, L100.0100, L501.17177, L506.0400, L501.9520, L500.4100 #### [facility] [address] [place], [address] Absolute Neut 4.7 X10 3/uL Normal 2.0-7.7 [facility] Comment on above: Order Comment: Order Date: 11/01/24 Order Info: 0184-1 - CBCD Performed By: #### L 500.4050, L100.0100, L501.26341, L506.0400, L501.9520, L500.4100 #### [facility] [address] [place], [address] Basophils/100 WBC (Bld) 0.5 % Normal 0-1 [facility] Comment on above: Order Comment: Order Date: 11/01/24 Order Info: 0184-1 - CBCD Performed By: #### L 500.4050, L100.0100, L501.73853, L506.0400, L501.9520, L500.4100 #### [facility] [address] [place], [address] Eosinophils/100 WBC (Bld) 1.6 % Normal 0-5 [facility] Comment on above: Order Comment: Order Date: 11/01/24 Order Info: 0184-1 - CBCD Performed By: #### L 500.4050, L100.0100, L501.86942, L506.0400, L501.9520, L500.4100 #### [facility] [address] [place], [address] Erythrocyte distribution width (RBC) [Ratio] 13.6 % Normal 11.6-14.6 [facility] Comment on above: Order Comment: Order Date: 11/01/24 Order Info: 0184- - CBCD Performed By: #### L 500.4050, L100.0100, L501.20220, L506.0400, L501.9520, L500.4100 #### [facility] [address] [place], [address] Hematocrit (Bld) [Volume fraction] 32.6 % Low 37-47 [facility] Comment on above: Order Comment: Order Date: 11/01/24 Order Info: 0184- - CBCD Performed By: #### L 500.4050, L100.0100, L501.78797, L506.0400, L501.9520, L500.4100 #### [facility] [address] [place], [address] Hemoglobin (Bld) [Mass/Vol] 10.9 g/dL Low 12.0-15.0 [facility] Comment on above: Order Comment: Order Date: 11/01/24 Order Info: 0184-1 - CBCD Performed By: #### L 500.4050, L100.0100, L501.56301, L506.0400, L501.9520, L500.4100 #### [facility] [address] [place], [address] IG% 0.300 Normal 0.0-0.9 [facility] Comment on above: Order Comment: Order Date: 11/01/24 Order Info: 0184-1 - CBCD Result Comment: IG% - Immature Granulocytes (promyelocytes, myelocytes and metamyelocytes) > 1% indicates that a LEFT SHIFT is Present. Performed By: #### L 500.4050, L100.0100, L501.48986, L506.0400, L501.9520, L500.4100 #### [facility] [address] [place], [address] Lymphocytes/100 WBC (Bld) 17.2 % Low 19-41 [facility] Comment on above: Order Comment: Order Date: 11/01/24 Order Info: 0184-1 - CBCD Performed By: #### L 500.4050, L100.0100, L501.70706, L506.0400, L501.9520, L500.4100 #### [facility] [address] [place], [address] MCH (RBC) [Entitic mass] 30.5 pg Normal 27.0-32.0 [facility] Comment on above: Order Comment: Order Date: 11/01/24 Order Info: 0184-1 - CBCD Performed By: #### L 500.4050, L100.0100, L501.51501, L506.0400, L501.9520, L500.4100 #### [facility] [address] [place], [address] MCHC (RBC) [Mass/Vol] 33.4 g/dL Normal 32-36 [facility] Comment on above: Order Comment: Order Date: 11/01/24 Order Info: 0184-1 - CBCD Performed By: #### L 500.4050, L100.0100, L501.98102, L506.0400, L501.9520, L500.4100 #### [facility] [address] [place], [address] MCV (RBC) [Entitic vol] 91.3 fL Normal 81-99 [facility] Comment on above: Order Comment: Order Date: 11/01/24 Order Info: 018- - CBCD Performed By: #### L 500.4050, L100.0100, L501.07254, L506.0400, L501.9520, L500.4100 #### [facility] [address] [place], [address] Monocytes/100 WBC (Bld) 5.6 % Normal 0-10 [facility] Comment on above: Order Comment: Order Date: 11/01/24 Order Info: 018- - CBCD Performed By: #### L 500.4050, L100.0100, L501.95737, L506.0400, L501.9520, L500.4100 #### [facility] [address] [place], [address] Neutrophils/100 WBC (Bld) 74.8 % High 47-70 [facility] Comment on above: Order Comment: Order Date: 11/01/24 Order Info: 018- - CBCD Performed By: #### L 500.4050, L100.0100, L501.00192, L506.0400, L501.9520, L500.4100 #### [facility] [address] [place], [address] Nucleated RBC (Bld) [#/Vol] 0 10*3/uL Normal 0-5 [facility] Comment on above: Order Comment: Order Date: 11/01/24 Order Info: 0184-1 - CBCD Performed By: #### L 500.4050, L100.0100, L501.07871, L506.0400, L501.9520, L500.4100 #### [facility] [address] [place], [address] Platelet mean volume (Bld) [Entitic vol] 10.4 fL Normal 6.2-12.0 [facility] Comment on above: Order Comment: Order Date: 11/01/24 Order Info: 0184-1 - CBCD Performed By: #### L 500.4050, L100.0100, L501.29917, L506.0400, L501.9520, L500.4100 #### [facility] [address] [place], [address] Platelets (Bld) [#/Vol] 194 10*3/uL Normal 150-450 [facility] Comment on above: Order Comment: Order Date: 11/01/24 Order Info: 0184-1 - CBCD Performed By: #### L 500.4050, L100.0100, L501.18676, L506.0400, L501.9520, L500.4100 #### [facility] [address] [place], [address] RBC (Bld) [#/Vol] 3.57 10*6/uL Low 4.2-5.4 [facility] Comment on above: Order Comment: Order Date: 11/01/24 Order Info: 0184-1 - CBCD Performed By: #### L 500.4050, L100.0100, L501.76355, L506.0400, L501.9520, L500.4100 #### [facility] [address] [place], [address] RDW SD 45.8 fl High 35.1-43.9 [facility] Comment on above: Order Comment: Order Date: 11/01/24 Order Info: 0184-1 - CBCD Performed By: #### L 500.4050, L100.0100, L501.47473, L506.0400, L501.9520, L500.4100 #### [facility] [address] [place], [place], [address] WBC (Bld) [#/Vol] 6.3 10*3/uL Normal 4.4-11.0 [facility] Comment on above: Order Comment: Order Date: 11/01/24 Order Info: 0184-1 - CBCD Performed By: #### L 500.4050, L100.0100, L501.29502, L506.0400, L501.9520, L500.4100 #### [facility] [address] [place], [place], [address] Calculated very low density lipoprotein (VLDL) cholesterol measurementOrdered By: Seema Marrero on 11-10-2024 Calculated very low density lipoprotein (VLDL) cholesterol measurement 20 mg/dL 5-40 [facility] Carbon dioxide, total [Moles /volume] in Central venous bloodOrdered By: Seema Marrero on 11-10-2024 CO2 [Moles/Vol] 21.2 mmol/L 21.0-32.0 [facility] Chloride assayOrdered By: Laureano Marrero on 11-10-2024 Chloride [Moles/Vol] 95 mmol/L Low 98-108 [facility] Comprehensive Metabolic Prof ilon 11-10-2024 Albumin [Mass/Vol] 3.8 g/dL Normal 3.5-5.0 [facility] Comment on above: Order Comment: Order Date: 11/01/24 Order Info: 0786-1 - CMP Order Info: [id number] - LIPID Order Info: 3051-0 - T3F Order Info: 3016-3 - TSH Order Info: 3024-7 - T4F Performed By: #### L 500.4050, L100.0100, L501.87089, L506.0400, L501.9520, L500.4100 #### [facility] [address] [place], [place], [id number] Albumin/Globulin [Mass ratio] 1.6 {ratio} Normal 0.9-2.4 [facility] Comment on above: Order Comment: Order Date: 11/01/24 Order Info: 86-1 - CMP Order Info: [id number] - LIPID Order Info: 3051-0 - T3F Order Info: 3016-3 - TSH Order Info: 3024-7 - T4F Performed By: #### L 500.4050, L100.0100, L501.44289, L506.0400, L501.9520, L500.4100 #### [facility] [address] [place], [address] ALK PHOS 113 U/L High 35-104 [facility] Comment on above: Order Comment: Order Date: 11/01/24 Order Info: 785-1 - CMP Order Info: [id number] - LIPID Order Info: 305-0 - T3F Order Info: 3015-3 - TSH Order Info: 3024-7 - T4F Performed By: #### L 500.4050, L100.0100, L501.83880, L506.0400, L501.9520, L500.4100 #### [facility] [address] [place], [address] ALT [Catalytic activity/Vol] 15 U/L Normal <=34 [facility] Comment on above: Order Comment: Order Date: 11/01/24 Order Info: 785-1 - CMP Order Info: [id number] - LIPID Order Info: 3051-0 - T3F Order Info: 6-3 - TSH Order Info: 3024-7 - T4F Performed By: #### L 500.4050, L100.0100, L501.48229, L506.0400, L501.9520, L500.4100 #### [facility] [address] [place], [address] AST [Catalytic activity/Vol] 19 U/L Normal <=31 [facility] Comment on above: Order Comment: Order Date: 11/01/24 Order Info: 0786-1 - CMP Order Info: [id number] - LIPID Order Info: 3051-0 - T3F Order Info: 301-3 - TSH Order Info: 3024-7 - T4F Performed By: #### L 500.4050, L100.0100, L501.55919, L506.0400, L501.9520, L500.4100 #### [facility] [address] [place], [address] Bilirubin [Mass/Vol] 0.38 mg/dL Normal 0.00-1.30 [facility] Comment on above: Order Comment: Order Date: 11/01/24 Order Info: 785-1 - CMP Order Info: [id number] - LIPID Order Info: 3051-0 - T3F Order Info: 3 - TSH Order Info: 302-7 - T4F Performed By: #### L 500.4050, L100.0100, L501.38678, L506.0400, L501.9520, L500.4100 #### [facility] [address] [place], [address] BUN/CRE 7.3 RATIO Low 10-20 [facility] Comment on above: Order Comment: Order Date: 11/01/24 Order Info: 07-1 - CMP Order Info: [id number] - LIPID Order Info: 3051-0 - T3F Order Info: 3013 - TSH Order Info: 3024-7 - T4F Performed By: #### L 500.4050, L100.0100, L501.29200, L506.0400, L501.9520, L500.4100 #### [facility] [address] [place], [address] Calcium [Mass/Vol] 9.0 mg/dL Normal 7.6-11.0 [facility] Comment on above: Order Comment: Order Date: 11/01/24 Order Info: 0786-1 - CMP Order Info: [id number] - LIPID Order Info: 3051-0 - T3F Order Info: 3015-3 - TSH Order Info: 3024-7 - T4F Performed By: #### L 500.4050, L100.0100, L501.81078, L506.0400, L501.9520, L500.4100 #### [facility] [address] [place], [address] Chloride [Moles/Vol] 95 mmol/L Low 98-108 [facility] Comment on above: Order Comment: Order Date: 11/01/24 Order Info: 785-1 - CMP Order Info: [id number] - LIPID Order Info: 3051-0 - T3F Order Info: 3 - TSH Order Info: 30247 - T4F Performed By: #### L 500.4050, L100.0100, L501.69731, L506.0400, L501.9520, L500.4100 #### [facility] [address] [place], [address] CO2 [Moles/Vol] 21.2 mmol/L Normal 21.0-32.0 [facility] Comment on above: Order Comment: Order Date: 11/01/24 Order Info: 785- - CMP Order Info: [id number] - LIPID Order Info: 3051-0 - T3F Order Info: 63 - TSH Order Info: 3024-7 - T4F Performed By: #### L 500.4050, L100.0100, L501.55404, L506.0400, L501.9520, L500.4100 #### [facility] [address] [place], [address] Creatinine [Mass/Vol] 4.77 mg/dL High 0.70-1.20 [facility] Comment on above: Order Comment: Order Date: 11/01/24 Order Info: 785-1 - CMP Order Info: [id number] - LIPID Order Info: 3051-0 - T3F Order Info: 3016-3 - TSH Order Info: 3024-7 - T4F Performed By: #### L 500.4050, L100.0100, L501.36504, L506.0400, L501.9520, L500.4100 #### [facility] [address] [place], [address] GAP 18 High 5-15 [facility] Comment on above: Order Comment: Order Date: 11/01/24 Order Info: 0786-1 - CMP Order Info: [id number] - LIPID Order Info: 305-0 - T3F Order Info: 3 - TSH Order Info: 3023-12 - T4F Performed By: #### L 500.4050, L100.0100, L501.46818, L506.0400, L501.9520, L500.4100 #### [facility] [address] [place], [address] GFR/1.73 sq M.predicted among non-blacks MDRD (S/P/Bld) [Vol rate/Area] 10 mL/min/{1.73_m2} Low >60 [facility] Comment on above: Order Comment: Order Date: 11/01/24 Order Info: 0786-1 - CMP Order Info: [id number] - LIPID Order Info: 0 - T3F Order Info: 3 - TSH Order Info: 3023-12 - T4F Result Comment: mL/m in/1.73m2 CKD-EPI Creatinine Equation (2020) Performed By: #### L 500.4050, L100.0100, L501.84155, L506.0400, L501.9520, L500.4100 #### [facility] [address] [place], [address] Globulin (S) [Mass/Vol] 2.4 g/dL Normal 2.2-4.2 [facility] Comment on above: Order Comment: Order Date: 11/01/24 Order Info: 0786-1 - CMP Order Info: [id number] - LIPID Order Info: 3050 - T3F Order Info: 3 - TSH Order Info: 3024-7 - T4F Performed By: #### L 500.4050, L100.0100, L501.32260, L506.0400, L501.9520, L500.4100 #### [facility] [address] [place], [address] Glucose [Mass/Vol] 143 mg/dL High 70-99 [facility] Comment on above: Order Comment: Order Date: 11/01/24 Order Info: 785- - CMP Order Info: [id number] - LIPID Order Info: 3051-0 - T3F Order Info: 3 - TSH Order Info: 7 - T4F Performed By: #### L 500.4050, L100.0100, L501.91493, L506.0400, L501.9520, L500.4100 #### [facility] [address] [place], [address] Potassium [Moles/Vol] 4.1 mmol/L Normal 3.3-5.1 [facility] Comment on above: Order Comment: Order Date: 11/01/24 Order Info: 785-06 - CMP Order Info: - LIPID Order Info: 3051-0 - T3F Order Info: 3 - TSH Order Info: 3024-7 - T4F Performed By: #### L 500.4050, L100.0100, L501.35319, L506.0400, L501.9520, L500.4100 #### [facility] [address] [place], [address] Sodium [Moles/Vol] 134 mmol/L Normal 133-145 [facility] Comment on above: Order Comment: Order Date: 11/01/24 Order Info: 071 - CMP Order Info: [id number] - LIPID Order Info: 3051-0 - T3F Order Info: [id number] - TSH Order Info: 3024-7 - T4F Performed By: #### L 500.4050, L100.0100, L501.57762, L506.0400, L501.9520, L500.4100 #### [facility] [address] [place], [place], [id number] T PROT 6.2 g/dL Normal 5.9-8.4 [facility] Comment on above: Order Comment: Order Date: 11/01/24 Order Info: 0786-1 - CMP Order Info: [id number] - LIPID Order Info: 305-0 - T3F Order Info: 3 - TSH Order Info: 7 - T4F Performed By: #### L 500.4050, L100.0100, L501.09131, L506.0400, L501.9520, L500.4100 #### [facility] [address] [place], [place], [address] Urea nitrogen [Mass/Vol] 35 mg/dL High 4-19 [facility] Comment on above: Order Comment: Order Date: 11/01/24 Order Info: [id number] - CMP Order Info: [id number] - LIPID Order Info: 305-0 - T3F Order Info: 3 - TSH Order Info: 7 - T4F Performed By: #### L 500.4050, L100.0100, L501.35057, L506.0400, L501.9520, L500.4100 #### [facility] [address] [place], [place], [id number] Eosinophil percentageOrdered By: Seema Marrero on 11-10-2024 Eosinophils/100 WBC (Bld) 1.6 % 0-5 [facility] Erythrocyte distribution wid th ratioOrdered By: Seema Marrero on 11-10-2024 Erythrocyte distribution width (RBC) [Ratio] 13.6 % 11.6-14.6 [facility] Erythrocyte distribution wid th standard deviationOrdered By: Seema Marrero on 11-10-2024 Erythrocyte distribution width (RBC) [Ratio] 45.8 fl High 35.1-43.9 [facility] Free T3on 11-10-2024 Free T3 [Mass/Vol] 2.5 pg/mL Normal 2.18-3.98 [facility] Comment on above: Order Comment: Order Date: 11/01/24 Order Info: [id number] - CMP Order Info: [id number] - LIPID Order Info: 3051-0 - T3F Order Info: 3016-3 - TSH Order Info: 3024-7 - T4F Performed By: #### L 500.4050, L100.0100, L501.27482, L506.0400, L501.9520, L500.4100 #### [facility] [place], [place], [address] Free V5Peihavb By: Seema fernandes on 11-10-2024 Free T3 [Mass/Vol] 2.5 pg/mL 2.18-3.98 [facility] Glomerular filtration rate ( GFR) estimation/1.73 sq m using serum, plasma, or whole bOrdered By: Seema Marrero on 11-10-2024 GFR/1.73 sq M.predicted among non-blacks MDRD (S/P/Bld) [Vol rate/Area] 10 mL/min/{1.73_m2} Low >60 [facility] Comment on above: mL/min/1.73m2 CKD-EP I Creatinine Equation (2020) Hematocrit Auto (Bld) [Volum e fraction]Ordered By: Seema Marrero on 11-10-2024 Hematocrit (Bld) [Volume fraction] 32.6 % Low 37-47 [facility] Hemoglobin measurementOrdere d By: Seema Marrero on 11-10-2024 Hemoglobin (Bld) [Mass/Vol] 10.9 g/dL Low 12.0-15.0 [facility] Immature granulocytes/100 WB C Auto (Bld)Ordered By: Seema Marrero on 11-10-2024 Immature granulocytes/100 WBC (Bld) 0.300 % 0.0-0.9 [facility] Comment on above: IG% - Immature Granu locytes (promyelocytes, myelocytes and metamyelocytes) > 1% indicates that a LEFT SHIFT is Present. LDL calc ser/plasOrdered By: Seema Marrero on 11-10-2024 Cholesterol in LDL [Mass/Vol] 106 mg/dL [facility] Comment on above: Lgmcsziufe=226-036 m g/dL & Higher Qlqe=963 mg/dL or greater Laboratory - Chemistry and C hemistry - challengeOrdered By: Seema Marrero on 11-10-2024 AST [Catalytic activity/Vol] 19 U/L <32 [facility] Lipid Profileon 11-10-2024 CHOL:HDL 3.29 Normal [facility] Comment on above: Order Comment: Order Date: 11/01/24 Order Info: [id number] - CMP Order Info: [id number] - LIPID Order Info: 0 - T3F Order Info: [id number] - TSH Order Info: 3023-12 T4F Performed By: #### L 500.4050, L100.0100, L501.60650, L506.0400, L501.9520, L500.4100 #### [facility] [address] [place], [address] Cholesterol [Mass/Vol] 181 mg/dL Normal <=200 [facility] Comment on above: Order Comment: Order Date: 11/01/24 Order Info: [id number] - CMP Order Info: [id number] - LIPID Order Info: 0 - T3F Order Info: 3 - TSH Order Info: 3023-12 - T4F Result Comment: Chol esterol level, Desirable <200 mg/dL Borderline high cholesterol 200-239 mg/dL High cholesterol >=240 mg/dL Recommendations of the NCEP Adult Treatment Panel for the following risk-cutoff thresholds for the [place] population. Performed By: #### L 500.4050, L100.0100, L501.83604, L506.0400, L501.9520, L500.4100 #### [facility] [address] [place], [address] Cholesterol in HDL [Mass/Vol] 55 mg/dL Normal [facility] Comment on above: Order Comment: Order Date: 11/01/24 Order Info: 0786 - CMP Order Info: - LIPID Order Info: T3F Order Info: [id number] - TSH Order Info: 3023-12 T4 Result Comment: Adela onal Cholesterol Education Program (NCEP) guidelines: <40 mg/dL: Low HDL-cholesterol (major risk factor for CHD) >= 60 mg/dL: High HDL-cholesterol (negative risk factor for CHD) HDL-cholesterol is affected by a number of factors, e.g. smoking, exercise, hormones, sex and age. Performed By: #### L 500.4050, L100.0100, L501.74507, L506.0400, L501.9520, L500.4100 #### [facility] [address] [place], [place], [phone] Cholesterol in LDL [Mass/Vol] 106 mg/dL Normal [facility] Comment on above: Order Comment: Order Date: 11/01/24 Order Info: [id number] - CMP Order Info: - LIPID Order Info: T3F Order Info: [id number] - TSH Order Info: 3023-12 Result Comment: Bord stcxiz=838-231 mg/dL Higher Uysp=998 mg/dL or greater Performed By: #### L 500.4050, L100.0100, L501.84889, L506.0400, L501.9520, L500.4100 #### [facility] [address] [place], [place], [phone] (231) Cholesterol in VLDL [Mass/Vol] 20 mg/dL Normal 5-40 [facility] Comment on above: Order Comment: Order Date: 11/01/24 Order Info: [id number] - CMP Order Info: - LIPID Order Info: T3F Order Info: [id number] - TSH Order Info: 3023-12 T4F Performed By: #### L 500.4050, L100.0100, L501.90083, L506.0400, L501.9520, L500.4100 #### [facility] [address] [place], [place], [address] Triglyceride [Mass/Vol] 98 mg/dL Normal [facility] Comment on above: Order Comment: Order Date: 11/01/24 Order Info: [id number] - CMP Order Info: [id number] - LIPID Order Info: 3051-0 - T3F Order Info: 3016-3 - TSH Order Info: 3024-7 - T4F Result Comment: The drugs N-Acetylcysteine and Metamizole may falsely depress this assay. Normal range: <150 mg/dL Borderline High: 150-199 mg/dL High: 200-499 mg/dL Very High: >500 mg/dL Performed By: #### L 500.4050, L100.0100, L501.97424, L506.0400, L501.9520, L500.4100 #### [facility] [address] [place], [place], [address] MCV (mean corpuscular volume ) determinationOrdered By: Seema Marrero on 11-10-2024 MCV (RBC) [Entitic vol] 91.3 fL 81-99 [facility] Mean corpuscular hemoglobin (MCH) determinationOrdered By: Seema Marrero on 11-10-2024 MCH (RBC) [Entitic mass] 30.5 pg 27.0-32.0 [facility] Mean corpuscular hemoglobin concentration (MCHC) determinationOrdered By: Seema Marrero on 11-10-2024 MCHC (RBC) [Mass/Vol] 33.4 g/dL 32-36 [facility] Mean platelet volume determi nationOrdered By: Seema Marrero on 11-10-2024 Platelet mean volume (Bld) [Entitic vol] 10.4 fL 6.2-12.0 [facility] Monocyte percentageOrdered B y: Seema Marrero on 11-10-2024 Monocytes/100 WBC (Bld) 5.6 % 0-10 [facility] Neutrophil percentageOrdered By: Seema Marrero on 11-10-2024 Neutrophils/100 WBC (Bld) 74.8 % High 47-70 [facility] Nucleated red blood cell per centageOrdered By: Seema Marrero on 11-10-2024 Nucleated RBC/100 WBC (Bld) [Ratio] 0 % 0-5 [facility] Platelet countOrdered By: Laureano Marrero on 11-10-2024 Platelets (Bld) [#/Vol] 194 10*3/uL 150-450 [facility] Potassium measurement (mass/ volume)Ordered By: Seema Marrero on 11-10-2024 Potassium (Unsp spec) [Mass/Vol] 4.1 mmol/L 3.3-5.1 [facility] RBC Auto (Bld) [#/Vol]Ordere d By: Seema Marrero on 11-10-2024 RBC (Bld) [#/Vol] 3.57 10*6/uL Low 4.2-5.4 [facility] Screening total cholesterol/ high density lipoprotein (HDL) cholesterol ratioOrdered By: Seema Marrero on 11-10-2024 Cholesterol.total/Choles terol in HDL [Mass ratio] 3.29 {ratio} [facility] Serum creatinine measurement (mass/volume)Ordered By: Seema Marrero on 11-10-2024 Creatinine [Mass/Vol] 4.77 mg/dL High 0.70-1.20 [facility] Serum globulin measurementOr dered By: Seema Marrero on 11-10-2024 Globulin (S) [Mass/Vol] 2.4 g/dL 2.2-4.2 [facility] Serum glucose measurement (m ass/volume)Ordered By: Seema Marrero on 11-10-2024 Glucose [Mass/Vol] 143 mg/dL High 70-99 [facility] Serum or plasma alanine oleary otransferase (ALT) measurementOrdered By: Seema Marrero on 11-10-2024 ALT [Catalytic activity/Vol] 15 U/L <35 [facility] Serum or plasma albumin krishan urement (mass/volume)Ordered By: Seema Marrero on 11-10-2024 Albumin [Mass/Vol] 3.8 g/dL 3.5-5.0 [facility] Serum or plasma albumin/glob ulin mass ratioOrdered By: Seema Marrero on 11-10-2024 Albumin/Globulin [Mass ratio] 1.6 {ratio} 0.9-2.4 [facility] Serum or plasma alkaline zbigniew sphatase measurementOrdered By: Seema Marrero on 11-10-2024 ALP [Catalytic activity/Vol] 113 U/L High 35-104 [facility] Serum or plasma calcium krishan urement (mass/volume)Ordered By: Seema Marrero on 11-10-2024 Calcium [Mass/Vol] 9.0 mg/dL 7.6-11.0 [facility] Serum or plasma cholesterol in HDL measurement (mass/volume)Ordered By: Seema Marrero on 11-10-2024 Cholesterol in HDL [Mass/Vol] 55 mg/dL >40 [facility] Comment on above: National Cholesterol Education Program (NCEP) guidelines:<40 mg/dL: Low HDL-cholesterol (major risk factor for CHD)>= 60 mg/dL: High HDL-cholesterol (negative risk factor for CHD)HDL-cholesterol is affected by a number of factors, e.g. smoking, exercise, hormones, sex and age. Serum or plasma cholesterol measurement (mass/volume)Ordered By: Seema Marrero on 11-10-2024 Cholesterol [Mass/Vol] 181 mg/dL <201 [facility] Comment on above: Cholesterol level, D esirable <200 mg/dLBorderline high cholesterol 200-239 mg/dLHigh cholesterol >=240 mg/dLRecommendations of the NCEP Adult Treatment Panel for the following risk-cutoff thresholds for the [place] population. Serum or plasma urea nitroge n measurement (mass/volume)Ordered By: Seema Marrero on 11-10-2024 Urea nitrogen [Mass/Vol] 35 mg/dL High 4-19 [facility] Sodium levelOrdered By: Deandra Marrero on 11-10-2024 Sodium [Moles/Vol] 134 mmol/L 133-145 [facility] T4 Free Directon 11-10-2024 T4 FREE DIRECT 1.50 ng/dL High 0.76-1.46 [facility] Comment on above: Order Comment: Order Date: 11/01/24Order Info: [id number] - CMPOrder Info: [id number] - LIPIDOrder Info: 3051-0 - F6SEhwus Info: 3016-3 - TSHOrder Info: 3024-7 - T4F Performed By: #### L 500.4050, L100.0100, L501.77293, L506.0400, L501.9520, L500.4100 ####[facility] [address] [place], [place], [address] T4 freeOrdered By: Seema fernandes on 11-10-2024 Free T4 [Mass/Vol] 1.50 ng/dL High 0.76-1.46 [facility] TSH DL <= 0.005 mIU/L QnOrde red By: Seema Marrero on 11-10-2024 TSH Qn 1.260 uIU/mL 0.300-4.200 [facility] Thyroid Stim Hormone (TSH)on 11-10-2024 TSH 1.260 uIU/mL Normal 0.300-4.200 [facility] Comment on above: Order Comment: Order Date: 11/01/24 Order Info: [id number] - CMP Order Info: [id number] - LIPID Order Info: 3051-0 - T3F Order Info: 3016-3 - TSH Order Info: 3024-7 - T4F Performed By: #### L 500.4050, L100.0100, L501.61181, L506.0400, L501.9520, L500.4100 #### [facility] [address] [place], [place], [id number] Total proteinOrdered By: Gail Marrero on 11-10-2024 Protein [Mass/Vol] 6.2 g/dL 5.9-8.4 [facility] Triglycerides measurementOrd ered By: Seema Marrero on 11-10-2024 Triglyceride [Mass/Vol] 98 mg/dL <199 [facility] Comment on above: The drugs N-Acetylcy steine and Metamizole may falsely depress this assay. Normal range: <150 mg/dLBorderline High: 150-199 mg/dLHigh: 200-499 mg/dLVery High: >500 mg/dL Vitamin D,25 Hydroxyon 11-10 Vitamin D 25-OH 31.0 ng/mL Normal 30-100 [facility] Comment on above: Order Comment: Order Date: 11/01/24 Order Info: 0786-1 - CMP Order Info: [id number] - LIPID Order Info: 3051-0 - T3F Order Info: 3016-3 - TSH Order Info: 3024-7 - T4F Result Comment: Dorina min D Status Deficiency: <20 ng/mL (50nmol/L) Insufficiency: 20-30 ng/mL (50-75 nmol/L) Sufficiency: 30-100 ng/mL (75-250 nmol/L) Toxicity: >100 ng/mL (>250 nmol/L) Performed By: #### L 506.1001 #### [facility] [address] [place], [address] White blood cell (WBC) count Ordered By: Seema Marrero on 11-10-2024 WBC (Bld) [#/Vol] 6.3 10*3/uL 4.4-11.0 [facility] MR/BMS.BVSon 05-18-2024 MR/BMS.BVS [facility] Vascular Surgery [address] [place] [address] OFFICE VISIT Date of Service: 05/18/24 MR#: [id number] Acct: [id number] Name: DAKOTAH UGALDE ANN Rep #: [id number] : 1965 Provider: JONO Ozuna Age/Sex: 58/F Location: [facility] Status: Signed Intake Vital Signs 01/28/24 17:40 [...] or ibuprofen daily HPI HPI HPI: DAKOTAH POORNIMAGOVIND, is a 58 F who presents to the office today for follow-up s/p recent fistulogram which was performed secondary to increased pain in the area of the venous acc (more content not included)... Normal [facility] Operative Reporton 4 Operative Report [facility] Medical Records Department [address] [facility] [place] [address] Operative Report 05/04/24 1238 MR#: [id number] Acct: [id number] Name: DAKOTAH UGALDE ANN Rep #: [id number] : 1965 58 From: Gus York MD PCP: ALMA Parry Status[facility] Location: [facility] Operative Report (Standard) Operative Information Surgery/Procedure [...] patient procedure site patient taken to the Liquor Establishment Manager where she was positioned prepped and draped in usual sterile fashion. Timeouts performed conscious sedation administered Versed and fentanyl. Skin overlying the fistula was anesthetized with 1% lidocaine the vessel accessed with a micropuncture needle and wire under ultrasound guidance. This then exchanged for a 6 Samoan fistula sheath through which digital traction angiogram [...] wire was then advanced through the 6 Samoan sheath and navigated into the brachial vein [...] discharged to home. 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 Gus York MD Signed Normal [facility] MR/BMS.BVSon 04-29-2024 MR/BMS.BVS [facility] Vascular Surgery [address] [place] [address] OFFICE VISIT Date of Service: 04/29/24 MR#: [id number] Acct: [id number] Name: DAKOTAH UGALDE Rep #: [id number] : 1965 Provider: JONO Ozuna Age/Sex: 58/F Location: [facility] Status: Signed Intake Vital Signs 01/28/24 17:40 [...] QDAY #30 tabs 04/19/24 04/29/24 Rx (Levoxyl) [facility] Medical History Dialysis patient Tachycardia Chronic combined [...] to the office today as referred from [facility] dialysis center secondary to excess pain and a whistle auscultated approximately per referral paperwork. She has a left forearm radio (more content not included)... Normal [facility] Absolute lymphocyte countOrd ered By: Nithya Caceres on 03-03-2023 Lymphocytes Auto (Unsp spec) [#/Vol] 1.95 10*3/uL 0.83-4.51 [facility] Basophil percentageOrdered B y: Nithya Caceres on 03-03-2023 Basophils/100 WBC (Bld) 0.5 % 0-1 [facility] Bilirubin [Mass/Vol] 0.30 mg/dL 0.20-1.00 [facility] Comment on above: For patients on eltr ombopag therapy, use of [address] TBIL is not recommended. Chloride [Moles/Vol] 99 mmol/L 98-107 [facility] Cholesterol [Mass/Vol] 218 mg/dL <200 [facility] Comment on above: <200 mg/dL Desirable 200-240 mg/dL Borderline >240 mg/dL High Risk Eosinophils/100 WBC (Bld) 2.6 % 0-5 [facility] Glucose [Mass/Vol] 93 mg/dL 74-106 [facility] Neutrophils (Bld) [#/Vol] 5.6 10*3/uL 2.0-7.7 [facility] Neutrophils/100 WBC (Bld) 68.0 % 47-70 [facility] Potassium [Moles/Vol] 3.8 mmol/L 3.5-5.1 [facility] Protein [Mass/Vol] 8.4 g/dL 6.4-8.2 [facility] Sodium [Moles/Vol] 136 mmol/L 136-145 [facility] Triglyceride [Mass/Vol] 145 mg/dL <199 [facility] Comment on above: The drugs N-Acetylcy steine and Metamizole may falsely depress this assay.Serum Triglycerides Reference Interval Normal <150 mg/dL Borderline high 150 - 199 mg/dL High 200 - 499 mg/dL Very High > or = 500 mg/dL WBC (Bld) [#/Vol] 8.2 10*3/uL 4.4-11.0 [facility] Blood erythrocytes count (nu mber/volume)Ordered By: Nithya Caceres on 03-03-2023 RBC (Bld) [#/Vol] 3.89 10*6/uL 4.2-5.4 [facility] Blood hemoglobin measurement (mass/volume)Ordered By: Nithya Caceres on 03-03-2023 Hemoglobin (Bld) [Mass/Vol] 12.2 g/dL 12.0-15.0 [facility] Blood lymphocytes/100 leukoc ytesOrdered By: Nithya Caceres on 03-03-2023 Lymphocytes/100 WBC (Bld) 23.8 % 19-41 [facility] Blood monocytes/100 leukocyt esOrdered By: Nithya Caceres on 03-03-2023 Monocytes/100 WBC (Bld) 4.9 % 0-10 [facility] Blood platelet mean volumeOr dered By: Nithya Caceres on 03-03-2023 Platelet mean volume (Bld) [Entitic vol] 10.1 fL 6.2-12.0 [facility] Determination of erythrocyte mean corpuscular volume (MCV)Ordered By: Nithya Caceres on 03-03-2023 MCV (RBC) [Entitic vol] 94.9 fL 81-99 [facility] Hematocrit Auto (Bld) [Volum e fraction]Ordered By: Nithya Caceres on 03-03-2023 Hematocrit (Bld) [Volume fraction] 36.9 % 37-47 [facility] Laboratory - Chemistry and C hemistry - challengeOrdered By: Nithya Caceres on 03-03-2023 ALP [Catalytic activity/Vol] 145 U/L 45-117 [facility] ALT [Catalytic activity/Vol] 32 U/L 13-56 [facility] CO2 [Moles/Vol] 29.0 mmol/L 21.0-32.0 [facility] Globulin (S) [Mass/Vol] 5.0 g/dL 2.2-4.2 [facility] Urea nitrogen/Creatinine [Mass ratio] 8.7 mg/mg 10-20 [facility] - Hematology and Cell countsOrdered By: Nithya Caceres on 03-03-2023 Erythrocyte distribution width (RBC) [Entitic vol] 47.6 fL 35.1-43.9 [facility] Erythrocyte distribution width (RBC) [Ratio] 13.8 % 11.6-14.6 [facility] Immature granulocytes/100 WBC (Bld) 0.200 % 0.0-0.9 [facility] Comment on above: IG% - Immature Granu locytes (promyelocytes, myelocytes and metamyelocytes) > 1% indicates that a LEFT SHIFT is Present. MCH (RBC) [Entitic mass] 31.4 pg 27.0-32.0 [facility] Nucleated RBC/100 WBC (Bld) [Ratio] 0 % 0-5 [facility] MCHC Auto (RBC) [Mass/Vol]Or dered By: Nithya Caceres on 03-03-2023 MCHC (RBC) [Mass/Vol] 33.1 g/dL 32-36 [facility] No Panel InformationOrdered By: Nithya Caceres on 03-03-2023 Estimated GFR (MDRD) Amer 14 mL/min >60 [facility] Comment on above: GFR Calc Estimated GFR (MDRD) Non-Af Amer 12 mL/min >60 [facility] Comment on above: Non- GFR Calc Thyroid Stimulating Hormone (TSH) 1.09 uIU/mL 0.358-3.74 [facility] Platelets bldOrdered By: Rolan Caceres on 03-03-2023 Platelets (Bld) [#/Vol] 199 10*3/uL 150-450 [facility] Serum or plasma albumin krishan urement (mass/volume)Ordered By: Nithya Caceres on 03-03-2023 Albumin [Mass/Vol] 3.4 g/dL 3.2-5.0 [facility] Serum or plasma albumin/glob ulin mass ratioOrdered By: Nithya Caceres on 03-03-2023 Albumin/Globulin [Mass ratio] 0.7 {ratio} 0.9-2.4 [facility] Serum or plasma calcium krishan urement (mass/volume)Ordered By: Nithya Caceres on 03-03-2023 Calcium [Mass/Vol] 9.3 mg/dL 8.5-10.1 [facility] Serum or plasma cholesterol in HDL measurement (mass/volume)Ordered By: Nithya Caceres on 03-03-2023 Cholesterol in HDL [Mass/Vol] 58 mg/dL >40 [facility] Comment on above: The drugs N-Acetylcy steine and Metamizole may falsely depress this assay. Reference Range HDL <40 mg/dL Low HDL Cholesterol HDL >or= 60 mg/dL High HDL Cholesterol Serum or plasma cholesterol in VLDL measurement (mass/volume)Ordered By: Nithya Caceres on 03-03-2023 Cholesterol in VLDL [Mass/Vol] 29 mg/dL 5-40 [facility] Serum or plasma creatinine m easurement (mass/volume)Ordered By: Nithya Caceres on 03-03-2023 Creatinine [Mass/Vol] 4.23 mg/dL 0.55-1.02 [facility] Comment on above: The validity of the calculated GFR & GFRAA in patients over 70 years has not been determined. Clinical correlation is essential. Serum or plasma low density lipoprotein (LDL) cholesterol measurement (mass/volume)Ordered By: Nithya Caceres on 03-03-2023 Cholesterol in LDL [Mass/Vol] 131 mg/dL 0-130 [facility] Serum or plasma urea nitroge n measurement (mass/volume)Ordered By: Nithya Caceres on 03-03-2023 Urea nitrogen [Mass/Vol] 37 mg/dL 7-18 [facility] Thin prep Papanicolaou smear with manual screeningOrdered By: Nithya Caceres on 03-03-2023 Thin prep Papanicolaou smear with manual screening 22 U/L 15-37 [facility] Thin prep Papanicolaou smear with manual screening 8 5-15 [facility] Whole blood hemoglobin A1c/t otal hemoglobin ratio (mass fraction)Ordered By: Nithya Caceres on 03-03-2023 HbA1c (Bld) [Mass fraction] 6.4 % 3.8-5.6 [facility] Comment on above: Normal < 5.7 % Predi abetic 5.7 - 6.4 % Diabetic >or= 6.5 % Please note range changes. Blood hemoglobin measurement (mass/volume)Ordered By: Kanwal Gil on 01-13-2023 Hemoglobin (Bld) [Mass/Vol] 12.6 g/dL 12.0-15.0 [facility] No Panel InformationOrdered By: Nithya Caceres on 08-21-2022 Thyroid Stimulating Hormone (TSH) 1.20 uIU/mL 0.358-3.74 [facility] Absolute lymphocyte counton 03-04-2022 Lymphocytes Auto (Unsp spec) [#/Vol] 1.59 10*3/uL 0.83-4.51 [facility] Work Phone: Basophil percentageon 2021 Basophils/100 WBC (Bld) 0.5 % 0-1 [facility] Work Phone: Bilirubin [Mass/Vol] 0.40 mg/dL 0.20-1.00 [facility] Work Phone: Comment on above: For patients on eltr ombopag therapy, use of [address] TBIL is not recommended. Chloride [Moles/Vol] 103 mmol/L 98-107 [facility] Work Phone: Cholesterol [Mass/Vol] 153 mg/dL <200 [facility] Work Phone: Comment on above: <200 mg/dL Desirable 200-240 mg/dL Borderline >240 mg/dL High Risk Eosinophils/100 WBC (Bld) 3.5 % 0-5 [facility] Work Phone: [phone] Glucose [Mass/Vol] 56 mg/dL 74-106 [facility] Work Phone: [phone] Neutrophils (Bld) [#/Vol] 7.4 10*3/uL 2.0-7.7 [facility] Work Phone: [phone] Neutrophils/100 WBC (Bld) 73.6 % 47-70 [facility] Work Phone: [phone] Potassium [Moles/Vol] 3.2 mmol/L 3.5-5.1 [facility] Work Phone: [phone] Protein [Mass/Vol] 8.3 g/dL 6.4-8.2 [facility] Work Phone: [phone] Sodium [Moles/Vol] 139 mmol/L 136-145 [facility] Work Phone: [phone] Triglyceride [Mass/Vol] 105 mg/dL <199 [facility] Work Phone: [phone] Comment on above: The drugs N-Acetylcy steine and Metamizole may falsely depress this assay.Serum Triglycerides Reference Interval Normal <150 mg/dL Borderline high 150 - 199 mg/dL High 200 - 499 mg/dL Very High > or = 500 mg/dL [facility] (Bld) [#/Vol] 10.1 10*3/uL 4.4-11.0 [facility] Work Phone: [phone] Blood erythrocytes count (nu mber/volume)on 03-04-2022 RBC (Bld) [#/Vol] 3.96 10*6/uL 4.2-5.4 [facility] Work Phone: [phone] Blood hemoglobin measurement (mass/volume)on 03-04-2022 Hemoglobin (Bld) [Mass/Vol] 10.7 g/dL 12.0-15.0 [facility] Work Phone: [phone] Blood lymphocytes/100 leukoc yteson 03-04-2022 Lymphocytes/100 WBC (Bld) 15.8 % 19-41 [facility] Work Phone: Blood monocytes/100 leukocyt eson 03-04-2022 Monocytes/100 WBC (Bld) 6.2 % 0-10 [facility] Work Phone: Blood platelet mean volumeon 03-04-2022 Platelet mean volume (Bld) [Entitic vol] 9.6 fL 6.2-12.0 [facility] Work Phone: Determination of erythrocyte mean corpuscular volume (MCV)on 03-04-2022 MCV (RBC) [Entitic vol] 85.9 fL 81-99 [facility] Work Phone: Hematocrit Auto (Bld) [Volum e fraction]on 03-04-2022 Hematocrit (Bld) [Volume fraction] 34.0 % 37-47 [facility] Work Phone: Laboratory - Chemistry and C hemistry - challengeon 03-04-2022 ALP [Catalytic activity/Vol] 129 U/L 45-117 [facility] Work Phone: ALT [Catalytic activity/Vol] 29 U/L 13-56 [facility] Work Phone: CO2 [Moles/Vol] 27.0 mmol/L 21.0-32.0 [facility] Work Phone: Globulin (S) [Mass/Vol] 5.1 g/dL 2.2-4.2 [facility] Work Phone: Urea nitrogen/Creatinine [Mass ratio] 10.7 mg/mg 10-20 [facility] Work Phone: Laboratory - Hematology and Cell countson 03-04-2022 Erythrocyte distribution width (RBC) [Entitic vol] 47.7 fL 35.1-43.9 [facility] Work Phone: Erythrocyte distribution width (RBC) [Ratio] 15.3 % 11.6-14.6 [facility] Work Phone: Immature granulocytes/100 WBC (Bld) 0.400 % 0.0-0.9 [facility] Work Phone: [phone] Comment on above: IG% - Immature Granu locytes (promyelocytes, myelocytes and metamyelocytes) > 1% indicates that a LEFT SHIFT is Present. MCH (RBC) [Entitic mass] 27.0 pg 27.0-32.0 [facility] Work Phone: [phone] Nucleated RBC/100 WBC (Bld) [Ratio] 0 % 0-5 [facility] Work Phone: [phone] MCHC Auto (RBC) [Mass/Vol]on 03-04-2022 MCHC (RBC) [Mass/Vol] 31.5 g/dL 32-36 [facility] Work Phone: [phone] No Panel Informationon 03-04 Estimated GFR (MDRD) Amer 21 mL/min >60 [facility] Work Phone: [phone] Comment on above: GFR Calc Estimated GFR (MDRD) Non-Af Amer 17 mL/min >60 [facility] Work Phone: [phone] Comment on above: Non- GFR Calc Thyroid Stimulating Hormone (TSH) 1.62 uIU/mL 0.358-3.74 [facility] Work Phone: [phone] Platelets bldon 03-04-2022 Platelets (Bld) [#/Vol] 199 10*3/uL 150-450 [facility] Work Phone: [phone] Serum or plasma albumin krishan urement (mass/volume)on 03-04-2022 Albumin [Mass/Vol] 3.2 g/dL 3.2-5.0 [facility] Work Phone: [phone] Serum or plasma albumin/glob ulin mass ratioon 03-04-2022 Albumin/Globulin [Mass ratio] 0.6 {ratio} 0.9-2.4 [facility] Work Phone: [phone] Serum or plasma calcium krishan urement (mass/volume)on 03-04-2022 Calcium [Mass/Vol] 8.9 mg/dL 8.5-10.1 [facility] Work Phone: Serum or plasma cholesterol in HDL measurement (mass/volume)on 03-04-2022 Cholesterol in HDL [Mass/Vol] 41 mg/dL >40 [facility] Work Phone: Comment on above: The drugs N-Acetylcy steine and Metamizole may falsely depress this assay. Reference Range HDL <40 mg/dL Low HDL Cholesterol HDL >or= 60 mg/dL High HDL Cholesterol Serum or plasma cholesterol in VLDL measurement (mass/volume)on 03-04-2022 Cholesterol in VLDL [Mass/Vol] 21 mg/dL 5-40 [facility] Work Phone: Serum or plasma creatinine m easurement (mass/volume)on 03-04-2022 Creatinine [Mass/Vol] 2.98 mg/dL 0.55-1.02 [facility] Work Phone: Comment on above: The validity of the calculated GFR & GFRAA in patients over 70 years has not been determined. Clinical correlation is essential. Serum or plasma low density lipoprotein (LDL) cholesterol measurement (mass/volume)on 03-04-2022 Cholesterol in LDL [Mass/Vol] 91 mg/dL 0-130 [facility] Work Phone: Serum or plasma urea nitroge n measurement (mass/volume)on 03-04-2022 Urea nitrogen [Mass/Vol] 32 mg/dL 7-18 [facility] Work Phone: [phone] Thin prep Papanicolaou smear with manual screeningon 03-04-2022 Thin prep Papanicolaou smear with manual screening 26 U/L 15-37 [facility] Work Phone: [phone] Thin prep Papanicolaou smear with manual screening 9 5-15 [facility] Work Phone: [phone] Whole blood hemoglobin A1c/t otal hemoglobin ratio (mass fraction)on 03-04-2022 HbA1c (Bld) [Mass fraction] 5.7 % 3.8-5.6 [facility] Work Phone: Comment on above: Normal < 5.7 % Predi abetic 5.7 - 6.4 % Diabetic >or= 6.5 % Please note range changes. No Panel Informationon 02-18 Hepatitis B Surface Antigen Non-Reactive Nonreactive [facility] Work Phone: 24 hour urine protein measur ement (mass/time)on 02-13-2022 Protein (24H U) [Mass/Time] 1482.5 mg/24HR 0-151 [facility] Work Phone: 24 hour urine protein measur ement (mass/volume)on 02-13-2022 Protein (24H U) [Mass/Vol] 59.9 mg/dL 0.0-11.8 [facility] Work Phone: 24 hour urine specimen volum e measurementon 02-13-2022 Specimen volume (24H U) 2.475 [address] [facility] Work Phone: Basophil percentageon 2021 Basophil percentage 4.8 mg/dL 2.5-4.9 [facility] Work Phone: Chloride [Moles/Vol] 108 mmol/L 98-107 [facility] Work Phone: Glucose [Mass/Vol] 101 mg/dL 74-106 [facility] Work Phone: Comment on above: Fasting Glucose resu lt from 100 to 125 mg/dL suggests IMPAIRED HOMEOSTASIS per A.D.A. criteria. Potassium [Moles/Vol] 3.5 mmol/L 3.5-5.1 [facility] Work Phone: Sodium [Moles/Vol] 140 mmol/L 136-145 [facility] Work Phone: WBC (Bld) [#/Vol] 8.3 10*3/uL 4.4-11.0 [facility] Work Phone: Blood erythrocytes count (nu mber/volume)on 02-13-2022 RBC (Bld) [#/Vol] 3.99 10*6/uL 4.2-5.4 [facility] Work Phone: Blood hemoglobin measurement (mass/volume)on 02-13-2022 Hemoglobin (Bld) [Mass/Vol] 11.1 g/dL 12.0-15.0 [facility] Work Phone: [phone] Blood platelet mean volumeon 02-13-2022 Platelet mean volume (Bld) [Entitic vol] 9.7 fL 6.2-12.0 [facility] Work Phone: [phone] Creatinine clearanceon 02-13 Creatinine renal clearance Unsp time (U+S/P) [Vol/Time] 15 ml/min 100-200 [facility] Work Phone: [phone] Determination of erythrocyte mean corpuscular volume (MCV)on 02-13-2022 MCV (RBC) [Entitic vol] 87.0 fL 81-99 [facility] Work Phone: [phone] Hematocrit Auto (Bld) [Volum e fraction]on 02-13-2022 Hematocrit (Bld) [Volume fraction] 34.7 % 37-47 [facility] Work Phone: [phone] Iron measurement (mass/mass) on 02-13-2022 Iron (Unsp spec) [Mass/Mass] 36 ug/dL 50-170 [facility] Work Phone: Laboratory - Chemistry and C hemistry - challengeon 02-13-2022 CO2 [Moles/Vol] 24.0 mmol/L 21.0-32.0 [facility] Work Phone: [phone] Urea nitrogen/Creatinine [Mass ratio] 13.6 mg/mg 10-20 [facility] Work Phone: [phone] Laboratory - Hematology and Cell countson 02-13-2022 Erythrocyte distribution width (RBC) [Entitic vol] 49.1 fL 35.1-43.9 [facility] Work Phone: [phone] Erythrocyte distribution width (RBC) [Ratio] 15.5 % 11.6-14.6 [facility] Work Phone: [phone] MCH (RBC) [Entitic mass] 27.8 pg 27.0-32.0 [facility] Work Phone: [phone] Laboratory - Specimen inform ationon 02-13-2022 Collection duration (U) 24.0 HOURS 24.0-24.0 [facility] Work Phone: MCHC Auto (RBC) [Mass/Vol]on 02-13-2022 MCHC (RBC) [Mass/Vol] 32.0 g/dL 32-36 [facility] Work Phone: No Panel Informationon 02-13 Estimated GFR (MDRD) Amer 14 mL/min >60 [facility] Work Phone: Comment on above: GFR Calc Estimated GFR (MDRD) Non-Af Amer 11 mL/min >60 [facility] Work Phone: Comment on above: Non- GFR Calc Parathyroid Hormone (Intact) 29.7 pg/mL 18.4-80.1 [facility] Work Phone: Total Iron Binding Capacity 297 ug/dL 250-450 [facility] Work Phone: Platelets bldon 02-13-2022 Platelets (Bld) [#/Vol] 229 10*3/uL 150-450 [facility] Work Phone: Serum or plasma albumin krishan urement (mass/volume)on 02-13-2022 Albumin [Mass/Vol] 3.3 g/dL 3.2-5.0 [facility] Work Phone: Serum or plasma calcium krishan urement (mass/volume)on 02-13-2022 Calcium [Mass/Vol] 11.1 mg/dL 8.5-10.1 [facility] Work Phone: Serum or plasma creatinine m easurement (mass/volume)on 02-13-2022 Creatinine [Mass/Vol] 4.35 mg/dL 0.55-1.02 [facility] Work Phone: Comment on above: The validity of the calculated GFR & GFRAA in patients over 70 years has not been determined. Clinical correlation is essential. Serum or plasma ferritin roe surement (mass/volume)on 02-13-2022 Ferritin [Mass/Vol] 66 ng/mL 8-252 [facility] Work Phone: [phone] Serum or plasma urea nitroge n measurement (mass/volume)on 02-13-2022 Urea nitrogen [Mass/Vol] 59 mg/dL 7-18 [facility] Work Phone: [phone] Urine creatinine measurement (mass/volume)on 02-13-2022 Creatinine (U) [Mass/Vol] 38.2 mg/dL NO RANGE EST. [facility] Work Phone: Basophil percentageon 2021 Basophil percentage 4.3 mg/dL 2.5-4.9 [facility] Work Phone: [phone] Chloride [Moles/Vol] 110 mmol/L 98-107 [facility] Work Phone: [phone] Glucose [Mass/Vol] 99 mg/dL 74-106 [facility] Work Phone: [phone] Potassium [Moles/Vol] 3.4 mmol/L 3.5-5.1 [facility] Work Phone: [phone] Sodium [Moles/Vol] 139 mmol/L 136-145 [facility] Work Phone: [phone] WBC (Bld) [#/Vol] 9.3 10*3/uL 4.4-11.0 [facility] Work Phone: Blood erythrocytes count (nu mber/volume)on 12-30-2021 RBC (Bld) [#/Vol] 3.80 10*6/uL 4.2-5.4 [facility] Work Phone: [phone] Blood hemoglobin measurement (mass/volume)on 12-30-2021 Hemoglobin (Bld) [Mass/Vol] 10.5 g/dL 12.0-15.0 [facility] Work Phone: [phone] Blood platelet mean volumeon 12-30-2021 Platelet mean volume (Bld) [Entitic vol] 9.4 fL 6.2-12.0 [facility] Work Phone: [phone] Determination of erythrocyte mean corpuscular volume (MCV)on 12-30-2021 MCV (RBC) [Entitic vol] 88.4 fL 81-99 [facility] Work Phone: [phone] Hematocrit Auto (Bld) [Volum e fraction]on 12-30-2021 Hematocrit (Bld) [Volume fraction] 33.6 % 37-47 [facility] Work Phone: [phone] Laboratory - Chemistry and C hemistry - challengeon 12-30-2021 CO2 [Moles/Vol] 21.0 mmol/L 21.0-32.0 [facility] Work Phone: Urea nitrogen/Creatinine [Mass ratio] 12.9 mg/mg 10-20 [facility] Work Phone: [phone] Laboratory - Hematology and Cell countson 12-30-2021 Erythrocyte distribution width (RBC) [Entitic vol] 48.6 fL 35.1-43.9 [facility] Work Phone: [phone] Erythrocyte distribution width (RBC) [Ratio] 15.2 % 11.6-14.6 [facility] Work Phone: [phone] MCH (RBC) [Entitic mass] 27.6 pg 27.0-32.0 [facility] Work Phone: [phone] MCHC Auto (RBC) [Mass/Vol]on 12-30-2021 MCHC (RBC) [Mass/Vol] 31.3 g/dL 32-36 [facility] Work Phone: No Panel Informationon 12-30 Estimated GFR (MDRD) Amer 13 mL/min >60 [facility] Work Phone: Comment on above: GFR Calc Estimated GFR (MDRD) Non-Af Amer 11 mL/min >60 [facility] Work Phone: [phone] Comment on above: Non- GFR Calc Parathyroid Hormone (Intact) 243.2 pg/mL 18.4-80.1 [facility] Work Phone: Platelets bldon 12-30-2021 Platelets (Bld) [#/Vol] 236 10*3/uL 150-450 [facility] Work Phone: Serum or plasma albumin krishan urement (mass/volume)on 12-30-2021 Albumin [Mass/Vol] 3.5 g/dL 3.2-5.0 [facility] Work [facility]: [phone] Serum or plasma calcium krishan urement (mass/volume)on 12-30-2021 Calcium [Mass/Vol] 9.2 mg/dL 8.5-10.1 [facility] Work Phone: [phone] Serum or plasma creatinine m easurement (mass/volume)on 12-30-2021 Creatinine [Mass/Vol] 4.43 mg/dL 0.55-1.02 [place] [facility] Work Phone: Comment on above: The validity of the calculated GFR & GFRAA in patients over 70 years has not been determined. Clinical correlation is essential. Serum or plasma urea nitroge n measurement (mass/volume)on 12-30-2021 Urea nitrogen [Mass/Vol] 57 mg/dL 7-18 [facility] Work Phone: Urine creatinine measurement (mass/volume)on 2021 Creatinine (U) [Mass/Vol] 39.20 mg/dL NO RANGE EST. [facility] Work Phone: Urine protein measurement (m ass/volume)on 2021 Protein (U) [Mass/Vol] 64.1 mg/dL 0.0-11.8 [facility] Work Phone: Urine protein/creatinine mas s ratioon 2021 Protein/Creatinine (U) [Mass ratio] 1635 mg/g CRE 0-200 [facility] Work Phone: Basophil percentageon 2021 Basophil percentage 4.7 mg/dL 2.5-4.9 [place] [facility] Work Phone: Chloride [Moles/Vol] 108 mmol/L 98-[address] [facility] Work Phone: Glucose [Mass/Vol] 62 mg/dL 74-106 [facility] Work Phone: Potassium [Moles/Vol] 3.2 mmol/L 3.5-5.1 [facility]: [phone] Sodium [Moles/Vol] 139 mmol/L 136-145 [facility] Work Phone: [phone] WBC (Bld) [#/Vol] 9.2 10*3/uL 4.4-11.0 [facility] Work Phone: [phone] Blood erythrocytes count (nu mber/volume)on 10-22-2021 RBC (Bld) [#/Vol] 3.77 10*6/uL 4.2-5.4 [facility] Work Phone: Blood hemoglobin measurement (mass/volume)on 10-22-2021 Hemoglobin (Bld) [Mass/Vol] 10.6 g/dL 12.0-15.0 [facility] Work Phone: [phone] Blood platelet mean volumeon 10-22-2021 Platelet mean volume (Bld) [Entitic vol] 10.0 fL 6.2-12.0 [facility] Work Phone: Determination of erythrocyte mean corpuscular volume (MCV)on 10-22-2021 MCV (RBC) [Entitic vol] 87.8 fL 81-99 [facility] Work Phone: [phone] Hematocrit Auto (Bld) [Volum e fraction]on 10-22-2021 Hematocrit (Bld) [Volume fraction] 33.1 % 37-47 [facility] Work Phone: [phone] Iron measurement (mass/mass) on 10-22-2021 Iron (Unsp spec) [Mass/Mass] 37 ug/dL 50-170 [facility] Work Phone: Laboratory - Chemistry and C hemistry - challengeon 10-22-2021 CO2 [Moles/Vol] 22.0 mmol/L 21.0-32.0 [facility] Work Phone: Urea nitrogen/Creatinine [Mass ratio] 16.6 mg/mg 10-20 [facility] Work Phone: [phone] Laboratory - Hematology and Cell countson 10-22-2021 Erythrocyte distribution width (RBC) [Entitic vol] 47.3 fL 35.1-43.9 [facility] Work Phone: Erythrocyte distribution width (RBC) [Ratio] 14.6 % 11.6-14.6 [facility] Work Phone: MCH (RBC) [Entitic mass] 28.1 pg 27.0-32.0 [facility] Work Phone: MCHC Auto (RBC) [Mass/Vol]on 10-22-2021 MCHC (RBC) [Mass/Vol] 32.0 g/dL 32-36 [facility] Work Phone: No Panel Informationon 10-22 Estimated GFR (MDRD) Amer 18 mL/min >60 [facility] Work Phone: Comment on above: GFR Calc Estimated GFR (MDRD) Non-Af Amer 15 mL/min >60 [facility] Work Phone: [phone] Comment on above: Non- GFR Calc Parathyroid Hormone (Intact) 639.5 pg/mL 18.4-80.1 [facility] Work Phone: Total Iron Binding Capacity 290 ug/dL 250-450 [facility] Work Phone: Platelets bldon 10-22-2021 Platelets (Bld) [#/Vol] 278 10*3/uL 150-450 [facility] Work Phone: [phone] Serum or plasma albumin krishan urement (mass/volume)on 10-22-2021 Albumin [Mass/Vol] 3.2 g/dL 3.2-5.0 [facility] Work Phone: [phone] Serum or plasma calcium krishan urement (mass/volume)on 10-22-2021 Calcium [Mass/Vol] 8.7 mg/dL 8.5-10.1 [facility] Work Phone: [phone] Serum or plasma creatinine m easurement (mass/volume)on 10-22-2021 Creatinine [Mass/Vol] 3.37 mg/dL 0.55-1.02 [facility] Work Phone: Comment on above: The validity of the calculated GFR & GFRAA in patients over 70 years has not been determined. Clinical correlation is essential. Serum or plasma ferritin roe surement (mass/volume)on 10-22-2021 Ferritin [Mass/Vol] 81 ng/mL 8-252 [facility] Work Phone: [phone] Serum or plasma urea nitroge n measurement (mass/volume)on 10-22-2021 Urea nitrogen [Mass/Vol] 56 mg/dL 7-18 [facility] Work Phone: [phone] Basophil percentageon 2021 Basophil percentage 6.3 mg/dL 2.5-4.9 [facility] Work Phone: [phone] Chloride [Moles/Vol] 106 mmol/L 98-107 [facility] Work Phone: [phone] Glucose [Mass/Vol] 140 mg/dL 74-106 [facility] Work Phone: [phone] Comment on above: Fasting Glucose resu lt greater than or equal to 126 mg/dL suggests DIABETES MELLITUS per A.D.A. criteria. Potassium [Moles/Vol] 3.2 mmol/L 3.5-5.1 [facility] Work Phone: [phone] Sodium [Moles/Vol] 138 mmol/L 136-145 [facility] Work Phone: [phone] WBC (Bld) [#/Vol] 12.1 10*3/uL 4.4-11.0 [facility] Work Phone: [phone] Blood erythrocytes count (nu mber/volume)on 09-18-2021 RBC (Bld) [#/Vol] 4.04 10*6/uL 4.2-5.4 [facility] Work Phone: [phone] Blood hemoglobin measurement (mass/volume)on 09-18-2021 Hemoglobin (Bld) [Mass/Vol] 11.5 g/dL 12.0-15.0 [facility] Work Phone: [phone] Blood platelet mean volumeon 09-18-2021 Platelet mean volume (Bld) [Entitic vol] 10.3 fL 6.2-12.0 [facility] Work Phone: [phone] Determination of erythrocyte mean corpuscular volume (MCV)on 09-18-2021 MCV (RBC) [Entitic vol] 86.6 fL 81-99 [facility] Work Phone: [phone] Hematocrit Auto (Bld) [Volum e fraction]on 09-18-2021 Hematocrit (Bld) [Volume fraction] 35.0 % 37-47 [facility] Work Phone: [phone] Laboratory - Chemistry and C hemistry - challengeon 09-18-2021 CO2 [Moles/Vol] 25.0 mmol/L 21.0-32.0 [facility] Work Phone: [phone] Urea nitrogen/Creatinine [Mass ratio] 20.0 mg/mg 10-20 [facility] Work Phone: [phone] Laboratory - Hematology and Cell countson 09-18-2021 Erythrocyte distribution width (RBC) [Entitic vol] 45.3 fL 35.1-43.9 [facility] Work Phone: [phone] Erythrocyte distribution width (RBC) [Ratio] 14.2 % 11.6-14.6 [facility] Work Phone: [phone] MCH (RBC) [Entitic mass] 28.5 pg 27.0-32.0 [facility] Work Phone: [phone] MCHC Auto (RBC) [Mass/Vol]on 09-18-2021 MCHC (RBC) [Mass/Vol] 32.9 g/dL 32-36 [facility] Work [facility]: [phone] No Panel Informationon 09-18 Estimated GFR (MDRD) Amer 14 mL/min >60 [facility] Work Phone: [phone] Comment on above: GFR Calc Estimated GFR (MDRD) Non-Af Amer 12 mL/min >60 [facility] Work Phone: [phone] Comment on above: Non- GFR Calc Parathyroid Hormone (Intact) 36.1 pg/mL 18.4-80.1 [facility] Work Phone: Platelets bldon 09-18-2021 Platelets (Bld) [#/Vol] 237 10*3/uL 150-450 [facility] Work Phone: Serum or plasma albumin krishan urement (mass/volume)on 09-18-2021 Albumin [Mass/Vol] 3.2 g/dL 3.2-5.0 [facility] Work Phone: Serum or plasma calcium krishan urement (mass/volume)on 09-18-2021 Calcium [Mass/Vol] 10.6 mg/dL 8.5-10.1 [facility] Work Phone: Serum or plasma creatinine m easurement (mass/volume)on 09-18-2021 Creatinine [Mass/Vol] 4.16 mg/dL 0.55-1.02 [facility] Work Phone: Comment on above: The validity of the calculated GFR & GFRAA in patients over 70 years has not been determined. Clinical correlation is essential. Serum or plasma urea nitroge n measurement (mass/volume)on 09-18-2021 Urea nitrogen [Mass/Vol] 83 mg/dL 7-18 [facility] Work Phone: Basophil percentageon 2021 Basophil percentage 5.4 mg/dL 2.5-4.9 [facility] Work Phone: Chloride [Moles/Vol] 105 mmol/L 98-107 [facility] Work Phone: [phone] Glucose [Mass/Vol] 100 mg/dL 74-106 [facility] Work Phone: Comment on above: Fasting Glucose resu lt from 100 to 125 mg/dL suggests IMPAIRED HOMEOSTASIS per A.D.A. criteria. Potassium [Moles/Vol] 3.1 mmol/L 3.5-5.1 [facility] Work Phone: Sodium [Moles/Vol] 137 mmol/L 136-145 [facility] Work Phone: WBC (Bld) [#/Vol] 10.8 10*3/uL 4.4-11.0 [facility] Work Phone: Blood erythrocytes count (nu mber/volume)on 07-10-2021 RBC (Bld) [#/Vol] 3.93 10*6/uL 4.2-5.4 [facility] Work Phone: [phone] Blood hemoglobin measurement (mass/volume)on 07-10-2021 Hemoglobin (Bld) [Mass/Vol] 11.5 g/dL 12.0-15.0 [facility] Work Phone: [phone] Blood platelet mean volumeon 07-10-2021 Platelet mean volume (Bld) [Entitic vol] 9.7 fL 6.2-12.0 [facility] Work Phone: [phone] Determination of erythrocyte mean corpuscular volume (MCV)on 07-10-2021 MCV (RBC) [Entitic vol] 85.8 fL 81-99 [facility] Work Phone: [phone] Hematocrit Auto (Bld) [Volum e fraction]on 07-10-2021 Hematocrit (Bld) [Volume fraction] 33.7 % 37-47 [facility] Work Phone: [phone] Iron measurement (mass/mass) on 07-10-2021 Iron (Unsp spec) [Mass/Mass] 44 ug/dL 50-170 [facility] Work Phone: [phone] Laboratory - Chemistry and C hemistry - challengeon 07-10-2021 CO2 [Moles/Vol] 21.0 mmol/L 21.0-32.0 [facility] Work Phone: [phone] Urea nitrogen/Creatinine [Mass ratio] 17.9 mg/mg 10-20 [facility] Work Phone: [phone] Laboratory - Hematology and Cell countson 07-10-2021 Erythrocyte distribution width (RBC) [Entitic vol] 44.3 fL 35.1-43.9 [facility] Work Phone: [phone] Erythrocyte distribution width (RBC) [Ratio] 14.3 % 11.6-14.6 [facility] Work Phone: MCH (RBC) [Entitic mass] 29.3 pg 27.0-32.0 [facility] Work Phone: MCHC Auto (RBC) [Mass/Vol]on 07-10-2021 MCHC (RBC) [Mass/Vol] 34.1 g/dL 32-36 [facility] Work Phone: No Panel Informationon 07-10 Estimated GFR (MDRD) Amer 18 mL/min >60 [facility] Work Phone: Comment on above: GFR Calc Estimated GFR (MDRD) Non-Af Amer 15 mL/min >60 [facility] Work Phone: Comment on above: Non- GFR Calc Parathyroid Hormone (Intact) 333.3 pg/mL 18.4-80.1 [facility] Work Phone: Total Iron Binding Capacity 299 ug/dL 250-450 [facility] Work Phone: Vitamin D 25-Hydroxy 29.0 ng/mL [facility] Work Phone: Comment on above: Vitamin D 25(OH) Sta tus Range Deficiency <20 ng/mL (50nmol/L) Insufficiency 20 - 30 ng/mL (50 - 75 nmol/L) Sufficiency 30 - 100 ng/mL (75 - 250 nmol/L) Toxicity >100 ng/mL (>250 nmol/L) Platelets bldon 07-10-2021 Platelets (Bld) [#/Vol] 256 10*3/uL 150-450 [facility] Work Phone: Serum or plasma albumin krishan urement (mass/volume)on 07-10-2021 Albumin [Mass/Vol] 3.4 g/dL 3.2-5.0 [facility] Work Phone: [phone] Serum or plasma calcium krishan urement (mass/volume)on 07-10-2021 Calcium [Mass/Vol] 9.0 mg/dL 8.5-10.1 [facility] Work Phone: Serum or plasma creatinine m easurement (mass/volume)on 07-10-2021 Creatinine [Mass/Vol] 3.47 mg/dL 0.55-1.02 [facility] Work Phone: Comment on above: The validity of the calculated GFR & GFRAA in patients over 70 years has not been determined. Clinical correlation is essential. Serum or plasma ferritin roe surement (mass/volume)on 07-10-2021 Ferritin [Mass/Vol] 106 ng/mL 8 [facility] Work Phone: Serum or plasma urea nitroge n measurement (mass/volume)on 07-10-2021 Urea nitrogen [Mass/Vol] 62 mg/dL 7-18 [facility] Work Phone: CR Chest PA/LATon 06-04-2017 CR Chest PA/LAT Patient Name: DAKOTAH UGALDE Diagnostic Radiology Exam Date/Time 06/04/2017 08:56:18 EST Exam CR Chest PA/LAT Ordering Physician RAYMOND CACERES DORA L Accession Number [id number] CPT4 Codes 08014 () Reason For Exam SOB Report CHEST: [...] Transcribed Date and Time: 06/04/2017 10:47 Normal [facility] Vital Signs Date Time Vital Sign Value Performing Clinician Ivonnei debra 01-19-2025 10:37-0400 Body temperature 98 [degF] Seema Marrero MD Work Phone: [facility] 01-19-2025 10:37-0400 Body weight 138.34 kg Seema Marrero MD Work Phone: [facility] 01-19-2025 10:37-0400 Diastolic blood pressure 69 mm[Hg] Seema Marrero MD Work Phone: [facility] 01-19-2025 10:37-0400 Heart rate 108 /min Seema Marrero MD Work Phone: [facility] 01-19-2025 10:37-0400 Respiratory rate 18 /min Seema Marrero MD Work Phone: [facility] 01-19-2025 10:37-0400 SaO2% (BldA) [Mass fraction] 96 % Seema Marrero MD Work Phone: [facility] 01-19-2025 10:37-0400 Systolic blood pressure 104 mm[Hg] Seema Marrero MD Work Phone: [facility] 11-24-2024 09:41-0400 Body temperature 98.2 [degF] Seema Marrero MD Work Phone: [facility] 11-24-2024 09:41-0400 Body weight 140.61 kg Seema Marrero MD Work Phone: [facility] 11-24-2024 09:41-0400 Diastolic blood pressure 77 mm[Hg] Seema Marrero MD Work Phone: [facility] 11-24-2024 09:41-0400 Heart rate 109 /min Seema Marrero MD Work Phone: [facility] 11-24-2024 09:41-0400 Respiratory rate 16 /min Seema Marrero MD Work Phone: [facility] 11-24-2024 09:41-0400 SaO2% (BldA) [Mass fraction] 98 % Seema Marrero MD Work Phone: [facility] 11-24-2024 09:41-0400 Systolic blood pressure 120 mm[Hg] Seema Marrero MD Work Phone: [facility] 11-07-2024 11:24-0400 Body height 167.64 cm Seema Marrero MD Work Phone: [facility] 03-03-2023 18:38-0400 Body height 167.64 cm [facility] 03-03-2023 18:38-0400 Body mass index (BMI) [Ratio] 54.5 kg/m2 [facility] 03-03-2023 18:38-0400 Body temperature 97.7 [degF] [facility] 03-03-2023 18:38-0400 Body weight 153.31 kg [facility] 03-03-2023 18:38-0400 Diastolic blood pressure 80 mm[Hg] [facility] 03-03-2023 18:38-0400 Heart rate 110 /min [facility] 03-03-2023 18:38-0400 Respiratory rate 20 /min [facility] 03-03-2023 18:38-0400 SaO2% (BldA) [Mass fraction] 99 % [facility] 03-03-2023 18:38-0400 Systolic blood pressure 150 mm[Hg] [facility] 08-21-2022 16:41-0400 Body height 167.64 cm [facility] 03-04-2022 20:42-0400 Body height 167.64 cm GUZZLER BUILDERPadma Caceres [employer]DER Work Phone: [facility] Work Phone: 03-04-2022 20:42-0400 Body mass index (BMI) [Ratio] 54.8 kg/m2 [employer] BUILDERPadma Caceres [employer] BUILDER Work Phone: [facility] Work Phone: 03-04-2022 20:42-0400 Body temperature 97.5 [degF] ALMA Caceres [employer] BUILDER Work Phone: [facility] Work Phone: 03-04-2022 20:42-0400 Body weight 154.22 kg [employer] BUILDER-C Nithya Caceres [employer]ER BUILDER Work Phone: [facility] Work Phone: 03-04-2022 20:42-0400 Diastolic blood pressure 70 mm[Hg] [employer]C Nithya Caceres [employer]ER BUILDER Work Phone: [facility] Work Phone: 03-04-2022 20:42-0400 Heart rate 116 /min [employer] Nithya Caceres [employer]ER BUILDER Work Phone: [facility] Work Phone: 03-04-2022 20:42-0400 Respiratory rate 18 /min [employer] Nithya Caceres [employer]ER BUILDER Work Phone: [facility] Work Phone: 03-04-2022 20:42-0400 SaO2% (BldA) [Mass fraction] 97 % [employer] Nithya Caceres [employer]ER BUILDER Work Phone: [facility] Work Phone: 03-04-2022 20:42-0400 Systolic blood pressure 155 mm[Hg] [employer]C Nithya Caceres GU[employer]ER BUILDER Work Phone: [facility] Work Phone: 01-29-2022 14:59-0400 Body height 167.64 cm [employer]-C Nithya Caceres [employer]ER BUILDER Work Phone: [facility] Work Phone: 01-29-2022 14:59-0400 Body mass index (BMI) [Ratio] 53.8 kg/m2 [employer]C Nithay Caceres [employer]ER BUILDER Work Phone: [facility] Work Phone: 01-29-2022 14:59-0400 Body weight 151.49 kg [employer] BU[employer]-C Nithya Caceres [employer]ER BUILDER Work Phone: [facility] Work Phone: 01-29-2022 14:59-0400 Diastolic blood pressure 75 mm[Hg] [employer]-C Nithya Caceres GU[employer]ER BUILDER Work Phone: [facility] Work Phone: 01-29-2022 14:59-0400 Heart rate 96 /min [employer]-C Nithya Caceres GU[employer]ER BUILDER Work Phone: [facility] Work Phone: 01-29-2022 14:59-0400 Respiratory rate 16 /min [employer]-C Nithya Caceres [employer]LER BUILDER Work Phone: [facility] Work Phone: 01-29-2022 14:59-0400 Systolic blood pressure 125 mm[Hg] [employer]-C Nithya Caceres [employer]ER BUILDER Work Phone: [facility] Work Phone: 09-30-2021 11:12-0400 Body height 167.64 cm [employer] BU[employer]-C Nithya Caceres GU[employer]ER BUILDER Work Phone: [facility] Work Phone: 09-30-2021 11:12-0400 Body mass index (BMI) [Ratio] 55.3 kg/m2 [employer]C Nithya Caceres [employer]ER BUILDER Work Phone: [facility] Work Phone: 09-30-2021 11:12-0400 Body weight 155.58 kg [employer] BU[employer]DER-C Nithya Caceres GU[employer]LER BUILDER Work Phone: [facility] Work Phone: 09-30-2021 11:12-0400 Diastolic blood pressure 81 mm[Hg] [employer]C Nithya Caceres [employer]ER BUILDER Work Phone: [facility] Work Phone: 09-30-2021 11:12-0400 Heart rate 122 /min [employer]C Nithya Caceres [employer]ER BUILDER Work Phone: [facility] Work Phone: 09-30-2021 11:12-0400 Respiratory rate 24 /min [employer]-C Nithya Caceres [employer]ER BUILDER Work Phone: [facility] Work Phone: 09-30-2021 11:12-0400 Systolic blood pressure 131 mm[Hg] [employer]-C Nithya Caceres GU[employer]ER BUILDER Work Phone: [facility] Work Phone: 09-30-2021 11:12-0400 Body height 167.64 cm [employer] BU[employer]-C Nithya Caceres GU[employer]ER BUILDER Work Phone: [facility] Work Phone: 09-30-2021 11:12-0400 Body mass index (BMI) [Ratio] 55.3 kg/m2 [employer]-C Nithya Caceres [employer]ER BUILDER Work Phone: [facility] Work Phone: 09-30-2021 11:12-0400 Body weight 155.58 kg [employer] BUILDER-C Nithya Caceres GU[employer]ER BUILDER Work Phone: [facility] Work Phone: 09-30-2021 11:12-0400 Diastolic blood pressure 81 mm[Hg] [employer] BU[employer]-C Nithya Caceres GU[employer]ER BUILDER Work Phone: [facility] Work Phone: 09-30-2021 11:12-0400 Heart rate 122 /min [employer]C Nithya Caceres GU[employer]ER BUILDER Work Phone: [facility] Work Phone: 09-30-2021 11:12-0400 Respiratory rate 24 /min [employer]-C Nithya Caceres GUZZLER BUILDER Work Phone: [facility] Work Phone: 09-30-2021 11:12-0400 Systolic blood pressure 131 mm[Hg] [employer] BU[employer]-C Nithya Caceres GU[employer]ER BUILDER Work Phone: [facility] Work Phone: 08-29-2021 17:41-0400 Body height 167.64 cm [employer] BUILDER-C Nithya Caceres GU[employer]ER BUILDER Work Phone: [facility] Work Phone: 08-29-2021 17:41-0400 Body mass index (BMI) [Ratio] 57.1 kg/m2 [employer]C Nithya Caceres [employer]ER BUILDER Work Phone: [facility] Work Phone: 08-29-2021 17:41-0400 Body temperature 97.9 [degF] [employer] BU[employer]-C Nithya Caceres [employer]ER BUILDER Work Phone: [facility] Work Phone: 08-29-2021 17:41-0400 Body weight 160.57 kg [employer] BUILDER-C Nithya Caceres GU[employer]ER BUILDER Work Phone: [facility] Work Phone: 08-29-2021 17:41-0400 Diastolic blood pressure 70 mm[Hg] [employer]-C Nithya Caceres GU[employer]ER BUILDER Work Phone: [facility] Work Phone: 08-29-2021 17:41-0400 Heart rate 121 /min [employer]-C Nithya Caceres [employer]ER BUILDER Work Phone: [facility] Work Phone: 08-29-2021 17:41-0400 Respiratory rate 18 /min [employer]C Nithya Caceres [employer]ER BUILDER Work Phone: [facility] Work Phone: 08-29-2021 17:41-0400 SaO2% (BldA) [Mass fraction] 98 % [employer]-C Nithya Caceres [employer]ER BUILDER Work Phone: [facility] Work Phone: 08-29-2021 17:41-0400 Systolic blood pressure 142 mm[Hg] [employer] BU[employer]-C Nithya Caceres GU[employer]ER BUILDER Work Phone: [facility] Work Phone: 07-16-2021 12:24-0500 Body mass index (BMI) [Ratio] 57 kg/m2 [employer]C Nithya Caceres GU[employer]ER BUILDER Work Phone: [facility] Work Phone: 07-16-2021 12:24-0500 Body temperature 97.1 [degF] [employer] BU[employer]-C Nithya Caceres GU[employer]ER BUILDER Work Phone: [facility] Work Phone: 07-16-2021 12:24-0500 Body weight 160.28 kg [employer] BUILDER-C Nithya Caceres GU[employer]LER BUILDER Work Phone: [facility] Work Phone: 07-16-2021 12:24-0500 Diastolic blood pressure 80 mm[Hg] [employer] BU[employer]-C Nithya Caceres GU[employer]ER BUILDER Work Phone: [facility] Work Phone: 07-16-2021 12:24-0500 Heart rate 104 /min [employer]-C Nithya Caceres GU[employer]ER BUILDER Work Phone: [facility] Work Phone: 07-16-2021 12:24-0500 Respiratory rate 20 /min [employer]-C Nithya Caceres GU[employer]ER BUILDER Work Phone: [facility] Work Phone: 07-16-2021 12:24-0500 SaO2% (BldA) [Mass fraction] 98 % [employer] BU[employer]-C Nithya Caceres GUZZLER BUILDER Work Phone: [facility] Work Phone: 07-16-2021 12:24-0500 Systolic blood pressure 129 mm[Hg] [employer] BU[employer]DER-C Nithya Caceres GU[employer]LER BUILDER Work Phone: [facility] Work Phone: Encounters Encounter Date Encounter Type Care Provider Facility Start: 04-11-2025 End: 04-11-2025 ambulatory Chalon Elida Facility:[facility] Start: 01-19-2025 End: 01-19-2025 Patient encounter procedure Geno DE LA CRUZ -[facility] Work Phone: Start: 01-19-2025 End: 01-19-2025 ambulatory Chalon Elida MD Work Phone: -[facility] Start: 12-06-2024 Non-patient / Non-visit Dr. Gus York MD -[facility] Start: 12-06-2024 End: 12-06-2024 ambulatory Seema Marrero MD Work Phone: -[facility] Start: 12-06-2024 End: 12-06-2024 Patient encounter procedure Geno DE LA CRUZ -[facility] Work Phone: Start: 12-06-2024 End: 12-06-2024 ambulatory Geno Mclean Facility:[facility] Start: 11-24-2024 End: 11-24-2024 Patient encounter procedure Geno DE LA CRUZ -[facility] Work Phone: Start: 11-24-2024 End: 11-24-2024 ambulatory Seema Marrero MD Work Phone: [facility] Work Phone: Start: 11-10-2024 End: 11-10-2024 ambulatory Seema Marrero MD Work Phone: [facility] Work Phone: Start: 11-10-2024 End: 11-10-[address] Se[facility] Start: 11-10-2024 End: 11-10-2024 ambulatory Seema Marrero Facility:[facility] Start: 05-18-2024 End: 05-18-2024 ambulatory Nithya Caceres [employer] Facility:[facility] Start: 05-04-2024 ambulatory Geno Mclean Facility:[facility] Start: 05-04-2024 End: 05-04-2024 ambulatory Geno Mclean Facility:[facility] Start: 04-29-2024 End: 04-29-2024 ambulatory Geno Mclean Facility:[facility] Start: 03-03-2023 End: 03-03-2023 ambulatory [facility] Work Phone: Start: 03-03-2023 End: 03-03-2023 Patient encounter procedure [facility], Specimen Work Phone: Start: 01-13-2023 Registered Referred [facility], Specimen Work Phone: Start: 08-21-2022 End: 08-21-2022 ambulatory [facility] Work Phone: Start: 08-21-2022 End: 08-21-2022 [facility] Start: 03-04-2022 End: 03-04-2022 ambulatory [employer]C Nithya Caceres [employer] BUILDER Work Phone: [facility] Work Phone: Start: 03-04-2022 End: 03-04-2022 Patient encounter procedure [employer]-C Nithya Caceres [employer] BUILDER [facility] Start: 02-18-2022 End: 02-18-2022 ambulatory [employer]-C Nithya Caceres [employer]ER BUILDER Work Phone: [facility] Work Phone: Start: 02-18-2022 End: 02-18-2022 Patient encounter procedure [employer]-C Nithya Caceres [employer] BUILDER [facility] Start: 02-13-2022 End: 02-13-2022 ambulatory [employer]-C Nithya Caceres [employer] BUILDER Work Phone: [facility] Work Phone: Start: 02-13-2022 End: 02-13-2022 Patient encounter procedure [employer]-C Nithya Caceres [employer] BUILDER [facility] Start: 02-11-2022 End: 02-11-2022 ambulatory [employer]-C Nithya Caceres [employer] BUILDER Work Phone: [facility] Work Phone: Start: 02-11-2022 End: 02-11-2022 Patient encounter procedure [employer] BUILDER-C Nithya Caceres GUZZ[employer]ER BUILDER Work Phone: [facility], Specimen Start: 01-29-2022 End: 01-29-2022 Patient encounter procedure GUZZLER BUILDER-Shorty Caceres GUZZLER BUILDER Work Phone: [facility] Start: 12-30-2021 End: 12-30-2021 Patient encounter procedure GUZZLER BUILDER-Shorty Caceres GUZZLER BUILDER Work Phone: [facility] Start: 2021 End: 2021 Patient encounter procedure [employer] BUIL[employer]-C Nithay Caceres GUZZLER BUILDER Work Phone: [facility] Start: 10-22-2021 End: 10-22-2021 Patient encounter procedure GUZZLER BUILDER-Shorty Caceres GUZZLER BUILDER Work Phone: [facility] Start: 09-30-2021 End: 09-30-2021 Patient encounter procedure GUZZLER BUILDER-Shorty Caceres GUZZLER BUILDER Work Phone: [facility] Start: 09-18-2021 End: 09-18-2021 Patient encounter procedure [employer] BUILDER-C Nithya Caceres [employer]ER BUILDER [facility] Start: 07-16-2021 End: 07-16-2021 Patient encounter procedure GUZZLER BUILDER-Shorty Caceres GUZZLER BUILDER Work Phone: [facility] Start: 07-10-2021 End: 07-10-2021 Patient encounter procedure GUZZLER BUILDER-Shorty Caceres GUZZLER BUILDER Work Phone: [facility] Start: 06-04-2017 Ambulatory Nithyajames Caceres [facility] Procedures Date Procedure Procedure Detail Performing Clinician Start: 11-10-2024 Vitamin D, 25-hydrox y measurement Seema Marrero MD Work Phone: Comment on above: Vitamin D StatusDefi ciency: <20 ng/mL (50nmol/L)Insufficiency: 20-30 ng/mL (50-75 nmol/L)Sufficiency: 30-100 ng/mL (75-250 nmol/L)Toxicity: >100 ng/mL (>250 nmol/L) Immunizations Immunization Date Immunization Notes Care Provider Fa cility 03-01-2020 Fluzone Quad 2019-20 21 (PF) (flu vacc [id number] 6mos up(PF)) 60 mcg (15 mcg x [employer]-C Nithya Caceres [employer]ER BUILDER Work Phone: [facility] Work Phone: 03-01-2020 flu vac qs 2018(4 yr up)CD(PF) [employer] BU[employer]-C Nithya Caceres GU[employer]ER BUILDER Work Phone: [facility] Work Phone: 03-25-2019 flu vac qs 2018(4 yr up)CD(PF) GU[employer] BUILDER-C Nithya Caceres GU[employer]ER BUILDER Work Phone: [facility] Work Phone: Payers Date Payer Category Payer Medicare [id number] 2024 Unknown [id number] 2024 Medicaid [id number] 2024 Self-pay [id number] 2024 Unknown [id number] Unknown Unknown [id number] Unknown [id number] Unknown [id number] 2.16.8 [id number] Unknown [id number] 2.16.8 [id number] Unknown [id number] 2.16.8 [id number] Unknown [id number] 2.16.8 [id number] Unknown [id number] 2.16.8 [id number] Unknown [id number] 2.16.8 [id number] Unknown [id number] 2.16.8 [id number] Unknown [id number] 2.16.8 [id number] Unknown [id number] 2.16.8 [id number] Unknown [id number] 2.16.8 [id number] Social History Date Type Detail Facility Start: 07-16-2021 End: 10-30-2022 Tobacco smoking status SDIS Unknown if ever smoked [facility] Start: 1965 Sex Assigned At Female [facility] Start: 11-07-2024 End: 11-24-2024 Tobacco smoking status SDIS Current Light tobacco smoker [facility] Medical Equipment Procedure Code Equipment Code Equipment [...] 08-29-2021 Pen Needle, Diabetic (Comfort Ez Pen Duncan) 33 gauge x 5/32 needle Start: 05-16-2021 Pen Needle, Diabetic (Comfort Ez Pen Duncan) 33 gauge x 5/32 needle Start: 11-15-2019 End: 11-15-2019 Pen Needle, Diabetic (Comfort Ez Pen Duncan) 33 gauge x 5/32 needle Start: 11-15-2019 End: 11-18-2019 Pen Needle, Diabetic (Comfort Ez Pen Duncan) 33 gauge x 5/32 needle Start: 07-09-2020 End: 05-16-2021 Pen Needle, Diabetic (Comfort Ez Pen Duncan) 33 gauge x 5/32 needle Start: 11-18-2019 End: 07-09-2020 Blood Sugar Diagnostic (Onetouch Verio Test Strips) strip Start: 08-29-2021 Pen Needle, Diabetic (Comfort Ez Pen Duncan) 33 gauge x 5/32 needle Start: 05-16-2021 Pen Needle, Diabetic (Comfort Ez Pen Duncan) 33 gauge x 5/32 needle Start: 11-15-2019 End: 11-15-2019 Pen Needle, Diabetic (Comfort Ez Pen Duncan) 33 gauge x 5/32 needle Start: 11-15-2019 End: 11-18-2019 Pen Needle, Diabetic (Comfort Ez Pen Duncan) 33 gauge x 5/32 needle Start: 07-09-2020 End: 05-16-2021 Pen Needle, Diabetic (Comfort Ez Pen Duncan) 33 gauge x 5/32 needle Start: 11-18-2019 End: 07-09-2020 Blood Sugar Diagnostic (Onetouch Verio Test Strips) strip Start: 08-29-2021 Pen Needle, Diabetic (Comfort Ez Pen Duncan) 33 gauge x 5/32 needle Start: 05-16-2021 Pen Needle, Diabetic (Comfort Ez Pen Duncan) 33 gauge x 5/32 needle Start: 11-15-2019 End: 11-15-2019 Pen Needle, Diabetic (Comfort Ez Pen Duncan) 33 gauge x 5/32 needle Start: 11-15-2019 End: 11-18-2019 Pen Needle, Diabetic (Comfort Ez Pen Duncan) 33 gauge x 5/32 needle Start: 07-09-2020 End: 05-16-2021 Pen Needle, Diabetic (Comfort Ez Pen Duncan) 33 gauge x 5/32 needle Start: 11-18-2019 End: 07-09-2020 Blood Sugar Diagnostic (Onetouch Verio Test Strips) strip Start: 08-29-2021 Pen Needle, Diabetic (Comfort Ez Pen Duncan) 33 gauge x 5/32 needle Start: 05-16-2021 Pen Needle, Diabetic (Comfort Ez Pen Duncan) 33 gauge x 5/32 needle Start: 11-15-2019 End: 11-15-2019 Pen Needle, Diabetic (Comfort Ez Pen Duncan) 33 gauge x 5/32 needle Start: 11-15-2019 End: 11-18-2019 Pen Needle, Diabetic (Comfort Ez Pen Duncan) 33 gauge x 5/32 needle Start: 07-09-2020 End: 05-16-2021 Pen Needle, Diabetic (Comfort Ez Pen Duncan) 33 gauge x 5/32 needle Start: 11-18-2019 End: 07-09-2020 Blood Sugar Diagnostic (Onetouch Verio Test Strips) strip Start: 08-29-2021 Pen Needle, Diabetic (Comfort Ez Pen Duncan) 33 gauge x 5/32 needle Start: 05-16-2021 Pen Needle, Diabetic (Comfort Ez Pen Duncan) 33 gauge x 5/32 needle Start: 11-15-2019 End: 11-15-2019 Pen Needle, Diabetic (Comfort Ez Pen Duncan) 33 gauge x 5/32 needle Start: 11-15-2019 End: 11-18-2019 Pen Needle, Diabetic (Comfort Ez Pen Duncan) 33 gauge x 5/32 needle Start: 07-09-2020 End: 05-16-2021 Pen Needle, Diabetic (Comfort Ez Pen Duncan) 33 gauge x 5/32 needle Start: 11-18-2019 End: 07-09-2020 Blood Sugar Diagnostic (Onetouch Verio Test Strips) strip Start: 08-29-2021 Pen Needle, Diabetic (Comfort Ez Pen Duncan) 33 gauge x 5/32 needle Start: 05-16-2021 Pen Needle, Diabetic (Comfort Ez Pen Duncan) 33 gauge x 5/32 needle Start: 11-15-2019 End: 11-15-2019 Pen Needle, Diabetic (Comfort Ez Pen Duncan) 33 gauge x 5/32 needle Start: 11-15-2019 End: 11-18-2019 Pen Needle, Diabetic (Comfort Ez Pen Duncan) 33 gauge x 5/32 needle Start: 07-09-2020 End: 05-16-2021 Pen Needle, Diabetic (Comfort Ez Pen Duncan) 33 gauge x 5/32 needle Start: 11-18-2019 End: 07-09-2020 Blood Sugar Diagnostic (Onetouch Verio Test Strips) strip Start: 08-29-2021 Pen Needle, Diabetic (Comfort Ez Pen Duncan) 33 gauge x 5/32 needle Start: 05-16-2021 Pen Needle, Diabetic (Comfort Ez Pen Duncan) 33 gauge x 5/32 needle Start: 11-15-2019 End: 11-15-2019 Pen Needle, Diabetic (Comfort Ez Pen Duncan) 33 gauge x 5/32 needle Start: 11-15-2019 End: 11-18-2019 Pen Needle, Diabetic (Comfort Ez Pen Duncan) 33 gauge x 5/32 needle Start: 07-09-2020 End: 05-16-2021 Pen Needle, Diabetic (Comfort Ez Pen Duncan) 33 gauge x 5/32 needle Start: 11-18-2019 End: 07-09-2020 Blood Sugar Diagnostic (Onetouch Verio Test Strips) strip Start: 08-29-2021 Pen Needle, Diabetic (Comfort Ez Pen Duncan) 33 gauge x 5/32 needle Start: 05-16-2021 Pen Needle, Diabetic (Comfort Ez Pen Duncan) 33 gauge x 5/32 needle Start: 11-15-2019 End: 11-15-2019 Pen Needle, Diabetic (Comfort Ez Pen Duncan) 33 gauge x 5/32 needle Start: 11-15-2019 End: 11-18-2019 Pen Needle, Diabetic (Comfort Ez Pen Duncan) 33 gauge x 5/32 needle Start: 07-09-2020 End: 05-16-2021 Pen Needle, Diabetic (Comfort Ez Pen Duncan) 33 gauge x 5/32 needle Start: 11-18-2019 End: 07-09-2020 Blood Sugar Diagnostic (Onetouch Verio Test Strips) strip Start: 08-29-2021 Pen Needle, Diabetic (Bd Teresita 2nd Gen Pen Needle) 32 gauge x 5/32 needle Start: 04-18-2022 Pen Needle, Diabetic (Comfort Ez Pen Duncan) 33 gauge x 5/32 needle Start: 11-15-2019 End: 11-15-2019 Pen Needle, Diabetic (Comfort Ez Pen Duncan) 33 gauge x 5/32 needle Start: 11-15-2019 End: 11-18-2019 Pen Needle, Diabetic (Comfort Ez Pen Duncan) 33 gauge x 5/32 needle Start: 07-09-2020 End: 05-16-2021 Pen Needle, Diabetic (Comfort Ez Pen Duncan) 33 gauge x 5/32 needle Start: 11-18-2019 End: 07-09-2020 Pen Needle, Diabetic (Comfort Ez Pen Duncan) 33 gauge x 5/32 needle Start: 05-16-2021 End: 04-18-2022 Blood Sugar Diagnostic (Onetouch Verio Test Strips) strip Start: 08-29-2021 Blood Sugar Diagnostic (Onetouch Verio Test Strips) strip Start: 03-03-2023 Pen Needle, Diabetic (Bd Teresita 2nd Gen Pen Needle) 32 gauge x 5/32 needle Start: 04-18-2022 Pen Needle, Diabetic (Comfort Ez Pen Duncan) 33 gauge x 5/32 needle Start: 11-15-2019 End: 11-15-2019 Pen Needle, Diabetic (Comfort Ez Pen Duncan) 33 gauge x 5/32 needle Start: 11-15-2019 End: 11-18-2019 Pen Needle, Diabetic (Comfort Ez Pen Duncan) 33 gauge x 5/32 needle Start: 07-09-2020 End: 05-16-2021 Pen Needle, Diabetic (Comfort Ez Pen Duncan) 33 gauge x 5/32 needle Start: 11-18-2019 End: 07-09-2020 Pen Needle, Diabetic (Comfort Ez Pen Duncan) 33 gauge x 5/32 needle Start: 05-16-2021 [...] 09-10-2023 Pen Needle, Diabetic (Comfort Ez Pen Duncan) 33 gauge x 5/32 needle Start: 11-15-2019 End: 11-15-2019 Pen Needle, Diabetic (Comfort Ez Pen Duncan) 33 gauge x 5/32 needle Start: 11-15-2019 End: 11-18-2019 Pen Needle, Diabetic (Comfort Ez Pen Duncan) 33 gauge x 5/32 needle Start: 07-09-2020 End: 05-16-2021 Pen Needle, Diabetic (Comfort Ez Pen Duncan) 33 gauge x 5/32 needle Start: 11-18-2019 End: 07-09-2020 Pen Needle, Diabetic (Comfort Ez Pen Duncan) 33 gauge x 5/32 needle Start: 05-16-2021 [...] 09-10-2023 Pen Needle, Diabetic (Comfort Ez Pen Duncan) 33 gauge x 5/32 needle Start: 11-15-2019 End: 11-15-2019 Pen Needle, Diabetic (Comfort Ez Pen Duncan) 33 gauge x 5/32 needle Start: 11-15-2019 End: 11-18-2019 Pen Needle, Diabetic (Comfort Ez Pen Duncan) 33 gauge x 5/32 needle Start: 07-09-2020 End: 05-16-2021 Pen Needle, Diabetic (Comfort Ez Pen Duncan) 33 gauge x 5/32 needle Start: 11-18-2019 End: 07-09-2020 Pen Needle, Diabetic (Comfort Ez Pen Duncan) 33 gauge x 5/32 needle Start: 05-16-2021 [...] 09-10-2023 Pen Needle, Diabetic (Comfort Ez Pen Duncan) 33 gauge x 5/32 needle Start: 11-15-2019 End: 11-15-2019 Pen Needle, Diabetic (Comfort Ez Pen Duncan) 33 gauge x 5/32 needle Start: 11-15-2019 End: 11-18-2019 Pen Needle, Diabetic (Comfort Ez Pen Duncan) 33 gauge x 5/32 needle Start: 07-09-2020 End: 05-16-2021 Pen Needle, Diabetic (Comfort Ez Pen Duncan) 33 gauge x 5/32 needle Start: 11-18-2019 End: 07-09-2020 Pen Needle, Diabetic (Comfort Ez Pen Duncan) 33 gauge x 5/32 needle Start: 05-16-2021 [...] 09-10-2023 Pen Needle, Diabetic (Comfort Ez Pen Duncan) 33 gauge x 5/32 needle Start: 11-15-2019 End: 11-15-2019 Pen Needle, Diabetic (Comfort Ez Pen Duncan) 33 gauge x 5/32 needle Start: 11-15-2019 End: 11-18-2019 Pen Needle, Diabetic (Comfort Ez Pen Duncan) 33 gauge x 5/32 needle Start: 07-09-2020 End: 05-16-2021 Pen Needle, Diabetic (Comfort Ez Pen Duncan) 33 gauge x 5/32 needle Start: 11-18-2019 End: 07-09-2020 Pen Needle, Diabetic (Comfort Ez Pen Duncan) 33 gauge x 5/32 needle Start: 05-16-2021 End: 04-18-2022 Clinical Notes 11-24-2024 Note Date & Type Note Facility 11-24-2024 Evaluation note Diagnosis Onset Date Resolution Symptomatic varicose veins of right lower extremity acute November 24, 2024 9:24am [facility] Work Phone: Evaluation note* Diagnosis Onset Date Resolution Status Presence of arteriovenous fistula for hemodialysis acute Allergic drug rash acute Bronchitis acute Sinusitis chronic, ethmoidal chronic [facility] Work Phone: Evaluation note* Diagnosis Onset Date Resolution Status Presence of arteriovenous fistula for hemodialysis acute Allergic drug rash acute Bronchitis acute Sinusitis chronic, ethmoidal chronic Tachycardia acute 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 (congestive heart failure) chronic Essential (primary) hypertension chronic Chronic renal insufficiency, stage IV (severe) chronic [facility] Work Phone: Evaluation note* Diagnosis Onset Date Resolution Status Allergic drug rash acute Bronchitis acute Sinusitis chronic, ethmoidal chronic Tachycardia acute 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 (congestive heart failure) chronic Essential (primary) hypertension chronic Chronic renal insufficiency, stage IV (severe) [facility] Work Phone: Evaluation note* Diagnosis Onset Date Resolution Status Tachycardia acute 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 (congestive heart failure) chronic Essential (primary) hypertension chronic Chronic renal insufficiency, stage IV (severe) chronic [facility] Work Phone: Evaluation note* Diagnosis Onset Date Resolution Status Chronic renal insufficiency, stage IV (severe) chronic 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 (congestive heart failure) chronic Essential (primary) hypertension [facility] Work Phone: Evaluation note* Diagnosis Onset Date Resolution Status 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 (congestive heart failure) chronic Essential (primary) hypertension [facility] Work Phone: Evaluation note* Diagnosis Onset Date Resolution Status 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 (congestive heart failure) chronic Essential (primary) hypertension chronic Hypothyroidism acute 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 (congestive heart failure) chronic Chronic renal insufficiency, stage IV (severe) chronic Essential (primary) hypertension chronic Type 2 diabetes mellitus without complications chronic [facility] Work Phone: Evaluation note* Diagnosis Onset Date Resolution Status Hypothyroidism acute [facility] Work Phone: Evaluation note* Diagnosis Onset Date Resolution Status Hypothyroidism acute Cardiomyopathy chronic Chronic renal insufficiency, stage IV (severe) chronic Essential (primary) hypertension chronic Type 2 diabetes mellitus without complications [facility] Work Phone: Evaluation noteNo assessment information available [facility] Work Phone: Reason for referral (narrative)No reason for [facility] Work [facility]: Summary Purpose Family History No [...] Will No May 13 4:04pm Power of Retail Specialist No May 13, 2018 4:04pm Advance Directive Response Recorded Date/ Time Living Will No February 20, 2021 8:27am Power of Retail Specialist No February 8:27am Chief Complaint and Reason [...] referred by Dr. Elida alcantara 2024 9:24am Chief Complaint Admit Date Varicose Veins, referred by Dr. Elida Nov 9:24am Pain December 06, 2024 2:08p m Reason for Visit Admit Date Symptomatic varicose veins of right lowe r extremity November 24, 2024 9:24am Chief Complaint Admit Date Varicose Veins, referred by Dr. Marrero Nov 9:24am Pain December 06, 2024 2:08p m 8 [facility] FU January 19, 2025 10 :20am Additional Source Comments INFORMATION SOURCE (unrecogn ized section and content) DATE CREATED AUTHOR 12/01/2017 [facility] [facility] [employer] DATE CREATED AUTHOR AUTHOR'S ORGANIZ ATION [facility] Goals (unrecognized section and content) Goals may [...] Active Member Role Status Dates Nithya Caceres GUZZLER BUILDER, GUZZLER BUILDER-C Family Provider Active Nithya Caceres GUZZLER BUILDER, GUZZLER BUILDER-C Primary Care Provider Active Team Status: Inactive Member Role Status Dates Nithya Caceres NP, GUZZLER BUILDER-C Primary Care Pr ovider, Attending Provider, Referring Provider Active Team Status: Inactive Member Role Status Dates Nithya Caceres GUZZLER BUILDER, GUZZLER BUILDER-C Primary Care Provider, Attend ing Provider Active Team Status: Active Member Role Status Dates Nithya Caceres NP, GUZZLER BUILDER-C Primary Care Provider Active Dr. Kanwal Gil , Attending Provider, Referring Jhoana hernandez Active Team Status: Active Member Role Status Dates Nithya Caceres NP, GUZZLER BUILDER-C Family Provider Active Seema Marrero MD Primary [...] November 24, 2024 End: November 24, 2024 Team Status: Active Member Role/Relationship Status Coni Marrero MD Primary Care Provider Active Team Status: Inactive Member Role/Relationship Status Coni Marrero MD Primary Care Provider Active St art: November 10, 2024 End: November 10, 2024 Seema Marrero MD Attending Provider Active Start : November 10, 2024 End: November 10, 2024 Seema Marrero MD Referring Provider Active Start : November 10, 2024 End: November 10, 2024 Team Status: Inactive Member Role/Relationship Status Dates JONO Ozuna Attending Provider Active Star t: November 24, 2024 End: November 24, 2024 Seema Marrero MD Primary Care Provider Active St art: November 24, 2024 End: November 24, 2024 Seema Marrero MD Referring Provider Active Start : November 24, 2024 End: November 24, 2024 Team Status: Inactive Member Role/Relationship Status Coni Marrero MD Primary Care Provider Active St art: December 06, 2024 End: December 06, 2024 JONO Ozuna Attending Provider Active Star t: December 06, 2024 End: December 06, 2024 JONO Ozuna Referring Provider Active Star t: December 06, 2024 End: December 06, 2024 Team Status: Active Member Role/Relationship Status Coni Marrero MD Primary Care Provider Active St art: December 06, 2024 Dr. Gus York MD Attending Provider Active S tart: December 06, 2024 Team Status: Active Member Role/Relationship Status Dates Seema Marrero MD Primary Care Provider Active St art: December 06, 2024 Dr. Gus York MD Attending Provider Active S tart: December 06, 2024 JONO Ozuna Referring Provider Active Star t: December 06, 2024 Team Status: Inactive Member Role/Relationship Status Coni Marrero MD Primary Care Provider Active St art: January 19, 2025 End: January 19, 2025 Seema Marrero MD Referring Provider Active Start : January 19, 2025 End: January 19, 2025 JONO Ozuna Attending Provider Active Star t: January 19, 2025 End: January 19, 2025 FOR RECORDS PERTAINING TO PATIENTS WHO ARE [...] BE BASED ON THE PRIMARY CLINICAL RECORDS. [facility]. provides no warranty or guarantee of the accuracy or completeness of information in this document.
== END | disposition home or self-care (01) ==
PROVIDERS: PCP Family Medicine
DX: Z12.31 Encounter for screening mammogram for malignant neoplasm of breast (principal)
CPT/HCPCS: 77063; 77067

== ENCOUNTER → 2025-05-25 | Outpatient (CLI) | payer MEDICARE, MEDICAID, SELFPAY ==
--- NOTE | 2025-05-25 14:06 | RAD_ITS ---
PROCEDURE: KNEE 4 OR MORE VIEWS 05/25/2025 REASON FOR EXAM: RIGHT KNEE PAIN TECHNIQUE: Procedure Code: RADKN Modality: DX Procedure: KNEE 4 OR MORE VIEWS COMPARISON: None FINDINGS: Marked degree of joint space narrowing and osteoarthritis of the patellofemoral joint and medial compartment of the knee joint. Subchondral cystic changes. Moderate degree of joint space narrowing and osteoarthritis of the lateral compartment of the knee joint. RAD/Knee 4 or More Views IMPRESSION: DEGENERATIVE OSTEOARTHROSIS. NO ACUTE FINDINGS. Reading Location: [id number]
== END | disposition home or self-care (01) ==
LOC: MTRAD 14:06
PROVIDERS: PCP Family Medicine; Referring Provider Family Medicine; Visit Provider Family Medicine
DX: M25.561 Pain in right knee (principal)
CPT/HCPCS: 73564